=== PATIENT | female | born 1950 | race Caucasian/White ===

== ENCOUNTER → 2018-08-03 | Outpatient (CLI) | payer MEDICARE, OTHER ==
--- NOTE | 2018-08-03 15:15 | Diagnostic Imaging Report ---
INDICATION: Postmenopausal screening. COMPARISON: None. FINDINGS: AP Spine L2-L4: [BMD (g/cm2): 1.093] [T-Score: -0.9] [Z-Score: 0.8] [BMD Previous: N/A] [BMD % Change: N/A] LT Hip Neck: [BMD (g/cm2): 0.830] [T-Score: -1.5] [Z-Score: 0.1] LT Hip Total: [BMD (g/cm2):0.893] [T-Score:-0.9] [Z-Score: 0.5] [BMD Previous: N/A] [BMD % Change: N/A] RT Hip Neck: [BMD (g/cm2):0.921] [T-Score:-0.8] [Z-Score:0.8] RT Hip Total: [BMD (g/cm2):0.873] [T-score:-1.1] [Z-Score:0.3] [BMD Previous:N/A] [BMD % Change:N/A] *Indicates significant change from prior examination based on 95% confidence level. World Health Organization criteria for BMD interpretation classify patients as Normal (T-score at or above -1.0), Osteopenic (T-score between -1.0 and -2.5) or Osteoporotic (T-score at or below -2.5). LIMITATIONS AND MODIFICATION: None. FRACTURE RISK (FRAX SCORE): The ten year probability of (%): Major Osteoporotic Fracture: [9.5] Hip Fracture: [1.9] IMPRESSION: 1. Osteopenia (Low bone mass). 2. Baseline examination. 3. See below National Osteoporosis Foundation guidelines on when to potentially initiate pharmacologic therapy. Based on the National Osteoporosis Foundation Guidelines, pharmacologic treatment should be initiated in any of the following, unless clinical conditions suggest otherwise: * Any patient with prior fragility fracture of the hip or vertebrae. A spine fracture indicates 5X risk for subsequent spine fracture and 2X risk for subsequent hip fracture. * Osteoporosis (T-score <-2.5). * Postmenopausal women and men age 50 and older with low bone mass/osteopenia (T-score between -1.0 and -2.5) by DXA and 10-year major osteoporotic fracture greater than 20% or a 10-year probability of hip fracture greater than 3%. These fracture risks are supplied above in the FRAX score, if applicable. * Clinician judgement and/or patient preferences may indicate treatment for people with 10-year fracture probabilities above or below these levels. Dictated by: Dictated on workstation # [id number]
== END ==
LOC: RAD 11:21
PROVIDERS: ATTEND Family Medicine
DX: Z13.820 Encounter for screening for osteoporosis (principal); M85.89 Other specified disorders of bone density and structure, multiple sites; J44.9 Chronic obstructive pulmonary disease, unspecified; Z79.52 Long term (current) use of systemic steroids; Z78.0 Asymptomatic menopausal state
CPT/HCPCS: 77080

== ENCOUNTER 2018-08-11 14:22 | Emergency (ER) | payer MEDICARE, OTHER ==
[~2018-08-11] VITALS: Ht 149.9 cm; Wt 63.5 kg
--- OUTSIDE RECORDS SUMMARY | 2018-08-11 14:34 | XMS REPORT | Continuity of Care Document ---
Author Organization Unknown Address Unknown Allergies There is no data. Medications There is no data. Problems There is no data. Procedures There is no data. Results There is no data. Encounters ACCT No. Visit Date/Time Discharge Status Pt. Type Provider Facility Loc./Unit Complaint [id number] 08/11/2018 13:40:00 [facility]
[2018-08-11] MEDS ORDERED: RT-ALBUTEROL/IPRATROPIUM 3 ML (DUONEB) VIAL INH ONE (15:00)
[2018-08-11] MEDS ORDERED: methylPREDNISolone 125 MG (Solu-MEDROL) VIAL IVP ONE (15:00)
[2018-08-11] MEDS ORDERED: RT-ALBUTEROL SULF 2.5 MG/3 ML PRE-MIX VIAL INH SCH (15:00)
--- NOTE | 2018-08-11 15:38 | Diagnostic Imaging Report ---
INDICATION: Hypoxemia. EXAMINATION: Portable chest at 3:00 p.m. FINDINGS: Heart size and pulmonary vascularity are normal. There is increased density at the right apex. Lungs are otherwise clear. There is no effusion or pneumothorax. IMPRESSION: Right apical density could be neoplastic. Further evaluation with CT recommended. Dictated by: Dictated on workstation # [id number]
--- NOTE | 2018-08-11 15:38 | ED Respiratory ---
General Chief Complaint: Respiratory Problems Stated Complaint: OXYGEN SAT 86% Nursing Triage Note: Has been short of breath for two days. Was sent from doctors office today for low 02 sats. Was 88% on 5 L in office. Normally wears 3liters per nasal cannula. Her ankles have edema. Once placed on mask at 5L, O2 sats returned to 98%. Turned mask down to 3L and is satting at 96%. History of Present Illness Date Seen by Provider: Aug 11, 2018 Time Seen by Provider: 15:33 Initial Comments Patient presenting to the emergency department from her clinic for evaluation of hypoxia. She says she has been feeling short of breath with a whitish productive cough and decreased energy for the past 2-3 days. She has fairly advanced COPD and is on 3 L at baseline takes 10 mg of prednisone daily. She went to her doctor's office today and they were not able to get her oxygen saturation above 89% even with greater than 5 L of oxygen. She was sent here and started feeling better and her oxygen saturation is 96% on her baseline 3 L. She has some increased leg edema but denies any pain Including chest pain. She denies any history of coronary artery disease. She is in no obvious distress with normal vital signs. Allergies and Home Medications Allergies Coded Allergies: No Known Drug Allergies (Unverified , 08/11/18) Patient Home Medication List Home Medication List Reviewed: Yes Review of Systems Review of Systems Constitutional: chills; No fever EENTM: nose congestion Respiratory: cough, short of breath Cardiovascular: No chest pain Gastrointestinal: No vomiting Skin: No rash Past Vomhxnk-Zxzjup-Icgomx Hx Patient Social History Alcohol Use: Denies Use Recreational Drug Use: No Smoking Status: Current Everyday Smoker 2nd Hand Smoke Exposure: Yes Recent Foreign Travel: No Contact w/Someone Who Travel: No Recent Infectious Disease Expo: No Physical Abuse: No Sexual Abuse: No Mistreated: No Past Medical History Surgeries: Yes (cataract; kyphoplasty) Asthma, COPD Physical Exam Vital Signs - First Documented 08/11/18 14:31 Temp 98.9 Pulse 116 Resp 20 B/P (MAP) 111/72 (85) Pulse Ox 86 O2 Delivery Nasal Cannula Capillary Refill : Less Than 3 Seconds Height: 4'11.00" Weight: 140lbs. oz. [id number]; BMI Method:Stated General Appearance: WD/WN, no apparent distress HEENT: PERRL/EOMI, normal ENT inspection Respiratory: decreased breath sounds; No accessory muscle use, No rhonchi; wheezing, expiration, inspiration Cardiovascular: no murmur, tachycardia, other (1+ edema BL) Gastrointestinal: non tender, soft Neurologic/Psychiatric: alert, oriented x 3 Skin: normal color, warm/dry Progress/Results/Core Measures Suspected Sepsis Recent Fever Within 48 Hours: No Infection Criteria Present: Suspected New Infection New/Unexplained Altered Menta: No Sepsis Screen: No Definite Risk SIRS Temperature:98.9 Pulse: 116 Respiratory Rate: 20 Laboratory Tests 08/11/18 15:26: White Blood Count 13.1H Blood Pressure 111 /72 Mean: 85 Laboratory Tests 08/11/18 15:26: Creatinine 0.82, Platelet Count 211, Total Bilirubin 0.3 Results/Orders Lab Results Laboratory Tests Test 08/11/18 15:26 Range/Units White Blood Count 13.1 H 4.3-11.0 10^3/uL Red Blood Count 3.80 L 4.35-5.85 10^6/uL Hemoglobin 12.3 11.5-16.0 G/DL Hematocrit 41 35-52 % Mean Corpuscular Volume 107 H 80-99 FL Mean Corpuscular Hemoglobin 32 25-34 PG Mean Corpuscular Hemoglobin Concent 30 L 32-36 G/DL Red Cell Distribution Width 12.0 10.0-14.5 % Platelet Count 211 130-400 10^3/uL Mean Platelet Volume 11.1 H 7.4-10.4 FL Neutrophils (%) (Auto) 88 H 42-75 % Lymphocytes (%) (Auto) 7 L 12-44 % Monocytes (%) (Auto) 3 0-12 % Eosinophils (%) (Auto) 1 0-10 % Basophils (%) (Auto) 1 0-10 % Neutrophils # (Auto) 11.6 H 1.8-7.8 X 10^3 Lymphocytes # (Auto) 0.9 L 1.0-4.0 X 10^3 Monocytes # (Auto) 0.4 0.0-1.0 X 10^3 Eosinophils # (Auto) 0.1 0.0-0.3 10^3/uL Basophils # (Auto) 0.1 0.0-0.1 10^3/uL Neutrophils % (Manual) 87 % Lymphocytes % (Manual) 6 % Monocytes % (Manual) 3 % Band Neutrophils 4 % Hypochromasia 1+ Macrocytosis 1+ Sodium Level 142 135-145 MMOL/L Potassium Level 4.8 3.6-5.0 MMOL/L Chloride Level 97 L 98-107 MMOL/L Carbon Dioxide Level 34 H 21-32 MMOL/L Anion Gap 11 5-14 MMOL/L Blood Urea Nitrogen 13 7-18 MG/DL Creatinine 0.82 0.60-1.30 MG/DL Estimat Glomerular Filtration Rate > 60 BUN/Creatinine Ratio 16 Glucose Level 188 H 70-105 MG/DL Calcium Level 9.5 8.5-10.1 MG/DL Corrected Calcium 9.7 8.5-10.1 MG/DL Total Bilirubin 0.3 0.1-1.0 MG/DL Aspartate Amino Transf (AST/SGOT) 26 5-34 U/L Alanine Aminotransferase (ALT/SGPT) 24 0-55 U/L Alkaline Phosphatase 62 40-136 U/L Troponin T 20 H <=10 NG/L Pro-B-Type Natriuretic Peptide 96.0 H <75.0 PG/ML Total Protein 6.5 6.4-8.2 GM/DL Albumin 3.7 3.2-4.5 GM/DL Micro Results Microbiology 08/11/18 Influenza Types A,B Antigen (NAMAN) - Final, Complete My Orders Orders - SARAY GARCIA DO Cbc With Automated Diff (08/11/18 14:56) Comprehensive Metabolic Panel (08/11/18 14:56) Chest 1 View Ap/Pa Only (08/11/18 14:56) Troponin T (08/11/18 14:56) Probnp Fs (08/11/18 14:56) Influenza A And B Antigens (08/11/18 14:56) Methylprednisolone Sod Succ (Solu-Medrol (08/11/18 15:00) Albuterol/Ipra Inhalation Soln (Duoneb I (08/11/18 15:00) Svn Small Volume Nebulizer (08/11/18 14:56) Albuterol Pre-Mix Nebs (Rt) (Proventil (08/11/18 15:00) Svn Small Volume Nebulizer (08/11/18 14:56) Ct Angio Chest W (08/11/18 15:51) Manual Differential (08/11/18 15:26) Iohexol Injection (Omnipaque 350 Mg/Ml 1 (08/11/18 16:15) Received Contrast (Hold Metformin- Contr (08/11/18 16:15) Sodium Chloride Flush (Catheter Flush Sy (08/11/18 16:15) Ns (Ivpb) (Sodium Chloride 0.9% Ivpb Bag (08/11/18 16:15) Piperacillin/Tazobactam (Bulk) (Zosyn In (08/11/18 17:30) Lorazepam Injection (Ativan Injection) (08/11/18 17:30) Piperacillin Sodium/Tazobactam (Zosyn Vi (08/11/18 17:25) Ns (Ivpb) (Sodium Chloride 0.9% Ivpb Bag (08/11/18 17:25) Medications Given in ED Current Medications Medications Dose Ordered Sig/Mariela Route Start Time Stop Time Status Last Admin Dose Admin Albuterol/ Ipratropium 3 ml ONCE ONCE INH 08/11/18 15:00 08/11/18 15:01 DC 08/11/18 15:20 3 ML Iohexol 150 ml ONCE ONCE IV 08/11/18 16:15 08/11/18 16:16 DC 08/11/18 16:46 150 ML Lorazepam 1 mg ONCE ONCE IVP 08/11/18 17:30 08/11/18 17:31 DC 08/11/18 17:32 1 MG Methylprednisolone Sodium Succinate 125 mg ONCE ONCE IVP 08/11/18 15:00 08/11/18 15:01 DC 08/11/18 15:28 125 MG Sodium Chloride 10 ml NEEDED PRN IV 08/11/18 16:15 08/11/18 16:46 10 ML Sodium Chloride 50 ml ONCE ONCE IV 08/11/18 16:15 08/11/18 16:16 DC 08/11/18 16:46 50 ML Vital Signs/I&O 08/11/18 14:31 Temp 98.9 Pulse 116 Resp 20 B/P (MAP) 111/72 (85) Pulse Ox 86 O2 Delivery Nasal Cannula Capillary Refill : Less Than 3 Seconds Blood Pressure Mean: 85 Progress Note : Progress Note Patient with likely worsening of her COPD she does continue to smoke cigarettes. She says she is trying to cut back however. Patient has decreased aeration of her long-standing addition to wheezing. Will check labs chest x- ray treated with nebulizers and IV steroids and reassess. Patient had abnormal chest x-ray with recommended CT and CT is quite abnormal with possible mass versus mucus plugging with collapse of the right upper lobe. Bronchoscopy his recommended at this point however [facility] optics engineer is out of town. [facility] was full and [facility] transfer center would only go to a busy signal. I asked them where they would like to go next and she said she would prefer [facility]. Patient is stable for transfer as her vital signs and improved since getting steroids and breathing treatments here. She'll be placed on antibiotics and transferred in stable condition. Patient accepted by Dr. Cruz. Departure Impression Primary Impression: Bronchial obstruction Additional Impressions: Leukocytosis (leucocytosis) COPD with exacerbation Dyspnea Hypoxia Disposition: 02 XFER SHT-TRM HOSP Condition: Stable Transfer Time Spoke to Accepting Phy: 17:47 Transfer Facility: [facility] Method of Transfer: EMS Departure-Patient Inst. Referrals: SELF,SHARON QUICK (PCP/Family) Primary Care Physician SARAY GARCIA DO Aug 11, 2018 15:38
[2018-08-11 16:04] LABS: HEMATOCRIT 41 % (35-52); HEMOGLOBIN 12.3 G/DL (11.5-16.0); MEAN CORPUSCULAR HEMOGLOBIN 32 PG (25-34); MEAN CORPUSCULAR VOLUME 107 FL (80-99); WHITE BLOOD COUNT 13.1 10^3/uL (4.3-11.0)
[2018-08-11 16:05] LABS: BASOPHILS % (AUTO) 1 % (0-10); EOSINOPHILS % (AUTO) 1 % (0-10); LYMPHOCYTES % (AUTO) 7 % (12-44); MEAN CORPUSCULAR HGB CONC 30 G/DL (32-36); MEAN PLATELET VOLUME 11.1 FL (7.4-10.4); MONOCYTES % (AUTO) 3 % (0-12); NEUTROPHILS % (AUTO) 88 % (42-75); PLATELET COUNT 211 10^3/uL (130-400)
[2018-08-11 16:08] LABS: BASOPHILS # (AUTO) 0.1 10^3/uL (0.0-0.1); EOSINOPHILS # (AUTO) 0.1 10^3/uL (0.0-0.3); LYMPHOCYTES # (AUTO) 0.9 X 10^3 (1.0-4.0); MONOCYTES # (AUTO) 0.4 X 10^3 (0.0-1.0); NEUTROPHILS # (AUTO) 11.6 X 10^3 (1.8-7.8)
[2018-08-11 16:10] LABS: BAND NEUTROPHILS 4 %; HYPOCHROMASIA 1+; LYMPHOCYTES % (MANUAL) 6 %; MONOCYTES % (MANUAL) 3 %; NEUTROPHILS % (MANUAL) 87 %
[2018-08-11 16:11] LABS: BUN/CREATININE RATIO 16; CREATININE SERUM 0.82 MG/DL (0.60-1.30); GFR ESTIMATED > 60
[2018-08-11 16:12] LABS: CARBON DIOXIDE 34 MMOL/L (21-32); CHLORIDE 97 MMOL/L (98-107); POTASSIUM 4.8 MMOL/L (3.6-5.0); SODIUM 142 MMOL/L (135-145)
[2018-08-11 16:13] LABS: ALANINE AMINOTRANSFERASE 24 U/L (0-55); ALBUMIN 3.7 GM/DL (3.2-4.5); ALKALINE PHOSPHATASE 62 U/L (40-136); BILIRUBIN,TOTAL 0.3 MG/DL (0.1-1.0); CALCIUM 9.5 MG/DL (8.5-10.1); GLUCOSE 188 MG/DL (70-105); TOTAL PROTEIN 6.5 GM/DL (6.4-8.2)
[2018-08-11] MEDS ORDERED: HOLD METFORMIN - RECEIVED CONTRAST 20 ML VIAL IV SCH (16:15)
[2018-08-11] MEDS ORDERED: NS 50 ML (IVPB) BAG IV ONE (16:15)
[2018-08-11] MEDS ORDERED: CATHETER FLUSH 10 ML SYR IV PRN (16:15)
[2018-08-11] MEDS ORDERED: IOHEXOL 350 MG/ML 150 ML (OMNIPAQUE 350) VIAL IV ONE (16:15)
[2018-08-11] MEDS ORDERED: PIPERACILLIN/TAZO 4.5 GM VIAL (ZOSYN) IV ONE (17:25)
[2018-08-11] MEDS ORDERED: NS (IVPB) 100 ML ONE (17:25)
[2018-08-11] MEDS ORDERED: LORazepam INJ 2 MG/ML (ATIVAN) VIAL IVP ONE (17:30)
[2018-08-11] MEDS ORDERED: PIPERACILLIN/TAZOBACTAM (BULK) 4.5 GM in NS (IVPB) 100 ML IV ONE (17:30)
--- NOTE | 2018-08-11 17:31 | Diagnostic Imaging Report ---
CLINICAL INDICATION: Patient is short of breath for two days and has low oxygen saturations. EXAM: CT angiogram of the chest performed with 150 cc Omnipaque 350 IV contrast. Coronal and oblique MIP images of the vasculature were created to better evaluate anatomy. COMPARISON: None. FINDINGS: There is no evidence of pulmonary embolism. There is no thoracic aortic dissection or aneurysm. There is complete collapse of the right upper lobe with abrupt cutoff of the main right upper lobe bronchi which is best seen on series 2, image 35. There is low density seen in the superior right perihilar region adjacent to the bronchus which is ill-defined measuring grossly 1.6 cm x 1.9 cm in greatest axial dimension. Unknown if this represents a mass versus mucous plugging or endobronchial lesion. There may be some mucus filled bronchi within the collapsed right upper lobe. Hyperinflated middle lobe and right lower lobe is noted. There is suspected mild atelectasis involving both lung bases. There is a small area of consolidation involving the left lingular lung base which may represent atelectasis or scarring. There is mild left apical pleural-parenchymal thickening/scarring. There is a small right pleural effusion. There is no significant lymphadenopathy seen. There is a high density curvilinear structure seen within the azygous vein proximally and terminates a few centimeter prior to the confluence with the superior vena cava. There is motion artifact which limits evaluation of the pulmonary artery. There is no evidence of pulmonary embolism involving the bilateral main pulmonary arteries, and bilateral segmental pulmonary arteries. The more distal branches are partially obscured. There is no evidence of thoracic aortic dissection or aneurysm. There is dilated cystic duct and common bile duct. The common bile duct measures 1.3 cm in greatest AP dimension. The common hepatic duct distally measures 2 mm. There is also intrahepatic ductal dilatation seen within both lobes of the liver. There is high density material seen within the proximal common hepatic duct and distal common bile duct. Choledocholithiasis may be considered. The gallbladder is not completely imaged on this exam. There is no dilatation of the pancreatic duct. The remainder of the visualized intra-abdominal structures are unremarkable. The extrathoracic and extra-abdominal structures are unremarkable. There are degenerative spurs and facet arthropathy involving the thoracic spine. IMPRESSION: 1: Motion artifact limits evaluation of the pulmonary arteries. There is no definite evidence of pulmonary embolism or thoracic aortic dissection or aneurysm. 2: There is complete collapse/consolidation of the right upper lobe with abrupt cutoff of the right upper lobe pulmonary bronchus. There is low density seen adjacent to the region of the cutoff right upper lobe pulmonary bronchus. A superior right perihilar mass may be considered. Endobronchial lesion may also be considered. Mucous plugging may also be a consideration. Pulmonary consultation is suggested. 3: There is a small right pleural effusion. There is no lymphadenopathy. 4: There is intrahepatic and extrahepatic ductal dilatation and dilatation of the visualized portion of the cystic duct. There are areas of high density material seen within the proximal common hepatic duct and distal common bile duct. Choledocholithiasis may be present. Ascending cholangitis also should be excluded. MRCP is suggested for further evaluation. Results of this report were discussed with Dr. Savage Reyes via the telephone on 08/11/2018 at 1712 hrs. Dictated by: Dictated on workstation # [id number]
[2018-08-11] MEDS ORDERED: PRD10T (17:53)
[2018-08-11] MEDS ORDERED: ALBU2.5V4 (17:53)
[2018-08-11] MEDS ORDERED: PROAIR (17:53)
[2018-08-11] MEDS ORDERED: ALPR0.254 (17:53)
[2018-08-11 18:12] VITALS: BP 117/62
--- NOTE | 2018-08-11 19:05 | NUR ---
PATIENT TRANSFERRED AT THIS TIME TO [facility] VIA [facility].
== END 2018-08-11 19:06 | disposition short-term general hospital (02) ==
LOC: EDUNIT# 14:22 → ER FS 14:24
DX: J98.4 Other disorders of lung (principal); D72.829 Elevated white blood cell count, unspecified; J44.9 Chronic obstructive pulmonary disease, unspecified; F17.200 Nicotine dependence, unspecified, uncomplicated; Z79.52 Long term (current) use of systemic steroids
CPT/HCPCS: 36415; 71045; 71275; 80053; 83880; 84484; 85007; 85027; 87804

== ENCOUNTER → 2019-05-31 | Outpatient (CLI) | payer MEDICARE, OTHER ==
[~2019-05-31] MED LIST: ALBU2.5V4; ALPR0.254; PRD10T; PROAIR
--- NOTE | 2019-05-31 15:38 | Diagnostic Imaging Report ---
EXAMINATION: CHEST (PA AND LATERAL). CLINICAL INDICATION: 69-year-old female, shortness of breath. COMPARISON: August 11, 2018. FINDINGS: The patient's chin positioning does limit evaluation of the lung apices. Stable overall appearance of the cardiomediastinal silhouette. There is no identified pneumothorax. There is blunting of the costophrenic angles posteriorly. There are right paramediastinal opacities again noted. There is abnormal attenuation along the lateral aspect of the right upper lung. There is a compression deformity status post kyphoplasty. IMPRESSION: 1. Right paramediastinal opacities which do appear to be present previously. 2. New abnormal opacification along the lateral aspect of the right upper lung. This potentially could reflect loculated pleural fluid, chest wall lesion, and/or airspace consolidative process. 3. Small at least right-sided pleural effusion. Dictated by: Dictated on workstation # [id number]
== END ==
LOC: RAD FS 13:57
PROVIDERS: ATTEND Family Medicine
DX: J44.9 Chronic obstructive pulmonary disease, unspecified (principal); J90 Pleural effusion, not elsewhere classified
CPT/HCPCS: 71046

== ENCOUNTER → 2019-06-03 | Outpatient (CLI) | payer MEDICARE, OTHER ==
[~2019-06-03] MED LIST changes: +CATHETER FLUSH 10 ML SYR IV PRN; +HOLD METFORMIN - RECEIVED CONTRAST 20 ML VIAL IV SCH; +IOHEXOL 350 MG/ML 100 ML (OMNIPAQUE 350) VIAL IV ONE; +NS 100 ML (IVPB) BAG IV ONE
[2019-06-03 09:39] LABS: BILIRUBIN,TOTAL 0.3 MG/DL (0.1-1.0); CALCIUM 9.5 MG/DL (8.5-10.1); CREATININE SERUM 0.96 MG/DL (0.60-1.30); POTASSIUM 4.2 MMOL/L (3.6-5.0); TOTAL PROTEIN 6.4 GM/DL (6.4-8.2)
[2019-06-03 09:40] LABS: ALBUMIN 3.9 GM/DL (3.2-4.5)
--- NOTE | 2019-06-03 11:40 | Diagnostic Imaging Report ---
EXAMINATION: CT Chest with intravenous contrast. TECHNIQUE: Multiple contiguous axial images were obtained through the chest after the uneventful administration of intravenous contrast. All CT scans use one or more of the following dose optimizing techniques: automated exposure control, MA and/or KvP adjustment based on a patient size and exam type, or iterative reconstruction. HISTORY: Shortness of breath. COMPARISON: 08/11/2018 FINDINGS: There is no edema or pneumonia. There is a tiny left pleural effusion with bibasilar atelectasis. No pneumothorax. No suspicious nodules. Mild scarring is seen in the apices. Radiographic abnormality was likely due to tortuous vasculature and lipomatosis without discrete parenchymal abnormality seen. Heart size is normal. No pericardial effusion. Aorta is normal in caliber. There is no axillary or supraclavicular lymphadenopathy. There is no mediastinal lymphadenopathy. Limited views of the upper abdomen are unremarkable. There are no suspicious osseous lesions. There has been vertebroplasty of a mid thoracic compression fracture. IMPRESSION: 1. Tiny left pleural effusion and bibasilar atelectasis. 2. Dilated intrahepatic and extrahepatic ducts and the upper abdomen. If not performed previously, CT or MRI is recommended for further evaluation. Dictated by: Dictated on workstation # [id number]
== END ==
LOC: LAB FS 08:41
PROVIDERS: ATTEND Family Medicine
DX: J43.1 Panlobular emphysema (principal); E66.9 Obesity, unspecified
CPT/HCPCS: 36415; 71260; 80053

== ENCOUNTER → 2019-06-17 | Outpatient (CLI) | payer MEDICARE, OTHER ==
--- NOTE | 2019-06-17 09:41 | Diagnostic Imaging Report ---
EXAMINATION: CT Abdomen with intravenous contrast. TECHNIQUE: Multiple contiguous axial images were obtained through the abdomen after the administration of intravenous contrast. All CT scans use one or more of the following dose optimizing techniques: automated exposure control, MA and/or KvP adjustment based on a patient size and exam type, or iterative reconstruction. HISTORY: Dilated biliary ducts. COMPARISON: None available. FINDINGS: Limited views of the lower thorax show bilateral right base atelectasis. The liver is normal without focal lesion. Central intrahepatic and extrahepatic ducts are dilated. There is a 6 mm calcification in the mid common duct after which the duct returns to a normal size. The cystic duct is mildly dilated. There is a second calcification in the common hepatic duct above the origin of the cystic duct measuring approximately 4 mm. There is a 2.9 cm irregular calcified focus adjacent to the gallbladder fundus and hepatic flexure of the colon, unclear if this is a diverticulum filled with calcified stool or a large gallstone. No evidence for cholelithiasis or inflammation. Pancreas is normal. Spleen is normal. Adrenal glands are normal. The kidneys are normal. There is no hydronephrosis. Visualized bowel is normal in caliber without obstruction or inflammation. No free fluid or air. No abdominal lymphadenopathy. Aorta is normal in caliber without aneurysm. There are no suspicious osseous lesions. IMPRESSION: 1. At least partially obstructing stone in the common bile duct with dilation of the upstream ducts including cystic duct and a second small stone in the common hepatic duct. 2. Large heterogeneous partially calcified focus adjacent to the gallbladder fundus and hepatic flexure either a large gallstone or diverticulum distended with stool. No evidence for cholecystitis. Dictated by: Dictated on workstation # [id number]
== END ==
LOC: RAD FS 08:36
PROVIDERS: ATTEND Family Medicine
DX: K80.50 Calculus of bile duct without cholangitis or cholecystitis without obstruction (principal)
CPT/HCPCS: 74160

== ENCOUNTER 2019-09-02 09:22 | Outpatient (RCR) | payer MEDICARE, OTHER ==
[~2019-09-02] VITALS: Ht 149.9 cm; Wt 78.2 kg
[~2019-09-02 09:22] MED LIST changes: -ALBU2.5V4; +ALBU2.5V4 IH; -CATHETER FLUSH 10 ML SYR IV PRN; -HOLD METFORMIN - RECEIVED CONTRAST 20 ML VIAL IV SCH; -IOHEXOL 350 MG/ML 100 ML (OMNIPAQUE 350) VIAL IV ONE; -NS 100 ML (IVPB) BAG IV ONE
[2019-09-02] MEDS ORDERED: PRED5TAB PO (10:30)
[2019-09-02] MEDS ORDERED: ALPR0.5T7 PO (10:30)
[2019-09-02] MEDS ORDERED: FURO-124 PO (10:30)
[2019-09-02] MEDS ORDERED: RT-ALBUINH IH (10:30)
[2019-09-02] MEDS ORDERED: FLUT1BLS3 IH (10:30)
== END 2019-09-02 15:20 | disposition home or self-care (01) ==
LOC: PREOP 09:22
PROVIDERS: ATTEND Surgery
DX: Z01.818 Encounter for other preprocedural examination (principal); Z11.59 Encounter for screening for other viral diseases
CPT/HCPCS: 87635

== ENCOUNTER → 2020-06-29 | Outpatient (CLI) | payer MEDICARE, OTHER ==
[~2020-06-29] MED LIST changes: +ALPR.25T; -ALPR0.254; +ALPR0.5T7 PO; +CATHETER FLUSH 10 ML SYR IV PRN; +CHOL200074 PO; +FLUT1BLS3 IH; +FURO-124 PO; +GUAI120013 PO; +HOLD METFORMIN - RECEIVED CONTRAST 20 ML VIAL IV SCH; +HYDR-4226 PO; +IOHEXOL 350 MG/ML 100 ML (OMNIPAQUE 350) VIAL IV ONE; +MULT-1136 PO; +NS 100 ML (IVPB) BAG IV ONE; +PRED5TAB PO; +RT-ALBUINH IH
[2020-06-29 13:53] LABS: CREATININE SERUM 1.09 MG/DL (0.60-1.30)
--- NOTE | 2020-06-29 17:11 | Diagnostic Imaging Report ---
PROCEDURE: CT chest with contrast only. TECHNIQUE: Multiple contiguous axial images were obtained through the chest after administration of intravenous contrast. Auto Exposure Controls were utilized during the CT exam to meet ALARA standards for radiation dose reduction. DATE: June 29, 2020. COMPARISON: CT chest June 03, 2019. INDICATION: 70-year-old female, history of chronic obstructive pulmonary disease. FINDINGS: There is mild pleural parenchymal scarring in the lung apices. There is a small left pleural effusion. There are enhancing predominantly linear opacities in the right lower lobe and left lower lobe consistent with atelectasis. There is a 5 mm right upper lobe pulmonary nodule versus focal atelectasis or scarring on axial image 31. There is no otherwise identified potential pulmonary nodule. There is no lung mass. There is no pneumothorax. The central airways are patent. There is no identified central pulmonary embolus. The heart is not enlarged. There is no pericardial effusion. There is no identified abnormally enlarged mediastinal, hilar, or axillary lymph node meeting CT size criteria for adenopathy. The imaged portions of the upper abdomen are grossly unremarkable. There are prior kyphoplasty changes of T8. There are multilevel degenerative changes of the spine. There is currently very mild intrahepatic bile duct dilation which is decreased in prominence since June 02, 2019. IMPRESSION: CT CHEST. 1. 5 mm right upper lobe pulmonary nodule versus focal scarring unchanged since June 03, 2019. No new or enlarging pulmonary nodule. 2. Small left pleural effusion. Atelectasis in the right and left lower lobes. Dictated by: Dictated on workstation # [id number]
== END ==
LOC: RAD FS 13:11
PROVIDERS: ATTEND Internal Medicine Critical Care Medicine
DX: Z01.812 Encounter for preprocedural laboratory examination (principal); J43.9 Emphysema, unspecified; J98.11 Atelectasis; R91.1 Solitary pulmonary nodule
CPT/HCPCS: 36415; 71260; 82565; 84520

== ENCOUNTER 2021-04-02 07:23 | Inpatient (IN) | payer MEDICARE, OTHER ==
[~2021-04-02] VITALS: Ht 154 cm; Wt 81.6 kg
[~2021-04-02 07:23] MED LIST changes: -CATHETER FLUSH 10 ML SYR IV PRN; -HOLD METFORMIN - RECEIVED CONTRAST 20 ML VIAL IV SCH; -IOHEXOL 350 MG/ML 100 ML (OMNIPAQUE 350) VIAL IV ONE; -NS 100 ML (IVPB) BAG IV ONE
[2021-04-02] MEDS ORDERED: methylPREDNISolone 125 MG (Solu-MEDROL) VIAL IV STA (07:44)
[2021-04-02] MEDS ORDERED: ACETAMINOPHEN 500 MG TAB (TYLENOL) PO PRN (07:45)
--- NOTE | 2021-04-02 07:59 | ED General ---
General Chief Complaint: Abdominal/GI Problems Stated Complaint: N/V Source of Information: Patient, Family () Exam Limitations: Physical Impairments History of Present Illness Date Seen by Provider: Apr 02, 2021 Time Seen by Provider: 07:26 Initial Comments Here by EMS with report of nausea, vomiting and diarrhea since 1 AM. Apparently she woke her up at that time and had him the sister to the bathroom. She apparently had vomiting and diarrhea per EMS and quite a bit of both. Patient is obviously ill and somnolent. She does answer simple questions and follows simple commands. She is globally weak. Does have history of COPD and is on chronic steroids. She is O2 dependent and typically at 3 L. Patient's states that she had to be increased to 4 L overnight because her O2 sat was in the low 80s. That did bring it up to 90%. At 5 AM, she was still on the stool and at around 7 AM, he called EMS who transported her here. No report of blood in the vomit or stool. Patient denies pain. EMS reports that she was wheezing quite a bit on their arrival and they did give DuoNeb which is helped with that. O2 saturations 89-91 on 4 L via nasal cannula. EMS reports tachycardia and did start 2 IVs running 1 L normal saline each. Those are approximately half complete now. They have noted tachycardia in the 130s to 150s that appears to be sinus with artifact. Blood pressures have been elevated in the 130s to 160s systolic range. Follows with Dr. Regalado at [facility]. She is apparently vaccinated x2+ booster for Covid. No ill contacts per the . Timing/Duration: 4-6 Hours Severity: Moderate Associated Systoms: No Cough; Fever/Chills, Nausea/Vomiting, Shortness of Air, Weakness Allergies and Home Medications Allergies Coded Allergies: Sulfa (Sulfonamide Antibiotics) (Verified Allergy, Unknown, Hives, 09/01/19) ibuprofen (Verified Allergy, Unknown, Hives, 09/01/19) sulfamethoxazole (Verified Allergy, Unknown, Hives, 09/01/19) trimethoprim (Verified Allergy, Unknown, Hives, 09/01/19) glucose (Verified Adverse Reaction, Unknown, thickens mucous, 09/01/19) Patient Home Medication List Home Medication List Reviewed: Yes Albuterol Sulfate (Albuterol Sulfate) 2.5 Mg/3 Ml Vial.neb, 1 VIAL IH Q8H PRN for SHORTNESS OF BREATH, (Reported) Entered as Reported by: LIZETH ARRIOLA on 08/11/18 1753 Albuterol Sulfate (Proair Hfa) 1 Puff Puff, 2 PUFF IH Q4H PRN for WHEEZING, (Reported) Entered as Reported by: MADHAV PEDERSEN on 09/02/19 1030 Alprazolam (Alprazolam) 0.5 Mg Tablet, 0.5 MG PO BID PRN for ANXIETY, (Reported) Entered as Reported by: MADHAV PEDERSEN on 09/02/19 1030 Cholecalciferol (Vitamin D3) (Vitamin D3) 50 Mcg Capsule, 50 MCG PO DAILY, (Reported) Entered as Reported by: SHAWNEE CAI on 09/07/19 0823 Fluticasone/Umeclidin/Vilanter (Trelegy Ellipta 100-62.5-25) 1 Each Blst.w.dev, 1 EACH IH DAILY, (Reported) Entered as Reported by: MADHAV PEDERSEN on 09/02/19 1030 Furosemide (Lasix) 40 Mg Tablet, 40 MG PO DAILY, (Reported) Entered as Reported by: MADHAV PEDERSEN on 09/02/19 1030 Guaifenesin (Mucinex) 1,200 Mg Tab.er.12h, 1,200 MG PO DAILY, (Reported) Entered as Reported by: SHAWNEE CAI on 09/07/19 0823 Hydrocodone/Acetaminophen (Hydrocodone/Acetaminophen 5 MG/325 MG TAB) 1 Each Tablet, 1 TAB PO Q6H Prescribed by: DUSTIN HENDERSON on 09/07/19 1145 Multivitamin (Multivitamin) 1 Each Tablet, 1 EACH PO DAILY, (Reported) Entered as Reported by: SHAWNEE CAI on 09/07/19 0823 Prednisone (Prednisone) 5 Mg Tablet, 10 MG PO DAILY, (Reported) Entered as Reported by: MADHAV PEDERSEN on 09/02/19 1030 Review of Systems Review of Systems Constitutional: fever, weakness Respiratory: short of breath, wheezing Cardiovascular: No chest pain; edema Gastrointestinal: diarrhea, nausea, vomiting Psychiatric/Neurological: Weakness, Other (Altered mental status) Unable to complete review of systems due to altered mental status and underlying medical condition Past Ffnkvcc-Lhzwsc-Nuhwli Hx Patient Social History Tobacco Use?: Yes Substance use?: No Alcohol Use?: No Seasonal Allergies Seasonal Allergies: Yes Past Medical History Surgeries: Yes (cataract; kyphoplasty, bronchoscopy, c/s x3) Section, Orthopedic Respiratory: Yes (wears oxygen 3.5L) Asthma, COPD Currently Using CPAP: No Currently Using BIPAP: No Cardiac: No Neurological: No Genitourinary: No Gastrointestinal: Yes Gall Bladder Disease Musculoskeletal: Yes (hx of kyphoplasty) Fractures Endocrine: No HEENT: No (cataracts removed) Cancer: No Psychosocial: Yes Sleep Difficulties, Anxiety Integumentary: No Blood Disorders: No Family Medical History Reviewed Nursing Family Hx No Pertinent Family Hx Physical Exam-Suspected Sepsis Physical Exam Vital Signs Vital Signs - First Documented 04/02/21 04/02/21 04/02/21 07:25 07:26 11:48 Temp 38.4 Pulse 145 Resp 25 B/P (MAP) 157/118 (131) Pulse Ox 94 O2 Delivery Nasal Cannula O2 Flow Rate 4.00 FiO2 60 Capillary Refill : Height, Weight, BMI Height: 4'11.00" Weight: 140lbs. oz. 63.407373ab; 34.80 BMI Method:Stated General Appearance: Mild Distress, Obese HEENT: PERRL/EOMI, Pharynx Normal Neck: Non Tender, Supple Respiratory: No Accessory Muscle Use, Decreased Breath Sounds, Wheezing (Few trace wheezes) Cardiovascular: No Murmur, Tachycardia Gastrointestinal: Soft; No Guarding, No Mass, No Rebound; Tenderness (Mild diffuse abdominal tenderness) Back: Normal Inspection, No CVA Tenderness, No Vertebral Tenderness Extremity: No Calf Tenderness, Pedal Edema (2+ bilateral lower extremities to the knees bilateral) Neurologic/Psychiatric: Disoriented (Oriented only to self), Motor Weakness (Global) Skin: normal color, warm/dry Focused Exam Lactate Level 04/02/21 07:38: Lactic Acid Level 2.53*H 04/02/21 10:11: Lactic Acid Level 2.23*H Lactic Acid Level Laboratory Tests Test 04/02/21 10:11 Lactic Acid Level 2.23 MMOL/L (0.50-2.00) *H Procedures/Interventions Lumen: triple Central Line Procedure: betadine prep Position: internal jugular (R) Complications: none Post Position: sutured, good blood return, position confirmed w/ CXR Placed via ultrasound guidance after intubation x1 stick with good flash and repeat turn. Flushed well. Tolerated procedure well with no complications. Settings down to 300 tidal volume during procedure. No hypoxia noted. Sutured and covered with sterile dressing. Chest x-ray confirms line in good position without pneumothorax. Date of ETT Placement: Apr 02, 2021 Time of ETT Placement: 09:38 Intubation Method: orotracheal Tube Size: 7.5 Medications: Etomidate, Succinylcholine Positive End Tide CO2: Yes Breath Sounds after Intubation: bilateral-equal Intubation Complications: no complications Post Intubation Xray: Yes ET tube in good position Intubated via emergent conditions due to persistent hypoxia and hypercapnia with somnolence. Intubated x1 attempt via Freddie videoscope and 7.5 tube. Tolerated procedure well with no complications. Confirmed via chest x-ray. O2 sats remained in the 90s throughout the procedure and improved to 99% on vent at tidal volume 400, rate 18, PEEP of 5 and FiO2 at 100%. Progress/Results/Core Measures Suspected Sepsis SIRS Temperature: Pulse: Respiratory Rate: Laboratory Tests 04/02/21 07:38: White Blood Count 15.1H Blood Pressure / Mean: 04/02/21 07:38: Lactic Acid Level 2.53*H 04/02/21 10:11: Lactic Acid Level 2.23*H Laboratory Tests 04/02/21 07:38: Creatinine 1.36H, INR Comment 1.0, Platelet Count 240, Total Bilirubin 0.5 Results/Orders Lab Results Laboratory Tests Test 04/02/21 07:38 04/02/21 07:51 04/02/21 08:26 04/02/21 10:11 Range/Units White Blood Count 15.1 H 4.3-11.0 10^3/uL Red Blood Count 3.86 3.80-5.11 10^6/uL Hemoglobin 12.4 11.5-16.0 g/dL Hematocrit 42 35-52 % Mean Corpuscular Volume 108 H 80-99 fL Mean Corpuscular Hemoglobin 32 25-34 pg Mean Corpuscular Hemoglobin Concent 30 L 32-36 g/dL Red Cell Distribution Width 12.6 10.0-14.5 % Platelet Count 240 130-400 10^3/uL Mean Platelet Volume 10.7 9.0-12.2 fL Immature Granulocyte % (Auto) 1 % Neutrophils (%) (Auto) 83 H 42-75 % Lymphocytes (%) (Auto) 9 L 12-44 % Monocytes (%) (Auto) 4 0-12 % Eosinophils (%) (Auto) 3 0-10 % Basophils (%) (Auto) 0 0-10 % Neutrophils # (Auto) 12.6 H 1.8-7.8 X 10^3 Lymphocytes # (Auto) 1.4 1.0-4.0 X 10^3 Monocytes # (Auto) 0.6 0.0-1.0 X 10^3 Eosinophils # (Auto) 0.4 H 0.0-0.3 10^3/uL Basophils # (Auto) 0.0 0.0-0.1 10^3/uL Immature Granulocyte # (Auto) 0.1 0.0-0.1 10^3/uL Neutrophils % (Manual) 53 % Lymphocytes % (Manual) 5 % Monocytes % (Manual) 5 % Eosinophils % (Manual) 3 % Basophils % (Manual) 0 % Band Neutrophils 32 % Atypical Lymphocytes 2 % Platelet Estimate NORMAL Macrocytosis 2+ Stomatocytes MODERATE Prothrombin Time 13.4 12.2-14.7 SEC INR Comment 1.0 0.8-1.4 Activated Partial Thromboplast Time 23 L 24-35 SEC Sodium Level 141 135-145 MMOL/L Potassium Level 4.4 3.6-5.0 MMOL/L Chloride Level 98 98-107 MMOL/L Carbon Dioxide Level 33 H 21-32 MMOL/L Anion Gap 10 5-14 MMOL/L Blood Urea Nitrogen 32 H 7-18 MG/DL Creatinine 1.36 H 0.60-1.30 MG/DL Estimat Glomerular Filtration Rate 39 BUN/Creatinine Ratio 24 Glucose Level 141 H 70-105 MG/DL Lactic Acid Level 2.53 *H 2.23 *H 0.50-2.00 MMOL/L Calcium Level 8.8 8.5-10.1 MG/DL Corrected Calcium 9.1 8.5-10.1 MG/DL Total Bilirubin 0.5 0.1-1.0 MG/DL Aspartate Amino Transf (AST/SGOT) 27 5-34 U/L Alanine Aminotransferase (ALT/SGPT) 19 0-55 U/L Alkaline Phosphatase 55 40-136 U/L Troponin I < 0.30 <0.30 NG/ML Total Protein 6.5 6.4-8.2 GM/DL Albumin 3.6 3.2-4.5 GM/DL Blood Gas Puncture Site RT BRACHIAL Blood Gas Patient Temperature 38.4 Arterial Blood pH 7.30 *L 7.37-7.43 Arterial Blood Partial Pressure CO2 76 *H 35-45 MMHG Arterial Blood Partial Pressure O2 68 L 79-93 MMHG Arterial Blood HCO3 37 H 23-27 MMOL/L Arterial Blood Total CO2 39.7 H 21.0-31.0 MMOL/L Arterial Blood Oxygen Saturation 91 L 94-100 % Arterial Blood Base Excess 8.3 H -2.5-2.5 MMOL/L Cj Test NA Blood Gas Ventilator Setting NO Blood Gas Inspired Oxygen 3.5 L Urine Color YELLOW Urine Clarity SL CLOUDY Urine pH 5.5 5-9 Urine Specific [place] 1.025 H 1.016-1.022 Urine Protein 1+ H NEGATIVE Urine Glucose (UA) NEGATIVE NEGATIVE Urine Ketones TRACE H NEGATIVE Urine Nitrite NEGATIVE NEGATIVE Urine Bilirubin NEGATIVE NEGATIVE Urine Urobilinogen 0.2 < = 1.0 MG/DL Urine Leukocyte Esterase NEGATIVE NEGATIVE Urine RBC (Auto) 2+ H NEGATIVE Urine RBC 5-10 H /HPF Urine WBC 0-2 /HPF Urine Squamous Epithelial Cells NONE /HPF Urine Crystals PRESENT H /LPF Urine Amorphous Sediment MOD CHEL URATES H /LPF Urine Bacteria NEGATIVE /HPF Urine Casts PRESENT /LPF Urine Hyaline Casts 25-50 H /LPF Urine Mucus MODERATE H /LPF Urine Culture Indicated CULTURE PENDING My Orders Orders - LÓPEZ DALLAS MD Cbc With Automated Diff (04/02/21 07:41) Comprehensive Metabolic Panel (04/02/21 07:41) Blood Culture (04/02/21 07:41) Sputum Culture (04/02/21 07:41) Urinalysis (04/02/21 07:41) Urine Culture (04/02/21 07:41) Protime With Inr (04/02/21 07:41) Partial Thromboplastin Time (04/02/21 07:41) Chest 1 View Ap/Pa Only (04/02/21 07:41) Acetaminophen Tablet (Tylenol Tablet) (04/02/21 07:45) Ekg Tracing (04/02/21 07:41) Vital Signs Adult Sepsis Patie Q15M (04/02/21 07:41) O2 (04/02/21 07:41) Remove Rings In Anticipation O (04/02/21 07:41) Lactic Acid Analyzer (04/02/21 07:41) Arterial Blood Gas (04/02/21 07:41) Catheter(Urinary) Insert & Ass 03,15 (04/02/21 07:41) Methylprednisolone Sod Succ (Solu-Medrol (04/02/21 07:44) Troponin I Fs (04/02/21 07:46) Manual Differential (04/02/21 07:38) Cefepime Injection (Maxipime Injection) (04/02/21 08:30) Lactated Ringers (Lr 1000 Ml Iv Solution (04/02/21 08:46) Ed Admission (Communication) (04/02/21 09:02) Chest 1 View Ap/Pa Only (04/02/21 ) Norepinephrine 8 Mg/250 Ml (Norepinephri (04/02/21 09:57) Propofol Drip (Icu) (Diprivan Drip (Icu) (04/02/21 10:01) Lactated Ringers (Lr 1000 Ml Iv Solution (04/02/21 10:14) Acetaminophen Suppository (Tylenol Suppo (04/02/21 10:17) Norepinephrine 8 Mg/250 Ml (Norepinephri (04/02/21 10:45) Propofol Drip (Icu) (Diprivan Drip (Icu) (04/02/21 10:45) Sedation Communication Q48H (04/02/21 10:32) Triglycerides (04/04/21 10:32) Triglycerides (04/06/21 10:32) Triglycerides (04/08/21 10:32) Acetaminophen Suppository (Tylenol Suppo (04/02/21 10:45) Medications Given in ED Current Medications Medications Dose Ordered Sig/Mariela Route Start Time Stop Time Status Last Admin Dose Admin Acetaminophen 650 mg ONCE ONCE MO 04/02/21 10:45 04/02/21 10:46 DC 04/02/21 10:27 650 MG Cefepime HCl 1000 mg/Sodium Chloride 50 ml @ 100 mls/hr ONCE ONCE IV 04/02/21 08:30 04/02/21 08:59 DC 11/30/21 08:40 100 MLS/HR Vital Signs/I&O 04/02/21 04/02/21 04/02/21 04/02/21 07:25 07:25 07:26 09:40 Temp 38.4 Pulse 145 Resp 25 B/P (MAP) 157/118 (131) Pulse Ox 94 92 O2 Delivery Nasal Cannula Nasal Cannula Nasal Cannula Mechanical Ventilator O2 Flow Rate 4.00 100.00 04/02/21 04/02/21 04/02/21 04/02/21 10:10 10:21 10:45 10:50 Temp 38.4 Pulse 114 68 99 112 Resp 19 B/P (MAP) 81/25 112/62 113/54 112/68 Pulse Ox 100 O2 Delivery Mechanical Ventilator O2 Flow Rate 100.00 04/02/21 04/02/21 04/02/21 04/02/21 11:34 11:45 11:48 12:00 Temp 37.3 Pulse 103 105 104 103 Resp 18 17 18 B/P (MAP) 111/73 96/85 Pulse Ox 97 100 98 O2 Delivery Mechanical Ventilator Mechanical Ventilator O2 Flow Rate 50.00 50.00 FiO2 60 Capillary Refill : Progress Note : Progress Note Seen and evaluated. Sepsis protocol initiated as patient is febrile and tachycardic. She is not hypotensive. She is getting 2 L of normal saline. She is obese and we will convert fluid administration based on ideal body weight as I do believe her lactic acid will be elevated. She is not in septic shock. [place] body weight based on 60 inches and 80 kg estimated currently would be appr oximately 45 kg. The initial 2 L bolus will exceed the 30 mg/kg requirement. Solu-Medrol 125 mg IV given as she is steroid dependent and COPD history. We will place Huff catheter to get good urine sample and chest x-ray will be performed. We will get ABG to evaluate for hypercapnia as well as EKG and troponin. I did discuss history of present illness with patient's . Monitor patient. 0812: Chest x-ray does have findings concerning for basilar infiltrates. We are unable to get Huff catheter at this time due to difficulty with anatomy. 0827: Antibiotics have been ordered and will be given at this time. Cefepime 1 g IV ordered. Huff catheter was obtained and urine sample has been obtained and sent. Patient remains tachycardic and lactic acid elevated greater than 2. She is not hypotensive. Patient will require admission. Monitor patient. 0855: I have discussed the case with Dr. Perdomo and she accepts patient for admission to the ICU, inpatient status, critical condition. 0906: We have initiated us short trial of BiPAP but patient is quite somnolent. Dr. Perdomo is under the belief that patient needs intubation and night agree. I did discuss this with the patient's family. We will set up for intubation. Patient's blood pressure is now on the lower end of normal which I think is likely partially due to BiPAP and occasionally crosses below 65 MAP. We will continue LR at 250 an hour and initiate Levophed as needed. 1014: We have intubated the patient and placed central line. Levophed initiated at 0. 03 mcg/kg/min starting dose with blood pressure greater than 90 systolic and greater than 65 map. We will also initiate propofol. Patient did receive rocuronium 50 mg IV during central line procedure. O2 saturations have remained in the upper 90s to 100% on vent. Post chest x-ray after intubation and central line as well as NG tube shows all lines in good position. Current vital signs blood pressure 123/65 with heart rate of 102 and O2 sat at 100% with respiratory rate at 20. Vent settings are respiratory rate 18, PEEP of 5, tidal volume of 400 and O2 sat 100%. We will adjust that now. Propofol is being initiated at 30 mcg/kg/min and will be titrated to sedation. We are pending ICU bed and EMS transfer. She was unable to take the oral Tylenol so we will convert this to rectal Tylenol 650 mg now. 1026: I did discuss the current findings and situation with the patient's family. All questions answered.1045: Patient will be departing by EMS. I attest to focus exam at this time. Patient has LR running at 250 mL an hour with Levophed at 0.1 mcg/kg/min and unchanged propofol. EMS report given by me. ECG Initial ECG Impression Date: Apr 02, 2021 Initial ECG Impression Time: 07:37 Initial ECG Rate: 146 Initial ECG Rhythm: S.Tach Comment Sinus tachycardia with artifact. Normal axis. Low voltage in the precordial leads. No evidence of ST elevation CA. No previous available for comparison. Interpreted by me. Diagnostic Imaging Diagonstic Imaging: Xray Plain Films/CT/US/NM/MRI: chest Comments [facility], [place] NAME: BERNADINE MOTLEY [facility] REC#: [id number] PT STATUS: REG ER : 1950 PHYSICIAN: LÓPEZ DALLAS MD ADMIT DATE: 04/02/21/ER FS Draft Date of Exam:04/02/21 CHEST 1 VIEW AP/PA ONLY HISTORY: Sepsis COMPARISON: 08/11/2018 TECHNIQUE: Frontal view the chest FINDINGS: There is new airspace consolidation/effusion in the right lung base. There is mild cardiomegaly, similar to the prior exam. There is left basilar airspace opacity with possible effusion as well. The upper lungs are obscured by overlapping structures. No large pneumothorax is seen. IMPRESSION: 1. New increased airspace consolidations and/or pleural effusions. Dictated on workstation # [id number] Dict: 04/02/21 0755 Trans: 04/02/21 0802 [facility] [place] [phone] Interpreted by: CHESTER ROMERO MD Electronically signed by: Reviewed: Reviewed by Me Diagonstic Imaging: Xray Plain Films/CT/US/NM/MRI: chest Comments ET tube in good position. Central line in good position. NG tube in good position. No pneumothorax. Reviewed by me. See final report for details. [facility] [place] NAME: BERNADINE MOTLEY [facility] REC#: [id number] PT STATUS: REG ER : 1950 PHYSICIAN: LÓPEZ DALLAS MD ADMIT DATE: 04/02/21/ER FS Draft Date of Exam:04/02/21 CHEST 1 VIEW AP/PA ONLY EXAMINATION: Chest 1 view AP/PA only. INDICATION: Intubation. COMPARISON: 04/02/2021 at 0751 hours. FINDINGS: ET tube has its tip approximately 2.5 cm above the veronica. Enteric tube courses into the stomach and off the [id number]. Right IJ central venous catheter terminates in the lower SVC. Low lung volumes are again noted. Potential layering pleural effusions. Ill-defined pulmonary opacities are similar. No pneumothorax. IMPRESSION: 1. Well-positioned support devices. 2. No change in basilar opacities which could be due to small pleural effusions. Dictated on workstation # [id number] Dict: 04/02/21 1027 Trans: 04/02/21 1029 [id number] Interpreted by: VIK MCNALLY MD Electronically signed by: Reviewed: Reviewed by Me Critical Care Note Critical Care Start Time: 07:26 Stop Time: 10:45 Total Time (minutes) 60 min Progress Critical care time excludes separately billable events. See progress note for details. Departure Impression Primary Impression: Hypercapnic respiratory failure Qualified Codes: J96.02 - Acute respiratory failure with hypercapnia Additional Impressions: Bilateral pneumonia Qualified Codes: J18.9 - Pneumonia, unspecified organism COPD exacerbation Diarrhea Qualified Codes: R19.7 - Diarrhea, unspecified Severe sepsis Disposition: 30 STILL A PATIENT Condition: Critical Admissions Decision to Admit Reason: Admit from ER (General) Decision to Admit/Date: Apr 02, 2021 Time/Decision to Admit Time: 08:55 Departure-Patient Inst. Referrals: SHARON REGALADO MD (PCP/Family) Primary Care Physician LÓPEZ DALLAS MD Apr 02, 2021 07:59
--- NOTE | 2021-04-02 08:04 | Diagnostic Imaging Report ---
HISTORY: Sepsis COMPARISON: 08/11/2018 TECHNIQUE: Frontal view the chest FINDINGS: There is new airspace consolidation/effusion in the right lung base. There is mild cardiomegaly, similar to the prior exam. There is left basilar airspace opacity with possible effusion as well. The upper lungs are obscured by overlapping structures. No large pneumothorax is seen. IMPRESSION: 1. New increased airspace consolidations and/or pleural effusions. Dictated by: Dictated on workstation # [id number]
[2021-04-02 08:15] LABS: HEMATOCRIT 42 % (35-52); HEMOGLOBIN 12.4 g/dL (11.5-16.0); MEAN CORPUSCULAR HEMOGLOBIN 32 pg (25-34); MEAN CORPUSCULAR HGB CONC 30 g/dL (32-36); MEAN CORPUSCULAR VOLUME 108 fL (80-99); MEAN PLATELET VOLUME 10.7 fL (9.0-12.2); PLATELET COUNT 240 10^3/uL (130-400); WHITE BLOOD COUNT 15.1 10^3/uL (4.3-11.0)
[2021-04-02 08:16] LABS: BASOPHILS % (AUTO) 0 % (0-10); EOSINOPHILS # (AUTO) 0.4 10^3/uL (0.0-0.3); EOSINOPHILS % (AUTO) 3 % (0-10); LYMPHOCYTES # (AUTO) 1.4 X 10^3 (1.0-4.0); LYMPHOCYTES % (AUTO) 9 % (12-44); MONOCYTES # (AUTO) 0.6 X 10^3 (0.0-1.0); MONOCYTES % (AUTO) 4 % (0-12); NEUTROPHILS # (AUTO) 12.6 X 10^3 (1.8-7.8); NEUTROPHILS % (AUTO) 83 % (42-75)
[2021-04-02 08:17] LABS: CARBON DIOXIDE 33 MMOL/L (21-32); CHLORIDE 98 MMOL/L (98-107); POTASSIUM 4.4 MMOL/L (3.6-5.0); SODIUM 141 MMOL/L (135-145)
[2021-04-02 08:18] LABS: ALANINE AMINOTRANSFERASE 19 U/L (0-55); ALBUMIN 3.6 GM/DL (3.2-4.5); ALKALINE PHOSPHATASE 55 U/L (40-136); BILIRUBIN,TOTAL 0.5 MG/DL (0.1-1.0); BUN/CREATININE RATIO 24; CALCIUM 8.8 MG/DL (8.5-10.1); CREATININE SERUM 1.36 MG/DL (0.60-1.30); GFR ESTIMATED 39; GLUCOSE 141 MG/DL (70-105); TOTAL PROTEIN 6.5 GM/DL (6.4-8.2)
[2021-04-02 08:27] LABS: PROTHROMBIN TIME PATIENT 13.4 SEC (12.2-14.7)
[2021-04-02 08:29] LABS: ATYPICAL LYMPHOCYTES 2 %; BAND NEUTROPHILS 32 %; BASOPHILS % (MANUAL) 0 %; EOSINOPHILS % (MANUAL) 3 %; LYMPHOCYTES % (MANUAL) 5 %; MONOCYTES % (MANUAL) 5 %; NEUTROPHILS % (MANUAL) 53 %
[2021-04-02 08:30] LABS: PLATELET ESTIMATE NORMAL; STOMATOCYTES MODERATE
[2021-04-02] MEDS ORDERED: CEFEPIME INJECTION 1,000 MG in NS (IVPB) 50 ML IV ONE (08:30)
[2021-04-02 08:37] LABS: BILIRUBIN,URINE NEGATIVE (NEGATIVE); CLARITY,URINE SL CLOUDY; COLOR,URINE YELLOW; GLUCOSE, URINE (UA) NEGATIVE (NEGATIVE); KETONES,URINE TRACE (NEGATIVE); LEUKOCYTE ESTERASE ,URINE NEGATIVE (NEGATIVE); NITRITE,URINE NEGATIVE (NEGATIVE); PH,URINE 5.5 (5-9); PROTEIN,URINE 1+ (NEGATIVE)
[2021-04-02 08:40] LABS: ABG BASE EXCESS 8.3 MMOL/L (-2.5-2.5); ABG OXYGEN SATURATION 91 % (94-100); ABG PO2 68 MMHG (79-93); ABG TCO2 39.7 MMOL/L (21.0-31.0); INSPIRED O2 3.5 L; VENTILATOR NO
[2021-04-02 08:41] LABS: PATIENT TEMP 38.4
[2021-04-02 08:44] LABS: ABG PCO2 76 MMHG (35-45)
[2021-04-02] MEDS ORDERED: LACTATED RINGERS 1,000 ML IV STA (08:46)
[2021-04-02 08:51] LABS: BACTERIA,URINE NEGATIVE /HPF; WBC,URINE 0-2 /HPF
[2021-04-02 08:52] LABS: AMORPHOUS SEDIMENT,UR MOD AMOR URATES /LPF; HYALINE CASTS, URINE 25-50 /LPF
[2021-04-02] MEDS ORDERED: NOREPINEPHRINE 8 MG/250 ML 250 ML IV ONE (09:57)
[2021-04-02] MEDS ORDERED: PROPOFOL DRIP (ICU) 100 ML IV ONE (10:01)
[2021-04-02] MEDS: NOREPINEPHRINE 8 MG/250 ML 250 ML IV SCH (10:10)
[2021-04-02] MEDS ORDERED: LACTATED RINGERS 1,000 ML IV ONE (10:14)
[2021-04-02] MEDS ORDERED: ACETAMINOPHEN 650 MG SUPP (TYLENOL) ONE (10:17)
--- NOTE | 2021-04-02 10:29 | Diagnostic Imaging Report ---
EXAMINATION: Chest 1 view AP/PA only. INDICATION: Intubation. COMPARISON: 04/02/2021 at 0751 hours. FINDINGS: ET tube has its tip approximately 2.5 cm above the veronica. Enteric tube courses into the stomach and off the [id number]. Right IJ central venous catheter terminates in the lower SVC. Low lung volumes are again noted. Potential layering pleural effusions. Ill-defined pulmonary opacities are similar. No pneumothorax. IMPRESSION: 1. Well-positioned support devices. 2. No change in basilar opacities which could be due to small pleural effusions. Dictated by: Dictated on workstation # [id number]
[2021-04-02] MEDS ORDERED: PROPOFOL DRIP (ICU) 100 ML IV SCH ×2 (10:45→11:45)
[2021-04-02] MEDS ORDERED: ACETAMINOPHEN 650 MG SUPP (TYLENOL) PR ONE (10:45)
[2021-04-02] MEDS ORDERED: NS IV 1000 ML 1,000 ML IV SCH ×2 (11:45→12:30)
[2021-04-02] MEDS ORDERED: LORazepam INJECTION FOR DRIP 20 MG in NS (IVPB) 90 ML IV SCH (11:45)
[2021-04-02] MEDS ORDERED: VANCOMYCIN INJECTION 0.1 MG in NS (IVPB) 250 ML IV SCH (11:45)
[2021-04-02 11:48] VITALS: BP 96/85
[2021-04-02] MEDS ORDERED: CEFEPIME INJECTION 1,000 MG in NS (IVPB) 50 ML IV SCH ×4 (12:00)
[2021-04-02] MEDS ORDERED: CEFEPIME 1,000 MG/NS 50 ML IVPB IV SCH ×2 (12:00)
[2021-04-02] MEDS ORDERED: methylPREDNISolone 40 MG/ML (Solu-MEDROL) VIAL IV SCH (12:00)
--- NOTE | 2021-04-02 12:51 | Tele-ICU Consult ---
History of Present Illness History of Present Illness Date Seen by Provider: Apr 02, 2021 Time Seen by Provider: 12:51 Date of Admission Allergies and Home Medications Allergies Coded Allergies: Sulfa (Sulfonamide Antibiotics) (Verified Allergy, Unknown, Hives, 09/01/19) ibuprofen (Verified Allergy, Unknown, Hives, 09/01/19) sulfamethoxazole (Verified Allergy, Unknown, Hives, 09/01/19) trimethoprim (Verified Allergy, Unknown, Hives, 09/01/19) glucose (Verified Adverse Reaction, Unknown, thickens mucous, 09/01/19) Home Medications Albuterol Sulfate 2.5 Mg/3 Ml Vial.neb, 1 VIAL IH Q8H PRN for SHORTNESS OF BREATH, (Reported) Albuterol Sulfate 1 Puff Puff, 2 PUFF IH Q4H PRN for WHEEZING, (Reported) 1 PUFF = 90 MCG Alprazolam 0.5 Mg Tablet, 0.5 MG PO BID PRN for ANXIETY, (Reported) Cholecalciferol (Vitamin D3) 50 Mcg Capsule, 50 MCG PO DAILY, (Reported) Fluticasone/Umeclidin/Vilanter 1 Each Blst.w.dev, 1 EACH IH DAILY, (Reported) Furosemide 40 Mg Tablet, 40 MG PO DAILY, (Reported) Guaifenesin 1,200 Mg Tab.er.12h, 1,200 MG PO DAILY, (Reported) Hydrocodone/Acetaminophen 1 Each Tablet, 1 TAB PO Q6H Prescribed by: DUSTIN HENDERSON on 09/07/19 1145 Multivitamin 1 Each Tablet, 1 EACH PO DAILY, (Reported) Prednisone 5 Mg Tablet, 10 MG PO DAILY, (Reported) Past Medical/Social/Family Hx Patient Social History Tobacco Use?: No Tobacco type used: Cigarettes Smoking Status: Former Smoker Smokeless Tobacco Frequency: Never a User Use of E-Cig and/or Vaping dev: No Substance use?: No Alcohol Use?: No Pt stated abuse/neglect: No Immunizations Up To Date Influenza Vaccine Up-to-Date: No; Not Current First/Initial COVID19 Vaccinat: Yes Second COVID19 Vaccination Sedrick: Yes Tetanus Booster (TDap): Unknown Hepatitis A: No Hepatitis B: No TB Skin Test: None Current Status status: No status: No Advance Directives: No Communicates: Unable To Communicate Primary Language: Fijian Preferred Spoken Language: Fijian Is interpretation needed?: No Implanted or Applied Medical D: None Review of Systems Constitutional: see HPI Sepsis Event Evaluation Height, Weight, BMI Height: 4'11.00" Weight: 140lbs. oz. 63.353986lf; 35.37 BMI Method:Stated Exam Exam Patient acknowledged, consented, and participated in this virtual visit which was conducted using real time audio/video Vital Signs Date Time Temp Pulse Resp B/P (MAP) Pulse Ox O2 Delivery O2 Flow Rate FiO2 04/02/21 12:00 103 04/02/21 11:48 104 18 98 60 04/02/21 11:45 105 17 96/85 100 Mechanical Ventilator 50.00 04/02/21 11:34 37.3 103 18 111/73 97 Mechanical Ventilator 50.00 04/02/21 10:50 112 112/68 04/02/21 10:45 38.4 99 19 113/54 100 Mechanical Ventilator 100.00 04/02/21 10:21 68 112/62 04/02/21 10:10 114 81/25 04/02/21 09:40 Mechanical Ventilator 100.00 04/02/21 07:26 92 Nasal Cannula 4.00 04/02/21 07:25 38.4 145 25 157/118 (131) 94 Nasal Cannula 04/02/21 07:25 Nasal Cannula Height & Weight Height: 4'11.00" Weight: 140lbs. oz. 63.876648zw; 35.37 BMI Method:Stated General Appearance: No Apparent Distress, Mild Distress, Obese HEENT: PERRL/EOMI, Pharynx Normal Neck: Non Tender, Supple Respiratory: No Accessory Muscle Use, Decreased Breath Sounds, Wheezing (Few trace wheezes) Cardiovascular: No Murmur, Tachycardia Capillary Refill: Less Than 3 Seconds Extremity: No Calf Tenderness, Pedal Edema (2+ bilateral lower extremities to the knees bilateral) Neurologic/Psychiatric: Disoriented (Oriented only to self), Motor Weakness (Gl obal) Results Lab Laboratory Tests 04/02/21 07:38 Assessment/Plan Assessment/Plan (Tele-ICU Physician , consultation) Available chart/ vitals / labs / Images reviewed H&P is from ER notes Patient's information available about PMH, Shx, Fhx allergy reviewed in EMR. ROS as per chart and RN report Now in ICU, hemodynamically stable Video assessment done using teleICU camera, rest of exam as per RN Discussed with RN. A/P Acute respiratory failure , hypoxic_, hypercarbic _ due to -Intubated -Full vent support follow ABG and serial CXR. Suspected PNA - cont abx , sputum cx AECOPD - steroids , nebs Hypotension , shock - - cont pressors - cont IVF KASSI - mild , cont hydrtion Lines : 04/02 (Central Line Necessity Reviewed) Huff: + VTE Prophylaxis: lovenox Stress Ulcer Prophylaxis: ppi Plans in collaboration with bedside consultants and IM MDs. Discussed with RN to reach out if any questions or concerns A total of 40 minutes of critical care time was devoted to this patient today, required to treat and/or prevent further deterioration of critical care condition ( as above ) . JERE MONAE MD Apr 02, 2021 12:51
--- NOTE | 2021-04-02 13:00 | Occ Therapy Progress Note ---
Therapy Progress Note OT orders received and chart reviewed. Pt is currently intubated. OT will continue to monitor pt status and initiate treatment when pt is medically stable and able to actively participate in skilled therapy. Magda Real OT Apr 02, 2021 13:00
--- NOTE | 2021-04-02 13:17 | History & Physical-Hospitalist ---
SHANNAN LYNCH MED STUDENT 04/02/21 1317: History of Present Illness HPI/Chief Complaint CC-Sepsis Mrs. Maurer is a 70yo female that was admitted to the ICU today through the ED. She is currently intubated and sedated and was not able to acquire a history, physical exam is limited. She was admitted to ED this morning via EMS. Around 1am she was having multiple episodes of vomiting with nausea and diarrhea. She does have a history of COPD and chronic steroid use. She uses O2 at home regularly, 3L. stated that he increased her to 4 due to her low saturation. She was weak and somnolent in the ER and was intubated. She also received a line, catheter, and NG tube. Upon walking into her room she is not conscious and sedated. Source: other (ED Note) Exam Limitations: clinical condition (Intubated and sedated) Date Seen 04/02/21 Time Seen by a Provider: 13:05 Attending Physician Silvia Olson DO PCP Self,Eloy QUICK Referring Physician Date of Admission Apr 02, 2021 at 11:30 Home Medications & Allergies Home Medications Reviewed patient Home Medication Reconciliation performed by pharmacy medication reconciliations electrical mechanical technician and/or nursing. Patients Allergies have been reviewed. Allergies Allergies Coded Allergies Sulfa (Sulfonamide Antibiotics) (Verified Allergy, Unknown, Hives, 09/01/19) ibuprofen (Verified Allergy, Unknown, Hives, 09/01/19) sulfamethoxazole (Verified Allergy, Unknown, Hives, 09/01/19) trimethoprim (Verified Allergy, Unknown, Hives, 09/01/19) glucose (Verified Adverse Reaction, Unknown, thickens mucous, 09/01/19) Past Taexlrl-Hufxlc-Vvgexe Hx Patient Social History Tobacco Use?: No Tobacco type used: Cigarettes Smoking Status: Former Smoker Smokeless Tobacco Frequency: Never a User Use of E-Cig and/or Vaping dev: No Substance use?: No Alcohol Use?: No Pt feels they are or have been: No Immunizations Up To Date Date of Influenza Vaccine: Feb 01, 2019 First/Initial COVID19 Vaccinat: Yes Second COVID19 Vaccination Sedrick: Yes Tetanus Booster (TDap): Unknown Hepatitis A: No Hepatitis B: No Seasonal Allergies Seasonal Allergies: Yes Current Status status: No status: No Advance Directives: No Communicates: Unable To Communicate Primary Language: Iranian Preferred Spoken Language: Iranian Is interpretation needed?: No Implanted or Applied Medical D: None Past Medical History Surgeries: Section, Orthopedic Asthma, COPD Currently Using CPAP: No Currently Using BIPAP: No Gall Bladder Disease Fractures Sleep Difficulties, Anxiety Blood Disorders: No Family Medical History Reviewed Nursing Family Hx No Pertinent Family Hx Review of Systems ROS-Unable to Obtain: Pt sedated an unable to get full ROS. Constitutional: other (Patient lying supine in bed, intubated and sedated, has line and NG tube. Does not respond to stimulus.) Physical Exam Physical Exam Vital Signs Vital Signs - First Documented 04/02/21 04/02/21 04/02/21 07:25 07:26 11:48 Temp 38.4 Pulse 145 Resp 25 B/P (MAP) 157/118 (131) Pulse Ox 94 O2 Delivery Nasal Cannula O2 Flow Rate 4.00 FiO2 60 Capillary Refill : Less Than 3 Seconds Height, Weight, BMI Height: 4'11.00" Weight: 140lbs. oz. 63.136409gw; 35.37 BMI Method:Stated General Appearance: Obese, Other (Intubated and Sedated) HEENT: Moist Mucous Membranes Neck: Supple Respiratory: No Normal Breath Sounds; Wheezing Cardiovascular: Regular Rate, Rhythm, No Edema, No Murmur, Normal Peripheral Pulses Gastrointestinal: Normal Bowel Sounds, No Organomegaly, No Pulsatile Mass, Soft Rectal: Deferred Extremity: No Pedal Edema Neurologic/Psychiatric: No Alert, No Oriented x3 Skin: Normal Color, Warm/Dry Results Results/Procedures Labs Laboratory Tests 04/02/21 07:38 Patient resulted labs reviewed. Imaging NAME: BERNADINE MAURER [facility] REC#: [id number] PT STATUS: REG ER : 1950 PHYSICIAN: LÓPEZ DALLAS MD ADMIT DATE: 04/02/21/ER FS Signed Date of Exam:04/02/21 CHEST 1 VIEW AP/PA ONLY HISTORY: Sepsis COMPARISON: 08/11/2018 TECHNIQUE: Frontal view the chest FINDINGS: There is new airspace consolidation/effusion in the right lung base. There is mild cardiomegaly, similar to the prior exam. There is left basilar airspace opacity with possible effusion as well. The upper lungs are obscured by overlapping structures. No large pneumothorax is seen. IMPRESSION: 1. New increased airspace consolidations and/or pleural effusions. Dictated by: Dictated on workstation # [id number] Dict: 04/02/21 0755 Trans: 04/02/21 0841 [facility] [id number] Interpreted by: CHESTER ROMERO MD Electronically signed by: CHESTER ROMERO MD 04/02/21 0841 NAME: BERNADINE MAURER [facility] REC#: [id number] PT STATUS: ADM IN : 1950 PHYSICIAN: LÓPEZ DALLAS MD ADMIT DATE: 04/02/21/ICU Signed Date of Exam:04/02/21 CHEST 1 VIEW AP/PA ONLY EXAMINATION: Chest 1 view AP/PA only. INDICATION: Intubation. COMPARISON: 04/02/2021 at 0751 hours. FINDINGS: ET tube has its tip approximately 2.5 cm above the veronica. Enteric tube courses into the stomach and off the vcbzx-ln-gxtq. Right IJ central venous catheter terminates in the lower SVC. Low lung volumes are again noted. Potential layering pleural effusions. Ill-defined pulmonary opacities are similar. No pneumothorax. IMPRESSION: 1. Well-positioned support devices. 2. No change in basilar opacities which could be due to small pleural effusions. Dictated by: Dictated on workstation # [id number] Assessment/Plan Admission Diagnosis Sepsis Admission Status: Inpatient Order (span 2 midnights) Reason for Inpatient Admission: Sedation, Intubation, ABX Assessment and Plan Sepsis -Continue ABX -CXR as necessary -IV Fluids -Daily Labs Acidosis -On ventilator, adjust as necessary -IV Fluids Hypotension -Has received pressors, continue as needed -IV fluids KASSI -Continue IV fluids Critical Care Critically Ill Patient Supervisory-Addendum Brief Verification & Attestation Participated in pt care: history, physical Personally performed: exam, history Care discussed with: Medical Student Procedures: n/a n/a SILVIA OLSON DO 04/03/21 0615: History of Present Illness HPI/Chief Complaint CC: Respiratory failure HPI: This is a 66yoWF chronic COPD, oxygen supplementation 24/11 patient of [facility] who presented to the [place] ER with SOB and diarrhea. She had been vomiting also. She was found to have B/L pneumonia, heart rate from 150 down to 130 after two liters of fluid given. Lactic acid was elevated at 2.5 and noted to have mild hypotension. WBC is 15,000 and ABG showed respiratory acidosis due to hypercapnia and hypoxemia. Cefepime was initiated broad-spectrum antibiotics. Solumedrol was given. EIC was given report by Dr. Dallas and Pt was intubated prior to transport. Source: patient Exam Limitations: clinical condition (Intubated and sedated) Past Bdbvxnq-Lugqbs-Nmcdbu Hx Past Medical History COPD High Cholesterol, Hypertension Review of Systems Constitutional: see HPI Physical Exam Physical Exam General Appearance: No Apparent Distress, Chronically ill, Obese, Other (Intubated and Sedated) Respiratory: Decreased Breath Sounds, Wheezing Cardiovascular: Regular Rate, Rhythm Assessment/Plan Admission Diagnosis Assessment: Severe sepsis Pneumonia COPD exacerbation Morbid obesity Suspect obesity hypoventilation syndrome Plan: Antibiotics Ventilator Pressor Admission Status: Inpatient Order (span 2 midnights) Reason for Inpatient Admission: Severe sepsis Supervisory-Addendum Brief Verification & Attestation Participated in pt care: history, MDM, physical Personally performed: exam, history, MDM, supervision of care Care discussed with: Medical Student Procedures: n/a Results interpretation: Verified all documentation Verification and Attestation of Medical Student E/M Service A medical student performed and documented this service in my presence. I reviewed and verified all information documented by the medical student and made modifications to such information, when appropriate. I personally performed the physical exam and medical decision making. Silvia Olson, Apr 03, 2021,06:15 SHANNAN LYNCH MED STUDENT Apr 02, 2021 13:17 SILVIA OLSON DO Apr 03, 2021 06:15
[2021-04-02] MEDS: NS IV 1000 ML 1,000 ML IV SCH ×3 (13:33→23:33)
[2021-04-02] MEDS: methylPREDNISolone 40 MG/ML (Solu-MEDROL) VIAL IV SCH ×3 (13:33→23:39)
[2021-04-02 13:39] VITALS: BP 96/85
--- NOTE | 2021-04-02 13:48 | Physical Therapy Progress Note ---
Therapy Progress Note PT eval orders received. Patient is currently intubated and sedated. Will monitor patient and start when appropriate. GALEN LAGUERRE PT Apr 02, 2021 13:48
[2021-04-02] MEDS ORDERED: RT-ALBUTEROL/IPRATROPIUM 3 ML (DUONEB) VIAL INH PRN (14:00)
[2021-04-02] MEDS ORDERED: VANCOMYCIN 1500 MG/NS 500 ML IVPB IV SCH ×2 (14:00)
[2021-04-02 14:01] VITALS: BP 110/62
[2021-04-02] MEDS: RT-ALBUTEROL/IPRATROPIUM 3 ML (DUONEB) VIAL INH SCH ×3 (14:01→21:15)
[2021-04-02] MEDS ORDERED: NOREPINEPHRINE 8 MG/250 ML 250 ML IV PRN (14:15)
[2021-04-02 14:31] LABS: ABG BASE EXCESS 5.4 MMOL/L (-2.5-2.5); ABG OXYGEN SATURATION 96 % (94-100); ABG PCO2 52 MMHG (35-45); ABG PH 7.38 (7.37-7.43); ABG PO2 76 MMHG (79-93); ABG TCO2 31.8 MMOL/L (21.0-31.0)
[2021-04-02 14:35] LABS: ALLENS TEST YES-POS; INSPIRED O2 30%; PATIENT TEMP 37.1; VENTILATOR YES
[2021-04-02] MEDS ORDERED: IPRA3AMP31 NEB (15:22)
[2021-04-02] MEDS ORDERED: FLUT1DIS26 INH (15:31)
[2021-04-02 16:16] LABS: BASOPHILS % (AUTO) 0 % (0-10); EOSINOPHILS % (AUTO) 0 % (0-10); HEMATOCRIT 37 % (35-52); LYMPHOCYTES # (AUTO) 0.5 X 10^3 (1.0-4.0); LYMPHOCYTES % (AUTO) 3 % (12-44); MEAN CORPUSCULAR HEMOGLOBIN 32 pg (25-34); MEAN CORPUSCULAR HGB CONC 30 g/dL (32-36); MEAN CORPUSCULAR VOLUME 109 fL (80-99); MEAN PLATELET VOLUME 11.2 fL (9.0-12.2); MONOCYTES # (AUTO) 0.3 X 10^3 (0.0-1.0); MONOCYTES % (AUTO) 2 % (0-12); NEUTROPHILS # (AUTO) 18.2 X 10^3 (1.8-7.8); NEUTROPHILS % (AUTO) 96 % (42-75); PLATELET COUNT 216 10^3/uL (130-400)
[2021-04-02 16:25] LABS: ALBUMIN 2.9 GM/DL (3.2-4.5)
[2021-04-02 16:26] LABS: POTASSIUM 4.3 MMOL/L (3.6-5.0)
[2021-04-02 16:27] LABS: CALCIUM 7.9 MG/DL (8.5-10.1)
[2021-04-02 16:28] LABS: TOTAL PROTEIN 5.1 GM/DL (6.4-8.2)
[2021-04-02 16:30] LABS: BILIRUBIN,TOTAL 0.5 MG/DL (0.1-1.0)
[2021-04-02 16:31] LABS: CREATININE SERUM 1.11 MG/DL (0.60-1.30)
[2021-04-02] MEDS: LORAZEPAM IV SCH ×4 (16:57→23:31)
[2021-04-02] MEDS: SODIUM CHLORIDE IV SCH ×4 (16:57→23:31)
[2021-04-02 17:14] LABS: BAND NEUTROPHILS 18 %; LYMPHOCYTES % (MANUAL) 3 %; NEUTROPHILS % (MANUAL) 79 %; RBC MORPH NORMAL
[2021-04-02] MEDS: inSUlin ASPART (NovoLOG) 1 UNIT/0.01 ML (CHARGE PER UNIT) SC SCH ×2 (17:19→23:39)
[2021-04-02] MEDS: CEFEPIME 1,000 MG/NS 50 ML IVPB IV SCH ×4 (17:51→23:38)
[2021-04-02 18:31] VITALS: BP 110/59
[2021-04-02 21:15] VITALS: BP 114/65
[2021-04-03 02:36] VITALS: BP 116/61
[2021-04-03] MEDS: RT-ALBUTEROL/IPRATROPIUM 3 ML (DUONEB) VIAL INH SCH ×6 (02:36→21:58)
[2021-04-03 03:37] LABS: BASOPHILS % (AUTO) 0 % (0-10); EOSINOPHILS % (AUTO) 0 % (0-10); HEMATOCRIT 32 % (35-52); LYMPHOCYTES # (AUTO) 0.4 10^3/uL (1.0-4.0); LYMPHOCYTES % (AUTO) 2 % (12-44); MEAN CORPUSCULAR HEMOGLOBIN 33 pg (25-34); MEAN CORPUSCULAR HGB CONC 31 g/dL (32-36); MEAN CORPUSCULAR VOLUME 105 fL (80-99); MEAN PLATELET VOLUME 10.7 fL (9.0-12.2); MONOCYTES # (AUTO) 0.2 10^3/uL (0.0-1.0); MONOCYTES % (AUTO) 1 % (0-12); NEUTROPHILS # (AUTO) 18.5 10^3/uL (1.8-7.8); NEUTROPHILS % (AUTO) 96 % (42-75); PLATELET COUNT 181 10^3/uL (130-400); WHITE BLOOD COUNT 19.3 10^3/uL (4.3-11.0)
[2021-04-03 03:39] LABS: ABG BASE EXCESS 4.2 MMOL/L (-2.5-2.5); ABG OXYGEN SATURATION 94 % (94-100); ABG PCO2 45 MMHG (35-45); ABG PH 7.42 (7.37-7.43); ABG PO2 64 MMHG (79-93)
[2021-04-03 03:41] LABS: ALLENS TEST YES-POS; INSPIRED O2 30%; PATIENT TEMP 36.2; VENTILATOR YES
[2021-04-03 03:46] LABS: ALBUMIN 2.5 GM/DL (3.2-4.5)
[2021-04-03 03:47] LABS: POTASSIUM 3.6 MMOL/L (3.6-5.0)
[2021-04-03 03:48] LABS: CALCIUM 7.4 MG/DL (8.5-10.1)
[2021-04-03 03:49] LABS: TOTAL PROTEIN 4.5 GM/DL (6.4-8.2)
[2021-04-03 03:51] LABS: BILIRUBIN,TOTAL 0.3 MG/DL (0.1-1.0)
[2021-04-03 03:52] LABS: CREATININE SERUM 0.97 MG/DL (0.60-1.30)
[2021-04-03] MEDS: POTASSIUM CL 10MEQ/50ML IVPB 50 ML IV SCH ×3 (04:04→05:38)
[2021-04-03] MEDS: inSUlin ASPART (NovoLOG) 1 UNIT/0.01 ML (CHARGE PER UNIT) SC SCH ×4 (04:12→23:25)
[2021-04-03] MEDS: MAGNESIUM 1 GM/100 ML IVPB 100 ML IV SCH ×3 (04:20→06:55)
[2021-04-03] MEDS: methylPREDNISolone 40 MG/ML (Solu-MEDROL) VIAL IV SCH ×4 (05:47→23:19)
[2021-04-03] MEDS: KCL 20 MEQ TAB (K-DUR) PO SCH (05:47)
[2021-04-03] MEDS: CEFEPIME 1,000 MG/NS 50 ML IVPB IV SCH ×8 (05:47→23:19)
[2021-04-03] MEDS ORDERED: KCL 20 MEQ TAB (K-DUR) PO SCH (06:00)
[2021-04-03] MEDS ORDERED: POTASSIUM CL 10MEQ/50ML IVPB 50 ML IV SCH (06:00)
[2021-04-03] MEDS ORDERED: MAGNESIUM 1 GM/100 ML IVPB 100 ML IV SCH ×2 (06:00)
--- NOTE | 2021-04-03 06:44 | Occ Therapy Progress Note ---
Therapy Progress Note Pt is currently intubated. OT will continue to monitor pt status and initiate treatment when pt is medically stable and able to actively participate in skilled therapy. JULIETTE SKY Apr 03, 2021 06:44
[2021-04-03 07:21] VITALS: BP 108/53
--- NOTE | 2021-04-03 08:00 | Physical Therapy Progress Note ---
Therapy Progress Note Patient currently intubated and sedated. Will continue to monitor and start when appropriate. GALEN LAGUERRE PT Apr 03, 2021 08:00
[2021-04-03] MEDS ORDERED: ENOXAPARIN 40 MG/0.4 ML (LOVENOX) SYR SC SCH (09:00)
[2021-04-03] MEDS ORDERED: PANTOPRAZOLE 40 MG (PROTONIX) VIAL IV SCH (09:00)
[2021-04-03] MEDS: SODIUM CHLORIDE IV SCH ×4 (09:09→17:01)
[2021-04-03] MEDS: LORAZEPAM IV SCH ×4 (09:09→17:01)
[2021-04-03] MEDS: PANTOPRAZOLE 40 MG (PROTONIX) VIAL IV SCH (09:10)
[2021-04-03] MEDS: ENOXAPARIN 40 MG/0.4 ML (LOVENOX) SYR SC SCH (09:10)
[2021-04-03] MEDS: NS IV 1000 ML 1,000 ML IV SCH ×2 (09:10→17:02)
[2021-04-03 10:11] VITALS: BP 106/50
--- NOTE | 2021-04-03 10:14 | Tele-ICU Progress Note ---
Subjective Date Seen by a Provider: Apr 03, 2021 Time Seen by a Provider: 10:05 Subjective/Events-last exam This virtual visit was conducted using real time audio/video. Thank you for asking us to see this patient for respiratory insufficiency due to B pna, AECOPD and sepsis. Recent events: none PE: VSS. Sedated on vent. Obese. O2 sat 95% on 30%/+5 HEENT: No obvious masses, adenopathy or JVD. Chest: Occasional wheeze. Diminished. CV: RRR S1 S2 No murmur or added sounds. Abd: Non-tender. Bowel sounds Y. : Unremarkable. Huff Y. RIVET MACHINE OPERATOR/psychiatric: Grossly intact. No obvious focal findings. Extremities: 2+ edema. Capillary refill < 3 seconds. Skin: unremarkable. Results: Elevated WCC 19.3. Decreased Hb 10.0. B.42/45/64. CXR: B infilts. Available chart/ vitals / labs / images reviewed. Video assessment done using teleICU camera, rest of exam as per RN. A/P: Respiratory insufficiency: Continue present management with vent. No SBT today. Cont duonebs, Propofol, Medrol. Monitor for increasing oxygenation needs and/or need for intubation. Critical Care: critically ill patient. Cont. Cefipime, PPI, Levophed, Mariluz., SSI. Wean Levo as gladys. Discussed with NAHID Sarmiento. Asked RN to reach out to eICU if any questions or concerns later. Time spent with patient/coordination of care with other health professionals (mins): 25 Sepsis Event Evaluation Height, Weight, BMI Height: 4'11.00" Weight: 140lbs. oz. 63.446627ju; 35.37 BMI Method:Stated Focused Exam Lactate Level 04/02/21 07:38: Lactic Acid Level 2.53*H 04/02/21 10:11: Lactic Acid Level 2.23*H 04/02/21 15:50: Lactic Acid Level 0.92 Exam Exam Patient acknowledged, consented, and participated in this virtual visit which w as conducted using real time audio/video Vital Signs Date Time Temp Pulse Resp B/P (MAP) Pulse Ox O2 Delivery O2 Flow Rate FiO2 04/03/21 09:50 86 98/48 04/03/21 09:09 86 18 98/48 04/03/21 08:45 86 18 98/48 04/03/21 08:30 87 17 100/47 94 Mechanical Ventilator 30.00 04/03/21 08:15 87 18 99/47 93 Mechanical Ventilator 30.00 04/03/21 08:00 87 17 101/51 93 Mechanical Ventilator 30.00 04/03/21 08:00 94 30 04/03/21 07:47 36.1 04/03/21 07:45 86 17 104/50 94 Mechanical Ventilator 30.00 04/03/21 07:30 82 18 107/57 95 Mechanical Ventilator 30.00 04/03/21 07:21 79 18 94 30 04/03/21 07:15 79 17 108/53 93 Mechanical Ventilator 30.00 04/03/21 07:00 85 04/03/21 07:00 79 17 110/53 93 Mechanical Ventilator 30.00 04/03/21 06:55 80 93/45 04/03/21 06:00 84 18 117/54 94 Mechanical Ventilator 30.00 04/03/21 05:00 85 17 103/52 94 Mechanical Ventilator 30.00 04/03/21 04:00 95 30 04/03/21 04:00 87 18 110/52 94 Mechanical Ventilator 30.00 04/03/21 03:34 36.2 04/03/21 03:19 89 109/51 04/03/21 03:00 90 18 108/51 93 Mechanical Ventilator 30.00 04/03/21 02:36 87 18 93 30 04/03/21 02:00 89 17 104/57 93 Mechanical Ventilator 30.00 04/03/21 01:00 87 04/03/21 01:00 89 17 133/71 92 Mechanical Ventilator 30.00 04/03/21 00:00 92 18 126/68 94 Mechanical Ventilator 30.00 04/03/21 00:00 36.4 04/03/21 00:00 95 30 04/02/21 23:31 93 123/67 04/02/21 23:00 96 17 118/64 94 Mechanical Ventilator 30.00 04/02/21 22:00 96 17 114/63 94 Mechanical Ventilator 30.00 04/02/21 21:15 93 18 95 30 04/02/21 21:00 93 17 112/68 95 Mechanical Ventilator 30.00 04/02/21 20:34 94 110/65 04/02/21 20:00 94 30 04/02/21 20:00 92 17 116/59 95 Mechanical Ventilator 30.00 04/02/21 19:46 36.3 04/02/21 19:00 97 17 93/56 95 Mechanical Ventilator 30.00 04/02/21 19:00 97 04/02/21 18:31 92 18 95 30 04/02/21 18:15 93 17 102/57 95 04/02/21 18:00 89 18 113/66 95 Mechanical Ventilator 30.00 04/02/21 17:45 89 17 118/65 95 Mechanical Ventilator 30.00 04/02/21 17:30 90 18 118/63 96 Mechanical Ventilator 30.00 04/02/21 17:15 92 18 112/65 96 Mechanical Ventilator 30.00 04/02/21 17:00 92 18 119/62 96 Mechanical Ventilator 30.00 04/02/21 16:57 91 17 113/64 04/02/21 16:45 90 18 123/66 96 Mechanical Ventilator 30.00 04/02/21 16:30 122/64 04/02/21 16:15 91 17 113/64 96 Mechanical Ventilator 30.00 04/02/21 16:15 91 17 113/64 96 04/02/21 16:10 50 04/02/21 16:00 92 17 106/66 96 Mechanical Ventilator 30.00 04/02/21 16:00 92 17 106/66 96 Mechanical Ventilator 30.00 04/02/21 16:00 36.6 04/02/21 15:48 92 18 115/63 96 Mechanical Ventilator 30.00 04/02/21 15:45 93 17 115/65 96 Mechanical Ventilator 30.00 04/02/21 15:30 92 18 109/65 96 Mechanical Ventilator 30.00 04/02/21 15:15 94 18 118/65 96 Mechanical Ventilator 30.00 04/02/21 15:00 95 18 110/68 95 Mechanical Ventilator 30.00 04/02/21 14:45 95 112/65 Mechanical Ventilator 30.00 04/02/21 14:30 93 18 105/70 96 Mechanical Ventilator 30.00 04/02/21 14:15 92 110/59 04/02/21 14:01 87 18 99 50 04/02/21 13:45 88 17 108/63 99 Mechanical Ventilator 40.00 04/02/21 13:39 37.3 103 98 50 04/02/21 13:34 103 96/85 04/02/21 13:30 89 18 109/71 100 Mechanical Ventilator 40.00 04/02/21 13:15 89 17 113/68 99 Mechanical Ventilator 40.00 04/02/21 13:00 89 04/02/21 13:00 87 17 118/72 100 Mechanical Ventilator 40.00 04/02/21 12:45 89 17 109/70 99 Mechanical Ventilator 50.00 04/02/21 12:30 92 18 108/72 98 Mechanical Ventilator 50.00 04/02/21 12:20 93 18 112/72 97 Mechanical Ventilator 50.00 04/02/21 12:16 97 17 76/59 97 Mechanical Ventilator 50.00 04/02/21 12:15 98 17 77/52 97 Mechanical Ventilator 50.00 04/02/21 12:00 50 04/02/21 12:00 103 04/02/21 11:48 104 18 98 60 04/02/21 11:45 105 17 96/85 100 Mechanical Ventilator 50.00 04/02/21 11:34 37.3 103 18 111/73 97 Mechanical Ventilator 50.00 04/02/21 10:50 112 112/68 04/02/21 10:45 38.4 99 19 113/54 100 Mechanical Ventilator 100.00 04/02/21 10:21 68 112/62 04/02/21 10:10 114 81/25 I & O 04/03/21 07:00 Intake Total 2500 ml Output Total 1600 ml Balance 900 ml Height & Weight Height: 4'11.00" Weight: 140lbs. oz. 63.323001bv; 35.37 BMI Method:Stated General Appearance: No Apparent Distress, Chronically ill, Obese, Other HEENT: Moist Mucous Membranes Neck: Supple Respiratory: Decreased Breath Sounds, Wheezing Cardiovascular: Regular Rate, Rhythm Capillary Refill: Less Than 3 Seconds Peripheral Pulses: 1+ Dorsalis Pedis (R), 1+ Left Dors-Pedis (L) Extremity: No Pedal Edema Neurologic/Psychiatric: No Alert, No Oriented x3 Skin: Normal Color, Warm/Dry Results Lab Laboratory Tests 04/02/21 07:38 04/02/21 15:50 04/03/21 03:25 Assessment/Plan Assessment/Plan Seee free text. Critical Care: Ventilator Management ARUNA MARIE MD Apr 03, 2021 10:14
[2021-04-03] MEDS ORDERED: VANCOMYCIN 1250 MG/NS 250 ML IVPB IV SCH ×2 (11:00)
--- NOTE | 2021-04-03 11:03 | Consultation-Cardiology ---
HPI-Cardiology Cardiology Consultation Date of Consultation 04/03/21 Date of Admission Time Seen by Provider: 10:05 Indication: Acute respiratory failure. HPI Patient is a 70 y/o female with history of COPD, morbid obesity. Presented to the ER via EMS with c/o lethargy, nausea and vomiting. Patient is currently sedated and intubated and HPI is obtained through medical records. reports is oxygen dependent at home, but was requiring more 02 prior to admission. Noted to be tachycardic on arrival, now improved. Home Medications & Allergies Allergies: Coded Allergies: Sulfa (Sulfonamide Antibiotics) (Verified Allergy, Unknown, Hives, 09/01/19) ibuprofen (Verified Allergy, Unknown, Hives, 09/01/19) sulfamethoxazole (Verified Allergy, Unknown, Hives, 09/01/19) trimethoprim (Verified Allergy, Unknown, Hives, 09/01/19) glucose (Verified Adverse Reaction, Unknown, thickens mucous, 09/01/19) Home Medication List Reviewed: Yes [id number] Hx Patient Social History Marital Status: Smoking Status: Former Smoker Type Used: Cigarettes 2nd Hand Smoke Exposure: Yes Recent Hopitalizations: No Have you traveled recently?: No Alcohol Use?: No Immunizations Up To Date Date of Influenza Vaccine: Feb 01, 2019 Past Medical History COPD, Extobaccoism, morbid obesity. Family Medical History Significant Family History: No Pertinent Family Hx Review of Systems-General Review of Systems ROS-Unable to Obtain: Unable to obtain full ROS d/t patient sedated and intubated. Constitutional: see HPI Respiratory: short of breath, wheezing Cardiovascular: No chest pain; edema Gastrointestinal: diarrhea, nausea, vomiting Reviewed Test Results Reviewed Test Results Lab Laboratory Tests 04/02/21 14:24: Blood Gas Puncture Site LR, Blood Gas Patient Temperature 37.1, Arterial Blood pH 7.38, Arterial Blood Partial Pressure CO2 52H, Arterial Blood Partial Pr essure O2 76L, Arterial Blood HCO3 30H, Arterial Blood Total CO2 31.8H, Arterial Blood Oxygen Saturation 96, Arterial Blood Base Excess 5.4H, Cj Test YES-POS, Blood Gas Ventilator Setting YES, Blood Gas Inspired Oxygen 30% 04/02/21 15:50: White Blood Count 19.0H, Red Blood Count 3.40L, Hemoglobin 11.0L, Hematocrit 37, Mean Corpuscular Volume 109H, Mean Corpuscular Hemoglobin 32, Mean Corpuscular Hemoglobin Concent 30L, Red Cell Distribution Width 12.8, Platelet Count 216, Mean Platelet Volume 11.2, Immature Granulocyte % (Auto) 0, Neutrophils (%) (Auto) 96H, Lymphocytes (%) (Auto) 3L, Monocytes (%) (Auto) 2, Eosinophils (%) (Auto) 0, Basophils (%) (Auto) 0, Neutrophils # (Auto) 18.2H, Lymphocytes # (Auto) 0.5L, Monocytes # (Auto) 0.3, Eosinophils # (Auto) 0.0, Basophils # (Auto) 0.0, Immature Granulocyte # (Auto) 0.0, Neutrophils % (Manual) 79, Lymphocytes % (Manual) 3, Band Neutrophils 18, Blood Morphology Comment NORMAL, Sodium Level 140, Potassium Level 4.3, Chloride Level 102, Carbon Dioxide Level 27, Anion Gap 11, Blood Urea Nitrogen 29H, Creatinine 1.11, Estimat Glomerular Filtration Rate 49, BUN/Creatinine Ratio 26, Glucose Level 182H, Lactic Acid Level 0.92, Calcium Level 7.9L, Corrected Calcium 8.8, Total Bilirubin 0.5, Aspartate Amino Transf (AST/SGOT) 62H, Alanine Aminotransferase (ALT/SGPT) 26, Alkaline Phosphatase 37L, Total Protein 5.1L, Albumin 2.9L 04/02/21 17:18: Glucometer 180H 04/02/21 23:38: Glucometer 213H 04/03/21 03:25: White Blood Count 19.3H, Red Blood Count 3.03L, Hemoglobin 10.0L, Hematocrit 32L , Mean Corpuscular Volume 105H, Mean Corpuscular Hemoglobin 33, Mean Corpuscular Hemoglobin Concent 31L, Red Cell Distribution Width 12.7, Platelet Count 181, Mean Platelet Volume 10.7, Immature Granulocyte % (Auto) 1, Neutrophils (%) (Auto) 96H, Lymphocytes (%) (Auto) 2L, Monocytes (%) (Auto) 1, Eosinophils (%) (Auto) 0, Basophils (%) (Auto) 0, Neutrophils # (Auto) 18.5H, Lymphocytes # (Auto) 0.4L, Monocytes # (Auto) 0.2, Eosinophils # (Auto) 0.0, Basophils # (Auto) 0.0, Immature Granulocyte # (Auto) 0.1, Blood Gas Puncture Site RIGHT RADIAL, Blood Gas Patient Temperature 36.2, Arterial Blood pH 7.42, Arterial Blood Partial Pressure CO2 45, Arterial Blood Partial Pressure O2 64L, Arterial Blood HCO3 29H, Arterial Blood Total CO2 30.0, Arterial Blood Oxygen Saturation 94, Arterial Blood Base Excess 4.2H, Cj Test YES-POS, Blood Gas Ventilator Setting YES, Blood Gas Inspired Oxygen 30%, Sodium Level 143, Potassium Level 3.6, Chloride Level 106, Carbon Dioxide Level 27, Anion Gap 10, Blood Urea Nitrogen 25H, Creatinine 0.97, Estimat Glomerular Filtration Rate 57, BUN/Creatinine Ratio 26, Glucose Level 191H, Calcium Level 7.4L, Corrected Calcium 8.6, Magnesium Level 1.4L, Total Bilirubin 0.3, Aspartate Amino Transf (AST/SGOT) 59H, Alanine Aminotransferase (ALT/SGPT) 24, Alkaline Phosphatase 32L , Total Protein 4.5L, Albumin 2.5L Microbiology 04/02/21 MRSA Screen - Final, Complete MRSA not isolated 04/02/21 Urine Culture - Final, Complete NO GROWTH ECG Impression ECG Initial ECG Rhythm: S.Tach Physical Exam Physical Exam Vital Signs Vital Signs - First Documented 04/02/21 04/02/21 04/02/21 07:25 07:26 11:48 Temp 38.4 Pulse 145 Resp 25 B/P (MAP) 157/118 (131) Pulse Ox 94 O2 Delivery Nasal Cannula O2 Flow Rate 4.00 FiO2 60 Capillary Refill : Less Than 3 Seconds Height, Weight, BMI Height: 4'11.00" Weight: 140lbs. oz. 63.940512ta; 35.37 BMI Method:Stated General Appearance: No Apparent Distress, Chronically ill, Obese, Other HEENT: Moist Mucous Membranes Neck: Supple Respiratory: Decreased Breath Sounds, Wheezing Cardiovascular: Regular Rate, Rhythm Gastrointestinal: Normal Bowel Sounds, No Organomegaly, No Pulsatile Mass, Soft Rectal: Deferred Back: Normal Inspection, No CVA Tenderness, No Vertebral Tenderness Extremity: No Pedal Edema Neurologic/Psychiatric: No Alert, No Oriented x3; Other (sedated) Skin: Normal Color, Warm/Dry A/P-Cardiology Admission Diagnosis Acute respiratory failure AE COPD Pneumonia Sepsis Assessment/Plan Acute respiratory failure with hypercapnia, currently sedated and intubated, management per hospitalist and eICU. Pneumonia with sepsis, currently on antibiotic, management per medical services. AE COPD Questionable CHF, I will evaluate 2D echo. Sinus tachycardia, likely d/t respiratory failure, improved after intubation. Morbid obesity Extobaccoism Thank you for allowing us to participate in the management of Ms. Maurer. This is Susan Elliott PA-C, as a scribe for Dr. Burger. I examined the patient and visited with the patient with Susan, discussed the management plan and agree with the current scribed notes. Patient was seen and evaluated with Susan, she is intubated, ventilator dependent History was obtained by reviewing her records Patient had acute respiratory failure with hypercapnia, hypoxemia with acute exacerbation of COPD Appears to have pneumonia and sepsis, receiving antibiotic, managed by medical team There is questionable congestive heart failure. Plan to evaluate 2D echo. Continue to monitor blood pressure and lipids Continue current medications. SUSAN GRIFFIN Apr 03, 2021 11:03 SHERLY BURGER MD Apr 03, 2021 12:26
--- NOTE | 2021-04-03 13:10 | Progress Note - Hospitalist ---
SHANNAN LYNCH MED STUDENT 04/03/21 1310: Subjective HPI/CC On Admission Date Seen by Provider: Apr 03, 2021 Time Seen by Provider: 07:35 CC: Respiratory failure HPI: This is a 66yoWF chronic COPD, oxygen supplementation 24/11 patient of [facility] who presented to the [place] ER with SOB and diarrhea. She had been vomiting also. She was found to have B/L pneumonia, heart rate from 150 down to 130 after two liters of fluid given. Lactic acid was elevated at 2.5 and noted to have mild hypotension. WBC is 15,000 and ABG showed respiratory acidosis due to hypercapnia and hypoxemia. Cefepime was initiated broad-spectrum antibiotics. Solumedrol was given. EIC was given report by Dr. Haile and Pt was intubated prior to transport. Subjective/Events-last exam Mrs. Maurer is largely unchanged from yesterday. She is still intubated and sedated in bed and laying supine. She is unresponsive to stimuli. Her acidosis is improved since yesterday. Still continuing ABX. Unable to obtain ROS. Focused Exam Lactate Level 04/02/21 07:38: Lactic Acid Level 2.53*H 04/02/21 10:11: Lactic Acid Level 2.23*H 04/02/21 15:50: Lactic Acid Level 0.92 Objective Exam Vital Signs Vital Signs Date Time Temp Pulse Resp B/P (MAP) Pulse Ox O2 Delivery O2 Flow Rate FiO2 04/03/21 12:00 36.0 04/03/21 10:11 83 18 94 30 04/03/21 09:50 98/48 04/03/21 08:30 Mechanical Ventilator 30.00 Capillary Refill : Less Than 3 Seconds General Appearance: Other (Laying supine, intubated and sedated) HEENT: Moist Mucous Membranes, Other (ET tube) Neck: Supple Respiratory: Chest Non Tender, Lungs Clear, Normal Breath Sounds, No Accessory Muscle Use, No Respiratory Distress Cardiovascular: Regular Rate, Rhythm, No Edema, No Murmur, Normal Peripheral Pulses Gastrointestinal: Normal Bowel Sounds, Soft Rectal: Deferred Extremity: Normal Capillary Refill, No Pedal Edema Neurologic/Psychiatric: Other (Does not respond to any stimulus) Skin: Normal Color, Warm/Dry Results/Procedures Lab Laboratory Tests 04/02/21 15:50 04/03/21 03:25 Patient resulted labs reviewed. Assessment/Plan Assessment and Plan Assess & Plan/Chief Complaint Sepsis -Continue ABX -CXR as necessary -IV Fluids -Daily Labs Acidosis Improved today -IV Fluids Hypotension -Has received pressors, continue as needed -IV fluids KASSI -Improved -Continue IV fluids Critical Care: Ventilator Management Supervisory-Addendum Brief Verification & Attestation Participated in pt care: history, physical Personally performed: exam, history Care discussed with: Medical Student Procedures: n/a n/a SILVIA OLSON DO 04/04/21 0523: Subjective Subjective/Events-last exam Pt still intubated ABG improved WBC 30373 ABG 7.42/45/64 Cefepime maintained Solumedrol maintained Objective Exam General Appearance: Chronically ill, Obese, Other (Laying supine, intubated and sedated) Respiratory: No Accessory Muscle Use, No Respiratory Distress, Decreased Breath Sounds Assessment/Plan Assessment and Plan Assess & Plan/Chief Complaint Vent management appreciated IV antibiotics Supervisory-Addendum Brief Verification & Attestation Participated in pt care: history, MDM, physical Personally performed: exam, history, MDM, supervision of care Care discussed with: Medical Student Procedures: n/a Results interpretation: Verified all documentation Verification and Attestation of Medical Student E/M Service A medical student performed and documented this service in my presence. I reviewed and verified all information documented by the medical student and made modifications to such information, when appropriate. I personally performed the physical exam and medical decision making. Silvia Olson, Apr 04, 2021,05:23 SHANNAN LYNCH MED STUDENT Apr 03, 2021 13:10 SILVIA OLSON DO Apr 04, 2021 05:23
[2021-04-03] MEDS ORDERED: LORazepam/NS DRIP 100 ML IV SCH (14:15)
[2021-04-03 15:03] VITALS: BP 102/50
--- NOTE | 2021-04-03 15:03 | Pulmonary Progress Note ---
Subjective Time Seen by a Provider: 13:15 Subjective/Events-last exam Patient is intubated and sedated. She had no acute events overnight. Exam Exam Patient acknowledged, consented, and participated in this virtual visit which was conducted using real time audio/video Vital Signs Date Time Temp Pulse Resp B/P (MAP) Pulse Ox O2 Delivery O2 Flow Rate FiO2 04/03/21 13:30 87 18 116/60 96 Mechanical Ventilator 30.00 04/03/21 13:15 86 17 124/69 95 Mechanical Ventilator 30.00 04/03/21 13:00 92 17 128/66 96 Mechanical Ventilator 30.00 04/03/21 13:00 85 04/03/21 12:45 120/63 04/03/21 12:30 107/51 04/03/21 12:15 104/51 04/03/21 12:00 36.0 04/03/21 12:00 85 17 102/50 Mechanical Ventilator 30.00 04/03/21 12:00 95 30 04/03/21 11:45 85 18 105/51 95 Mechanical Ventilator 30.00 04/03/21 11:30 86 17 107/50 93 Mechanical Ventilator 30.00 04/03/21 11:15 86 18 106/50 95 Mechanical Ventilator 30.00 04/03/21 11:00 85 17 102/50 95 Mechanical Ventilator 30.00 04/03/21 10:45 102/49 04/03/21 10:30 86 17 98/51 94 Mechanical Ventilator 30.00 04/03/21 10:15 82 18 110/57 97 Mechanical Ventilator 30.00 04/03/21 10:11 83 18 94 30 04/03/21 10:00 84 17 106/50 94 Mechanical Ventilator 30.00 04/03/21 09:50 86 98/48 04/03/21 09:45 85 18 101/47 04/03/21 09:30 86 17 101/47 93 Mechanical Ventilator 30.00 04/03/21 09:15 86 18 99/47 94 Mechanical Ventilator 30.00 04/03/21 09:09 86 18 98/48 04/03/21 09:00 86 17 96/47 93 Mechanical Ventilator 30.00 04/03/21 08:45 86 18 98/48 04/03/21 08:30 87 17 100/47 94 Mechanical Ventilator 30.00 04/03/21 08:15 87 18 99/47 93 Mechanical Ventilator 30.00 04/03/21 08:00 87 17 101/51 93 Mechanical Ventilator 30.00 04/03/21 08:00 94 30 04/03/21 07:47 36.1 04/03/21 07:45 86 17 104/50 94 Mechanical Ventilator 30.00 04/03/21 07:30 82 18 107/57 95 Mechanical Ventilator 30.00 04/03/21 07:21 79 18 94 30 04/03/21 07:15 79 17 108/53 93 Mechanical Ventilator 30.00 04/03/21 07:00 85 04/03/21 07:00 79 17 110/53 93 Mechanical Ventilator 30.00 04/03/21 06:55 80 93/45 04/03/21 06:00 84 18 117/54 94 Mechanical Ventilator 30.00 04/03/21 05:00 85 17 103/52 94 Mechanical Ventilator 30.00 04/03/21 04:00 95 30 04/03/21 04:00 87 18 110/52 94 Mechanical Ventilator 30.00 04/03/21 03:34 36.2 04/03/21 03:19 89 109/51 04/03/21 03:00 90 18 108/51 93 Mechanical Ventilator 30.00 04/03/21 02:36 87 18 93 30 04/03/21 02:00 89 17 104/57 93 Mechanical Ventilator 30.00 04/03/21 01:00 87 04/03/21 01:00 89 17 133/71 92 Mechanical Ventilator 30.00 04/03/21 00:00 92 18 126/68 94 Mechanical Ventilator 30.00 04/03/21 00:00 36.4 04/03/21 00:00 95 30 04/02/21 23:31 93 123/67 04/02/21 23:00 96 17 118/64 94 Mechanical Ventilator 30.00 04/02/21 22:00 96 17 114/63 94 Mechanical Ventilator 30.00 04/02/21 21:15 93 18 95 30 04/02/21 21:00 93 17 112/68 95 Mechanical Ventilator 30.00 04/02/21 20:34 94 110/65 04/02/21 20:00 94 30 04/02/21 20:00 92 17 116/59 95 Mechanical Ventilator 30.00 04/02/21 19:46 36.3 04/02/21 19:00 97 17 93/56 95 Mechanical Ventilator 30.00 04/02/21 19:00 97 04/02/21 18:31 92 18 95 30 04/02/21 18:15 93 17 102/57 95 04/02/21 18:00 89 18 113/66 95 Mechanical Ventilator 30.00 04/02/21 17:45 89 17 118/65 95 Mechanical Ventilator 30.00 04/02/21 17:30 90 18 118/63 96 Mechanical Ventilator 30.00 04/02/21 17:15 92 18 112/65 96 Mechanical Ventilator 30.00 04/02/21 17:00 92 18 119/62 96 Mechanical Ventilator 30.00 04/02/21 16:57 91 17 113/64 04/02/21 16:45 90 18 123/66 96 Mechanical Ventilator 30.00 04/02/21 16:30 122/64 04/02/21 16:15 91 17 113/64 96 Mechanical Ventilator 30.00 04/02/21 16:15 91 17 113/64 96 04/02/21 16:10 50 04/02/21 16:00 92 17 106/66 96 Mechanical Ventilator 30.00 04/02/21 16:00 92 17 106/66 96 Mechanical Ventilator 30.00 04/02/21 16:00 36.6 04/02/21 15:48 92 18 115/63 96 Mechanical Ventilator 30.00 04/02/21 15:45 93 17 115/65 96 Mechanical Ventilator 30.00 04/02/21 15:30 92 18 109/65 96 Mechanical Ventilator 30.00 04/02/21 15:15 94 18 118/65 96 Mechanical Ventilator 30.00 04/02/21 15:00 95 18 110/68 95 Mechanical Ventilator 30.00 I & O 04/03/21 07:00 Intake Total 2500 ml Output Total 1600 ml Balance 900 ml Height & Weight Height: 4'11.00" Weight: 140lbs. oz. 63.639256br; 35.37 BMI Method:Stated General Appearance: Other (Laying supine, intubated and sedated) HEENT: Moist Mucous Membranes, Other (ET tube) Neck: Supple Respiratory: Chest Non Tender, Lungs Clear, Normal Breath Sounds, No Accessory Muscle Use, No Respiratory Distress Cardiovascular: Regular Rate, Rhythm, No Edema, No Murmur, Normal Peripheral Pulses Capillary Refill: Less Than 3 Seconds Peripheral Pulses: 1+ Dorsalis Pedis (R), 1+ Left Dors-Pedis (L) Extremity: Normal Capillary Refill, No Pedal Edema Neurologic/Psychiatric: Other (Does not respond to any stimulus) Skin: Normal Color, Warm/Dry Results Lab Laboratory Tests 04/02/21 07:38 04/02/21 15:50 04/03/21 03:25 Assessment/Plan Assessment/Plan 70 year old F with COPD exacerbation and bilateral pneumonia Neuro (& Psych): * Sedated with Proofol 20 mcg Endocrine: * SSI with Blood glucose gaol less than 180 Cardiovascular: * On pressors 0.1 mcg Norepi Pulm / Resp: * Patient is intubated * Continue Duonebs * Solumedrol * Cefepime for pneumonia Gastrointestinal: * PPI Genitourinary: * Huff in place Hematologic: * DVT PPx with Lovenox Infectious Disease: * Cefepime for pneumonia Musculoskeletal Dermatology: FEN: Critical Care: Ventilator Management SAMPSON JENKINS Apr 03, 2021 15:02
[2021-04-03 18:48] VITALS: BP 103/48
[2021-04-04] MEDS: RT-ALBUTEROL/IPRATROPIUM 3 ML (DUONEB) VIAL INH SCH ×6 (02:36→22:19)
[2021-04-04] MEDS: NS IV 1000 ML 1,000 ML IV SCH ×2 (02:47→11:37)
[2021-04-04 05:18] LABS: ABG OXYGEN SATURATION 91 % (94-100); ABG PCO2 46 MMHG (35-45); ABG PH 7.35 (7.37-7.43); ABG PO2 57 MMHG (79-93); ABG TCO2 26.4 MMOL/L (21.0-31.0); BASOPHILS % (AUTO) 0 % (0-10); EOSINOPHILS % (AUTO) 0 % (0-10); HEMATOCRIT 32 % (35-52); HEMOGLOBIN 9.8 g/dL (11.5-16.0); LYMPHOCYTES # (AUTO) 0.3 10^3/uL (1.0-4.0); LYMPHOCYTES % (AUTO) 1 % (12-44); MEAN CORPUSCULAR HEMOGLOBIN 32 pg (25-34); MEAN CORPUSCULAR HGB CONC 30 g/dL (32-36); MEAN CORPUSCULAR VOLUME 106 fL (80-99); MEAN PLATELET VOLUME 11.1 fL (9.0-12.2); MONOCYTES # (AUTO) 0.6 10^3/uL (0.0-1.0); MONOCYTES % (AUTO) 2 % (0-12); NEUTROPHILS # (AUTO) 25.9 10^3/uL (1.8-7.8); NEUTROPHILS % (AUTO) 96 % (42-75); PLATELET COUNT 178 10^3/uL (130-400); WHITE BLOOD COUNT 27.1 10^3/uL (4.3-11.0)
[2021-04-04 05:24] LABS: ALLENS TEST POSITIVE; INSPIRED O2 18; PATIENT TEMP 36.7; VENTILATOR YES
[2021-04-04 05:28] LABS: ALBUMIN 2.5 GM/DL (3.2-4.5); POTASSIUM 3.4 MMOL/L (3.6-5.0)
[2021-04-04 05:29] LABS: CALCIUM 7.1 MG/DL (8.5-10.1)
[2021-04-04 05:31] LABS: TOTAL PROTEIN 4.6 GM/DL (6.4-8.2)
[2021-04-04 05:32] LABS: BILIRUBIN,TOTAL 0.2 MG/DL (0.1-1.0)
[2021-04-04 05:34] LABS: CREATININE SERUM 0.82 MG/DL (0.60-1.30)
[2021-04-04 05:37] LABS: MAGNESIUM 2.2 MG/DL (1.6-2.4)
[2021-04-04] MEDS: MAGNESIUM 1 GM/100 ML IVPB 100 ML IV SCH (06:00)
[2021-04-04] MEDS: POTASSIUM CL 10MEQ/50ML IVPB 50 ML IV SCH ×3 (06:00→08:20)
[2021-04-04] MEDS: methylPREDNISolone 40 MG/ML (Solu-MEDROL) VIAL IV SCH ×3 (06:00→23:15)
[2021-04-04] MEDS: KCL 20 MEQ TAB (K-DUR) PO SCH (06:00)
[2021-04-04] MEDS: CEFEPIME 1,000 MG/NS 50 ML IVPB IV SCH ×6 (06:00→17:06)
[2021-04-04] MEDS: inSUlin ASPART (NovoLOG) 1 UNIT/0.01 ML (CHARGE PER UNIT) SC SCH ×3 (06:00→17:42)
--- NOTE | 2021-04-04 06:45 | Occ Therapy Progress Note ---
Therapy Progress Note Pt currently intubated. OT will continue to monitor pt's status and will initiate treatment when medically stable and able to actively participate in skilled treatment. JULIETTE SKY Apr 04, 2021 06:45
--- NOTE | 2021-04-04 07:44 | Physical Therapy Progress Note ---
Therapy Progress Note Patient currently sedated and intubated. PT will continue to follow patient status and initiate treatment when patient is medically stable and able to actively participate with skilled therapy. KATHRYN FRANKEL PT Apr 04, 2021 07:44
[2021-04-04] MEDS: PANTOPRAZOLE 40 MG (PROTONIX) VIAL IV SCH (08:24)
[2021-04-04] MEDS: ENOXAPARIN 40 MG/0.4 ML (LOVENOX) SYR SC SCH (08:26)
[2021-04-04] MEDS ORDERED: TROUGH ORDER-PHARMACY XX ONE (10:00)
--- NOTE | 2021-04-04 10:12 | Diagnostic Imaging Report ---
EXAMINATION: Chest 1 view HISTORY: Pneumonia COMPARISON: 04/02/2021 FINDINGS: Endotracheal tube tip terminates 2 cm above the veronica. Right internal jugular central venous catheter tip terminates in the superior vena cava. Gastric tube tip terminates below the field of view. There is a small right effusion and a small left effusion with overlying atelectasis or pneumonia. No pneumothorax. Heart size is normal. IMPRESSION: 1. Small bilateral pleural effusions with overlying atelectasis or pneumonia. Dictated by: Dictated on workstation # [id number]
--- NOTE | 2021-04-04 12:03 | Tele-ICU Progress Note ---
Subjective Date Seen by a Provider: Apr 04, 2021 Time Seen by a Provider: 11:58 Subjective/Events-last exam Patient today remained intubated and on mechanical ventilation. Earlier today we have given a sedation vacation and I tried CPAP but she did not do well hence she is put back on assist control and restarted on sedation. Chest x-ray reviewed and showed bilateral small pleural effusion with possible underlying pneumonia versus atelectasis. Hemodynamically stable. Her white count went up however this could be due to her Solu-Medrol. I have made a video visit and evaluated the patient and discussed with the HYDROLOGY TECHNICIAN Lynnette. Review of Systems ROS per attending physician Sepsis Event Evaluation Height, Weight, BMI Height: 4'11.00" Weight: 140lbs. oz. 63.418418oa; 35.37 BMI Method:Stated Focused Exam Lactate Level 04/02/21 07:38: Lactic Acid Level 2.53*H 04/02/21 10:11: Lactic Acid Level 2.23*H 04/02/21 15:50: Lactic Acid Level 0.92 Exam Exam Patient acknowledged, consented, and participated in this virtual visit which was conducted using real time audio/video Vital Signs Date Time Temp Pulse Resp B/P (MAP) Pulse Ox O2 Delivery O2 Flow Rate FiO2 04/04/21 10:05 100 23 98 30 04/04/21 08:00 36.4 04/04/21 07:45 94 25 04/04/21 07:00 98 04/04/21 06:56 120 93 04/04/21 06:31 96 23 94 30 04/04/21 06:00 98 22 115/76 94 Mechanical Ventilator 25.00 04/04/21 05:15 123/60 04/04/21 05:00 85 18 103/53 93 Mechanical Ventilator 25.00 04/04/21 04:34 Mechanical Ventilator 25.00 04/04/21 04:00 96 18 95/47 93 Mechanical Ventilator 30.00 04/04/21 04:00 36.7 04/04/21 04:00 95 30 04/04/21 03:00 89 17 119/58 97 Mechanical Ventilator 30.00 04/04/21 02:36 90 18 94 30 04/04/21 02:00 85 17 119/58 96 Mechanical Ventilator 30.00 04/04/21 01:00 90 04/04/21 01:00 95 18 119/58 96 Mechanical Ventilator 30.00 04/04/21 00:00 88 17 111/52 95 Mechanical Ventilator 30.00 04/03/21 23:27 95 30 04/03/21 23:21 36.0 04/03/21 23:20 129/60 04/03/21 23:00 91 17 119/58 96 Mechanical Ventilator 30.00 04/03/21 22:00 96 18 113/61 95 Mechanical Ventilator 30.00 04/03/21 21:58 96 18 95 30 04/03/21 21:00 92 17 97/49 95 Mechanical Ventilator 30.00 04/03/21 20:30 95 30 04/03/21 20:00 99 17 116/59 95 Mechanical Ventilator 30.00 04/03/21 19:50 36.2 04/03/21 19:00 96 27 121/55 95 Mechanical Ventilator 30.00 04/03/21 19:00 98 04/03/21 18:48 90 18 94 30 04/03/21 18:00 91 18 100/48 93 Mechanical Ventilator 30.00 04/03/21 17:30 92 18 102/46 95 04/03/21 17:15 93 17 98/49 94 Mechanical Ventilator 30.00 04/03/21 17:01 84 95/49 04/03/21 17:01 84 17 95/49 04/03/21 17:00 101/49 04/03/21 16:45 94 17 109/51 Mechanical Ventilator 30.00 04/03/21 16:30 95 18 111/56 95 Mechanical Ventilator 30.00 04/03/21 16:15 93 17 100/52 95 Mechanical Ventilator 30.00 04/03/21 16:05 95 30 04/03/21 16:00 84 17 105/54 93 Mechanical Ventilator 30.00 04/03/21 16:00 36.0 04/03/21 15:15 84 17 95/49 93 Mechanical Ventilator 30.00 04/03/21 15:03 80 18 94 30 04/03/21 15:00 102/50 04/03/21 14:45 82 17 98/48 04/03/21 14:30 84 18 99/47 94 Mechanical Ventilator 30.00 04/03/21 14:15 87 17 101/50 94 Mechanical Ventilator 30.00 04/03/21 14:00 86 18 102/55 95 Mechanical Ventilator 30.00 04/03/21 13:30 87 18 116/60 96 Mechanical Ventilator 30.00 04/03/21 13:15 86 17 124/69 95 Mechanical Ventilator 30.00 04/03/21 13:00 92 17 128/66 96 Mechanical Ventilator 30.00 04/03/21 13:00 85 04/03/21 12:45 120/63 04/03/21 12:30 107/51 04/03/21 12:15 104/51 04/03/21 12:00 36.0 04/03/21 12:00 85 17 102/50 Mechanical Ventilator 30.00 04/03/21 12:00 95 30 I & O 04/04/21 07:00 Intake Total 1200 ml Output Total 1175 ml Balance 25 ml Height & Weight Height: 4'11.00" Weight: 140lbs. oz. 63.782089gr; 35.37 BMI Method:Stated General Appearance: Chronically ill, Obese, Other (Laying supine, intubated and sedated) HEENT: Moist Mucous Membranes, Other (ET tube) Neck: Supple Respiratory: No Accessory Muscle Use, No Respiratory Distress, Decreased Breath Sounds Cardiovascular: Regular Rate, Rhythm, No Edema, No Murmur, Normal Peripheral Pulses Capillary Refill: Less Than 3 Seconds Peripheral Pulses: 1+ Dorsalis Pedis (R), 1+ Left Dors-Pedis (L) Extremity: Normal Capillary Refill, No Pedal Edema Neurologic/Psychiatric: Other (Does not respond to any stimulus) Skin: Normal Color, Warm/Dry Other comments PE per attending physician Results Lab Laboratory Tests 04/02/21 15:50 04/03/21 03:25 04/04/21 05:04 Assessment/Plan Assessment/Plan 1. Acute hypoxic and hypercarbic respiratory failure 2. COPD exacerbation 3. Underlying possible pneumonia. 4. Septic shock improved. 5. Acute kidney injury improving. Recommendations 1. We have tried SBT today but she did not tolerate hence we put back on assist control 2. We will decrease steroids 3. Continue sedation 4. DVT prophylaxis and ulcer prophylaxis. 5. Discussed with the HYDROLOGY TECHNICIAN Lynnette. Critical Care: Ventilator Management Time spent with patient (mins): 35 RAHEEM LEI MD Apr 04, 2021 12:03
--- NOTE | 2021-04-04 12:36 | Progress Note - Hospitalist ---
SHANNAN LYNCH MED STUDENT 04/04/21 1236: Subjective HPI/CC On Admission Date Seen by Provider: Apr 04, 2021 Time Seen by Provider: 07:10 CC: Respiratory failure HPI: This is a 66yoWF chronic COPD, oxygen supplementation 24/11 patient of [facility] who presented to the [place] ER with SOB and diarrhea. She had been vomiting also. She was found to have B/L pneumonia, heart rate from 150 down to 130 after two liters of fluid given. Lactic acid was elevated at 2.5 and noted to have mild hypotension. WBC is 15,000 and ABG showed respiratory acidosis due to hypercapnia and hypoxemia. Cefepime was initiated broad-spectrum antibiotics. Solumedrol was given. EIC was given report by Dr. Haile and Pt was intubated prior to transport. Subjective/Events-last exam Mrs Maurer is laying in bed this morning supine. She is intubated and sedated at the time of examination and she is not responsive to verbal stimulation. She does not appear to be in any distress. She is still on abx. Her FiO2 has been adjusted to 25%. Later in the day she was being evaluated to see if she could handle extubation, but was still on vent at time of exam. She is a bit more acidotic this morning on ABG but vent is being managed accordingly with RT. She is continuing on her abx course of cefepime, is receiving KCl for hypokalemia. ROS is not obtained due to pts condition. Focused Exam Lactate Level 04/02/21 07:38: Lactic Acid Level 2.53*H 04/02/21 10:11: Lactic Acid Level 2.23*H 04/02/21 15:50: Lactic Acid Level 0.92 Objective Exam Vital Signs Vital Signs Date Time Temp Pulse Resp B/P (MAP) Pulse Ox O2 Delivery O2 Flow Rate FiO2 04/04/21 12:06 36.8 04/04/21 12:00 117 22 138/70 95 Mechanical Ventilator 25.00 04/04/21 10:05 30 Capillary Refill : Less Than 3 Seconds General Appearance: No Apparent Distress, Obese, Other (Lying supine, intubated and sedated.) HEENT: Pharynx Normal, Moist Mucous Membranes Neck: Supple Respiratory: Chest Non Tender, Lungs Clear, Normal Breath Sounds, No Accessory Muscle Use, No Respiratory Distress Cardiovascular: Regular Rate, Rhythm, No Edema, No Murmur, Normal Peripheral Pulses Gastrointestinal: Normal Bowel Sounds, No Organomegaly, No Pulsatile Mass, Soft Rectal: Deferred Extremity: Normal Capillary Refill, Normal Inspection, No Pedal Edema Neurologic/Psychiatric: No Alert, No Oriented x3; Other (sedated, was able to squeeze RT's fingers during extubation evaluation) Skin: Normal Color, Warm/Dry Results/Procedures Lab Laboratory Tests 04/04/21 05:04 Patient resulted labs reviewed. Assessment/Plan Assessment and Plan Assess & Plan/Chief Complaint Sepsis -Continue ABX -CXR as necessary -IV Fluids -Daily Labs Acidosis Slightly more acidic than yesterday, vent managed by RT, Recheck tomorrow -IV Fluids -Extubation if tolerated Hypotension -Has received pressors, continue as needed -IV fluids -BP stable this morning at 119/60 KASSI -Improved -Continue IV fluids Hypokalemia -KCl supplementation Supervisory-Addendum Brief Verification & Attestation Participated in pt care: physical Personally performed: exam, history Care discussed with: Medical Student Procedures: n/a n/a SILVIA OLSON DO 04/05/21 0508: Subjective Subjective/Events-last exam Pt still intubated Holding Diprivan to try to wean Potassium 3.4 supplemented Cefepime IV antibiotics maintained, gram negative in the sputum Objective Exam General Appearance: Chronically ill, Obese, Other (Lying supine, intubated and sedated.) Respiratory: No Accessory Muscle Use, No Respiratory Distress, Decreased Breath Sounds Cardiovascular: Regular Rate, Rhythm Assessment/Plan Assessment and Plan Assess & Plan/Chief Complaint Pain management Attempt to wean Supervisory-Addendum Brief Verification & Attestation Participated in pt care: history, MDM, physical Personally performed: exam, history, MDM, supervision of care Care discussed with: Medical Student Procedures: n/a Results interpretation: Verified all documentation Verification and Attestation of Medical Student E/M Service A medical student performed and documented this service in my presence. I reviewed and verified all information documented by the medical student and made modifications to such information, when appropriate. I personally performed the physical exam and medical decision making. Silvia Olson, Apr 05, 2021,05:08 SHANNAN LYNCH MED STUDENT Apr 04, 2021 12:36 SILVIA OLSON DO Apr 05, 2021 05:08
--- NOTE | 2021-04-04 12:43 | Cardiology Progress Note ---
Subjective Date Seen by Provider: Apr 04, 2021 Time Seen by Provider: 08:00 Subjective/Events-last exam Patient is sedated and intubated. Review of Systems General: Other (Unable to provide review of system) Focused Exam Lactate Level 04/02/21 07:38: Lactic Acid Level 2.53*H 04/02/21 10:11: Lactic Acid Level 2.23*H 04/02/21 15:50: Lactic Acid Level 0.92 Objective-Cardiology Exam Last Set of Vital Signs Vital Signs 04/04/21 04/04/21 04/04/21 10:05 12:00 12:06 Temp 36.8 Pulse 117 Resp 22 B/P (MAP) 138/70 Pulse Ox 95 O2 Delivery Mechanical Ventilator O2 Flow Rate 25.00 FiO2 30 I&O Intake and Output 04/04/21 00:00 Intake Total 550 ml Output Total 1550 ml Balance -1000 ml Intake Oral 0 ml IV Total 550 ml Output Urine Total 1550 ml General: Other (Sedated and intubated) HEENT: Atraumatic Lungs: Normal Air Movement, Other (Bilateral rhonchi) Heart: Regular Rate, Normal S1, Normal S2 Abdomen: Normal Bowel Sounds Extremities: No Clubbing, No Cyanosis Skin: No Rashes Results Lab Laboratory Tests 04/04/21 05:04 A/P-Cardiology Admission Diagnosis Acute respiratory failure AE COPD Pneumonia Sepsis Assessment/Plan Acute respiratory failure with hypercapnia, acute exacerbation of COPD, currently sedated and intubated, management per hospitalist and eICU. Pneumonia with sepsis, currently on antibiotic, management per medical services. Echocardiogram was done on April 03, 2021 showing normal LV size and systolic function, ejection fraction 55 to 65%, PA pressure 35 mmHg Sinus tachycardia, likely d/t respiratory failure, improved after intubation. Morbid obesity Extobaccoism SHERLY MCKINLEY MD Apr 04, 2021 12:43
[2021-04-04] MEDS: LORazepam INJ 2 MG/ML (ATIVAN) VIAL IVP PRN (13:32)
[2021-04-04] MEDS ORDERED: FUROSEMIDE 40 MG/4 ML INJ (LASIX) ONE (15:16)
[2021-04-04] MEDS ORDERED: FUROSEMIDE 40 MG/4 ML INJ (LASIX) IVP ONE (15:30)
[2021-04-04 22:20] VITALS: BP 127/58
[2021-04-05] VITALS (7 sets, daily range): BP systolic 111–163; BP diastolic 61–104
[2021-04-05] MEDS: CEFEPIME 1,000 MG/NS 50 ML IVPB IV SCH ×8 (01:31→17:21)
[2021-04-05] MEDS: inSUlin ASPART (NovoLOG) 1 UNIT/0.01 ML (CHARGE PER UNIT) SC SCH ×4 (01:32→18:33)
[2021-04-05] MEDS: RT-ALBUTEROL/IPRATROPIUM 3 ML (DUONEB) VIAL INH SCH ×6 (02:40→22:07)
[2021-04-05] MEDS: NS IV 1000 ML 1,000 ML IV SCH (05:37)
[2021-04-05 06:41] LABS: BASOPHILS % (AUTO) 0 % (0-10); EOSINOPHILS % (AUTO) 0 % (0-10); HEMATOCRIT 33 % (35-52); HEMOGLOBIN 10.1 g/dL (11.5-16.0); LYMPHOCYTES # (AUTO) 0.3 10^3/uL (1.0-4.0); LYMPHOCYTES % (AUTO) 1 % (12-44); MEAN CORPUSCULAR HEMOGLOBIN 33 pg (25-34); MEAN CORPUSCULAR HGB CONC 31 g/dL (32-36); MEAN CORPUSCULAR VOLUME 106 fL (80-99); MEAN PLATELET VOLUME 11.2 fL (9.0-12.2); MONOCYTES # (AUTO) 0.5 10^3/uL (0.0-1.0); MONOCYTES % (AUTO) 2 % (0-12); NEUTROPHILS # (AUTO) 25.5 10^3/uL (1.8-7.8); NEUTROPHILS % (AUTO) 94 % (42-75); PLATELET COUNT 174 10^3/uL (130-400)
--- NOTE | 2021-04-05 06:52 | Occ Therapy Progress Note ---
Therapy Progress Note Pt currently intubated. OT to monitor pt's status and will initiate treatment when pt is medically stable and able to actively participate in skilled therapy. JULIETTE SKY Apr 05, 2021 06:52
[2021-04-05 06:54] LABS: ALBUMIN 2.8 GM/DL (3.2-4.5)
[2021-04-05 06:55] LABS: POTASSIUM 3.9 MMOL/L (3.6-5.0)
[2021-04-05 06:56] LABS: CALCIUM 7.2 MG/DL (8.5-10.1)
[2021-04-05 06:57] LABS: TOTAL PROTEIN 4.9 GM/DL (6.4-8.2)
[2021-04-05 06:59] LABS: BILIRUBIN,TOTAL 0.2 MG/DL (0.1-1.0)
[2021-04-05 07:01] LABS: CREATININE SERUM 0.83 MG/DL (0.60-1.30)
[2021-04-05 07:04] LABS: MAGNESIUM 2.3 MG/DL (1.6-2.4)
[2021-04-05] MEDS: POTASSIUM CL 10MEQ/50ML IVPB 50 ML IV SCH (07:16)
[2021-04-05] MEDS: MAGNESIUM 1 GM/100 ML IVPB 100 ML IV SCH (07:18)
[2021-04-05] MEDS: KCL 20 MEQ TAB (K-DUR) PO SCH (07:18)
--- NOTE | 2021-04-05 07:32 | Physical Therapy Progress Note ---
Therapy Progress Note Patient currently sedated and intubated. PT will continue to follow patient status and initiate treatment when patient is medically stable and able to actively participate with skilled therapy. KATHRYN FRANKEL PT Apr 05, 2021 07:32
[2021-04-05] MEDS: methylPREDNISolone 40 MG/ML (Solu-MEDROL) VIAL IV SCH ×3 (07:46→22:17)
[2021-04-05] MEDS: PANTOPRAZOLE 40 MG (PROTONIX) VIAL IV SCH (08:07)
[2021-04-05] MEDS: ENOXAPARIN 40 MG/0.4 ML (LOVENOX) SYR SC SCH (08:07)
[2021-04-05] MEDS ORDERED: FUROSEMIDE 40 MG/4 ML INJ (LASIX) IVP NR (09:35)
--- NOTE | 2021-04-05 09:36 | Tele-ICU Progress Note ---
Subjective Date Seen by a Provider: Apr 05, 2021 Time Seen by a Provider: 09:36 Subjective/Events-last exam Patient today remained on mechanical ventilation. Earlier she was tried on SBT and her heart rate went up to 140s. Once she is put back on assist control heart her heart rate came down to 100/min. Chest x-ray showed bilateral basilar infiltrates with small pleural effusion. I was wondering patient may have a sl ightly fluid overloaded at this time. We will give a small dose of Lasix. I will decrease steroids also. Review of Systems ROS per attending physician Sepsis Event Evaluation Height, Weight, BMI Height: 4'11.00" Weight: 140lbs. oz. 63.416992nd; 35.37 BMI Method:Stated Focused Exam Lactate Level 04/02/21 10:11: Lactic Acid Level 2.23*H 04/02/21 15:50: Lactic Acid Level 0.92 Exam Exam Patient acknowledged, consented, and participated in this virtual visit which was conducted using real time audio/video Vital Signs Date Time Temp Pulse Resp B/P (MAP) Pulse Ox O2 Delivery O2 Flow Rate FiO2 04/05/21 09:15 109 23 125/70 93 Mechanical Ventilator 30.00 04/05/21 09:00 116 22 145/89 Mechanical Ventilator 30.00 04/05/21 08:45 114 34 146/83 Mechanical Ventilator 30.00 04/05/21 08:36 111 28 90 30 04/05/21 08:30 105 18 92 Mechanical Ventilator 30.00 04/05/21 08:18 94 Mechanical Ventilator 30 04/05/21 08:15 103 16 136/84 93 Mechanical Ventilator 30.00 04/05/21 08:00 101 17 120/69 93 Mechanical Ventilator 30.00 04/05/21 08:00 36.5 04/05/21 07:45 107 23 118/67 92 Mechanical Ventilator 30.00 04/05/21 07:30 105 0 126/67 92 Mechanical Ventilator 30.00 04/05/21 07:15 103 19 128/71 93 Mechanical Ventilator 30.00 04/05/21 07:00 127/71 04/05/21 07:00 110 04/05/21 06:58 97 20 92 30 04/05/21 06:15 105 24 135/74 94 04/05/21 06:00 107 20 135/74 94 Mechanical Ventilator 30.00 04/05/21 05:45 104 15 130/68 93 04/05/21 05:37 101 133/69 04/05/21 05:30 115 23 133/69 91 04/05/21 05:30 133 69 04/05/21 05:15 84 24 115/77 92 04/05/21 05:00 91 17 130/68 93 Mechanical Ventilator 30.00 04/05/21 04:45 93 18 103/59 93 04/05/21 04:30 105/56 04/05/21 04:15 94 18 106/58 92 04/05/21 04:00 105 17 103/59 93 Mechanical Ventilator 30.00 04/05/21 04:00 97 30 04/05/21 03:45 107/58 04/05/21 03:30 94 18 114/60 91 04/05/21 03:15 98 17 121/69 93 04/05/21 03:00 105 15 107/58 93 Mechanical Ventilator 30.00 04/05/21 02:45 101 18 130/71 91 04/05/21 02:40 99 19 93 30 04/05/21 02:30 100 21 128/69 93 04/05/21 02:15 101 18 127/66 92 04/05/21 02:00 104 19 130/71 93 Mechanical Ventilator 30.00 04/05/21 01:45 104 17 128/65 91 04/05/21 01:30 129/67 04/05/21 01:15 101 18 110/81 94 04/05/21 01:00 100 04/05/21 01:00 100 25 128/65 95 Mechanical Ventilator 30.00 04/05/21 00:45 101 23 117/64 94 04/05/21 00:30 121/58 04/05/21 00:15 101 22 121/59 93 04/05/21 00:00 97 30 04/05/21 00:00 102 25 117/64 95 Mechanical Ventilator 30.00 04/04/21 23:45 101 23 122/59 93 04/04/21 23:30 101 25 126/57 93 04/04/21 23:15 99 25 128/55 94 04/04/21 23:00 104 25 122/59 95 Mechanical Ventilator 30.00 04/04/21 22:45 101 21 123/57 04/04/21 22:30 103 25 131/60 94 04/04/21 22:20 101 20 95 30 04/04/21 22:15 100 25 127/58 94 04/04/21 22:00 99 22 123/57 95 Mechanical Ventilator 30.00 04/04/21 21:45 99 22 130/60 94 04/04/21 21:30 125/55 04/04/21 21:15 97 23 129/57 94 04/04/21 21:00 101 25 130/60 95 Mechanical Ventilator 30.00 04/04/21 20:45 97 23 125/53 94 04/04/21 20:30 98 22 122/57 04/04/21 20:15 124/56 04/04/21 20:00 97 30 04/04/21 20:00 103 25 125/53 95 Mechanical Ventilator 30.00 04/04/21 19:45 101 27 117/59 94 04/04/21 19:30 101 24 119/61 95 04/04/21 19:15 119/56 04/04/21 19:00 103 04/04/21 19:00 103 21 117/59 95 Mechanical Ventilator 30.00 04/04/21 18:41 101 23 95 30 04/04/21 18:00 105 22 121/58 95 Mechanical Ventilator 30.00 04/04/21 17:04 36.9 Mechanical Ventilator 30.00 04/04/21 17:00 105 17 129/56 95 Mechanical Ventilator 25.00 04/04/21 16:02 96 30 04/04/21 16:00 115 17 128/64 96 Mechanical Ventilator 25.00 04/04/21 15:42 117 128/62 04/04/21 15:00 124 32 158/71 94 Mechanical Ventilator 25.00 04/04/21 14:32 125 25 95 30 04/04/21 14:00 122 22 121/63 94 Mechanical Ventilator 25.00 04/04/21 13:00 119 04/04/21 13:00 121 21 125/67 95 Mechanical Ventilator 25.00 04/04/21 12:06 36.8 04/04/21 12:00 117 22 138/70 95 Mechanical Ventilator 25.00 04/04/21 12:00 97 30 04/04/21 11:00 105 20 135/74 96 Mechanical Ventilator 25.00 04/04/21 10:05 100 23 98 30 04/04/21 10:00 101 24 135/68 93 Mechanical Ventilator 25.00 I & O 04/05/21 07:00 Intake Total 1200 ml Output Total 1400 ml Balance -200 ml Height & Weight Height: 4'11.00" Weight: 140lbs. oz. 63.338986lh; 35.37 BMI Method:Stated General Appearance: Chronically ill, Obese, Other (Lying supine, intubated and sedated.) HEENT: Pharynx Normal, Moist Mucous Membranes Neck: Supple Respiratory: No Accessory Muscle Use, No Respiratory Distress, Decreased Breath Sounds Cardiovascular: Regular Rate, Rhythm Capillary Refill: Less Than 3 Seconds Peripheral Pulses: 1+ Dorsalis Pedis (R), 1+ Left Dors-Pedis (L) Extremity: Normal Capillary Refill, Normal Inspection, No Pedal Edema Neurologic/Psychiatric: No Alert, No Oriented x3; Other (sedated, was able to squeeze RT's fingers during extubation evaluation) Skin: Normal Color, Warm/Dry Results Lab Laboratory Tests 04/04/21 05:04 04/05/21 06:00 Assessment/Plan Assessment/Plan 1. Acute hypoxic and hypercarbic respiratory failure not ready for weaning. 2. COPD exacerbatio improving 3. Underlying possible pneumonia. 4. Septic shock improved. 5. Acute kidney injury improving. Recommendations 1. We have tried SBT today but she did not tolerate hence we put back on assist control 2. We will decrease steroids further 3. Continue sedation 4. DVT prophylaxis and ulcer prophylaxis. 5. Discussed with the POISERNAHID Quintero Critical Care: Ventilator Management Time spent with patient (mins): 30 RAHEEM LEI MD Apr 05, 2021 09:36
--- NOTE | 2021-04-05 10:45 | Cardiology Progress Note ---
Subjective Date Seen by Provider: Apr 05, 2021 Time Seen by Provider: 10:44 Subjective/Events-last exam Patient was seen at bedside, ventilator dependent. Lethargic. Review of Systems General: Other (Unable to provide review of system) Focused Exam Lactate Level 04/02/21 15:50: Lactic Acid Level 0.92 Objective-Cardiology Exam Last Set of Vital Signs Vital Signs 04/05/21 04/05/21 04/05/21 08:00 08:36 09:15 Temp 36.5 Pulse 109 Resp 23 B/P (MAP) 125/70 Pulse Ox 93 O2 Delivery Mechanical Ventilator O2 Flow Rate 30.00 FiO2 30 I&O Intake and Output 04/05/21 00:00 Intake Total 2200 ml Output Total 1625 ml Balance 575 ml Intake Oral 0 ml IV Total 2200 ml Output Urine Total 1625 ml General: Other (Ventilator dependent) HEENT: Atraumatic Lungs: Normal Air Movement, Other (Bilateral rhonchi) Heart: Regular Rate, Normal S1, Normal S2, Other (Tachycardic) Abdomen: Normal Bowel Sounds Extremities: No Clubbing, No Cyanosis Skin: No Rashes Neuro: Other (Ventilator dependent) Psych/Mental Status: Other (Ventilator dependent) Results Lab Laboratory Tests 04/05/21 06:00 A/P-Cardiology Admission Diagnosis Acute respiratory failure AE COPD Pneumonia Sepsis Assessment/Plan Acute respiratory failure with hypercapnia, acute exacerbation of COPD, currently sedated and intubated, management per hospitalist and eICU. Pneumonia with sepsis, currently on antibiotic, management per medical services. Echocardiogram was done on April 03, 2021 showing normal LV size and systolic function, ejection fraction 55 to 65%, PA pressure 35 mmHg Sinus tachycardia, likely d/t respiratory failure, improved after intubation, patient is tachycardic today during weaning trial Morbid obesity Extobaccoism SHERLY MCKINLEY MD Apr 05, 2021 10:45
[2021-04-05] MEDS ORDERED: MIDAZOLAM 5 MG/5 ML (VERSED) VIAL INJ ONE (11:01)
[2021-04-05] MEDS ORDERED: ETOMIDATE IV SOLN 20 MG/10 ML VIAL IV ONE (11:01)
[2021-04-05] MEDS ORDERED: ROCURONIUM 10 MG/ML 5 ML SYRINGE IV ONE (11:01)
[2021-04-05] MEDS ORDERED: fentaNYL INJ 100 MCG/2 ML AMP IV ONE (11:01)
[2021-04-05] MEDS ORDERED: SUCCINYLCHOLINE INJ 100 MG/5 ML SYR/VIAL INJ ONE (11:01)
--- NOTE | 2021-04-05 12:24 | Progress Note - Hospitalist ---
SHANNAN LYNCH MED STUDENT 04/05/21 1224: Subjective HPI/CC On Admission Date Seen by Provider: Apr 05, 2021 Time Seen by Provider: 07:10 CC: Respiratory failure HPI: This is a 66yoWF chronic COPD, oxygen supplementation 24/11 patient of [facility] who presented to the [place] ER with SOB and diarrhea. She had been vomiting also. She was found to have B/L pneumonia, heart rate from 150 down to 130 after two liters of fluid given. Lactic acid was elevated at 2.5 and noted to have mild hypotension. WBC is 15,000 and ABG showed respiratory acidosis due to hypercapnia and hypoxemia. Cefepime was initiated broad-spectrum antibiotics. Solumedrol was given. EIC was given report by Dr. Haile and Pt was intubated prior to transport. Subjective/Events-last exam Mrs. Maurer is laying in bed this morning and she is still intubated and sedated. She appears about the same as she has for the previous few days. She does open her eyes when talking to her but she is unable to squeeze fingers on command. She underwent a trial of extubation yesterday but was not able to handle it and was re-intubated. She does have a little bit of hypernatremia this morning. Review of Systems Unable to obtain due to intubation Focused Exam Lactate Level 04/02/21 15:50: Lactic Acid Level 0.92 Objective Exam Vital Signs Vital Signs Date Time Temp Pulse Resp B/P (MAP) Pulse Ox O2 Delivery O2 Flow Rate FiO2 04/05/21 11:30 102 18 114/68 93 Mechanical Ventilator 30.00 04/05/21 11:03 30 04/05/21 08:00 36.5 Capillary Refill : Less Than 3 Seconds General Appearance: Chronically ill, Obese, Other (layin in bed, intubated and sedated) HEENT: Pharynx Normal, Moist Mucous Membranes Neck: Supple Respiratory: Lungs Clear, Normal Breath Sounds, No Accessory Muscle Use, No Respiratory Distress Cardiovascular: Regular Rate, Rhythm, No Edema, No Murmur, Normal Peripheral Pulses Gastrointestinal: No Normal Bowel Sounds (hyperactive); No Pulsatile Mass, Soft Rectal: Deferred Extremity: Normal Capillary Refill, Normal Inspection, No Pedal Edema Neurologic/Psychiatric: No Alert, No Oriented x3, No Normal Mood/Affect Skin: Normal Color, Warm/Dry Results/Procedures Lab Laboratory Tests 04/05/21 06:00 Patient resulted labs reviewed. Assessment/Plan Assessment and Plan Assess & Plan/Chief Complaint Sepsis -Continue ABX -CXR as necessary -IV Fluids -Daily Labs Acidosis No new ABG today, continue to monitor -IV Fluids -Extubation not tolerated yesterday but patient should be weaned whenever possible Hypotension -Has received pressors, continue as needed -IV fluids -BP stable this morning at 135/74 KASSI -Improved -Continue IV fluids Hypokalemia -Resolved today -Continue with normal labs Hypernatremia -Continue to monitor with labs Supervisory-Addendum Brief Verification & Attestation Participated in pt care: history, physical Personally performed: exam, history Care discussed with: Medical Student Procedures: n/a n/a SILVIA OLSON DO 04/06/21 0656: Subjective Subjective/Events-last exam Pt failed a wean trial Sodium 147 WBC 27,000 Cefepime maintained Vent settings are 400/15/5 at 30% Objective Exam General Appearance: No Apparent Distress, Chronically ill, Other (layin in bed, intubated and sedated) Respiratory: No Accessory Muscle Use, No Respiratory Distress, Decreased Breath Sounds Cardiovascular: Regular Rate, Rhythm Assessment/Plan Assessment and Plan Assess & Plan/Chief Complaint Continue intubation Appreciate vent management Supervisory-Addendum Brief Verification & Attestation Participated in pt care: history, MDM, physical Personally performed: exam, history, MDM, supervision of care Care discussed with: Medical Student Procedures: n/a Results interpretation: Verified all documentation Verification and Attestation of Medical Student E/M Service A medical student performed and documented this service in my presence. I reviewed and verified all information documented by the medical student and made modifications to such information, when appropriate. I personally performed the physical exam and medical decision making. Silvia Oslon, Apr 06, 2021,06:56 SHANNAN LYNCH MED STUDENT Apr 05, 2021 12:24 SILVIA OLSON DO Apr 06, 2021 06:56
[2021-04-06] MEDS: CEFEPIME 1,000 MG/NS 50 ML IVPB IV SCH ×8 (02:18→17:26)
[2021-04-06] MEDS: inSUlin ASPART (NovoLOG) 1 UNIT/0.01 ML (CHARGE PER UNIT) SC SCH ×4 (02:20→17:34)
[2021-04-06 02:32] VITALS: BP 133/70
[2021-04-06] MEDS: RT-ALBUTEROL/IPRATROPIUM 3 ML (DUONEB) VIAL INH SCH ×6 (02:32→21:46)
[2021-04-06 04:39] LABS: BASOPHILS # (AUTO) 0.1 10^3/uL (0.0-0.1); BASOPHILS % (AUTO) 0 % (0-10); EOSINOPHILS % (AUTO) 0 % (0-10); HEMATOCRIT 32 % (35-52); HEMOGLOBIN 10.2 g/dL (11.5-16.0); LYMPHOCYTES # (AUTO) 0.4 10^3/uL (1.0-4.0); LYMPHOCYTES % (AUTO) 2 % (12-44); MEAN CORPUSCULAR HEMOGLOBIN 33 pg (25-34); MEAN CORPUSCULAR HGB CONC 32 g/dL (32-36); MEAN CORPUSCULAR VOLUME 105 fL (80-99); MONOCYTES # (AUTO) 0.6 10^3/uL (0.0-1.0); MONOCYTES % (AUTO) 2 % (0-12); NEUTROPHILS # (AUTO) 25.8 10^3/uL (1.8-7.8); NEUTROPHILS % (AUTO) 95 % (42-75); PLATELET COUNT 165 10^3/uL (130-400); WHITE BLOOD COUNT 27.2 10^3/uL (4.3-11.0)
[2021-04-06 04:56] LABS: ALBUMIN 2.8 GM/DL (3.2-4.5); POTASSIUM 3.7 MMOL/L (3.6-5.0)
[2021-04-06 04:57] LABS: CALCIUM 7.4 MG/DL (8.5-10.1)
[2021-04-06 05:00] LABS: BILIRUBIN,TOTAL 0.3 MG/DL (0.1-1.0)
[2021-04-06 05:02] LABS: CREATININE SERUM 0.82 MG/DL (0.60-1.30)
[2021-04-06] MEDS ORDERED: meTOprolol 5 MG/5 ML (LOPRESSOR) VIAL IV ONE (05:30)
[2021-04-06] MEDS: POTASSIUM CL 10MEQ/50ML IVPB 50 ML IV SCH (05:37)
[2021-04-06] MEDS: MAGNESIUM 1 GM/100 ML IVPB 100 ML IV SCH (05:37)
[2021-04-06] MEDS: KCL 20 MEQ TAB (K-DUR) PO SCH (05:38)
--- NOTE | 2021-04-06 06:34 | Diagnostic Imaging Report ---
EXAMINATION: Portable erect AP chest at 6:22 AM INDICATION: Respiratory distress The heart is enlarged but stable when compared to the prior exam of 04/04/2021. As on the previous study both lung bases are partially obscured by atelectasis/infiltrate and fluid. These findings are similar to the prior exam. The upper lungs are relatively clear. The mediastinum is prominent but no different than on the prior study. The osseous structures are intact. The supportive tubes and lines seen previously appear similar in position. IMPRESSION: Stable chest. There has been no adverse change since the prior exam. Dictated by: Dictated on workstation # [id number]
[2021-04-06] MEDS: NS IV 1000 ML 1,000 ML IV SCH (08:00)
--- NOTE | 2021-04-06 08:22 | Occ Therapy Progress Note ---
Therapy Progress Note Pt currently intubated. OT to monitor pt's status and will initiate treatment when pt is medically stable and able to actively participate in skilled therapy. JULIETTE SKY Apr 06, 2021 08:22
--- NOTE | 2021-04-06 08:30 | Tele-ICU Progress Note ---
Progress Note video rounds completed 70 y/o obese female with PNA and COPD COVID test pending On vent AC: 15/400/30%/5 failed SBT yesterday PE: looks tired Pulse 126 BP 113/63 O2 sat: 94% On cefipime for PNA On sq heparin for DVT prophylaxis and pantoprazole for stress ulcer px PLAN: wean as feasbale although doesn't look ready already tachycardic at 126 Focused Exam Height, Weight, BMI Height: 4'11.00" Weight: 140lbs. oz. 63.537801tx; 35.37 BMI Method:Stated Laboratory Tests 04/06/21 04:30 Labs Labs Laboratory Tests 04/05/21 11:50: Glucometer 178H 04/05/21 18:16: Glucometer 227H 04/06/21 02:09: Glucometer 202H 04/06/21 04:30: White Blood Count 27.2H, Red Blood Count 3.09L, Hemoglobin 10.2L, Hematocrit 32L , Mean Corpuscular Volume 105H, Mean Corpuscular Hemoglobin 33, Mean Corpuscular Hemoglobin Concent 32, Red Cell Distribution Width 13.4, Platelet Count 165, Mean Platelet Volume 11.0, Immature Granulocyte % (Auto) 2, Neutrophils (%) (Auto) 95H, Lymphocytes (%) (Auto) 2L, Monocytes (%) (Auto) 2, Eosinophils (%) (Auto) 0, Basophils (%) (Auto) 0, Neutrophils # (Auto) 25.8H, Lymphocytes # (Auto) 0.4L, Monocytes # (Auto) 0.6, Eosinophils # (Auto) 0.0, Basophils # (Auto) 0.1, Immature Granulocyte # (Auto) 0.4H, Sodium Level 147H, Potassium Level 3.7, Chloride Level 111H, Carbon Dioxide Level 26, Anion Gap 10, Blood Urea Nitrogen 34H, Creatinine 0.82, Estimat Glomerular Filtration Rate 69, BUN/Creatinine Ratio 41, Glucose Level 191H, Calcium Level 7.4L, Corrected Calcium 8.4L, Magnesium Level 2.4, Total Bilirubin 0.3, Aspartate Amino Transf (AST/SGOT) 33, Alanine Aminotransferase (ALT/SGPT) 33, Alkaline Phosphatase 48, C-Reactive Protein High Sensitivity 2.71H, B-Type Natriuretic Peptide 122.6H, Total Protein 5.0L, Albumin 2.8L, Procalcitonin 0.81H 04/06/21 06:50: D-Dimer 1.40H 04/06/21 07:50: SARS-CoV-2 RNA (RT-PCR) Not Detected Microbiology 04/02/21 MRSA Screen - Final, Complete MRSA not isolated 04/02/21 Urine Culture - Final, Complete NO GROWTH 04/02/21 Blood Culture - Preliminary, Resulted No growth JOSEPH PALAFOX MD Apr 06, 2021 08:30
[2021-04-06] MEDS: PANTOPRAZOLE 40 MG (PROTONIX) VIAL IV SCH (08:55)
[2021-04-06] MEDS: methylPREDNISolone 40 MG/ML (Solu-MEDROL) VIAL IV SCH ×2 (08:56→21:00)
[2021-04-06] MEDS: ENOXAPARIN 40 MG/0.4 ML (LOVENOX) SYR SC SCH (08:56)
--- NOTE | 2021-04-06 09:18 | Progress Note - Hospitalist ---
Subjective HPI/CC On Admission Date Seen by Provider: Apr 06, 2021 Time Seen by Provider: 11:00 CC: Respiratory failure HPI: This is a 66yoWF chronic COPD, oxygen supplementation 24/11 patient of [facility] who presented to the [place] ER with SOB and diarrhea. She had been vomiting also. She was found to have B/L pneumonia, heart rate from 150 down to 130 after two liters of fluid given. Lactic acid was elevated at 2.5 and noted to have mild hypotension. WBC is 15,000 and ABG showed respiratory acidosis due to hypercapnia and hypoxemia. Cefepime was initiated broad-spectrum antibiotics. Solumedrol was given. EIC was given report by Dr. Haile and Pt was intubated prior to transport. Subjective/Events-last exam Patient still intubated White count 27,000 A. fib with RVR requiring Cardizem drip and cardiology consult Digoxin given Corticosteroids and cefepime maintained Check meds and labs Appreciate Dr. Cohen Objective Exam Vital Signs Vital Signs Date Time Temp Pulse Resp B/P (MAP) Pulse Ox O2 Delivery O2 Flow Rate FiO2 04/07/21 05:30 72 25 93 Mechanical Ventilator 30.00 04/07/21 04:00 30 04/06/21 20:00 36.0 Capillary Refill : Less Than 3 Seconds General Appearance: No Apparent Distress, WD/WN, Chronically ill, Other (intubated) Respiratory: No Accessory Muscle Use, No Respiratory Distress, Decreased Breath Sounds Cardiovascular: Regular Rate, Rhythm Results/Procedures Lab Laboratory Tests 04/07/21 03:20 Patient resulted labs reviewed. Assessment/Plan Assessment and Plan Assess & Plan/Chief Complaint Sepsis -Continue ABX -CXR as necessary -IV Fluids -Daily Labs Acidosis No new ABG today, continue to monitor -IV Fluids -Extubation not tolerated yesterday but patient should be weaned whenever possible Hypotension -Has received pressors, continue as needed -IV fluids -BP stable this morning at 135/74 KASSI -Improved -Continue IV fluids Hypokalemia -Resolved today -Continue with normal labs Hypernatremia -Continue to monitor with labs Critical Care Ventilator Management ROMEO OLSON DO Apr 06, 2021 09:18
[2021-04-06] MEDS ORDERED: ENOXAPARIN 40 MG/0.4 ML (LOVENOX) SYR SQ SCH (10:30)
[2021-04-06] MEDS ORDERED: DIGOXIN 0.25 MG/ML (LANOXIN) 2 ML AMP IV ONE (10:30)
[2021-04-06] MEDS: dilTIAZem DRIP PRE-MIX 125 ML IV SCH (10:38)
--- NOTE | 2021-04-06 11:23 | Progress Note - Cardiology ---
Cardiology SOAP Progress Note Subjective: She is on mech vent and is unresponsive New A Fib with RVR has been seen today Objective: I&O/Vital Signs 04/05/21 04/05/21 04/06/21 04/06/21 23:30 23:45 00:00 00:00 Pulse 105 100 101 Resp 25 20 25 B/P (MAP) 142/73 124/83 133/81 Pulse Ox 93 93 95 94 O2 Delivery Mechanical Ventilator O2 Flow Rate 30.00 FiO2 30 04/06/21 04/06/21 04/06/21 04/06/21 00:15 00:30 00:45 01:00 Pulse 97 97 96 93 Resp 25 20 22 22 B/P (MAP) 133/81 130/82 133/78 140/76 Pulse Ox 94 94 92 94 O2 Delivery Mechanical Ventilator O2 Flow Rate 30.00 04/06/21 04/06/21 04/06/21 04/06/21 01:00 01:15 01:30 01:45 Pulse 93 96 98 Resp 22 21 B/P (MAP) 140/76 131/70 136/86 Pulse Ox 93 93 04/06/21 04/06/21 04/06/21 04/06/21 02:00 02:15 02:21 02:30 Pulse 101 112 99 100 Resp 24 25 21 B/P (MAP) 143/86 141/108 141/108 133/70 Pulse Ox 94 94 93 O2 Delivery Mechanical Ventilator O2 Flow Rate 30.00 04/06/21 04/06/21 04/06/21 04/06/21 02:32 02:45 03:00 03:15 Pulse 98 96 96 Resp 23 19 19 B/P (MAP) 136/69 119/71 119/67 Pulse Ox 93 93 91 O2 Delivery Mechanical Ventilator O2 Flow Rate 30.00 FiO2 30 04/06/21 04/06/21 04/06/21 04/06/21 03:30 03:45 04:00 04:00 Pulse 96 91 Resp 21 18 B/P (MAP) 117/68 128/68 135/67 Pulse Ox 92 92 95 O2 Delivery Mechanical Ventilator O2 Flow Rate 30.00 FiO2 30 04/06/21 04/06/21 04/06/21 04/06/21 04:28 04:30 04:45 05:00 Pulse 106 105 156 Resp 20 22 20 B/P (MAP) 100/63 104/65 131/62 Pulse Ox 94 94 93 O2 Delivery Mechanical Ventilator O2 Flow Rate 30.00 04/06/21 04/06/21 04/06/21 04/06/21 05:15 05:30 05:45 06:00 Pulse 152 135 118 Resp 26 19 17 B/P (MAP) 111/64 114/62 101/75 102/62 Pulse Ox 92 92 93 O2 Delivery Mechanical Ventilator O2 Flow Rate 30.00 04/06/21 04/06/21 04/06/21 04/06/21 06:15 06:43 07:00 07:00 Pulse 118 116 127 Resp 18 17 B/P (MAP) 100/76 103/67 Pulse Ox 94 93 O2 Delivery Mechanical Ventilator O2 Flow Rate 30.00 FiO2 30 04/06/21 04/06/21 04/06/21 04/06/21 08:00 08:52 09:00 09:00 Temp 36.6 Pulse 122 135 Resp 18 19 B/P (MAP) 106/65 103/74 Pulse Ox 93 95 93 O2 Delivery Mechanical Ventilator Mechanical Ventilator Mechanical Ventilator O2 Flow Rate 30.00 30.00 FiO2 30 04/06/21 04/06/21 09:51 10:06 Pulse 142 142 Resp 19 B/P (MAP) 93/71 Pulse Ox 93 FiO2 30 04/06/21 00:00 Intake Total 180 ml Output Total 1050 ml Balance -870 ml Weight (Pounds): 140 Weight (Calculated Kilograms): 63.816594 Constitutional: other (intubated, on mech vent, unresponsive) Respiratory: other (fair, bilateral air entry) Cardiovascular: irregularly irregular, S1 and S2, systolic murmur (soft PAT at card base) Gastrointestional: soft; No guarding, No rebound; audible bowel sounds Extremities: other (mild to mod, pitting and nonpitting edema of the legs); No clubbing, No cyanosis Neurologic/Psychiatric: other (unresponsive, unable to cooperate with a neuro e xam) Skin: normal color, warm/dry Results/Procedures: Labs Laboratory Tests 04/05/21 11:50: Glucometer 178H 04/05/21 18:16: Glucometer 227H 04/06/21 02:09: Glucometer 202H 04/06/21 04:30: White Blood Count 27.2H, Red Blood Count 3.09L, Hemoglobin 10.2L, Hematocrit 32L , Mean Corpuscular Volume 105H, Mean Corpuscular Hemoglobin 33, Mean Corpuscular Hemoglobin Concent 32, Red Cell Distribution Width 13.4, Platelet Count 165, Mean Platelet Volume 11.0, Immature Granulocyte % (Auto) 2, Neutrophils (%) (Auto) 95H, Lymphocytes (%) (Auto) 2L, Monocytes (%) (Auto) 2, Eosinophils (%) (Auto) 0, Basophils (%) (Auto) 0, Neutrophils # (Auto) 25.8H, Lymphocytes # (Auto) 0.4L, Monocytes # (Auto) 0.6, Eosinophils # (Auto) 0.0, Basophils # (Auto) 0.1, Immature Granulocyte # (Auto) 0.4H, Sodium Level 147H, Potassium Level 3.7, Chloride Level 111H, Carbon Dioxide Level 26, Anion Gap 10, Blood Urea Nitrogen 34H, Creatinine 0.82, Estimat Glomerular Filtration Rate 69, BUN/Creatinine Ratio 41, Glucose Level 191H, Calcium Level 7.4L, Corrected Calcium 8.4L, Magnesium Level 2.4, Total Bilirubin 0.3, Aspartate Amino Transf (AST/SGOT) 33, Alanine Aminotransferase (ALT/SGPT) 33, Alkaline Phosphatase 48, C-Reactive Protein High Sensitivity 2.71H, B-Type Natriuretic Peptide 122.6H, Total Protein 5.0L, Albumin 2.8L, Procalcitonin 0.81H 04/06/21 06:50: D-Dimer 1.40H 04/06/21 07:50: SARS-CoV-2 RNA (RT-PCR) Not Detected 04/06/21 11:11: Glucometer 197H Microbiology 04/02/21 MRSA Screen - Final, Complete MRSA not isolated 04/02/21 Urine Culture - Final, Complete NO GROWTH 04/02/21 Blood Culture - Preliminary, Resulted No growth A/P: Assessment: New onset A Fib with RVR (first diagnosed on 04/06/21) Pneumonia complicated by sepsis, septic shock, and ac resp failure H/o COPD H/o prior tobaccoism Mobid obesity, with BMI approx 39 and with probable obesity-hypovent syncrome - Echo 04/03/21: normal LV size and systolic function, ejection fraction 55 to 65%, PA pressure 35 mmHg Plan: * Complex management due to multiple, concurrent morbidities (see above) * Dig and dilt for vent rate control * Enoxaparin for stroke prophylaxis * Replenish lytes * Monitor labs STEPH AHMADI MD [facility] CCDS Apr 06, 2021 11:23
[2021-04-06] MEDS: DIGOXIN 0.25 MG/ML (LANOXIN) 2 ML AMP IV SCH (12:42)
[2021-04-06 14:30] VITALS: BP 111/53
[2021-04-06 18:30] VITALS: BP 107/42
[2021-04-06 21:47] VITALS: BP 107/42
[2021-04-07] MEDS: CEFEPIME 1,000 MG/NS 50 ML IVPB IV SCH ×4 (00:23→06:29)
[2021-04-07] MEDS: inSUlin ASPART (NovoLOG) 1 UNIT/0.01 ML (CHARGE PER UNIT) SC SCH ×4 (00:23→18:00)
[2021-04-07] MEDS: dilTIAZem DRIP PRE-MIX 125 ML IV SCH ×2 (00:24→12:15)
[2021-04-07 02:41] VITALS: BP 125/54
[2021-04-07] MEDS: RT-ALBUTEROL/IPRATROPIUM 3 ML (DUONEB) VIAL INH SCH ×6 (02:41→22:01)
[2021-04-07 04:18] LABS: BASOPHILS # (AUTO) 0.1 10^3/uL (0.0-0.1); BASOPHILS % (AUTO) 0 % (0-10); EOSINOPHILS % (AUTO) 0 % (0-10); HEMATOCRIT 35 % (35-52); HEMOGLOBIN 10.5 g/dL (11.5-16.0); LYMPHOCYTES # (AUTO) 0.5 10^3/uL (1.0-4.0); LYMPHOCYTES % (AUTO) 2 % (12-44); MEAN CORPUSCULAR HEMOGLOBIN 32 pg (25-34); MEAN CORPUSCULAR HGB CONC 30 g/dL (32-36); MEAN CORPUSCULAR VOLUME 106 fL (80-99); MEAN PLATELET VOLUME 11.2 fL (9.0-12.2); MONOCYTES # (AUTO) 0.9 10^3/uL (0.0-1.0); MONOCYTES % (AUTO) 3 % (0-12); NEUTROPHILS # (AUTO) 28.3 10^3/uL (1.8-7.8); NEUTROPHILS % (AUTO) 92 % (42-75); PLATELET COUNT 174 10^3/uL (130-400)
[2021-04-07 04:25] LABS: WHITE BLOOD COUNT 30.8 10^3/uL (4.3-11.0)
[2021-04-07 05:01] LABS: ALBUMIN 2.7 GM/DL (3.2-4.5); POTASSIUM 4.5 MMOL/L (3.6-5.0)
[2021-04-07 05:02] LABS: CALCIUM 7.6 MG/DL (8.5-10.1)
[2021-04-07 05:04] LABS: TOTAL PROTEIN 4.9 GM/DL (6.4-8.2)
[2021-04-07 05:05] LABS: BILIRUBIN,TOTAL 0.2 MG/DL (0.1-1.0)
[2021-04-07 05:07] LABS: CREATININE SERUM 0.8 MG/DL (0.60-1.30)
[2021-04-07] MEDS: KCL 20 MEQ TAB (K-DUR) PO SCH (06:30)
[2021-04-07] MEDS: POTASSIUM CL 10MEQ/50ML IVPB 50 ML IV SCH (06:30)
[2021-04-07] MEDS: MAGNESIUM 1 GM/100 ML IVPB 100 ML IV SCH (06:30)
[2021-04-07] MEDS: NS IV 1000 ML 1,000 ML IV SCH (06:31)
[2021-04-07 06:58] VITALS: BP 179/75
[2021-04-07] MEDS ORDERED: FUROSEMIDE 40 MG/4 ML INJ (LASIX) IVP ONE (08:15)
[2021-04-07] MEDS: PANTOPRAZOLE 40 MG (PROTONIX) VIAL IV SCH (09:11)
[2021-04-07] MEDS: ENOXAPARIN 40 MG/0.4 ML (LOVENOX) SYR SC SCH (09:12)
[2021-04-07] MEDS: methylPREDNISolone 40 MG/ML (Solu-MEDROL) VIAL IV SCH (09:12)
--- NOTE | 2021-04-07 10:01 | Tele-ICU Progress Note ---
Subjective Date Seen by a Provider: Apr 07, 2021 Time Seen by a Provider: 10:01 Subjective/Events-last exam Patient remained intubated and on mechanical ventilation. Has been having on and off atrial fibrillation with rapid ventricular rate. Still on Cardizem drip. Hemodynamically stable. Chest x-ray looks congestive changes with bilateral pleural effusion with underlying the pneumonia. Sputum cultures grew Stenotrophomonas maltophilia and her white count jumped up to 30,000. I have discontinued her cefepime and started on the Levaquin to her HD current pathogen is sensitive. Also given Lasix. Hopefully will try her on CPAP trial tomorrow. Review of Systems ROS per attending physician Sepsis Event Evaluation Height, Weight, BMI Height: 4'11.00" Weight: 140lbs. oz. 63.568419id; 35.37 BMI Method:Stated Exam Exam Patient acknowledged, consented, and participated in this virtual visit which was conducted using real time audio/video Vital Signs Date Time Temp Pulse Resp B/P (MAP) Pulse Ox O2 Delivery O2 Flow Rate FiO2 04/07/21 08:00 36.9 04/07/21 06:58 85 23 94 30 04/07/21 05:30 72 25 93 Mechanical Ventilator 30.00 04/07/21 05:15 71 26 94 04/07/21 04:30 75 25 94 04/07/21 04:00 94 30 04/07/21 04:00 79 24 94 04/07/21 03:30 22 93 04/07/21 03:00 72 25 94 04/07/21 02:41 71 22 94 30 04/07/21 02:15 78 32 94 Mechanical Ventilator 30.00 04/07/21 02:00 73 32 95 04/07/21 01:30 73 33 95 04/07/21 01:15 70 32 95 04/07/21 01:00 71 25 94 04/07/21 01:00 77 04/07/21 00:45 76 22 95 04/07/21 00:30 74 25 95 04/07/21 00:25 71 125/54 04/07/21 00:15 83 22 89 04/07/21 00:00 72 23 94 04/07/21 00:00 94 30 04/06/21 23:45 71 24 95 04/06/21 23:30 73 24 93 04/06/21 23:15 72 24 94 04/06/21 23:00 71 25 94 04/06/21 22:45 74 25 94 04/06/21 22:15 76 25 125/54 94 Mechanical Ventilator 30.00 04/06/21 22:00 75 24 93 Mechanical Ventilator 30.00 04/06/21 21:47 70 19 93 30 04/06/21 21:45 70 26 93 Mechanical Ventilator 30.00 04/06/21 21:30 71 22 93 Mechanical Ventilator 30.00 04/06/21 21:15 73 21 93 Mechanical Ventilator 30.00 04/06/21 21:00 71 25 93 Mechanical Ventilator 30.00 04/06/21 20:45 70 18 93 Mechanical Ventilator 30.00 04/06/21 20:30 70 19 93 Mechanical Ventilator 30.00 04/06/21 20:15 75 19 93 Mechanical Ventilator 30.00 04/06/21 20:00 36.0 04/06/21 20:00 78 20 94 Mechanical Ventilator 30.00 04/06/21 20:00 94 30 04/06/21 19:45 79 21 94 Mechanical Ventilator 30.00 04/06/21 19:30 81 22 93 Mechanical Ventilator 30.00 04/06/21 19:15 112 25 94 Mechanical Ventilator 30.00 04/06/21 19:00 89 23 94 Mechanical Ventilator 30.00 04/06/21 19:00 90 04/06/21 18:30 82 22 93 30 04/06/21 18:00 98 22 107/42 93 Mechanical Ventilator 30.00 04/06/21 17:26 86 109/53 04/06/21 17:00 90 24 109/53 94 Mechanical Ventilator 30.00 04/06/21 16:36 36.4 04/06/21 16:33 94 Mechanical Ventilator 30 04/06/21 16:00 86 23 93 Mechanical Ventilator 30.00 04/06/21 15:00 92 18 92 Mechanical Ventilator 30.00 04/06/21 14:30 84 22 92 30 04/06/21 14:00 87 22 117/61 92 Mechanical Ventilator 30.00 04/06/21 13:00 132 04/06/21 13:00 108 22 117/65 92 Mechanical Ventilator 30.00 04/06/21 12:00 95 Mechanical Ventilator 30 04/06/21 12:00 121 20 94/66 93 Mechanical Ventilator 30.00 04/06/21 12:00 36.5 04/06/21 11:00 158 18 117/80 92 Mechanical Ventilator 30.00 04/06/21 10:06 142 93/71 I & O 04/07/21 07:00 Intake Total 1325 ml Output Total 1300 ml Balance 25 ml Height & Weight Height: 4'11.00" Weight: 140lbs. oz. 63.935091br; 35.37 BMI Method:Stated General Appearance: No Apparent Distress, WD/WN, Chronically ill, Other (intubated) HEENT: Pharynx Normal, Moist Mucous Membranes Neck: Supple Respiratory: No Accessory Muscle Use, No Respiratory Distress, Decreased Breath Sounds Cardiovascular: Regular Rate, Rhythm Capillary Refill: Less Than 3 Seconds Peripheral Pulses: 1+ Dorsalis Pedis (R), 1+ Left Dors-Pedis (L) Extremity: Normal Capillary Refill, Normal Inspection, No Pedal Edema Neurologic/Psychiatric: No Alert, No Oriented x3, No Normal Mood/Affect Skin: Normal Color, Warm/Dry Other comments PE PER ATTENDING Results Lab Laboratory Tests 04/06/21 04:30 04/07/21 03:20 Assessment/Plan Assessment/Plan 1. Acute hypoxic and hypercarbic respiratory failure not ready for weaning. 2. COPD exacerbatio improving 3.Gram negative pneumonia 4. Septic shock improved. 5. Acute kidney injury improving. 6. Afib with rvr Recommendations 1. will change antibiotic to levquin 2. We will decrease steroids further 3.IV lasix 4. DVT prophylaxis and ulcer prophylaxis. 5. Discussed with the INSURANCE MARKETING SPECIALIST. 6. will get cxr in am and consider SBT tomorrow Critical Care: Ventilator Management Time spent with patient (mins): 35 RAHEEM LEI MD Apr 07, 2021 10:01
[2021-04-07 10:37] VITALS: BP 155/66
--- NOTE | 2021-04-07 10:50 | Progress Note - Hospitalist ---
Subjective HPI/CC On Admission Date Seen by Provider: Apr 07, 2021 Time Seen by Provider: 11:00 CC: Respiratory failure HPI: This is a 66yoWF chronic COPD, oxygen supplementation 24/11 patient of [facility] who presented to the [facility] with SOB and diarrhea. She had been vomiting also. She was found to have B/L pneumonia, heart rate from 150 down to 130 after two liters of fluid given. Lactic acid was elevated at 2.5 and noted to have mild hypotension. WBC is 15,000 and ABG showed respiratory acidosis due to hypercapnia and hypoxemia. Cefepime was initiated broad-spectrum antibiotics. Solumedrol was given. EIC was given report by Dr. Haile and Pt was intubated prior to transport. Subjective/Events-last exam Patient failed extubation White count is elevated Tube feedings may have aspirated Given Lasix 1 dose and another this evening May be a landmark candidate Changed antibiotics per sputum culture Objective Exam Vital Signs Vital Signs Date Time Temp Pulse Resp B/P (MAP) Pulse Ox O2 Delivery O2 Flow Rate FiO2 04/07/21 14:45 79 24 133/63 94 Mechanical Ventilator 30.00 04/07/21 14:45 30 04/07/21 12:00 36.2 Capillary Refill : Less Than 3 Seconds General Appearance: No Apparent Distress, WD/WN, Chronically ill, Obese, Other (Intubated and sedated) Respiratory: No Accessory Muscle Use, No Respiratory Distress, Decreased Breath Sounds, Rales Cardiovascular: Regular Rate, Rhythm Results/Procedures Lab Laboratory Tests 04/07/21 03:20 Patient resulted labs reviewed. Assessment/Plan Assessment and Plan Assess & Plan/Chief Complaint Sepsis -Continue ABX but changed to Levaquin -CXR as necessary -IV Fluids -Daily Labs Respiratory acidosis acidosis due to hypercapnia Hypotension -Has received pressors, continue as needed KASSI -Improved -Continue IV fluids Hypokalemia -Resolved today -Continue with normal labs Hypernatremia -Continue to monitor with labs 04/07/2021: Maintain intubation Levaquin IV steroids Critical Care Ventilator Management ROMEO OLSON DO Apr 07, 2021 10:50
--- NOTE | 2021-04-07 10:56 | Diagnostic Imaging Report ---
INDICATION: Evaluate tube placement. FINDINGS: The nasogastric tube has its tip in the body of stomach. The bowel gas pattern is nonspecific. There are surgical clips in right upper quadrant. The osseous structures are grossly unremarkable. IMPRESSION: Nasogastric tube has its tip in the body of the stomach. Dictated by: Dictated on workstation # [id number]
--- NOTE | 2021-04-07 10:57 | Diagnostic Imaging Report ---
EXAMINATION: Chest radiograph, portable AP view. DATE: 04/07/2021 10:48 AM INDICATION: 70-year-old female, endotracheal tube placement. COMPARISON: April 06, 2021. FINDINGS: The endotracheal tube is approximately 2 cm above the veronica. The nasogastric tube is in the stomach. There is a right internal jugular central venous line overlying the lower SVC. Heart size and mediastinal contours are unchanged. There is no identified pneumothorax. There is blunting of the bilateral lateral costophrenic angles and nonspecific bibasilar airspace consolidation which is essentially unchanged. IMPRESSION: 1. Essentially unchanged nonspecific bibasilar airspace consolidation which may relate to effusions, infiltrate, and/or atelectasis. 2. Support lines and tubes as above. Endotracheal tube is approximately 2 cm above the veronica. Dictated by: Dictated on workstation # [id number]
[2021-04-07] MEDS: DIGOXIN 0.25 MG/ML (LANOXIN) 2 ML AMP IV SCH (12:15)
[2021-04-07 14:45] VITALS: BP 133/63
--- NOTE | 2021-04-07 15:30 | Progress Note - Cardiology ---
Cardiology SOAP Progress Note [facility] Objective: I&O/Vital Signs 04/07/21 04/07/21 04/07/21 04/07/21 03:30 04:00 04:00 04:30 Pulse 79 75 Resp 22 24 25 Pulse Ox 93 94 94 94 FiO2 30 04/07/21 04/07/21 04/07/21 04/07/21 05:15 05:30 06:58 07:00 Pulse 71 72 85 83 Resp 26 25 23 23 B/P (MAP) Pulse Ox 94 93 94 93 O2 Delivery Mechanical Ventilator O2 Flow Rate 30.00 FiO2 30 04/07/21 04/07/21 04/07/21 04/07/21 07:00 07:15 07:30 07:45 Pulse 81 80 83 83 Resp 25 25 20 B/P (MAP) 157/71 Pulse Ox 91 91 90 04/07/21 04/07/21 04/07/21 04/07/21 08:00 08:00 08:15 08:30 Temp 36.9 Pulse 81 78 76 Resp 19 16 16 B/P (MAP) 157/64 146/66 151/69 Pulse Ox 89 91 92 O2 Delivery Mechanical Ventilator Mechanical Ventilator O2 Flow Rate 30.00 30.00 04/07/21 04/07/21 04/07/21 04/07/21 08:45 09:00 09:15 09:30 Pulse 77 80 80 86 Resp 19 19 22 20 B/P (MAP) 148/63 158/71 151/66 163/74 Pulse Ox 92 91 91 92 O2 Delivery Mechanical Ventilator Mechanical Ventilator Mechanical Ventilator Mechanical Ventilator O2 Flow Rate 30.00 30.00 30.00 30.00 04/07/21 04/07/21 04/07/21 04/07/21 09:45 10:00 10:15 10:30 Pulse 85 84 87 89 Resp 21 18 22 22 B/P (MAP) 160/68 165/119 166/69 155/66 Pulse Ox 92 92 93 94 O2 Delivery Mechanical Ventilator Mechanical Ventilator Mechanical Ventilator Mechanical Ventilator O2 Flow Rate 30.00 30.00 30.00 30.00 04/07/21 04/07/21 04/07/21 04/07/21 10:37 10:45 11:00 11:15 Pulse 77 80 79 81 Resp 23 18 24 22 B/P (MAP) 136/65 131/67 131/63 Pulse Ox 90 93 93 93 O2 Delivery Mechanical Ventilator Mechanical Ventilator Mechanical Ventilator O2 Flow Rate 30.00 30.00 30.00 FiO2 30 04/07/21 04/07/21 04/07/21 04/07/21 11:30 11:45 12:00 12:00 Temp 36.2 Pulse 82 82 81 78 Resp 25 24 26 26 B/P (MAP) 130/67 137/61 141/67 131/67 Pulse Ox 92 93 93 93 O2 Delivery Mechanical Ventilator Mechanical Ventilator Mechanical Ventilator Mechanical Ventilator O2 Flow Rate 30.00 30.00 30.00 30.00 04/07/21 04/07/21 04/07/21 04/07/21 12:15 12:16 12:30 12:45 Pulse 83 86 80 86 Resp 22 25 22 B/P (MAP) 139/70 141/67 146/68 145/66 Pulse Ox 94 94 93 O2 Delivery Mechanical Ventilator Mechanical Ventilator Mechanical Ventilator O2 Flow Rate 30.00 30.00 30.00 04/07/21 04/07/21 04/07/21 04/07/21 13:00 13:15 13:30 13:45 Pulse 82 79 85 88 Resp 24 21 17 22 B/P (MAP) 136/69 132/64 139/71 137/67 Pulse Ox 93 93 O2 Delivery Mechanical Ventilator Mechanical Ventilator O2 Flow Rate 30.00 30.00 04/07/21 04/07/21 04/07/21 04/07/21 14:00 14:15 14:30 14:45 Pulse 79 78 76 76 Resp 26 22 20 B/P (MAP) 132/64 132/68 128/61 Pulse Ox 93 93 94 94 O2 Delivery Mechanical Ventilator O2 Flow Rate 30.00 FiO2 30 04/07/21 14:45 Pulse 79 Resp 24 B/P (MAP) 133/63 Pulse Ox 94 O2 Delivery Mechanical Ventilator O2 Flow Rate 30.00 04/06/21 23:59 Intake Total 490 ml Output Total 450 ml Balance 40 ml Weight (Pounds): 140 Weight (Calculated Kilograms): 63.516561 Constitutional: other (intubated, on mech vent, unresponsive) Respiratory: other (fair, bilateral air entry) Cardiovascular: irregularly irregular, S1 and S2, systolic murmur (soft PAT at card base) Gastrointestional: soft; No guarding, No rebound; audible bowel sounds Extremities: other (mild to mod, pitting and nonpitting edema of the legs); No clubbing, No cyanosis Neurologic/Psychiatric: other (unresponsive, unable to cooperate with a neuro exam) Skin: normal color, warm/dry Results/Procedures: Labs Laboratory Tests 04/06/21 17:30: Glucometer 222H 04/07/21 00:18: Glucometer 224H 04/07/21 03:20: White Blood Count 30.8*H, Red Blood Count 3.27L, Hemoglobin 10.5L, Hematocrit 35, Mean Corpuscular Volume 106H, Mean Corpuscular Hemoglobin 32, Mean Corpuscular Hemoglobin Concent 30L, Red Cell Distribution Width 13.4, Platelet Count 174, Mean Platelet Volume 11.2, Immature Granulocyte % (Auto) 3, Neutrophils (%) (Auto) 92H, Lymphocytes (%) (Auto) 2L, Monocytes (%) (Auto) 3, Eosinophils (%) (Auto) 0, Basophils (%) (Auto) 0, Neutrophils # (Auto) 28.3H, Lymphocytes # (Auto) 0.5L, Monocytes # (Auto) 0.9, Eosinophils # (Auto) 0.0, Basophils # (Auto) 0.1, Immature Granulocyte # (Auto) 1.0H, Sodium Level 146H, Potassium Level 4.5, Chloride Level 111H, Carbon Dioxide Level 24, Anion Gap 11, Blood Urea Nitrogen 42H, Creatinine 0.80, Estimat Glomerular Filtration Rate 71, BUN/Creatinine Ratio 53, Glucose Level 187H, Calcium Level 7.6L, Corrected Calcium 8.6, Magnesium Level 2.5H, Total Bilirubin 0.2, Aspartate Amino Transf (AST/SGOT) 48H, Alanine Aminotransferase (ALT/SGPT) 46, Alkaline Phosphatase 47, Total Protein 4.9L, Albumin 2.7L 04/07/21 11:12: Glucometer 189H Microbiology 04/02/21 MRSA Screen - Final, Complete MRSA not isolated 04/02/21 Urine Culture - Final, Complete NO GROWTH 04/02/21 Blood Culture - Preliminary, Resulted No growth Laboratory Tests 04/06/21 04:30 04/07/21 03:20 A/P: Assessment: PAF w/ RVR (first diagnosed on 04/06/21) Pneumonia complicated by sepsis, septic shock, and ac resp failure H/o COPD H/o prior tobaccoism Mobid obesity, with BMI approx 39 and with probable obesity-hypovent syncrome - Echo 04/03/21: normal LV size and systolic function, ejection fraction 55 to 65%, PA pressure 35 mmHg Plan: * Complex management due to multiple, concurrent morbidities (see above) * Currently in NSR, but continues to have PAF. Continue iv dilt because unable to take it orally * Enoxaparin for stroke prophylaxis * Replenish lytes * Monitor labs STEPH AHMADI MD [facility] CCDS Apr 07, 2021 15:30
[2021-04-07] MEDS: FUROSEMIDE 40 MG/4 ML INJ (LASIX) IVP SCH (17:19)
[2021-04-07 18:48] VITALS: BP 137/65
[2021-04-07] MEDS: LORazepam INJ 2 MG/ML (ATIVAN) VIAL IVP PRN (21:28)
[2021-04-08] MEDS: inSUlin ASPART (NovoLOG) 1 UNIT/0.01 ML (CHARGE PER UNIT) SC SCH ×5 (00:25→23:57)
[2021-04-08] MEDS: dilTIAZem DRIP PRE-MIX 125 ML IV SCH ×2 (02:00→15:01)
[2021-04-08] MEDS: RT-ALBUTEROL/IPRATROPIUM 3 ML (DUONEB) VIAL INH SCH ×6 (02:14→22:06)
[2021-04-08] MEDS: NS IV 1000 ML 1,000 ML IV SCH (04:00)
[2021-04-08 05:22] LABS: ABG BASE EXCESS 5.3 MMOL/L (-2.5-2.5); ABG OXYGEN SATURATION 96 % (94-100); ABG PCO2 45 MMHG (35-45); ABG PH 7.43 (7.37-7.43); ABG PO2 72 MMHG (79-93); ABG TCO2 31.2 MMOL/L (21.0-31.0)
[2021-04-08 05:23] LABS: BASOPHILS # (AUTO) 0.1 10^3/uL (0.0-0.1); BASOPHILS % (AUTO) 0 % (0-10); EOSINOPHILS # (AUTO) 0.1 10^3/uL (0.0-0.3); EOSINOPHILS % (AUTO) 0 % (0-10); HEMATOCRIT 35 % (35-52); LYMPHOCYTES # (AUTO) 0.4 10^3/uL (1.0-4.0); LYMPHOCYTES % (AUTO) 1 % (12-44); MEAN CORPUSCULAR HEMOGLOBIN 33 pg (25-34); MEAN CORPUSCULAR HGB CONC 31 g/dL (32-36); MEAN CORPUSCULAR VOLUME 104 fL (80-99); MEAN PLATELET VOLUME 11.2 fL (9.0-12.2); MONOCYTES # (AUTO) 1.2 10^3/uL (0.0-1.0); MONOCYTES % (AUTO) 4 % (0-12); NEUTROPHILS # (AUTO) 27.4 10^3/uL (1.8-7.8); NEUTROPHILS % (AUTO) 87 % (42-75); PLATELET COUNT 199 10^3/uL (130-400)
[2021-04-08 05:26] LABS: ALLENS TEST YES-POS; INSPIRED O2 30%; PATIENT TEMP 36.3; VENTILATOR YES
[2021-04-08 05:41] LABS: ALBUMIN 2.9 GM/DL (3.2-4.5); POTASSIUM 4.5 MMOL/L (3.6-5.0)
[2021-04-08 05:42] LABS: CALCIUM 8.1 MG/DL (8.5-10.1)
[2021-04-08 05:44] LABS: TOTAL PROTEIN 5.3 GM/DL (6.4-8.2); WHITE BLOOD COUNT 31.5 10^3/uL (4.3-11.0)
[2021-04-08 05:45] LABS: BILIRUBIN,TOTAL 0.3 MG/DL (0.1-1.0)
[2021-04-08 05:47] LABS: CREATININE SERUM 0.91 MG/DL (0.60-1.30)
[2021-04-08 05:50] LABS: MAGNESIUM 2.4 MG/DL (1.6-2.4)
[2021-04-08] MEDS: POTASSIUM CL 10MEQ/50ML IVPB 50 ML IV SCH (06:04)
[2021-04-08] MEDS: MAGNESIUM 1 GM/100 ML IVPB 100 ML IV SCH (06:04)
[2021-04-08] MEDS: KCL 20 MEQ TAB (K-DUR) PO SCH (06:05)
[2021-04-08] MEDS: FUROSEMIDE 40 MG/4 ML INJ (LASIX) IVP SCH ×2 (06:14→17:10)
--- NOTE | 2021-04-08 06:25 | Diagnostic Imaging Report ---
INDICATION: Ventilator patient. Respiratory failure. History of CHF. COMPARISON: 04/07/2021 FINDINGS: Single frontal radiographic view of the chest was obtained and demonstrates persistent severe cardiomegaly. Pulmonary vasculature, however is within normal limits. Lungs show moderate bibasilar effusions. There is no pneumothorax. Indwelling endotracheal tube is seen with tip at the clavicular heads. Gastric tube extends inferiorly beyond the [id number]. Right internal jugular central venous catheter is also seen with tip likely within the lower SVC. Osseous structures show no gross acute abnormalities. IMPRESSION: 1. Redemonstration severe cardiomegaly. 2. Moderate bibasilar effusions. 3. Lines and tubes as above. Dictated by: Dictated on workstation # [id number]
[2021-04-08 06:28] LABS: BAND NEUTROPHILS 1 %; LYMPHOCYTES % (MANUAL) 3 %; MONOCYTES % (MANUAL) 2 %; MYELOCYTES % 3 %; NEUTROPHILS % (MANUAL) 91 %
--- NOTE | 2021-04-08 06:53 | Occ Therapy Progress Note ---
Therapy Progress Note Pt currently intubated. OT to continue to monitor pt's status and will initiate treatment with pt is medically stable and able to actively participate in skilled therapy. JULIETTE SKY Apr 08, 2021 06:53
[2021-04-08 07:08] VITALS: BP 168/85
--- NOTE | 2021-04-08 07:38 | Physical Therapy Progress Note ---
Therapy Progress Note Patient currently sedated and intubated. PT will continue to follow patient status and initiate treatment when patient is medically stable and able to actively participate with skilled therapy. KATHRYN FRANKEL PT Apr 08, 2021 07:38
[2021-04-08 07:59] VITALS: BP 160/75
[2021-04-08] MEDS: ENOXAPARIN 40 MG/0.4 ML (LOVENOX) SYR SC SCH (08:30)
[2021-04-08] MEDS: PANTOPRAZOLE 40 MG (PROTONIX) VIAL IV SCH (08:30)
[2021-04-08] MEDS: DIGOXIN 0.25 MG/ML (LANOXIN) 2 ML AMP IV SCH (08:30)
[2021-04-08] MEDS: methylPREDNISolone 40 MG/ML (Solu-MEDROL) VIAL IV SCH (08:30)
[2021-04-08 09:17] LABS: ABG BASE EXCESS 6.7 MMOL/L (-2.5-2.5); ABG OXYGEN SATURATION 95 % (94-100); ABG PCO2 51 MMHG (35-45); ABG PH 7.41 (7.37-7.43); ABG PO2 74 MMHG (79-93); ABG TCO2 33.1 MMOL/L (21.0-31.0)
[2021-04-08 09:21] LABS: ALLENS TEST YES-POS; INSPIRED O2 30%; PATIENT TEMP 36.2; VENTILATOR YES
--- NOTE | 2021-04-08 10:05 | Progress Note - Cardiology ---
Cardiology SOAP Progress Note Objective: I&O/Vital Signs 04/16/21 04/16/21 04/16/21 04/16/21 07:00 07:06 07:42 08:00 Temp 36.0 Pulse 75 90 Resp 20 B/P (MAP) 129/81 (97) Pulse Ox 94 97 O2 Delivery Nasal Cannula Nasal Cannula Nasal Cannula O2 Flow Rate 3.00 3.00 3.00 04/16/21 04/16/21 04/16/21 11:17 12:00 13:00 Temp 35.9 Pulse 82 78 Resp 20 B/P (MAP) 118/59 (78) Pulse Ox 97 97 O2 Delivery Nasal Cannula Nasal Cannula O2 Flow Rate 3.00 3.00 04/16/21 00:00 Intake Total 1042 ml Output Total 2050 ml Balance -1008 ml Weight (Pounds): 140 Weight (Calculated Kilograms): 63.071035 Constitutional: other (intubated, on mech vent, unresponsive) Respiratory: other (fair, bilateral air entry) Cardiovascular: irregularly irregular, S1 and S2, systolic murmur (soft PAT at card base) Gastrointestional: soft; No guarding, No rebound; audible bowel sounds Extremities: other (mild to mod, pitting and nonpitting edema of the legs); No clubbing, No cyanosis Neurologic/Psychiatric: other (unresponsive, unable to cooperate with a neuro exam) Skin: normal color, warm/dry Results/Procedures: Labs Laboratory Tests 04/15/21 16:27: Glucometer 106 04/15/21 20:11: Glucometer 160H 04/16/21 04:50: White Blood Count 16.9H, Red Blood Count 3.00L, Hemoglobin 9.6L, Hematocrit 31L, Mean Corpuscular Volume 103H, Mean Corpuscular Hemoglobin 32, Mean Corpuscular Hemoglobin Concent 31L, Red Cell Distribution Width 12.8, Platelet Count 177, Mean Platelet Volume 11.2, Sodium Level 141, Potassium Level 3.8, Chloride Level 93L, Carbon Dioxide Level 37H, Anion Gap 11, Blood Urea Nitrogen 29H, Creatinine 0.95, Estimat Glomerular Filtration Rate 58, BUN/Creatinine Ratio 31, Glucose Level 87, Calcium Level 8.6, Corrected Calcium 9.5, Total Bilirubin 0.9, A spartate Amino Transf (AST/SGOT) 51H, Alanine Aminotransferase (ALT/SGPT) 85H, Alkaline Phosphatase 62, Total Protein 5.2L, Albumin 2.9L, Digoxin Level < 0.30L 04/16/21 05:07: Glucometer 93 04/16/21 11:03: Glucometer 194H Microbiology 04/02/21 MRSA Screen - Final, Complete MRSA not isolated 04/02/21 Urine Culture - Final, Complete NO GROWTH 04/02/21 Blood Culture - Final, Complete No growth Procedures NAME: BERNADINE MOTLEY [facility] REC#: [id number] PT STATUS: ADM IN : 1950 PHYSICIAN: RAHEEM LEI MD ADMIT DATE: 04/02/21/ICU Signed Date of Exam:04/08/21 CHEST 1 VIEW, AP/PA ONLY INDICATION: Ventilator patient. Respiratory failure. History of CHF. COMPARISON: 04/07/2021 FINDINGS: Single frontal radiographic view of the chest was obtained and demonstrates persistent severe cardiomegaly. Pulmonary vasculature, however is within normal limits. Lungs show moderate bibasilar effusions. There is no pneumothorax. Indwelling endotracheal tube is seen with tip at the clavicular heads. Gastric tube extends inferiorly beyond the [id number]. Right internal jugular central venous catheter is also seen with tip likely within the lower SVC. Osseous structures show no gross acute abnormalities. IMPRESSION: 1. Redemonstration severe cardiomegaly. 2. Moderate bibasilar effusions. 3. Lines and tubes as above. Dictated by: Dictated on workstation # [id number] Dict: 04/08/2123 Trans: 04/08/2149 [id number] Interpreted by: BOB CRYSTAL MD Electronically signed by: BOB CRYSTAL MD 04/08/21 0949 A/P: Assessment: PAF w/ RVR (first diagnosed on 04/06/21) Pneumonia complicated by sepsis, septic shock, and ac resp failure H/o COPD H/o prior tobaccoism Mobid obesity, with BMI approx 39 and with probable obesity-hypovent syncrome - Echo 04/03/21: normal LV size and systolic function, ejection fraction 55 to 65%, PA pressure 35 mmHg Plan: * Complex management due to multiple, concurrent morbidities (see above) * Currently in NSR, but continues to have PAF. Continue iv dilt because unable to take it orally * BP not well controlled - add BB * Enoxaparin for stroke prophylaxis * Replenish lytes * Monitor labs [employer] Apr 08, 2021 10:05
[2021-04-08 10:53] VITALS: BP 171/73
[2021-04-08 10:57] LABS: ABG BASE EXCESS 7.3 MMOL/L (-2.5-2.5); ABG OXYGEN SATURATION 95 % (94-100); ABG PCO2 49 MMHG (35-45); ABG PH 7.42 (7.37-7.43); ABG PO2 68 MMHG (79-93); ABG TCO2 33.5 MMOL/L (21.0-31.0)
[2021-04-08 10:58] LABS: ALLENS TEST YES-POS; INSPIRED O2 30%; PATIENT TEMP 36.4; VENTILATOR YES
--- NOTE | 2021-04-08 11:16 | Tele-ICU Progress Note ---
Subjective Date Seen by a Provider: Apr 08, 2021 Time Seen by a Provider: 09:30 Sepsis Event Evaluation Height, Weight, BMI Height: 4'11.00" Weight: 140lbs. oz. 63.638470ty; 35.37 BMI Method:Stated Exam Exam Patient acknowledged, consented, and participated in this virtual visit which was conducted using real time audio/video Vital Signs Date Time Temp Pulse Resp B/P (MAP) Pulse Ox O2 Delivery O2 Flow Rate FiO2 04/08/21 10:53 112 34 94 30 04/08/21 10:45 86 25 171/73 Mechanical Ventilator 30.00 04/08/21 10:30 173/77 04/08/21 10:15 120 32 168/97 94 Mechanical Ventilator 30.00 04/08/21 10:00 130 32 173/98 94 Mechanical Ventilator 30.00 04/08/21 09:45 101 28 167/78 95 Mechanical Ventilator 30.00 04/08/21 09:30 179/73 04/08/21 09:15 130 25 171/81 94 Mechanical Ventilator 30.00 04/08/21 09:00 101 20 166/69 94 Mechanical Ventilator 30.00 04/08/21 08:45 112 24 170/72 92 Mechanical Ventilator 30.00 04/08/21 08:30 97 18 167/65 91 Mechanical Ventilator 30.00 04/08/21 08:15 104 30 174/73 95 Mechanical Ventilator 30.00 04/08/21 08:15 104 30 174/73 95 04/08/21 08:00 106 28 160/75 95 Mechanical Ventilator 30.00 04/08/21 08:00 94 Mechanical Ventilator 30 04/08/21 07:59 101 28 95 30 04/08/21 07:45 36.4 04/08/21 07:45 101 30 163/88 95 Mechanical Ventilator 30.00 04/08/21 07:30 103 27 158/83 Mechanical Ventilator 30.00 04/08/21 07:15 110 34 166/71 95 Mechanical Ventilator 30.00 04/08/21 07:08 93 21 95 30 04/08/21 07:00 110 23 168/85 95 Mechanical Ventilator 30.00 04/08/21 07:00 98 04/08/21 06:00 99 20 160/74 96 Mechanical Ventilator 30.00 04/08/21 05:00 83 20 153/66 96 Mechanical Ventilator 30.00 04/08/21 04:01 133/67 04/08/21 04:00 93 Mechanical Ventilator 30 04/08/21 04:00 80 20 133/67 96 Mechanical Ventilator 30.00 04/08/21 04:00 36.3 04/08/21 03:00 76 20 120/64 93 Mechanical Ventilator 30.00 04/08/21 02:14 75 19 93 30 04/08/21 02:00 78 20 126/71 94 Mechanical Ventilator 30.00 04/08/21 01:00 74 20 135/92 92 Mechanical Ventilator 30.00 04/08/21 01:00 74 04/08/21 00:15 36.2 04/08/21 00:00 89 20 164/81 94 Mechanical Ventilator 30.00 04/08/21 00:00 93 Mechanical Ventilator 30 04/07/21 23:17 137/95 04/07/21 23:00 84 20 137/95 93 Mechanical Ventilator 30.00 04/07/21 22:01 101 21 94 30 04/07/21 22:00 95 20 160/84 94 Mechanical Ventilator 30.00 04/07/21 21:45 101 20 140/99 94 04/07/21 21:30 86 20 143/96 93 04/07/21 21:15 95 20 159/92 94 04/07/21 21:00 95 20 177/101 94 Mechanical Ventilator 30.00 04/07/21 20:45 124 20 172/73 93 04/07/21 20:30 110 20 147/71 94 04/07/21 20:19 36.3 04/07/21 20:15 125 20 130/76 94 04/07/21 20:00 117 20 163/78 93 Mechanical Ventilator 30.00 04/07/21 19:54 93 Mechanical Ventilator 30 04/07/21 19:53 117 93 Mechanical Ventilator 30.00 04/07/21 19:45 138 20 165/106 93 04/07/21 19:30 110 20 165/75 93 04/07/21 19:15 98 20 144/79 93 04/07/21 19:00 96 04/07/21 19:00 87 20 144/62 Mechanical Ventilator 30.00 04/07/21 18:48 78 21 92 30 04/07/21 18:00 87 132/59 04/07/21 18:00 90 25 145/70 92 Mechanical Ventilator 30.00 04/07/21 17:45 72 25 132/59 93 Mechanical Ventilator 30.00 04/07/21 17:30 73 26 127/72 93 Mechanical Ventilator 30.00 04/07/21 17:15 74 30 124/58 93 Mechanical Ventilator 30.00 04/07/21 17:00 66 21 132/57 93 Mechanical Ventilator 30.00 04/07/21 16:45 65 22 121/55 93 Mechanical Ventilator 30.00 04/07/21 16:42 36.0 04/07/21 16:30 69 26 115/50 93 Mechanical Ventilator 30.00 04/07/21 16:15 71 22 125/56 93 Mechanical Ventilator 30.00 04/07/21 16:00 70 25 124/48 93 Mechanical Ventilator 30.00 04/07/21 16:00 94 Mechanical Ventilator 30 04/07/21 15:45 76 25 127/51 93 Mechanical Ventilator 30.00 04/07/21 15:30 73 23 128/54 94 Mechanical Ventilator 30.00 04/07/21 15:15 74 26 133/60 94 Mechanical Ventilator 30.00 04/07/21 15:00 79 28 127/63 94 Mechanical Ventilator 30.00 04/07/21 14:45 79 24 133/63 94 Mechanical Ventilator 30.00 04/07/21 14:45 76 20 94 30 04/07/21 14:30 76 22 128/61 94 Mechanical Ventilator 30.00 04/07/21 14:15 78 26 132/68 93 04/07/21 14:00 79 26 132/64 93 04/07/21 13:45 88 22 137/67 04/07/21 13:30 85 17 139/71 04/07/21 13:15 79 21 132/64 93 Mechanical Ventilator 30.00 04/07/21 13:00 84 04/07/21 13:00 82 24 136/69 93 Mechanical Ventilator 30.00 04/07/21 12:45 86 22 145/66 93 Mechanical Ventilator 30.00 04/07/21 12:30 80 25 146/68 94 Mechanical Ventilator 30.00 04/07/21 12:16 86 141/67 04/07/21 12:15 83 22 139/70 94 Mechanical Ventilator 30.00 04/07/21 12:00 36.2 78 26 131/67 93 Mechanical Ventilator 30.00 04/07/21 12:00 81 26 141/67 93 Mechanical Ventilator 30.00 04/07/21 12:00 94 Mechanical Ventilator 30 04/07/21 11:45 82 24 137/61 93 Mechanical Ventilator 30.00 04/07/21 11:30 82 25 130/67 92 Mechanical Ventilator 30.00 I & O 04/08/21 07:00 Intake Total 1100 ml Output Total 4500 ml Balance -3400 ml Height & Weight Height: 4'11.00" Weight: 140lbs. oz. 63.585021pq; 35.37 BMI Method:Stated General Appearance: No Apparent Distress, WD/WN, Chronically ill, Obese, Other (Intubated and sedated) HEENT: Pharynx Normal, Moist Mucous Membranes Neck: Supple Respiratory: No Accessory Muscle Use, No Respiratory Distress, Decreased Breath Sounds, Rales Cardiovascular: Regular Rate, Rhythm Capillary Refill: Less Than 3 Seconds Peripheral Pulses: 1+ Dorsalis Pedis (R), 1+ Left Dors-Pedis (L) Extremity: Normal Capillary Refill, Normal Inspection, No Pedal Edema Neurologic/Psychiatric: No Alert, No Oriented x3, No Normal Mood/Affect Skin: Normal Color, Warm/Dry Results Lab Laboratory Tests 04/07/21 03:20 04/08/21 05:14 Assessment/Plan Assessment/Plan (Tele-ICU Physician , Progress Note ) Available chart/ vitals / labs / Images reviewed Video assessment done using teleICU camera, rest of exam as per RN Discussed with RN , EXAM PER RN Events overnight : Afebrile FiO2 - 30 I/O = neg 3 L Drips: Pressors: , hemodynamically stable Sedation gtt: ( RASS 0 ) OFF VENT SETTINGS and ABG reviewed candidate for SBT today REVIEWED Cardiovascular Stability / Sedation Score / FI02/PEEP / ABG / CXR Consultants: Hospital course: (04/02) 70F Admitted from outside ER for sepsis PNA, COPD, diarrhea. INTUBATED. Central line/pressors (04/06) Rapid afib, lopressor given x1, digoxin also given A/P Acute hypoxic and hypercarbic respiratory failure - responded to diuresi - SBT today - CONSIDER NIPPV nocturnal and PRN after extubation COPD exacerbation -improving - SM 40 qd Gram negative pneumonia - sputum + for STENOTROPHOMONAS MALTOPHILIA - Levofloxacin 04/07 -> Septic shock - resolved KASSI - improved PAF w/ RVR (first diagnosed on 04/06/21) - sinus now - as per cards - on dig - AC as per cards Mobid obesity, with BMI approx 39 - might need PGG for ? EKATERINA/OHVS Lines : R IJ (Central Line Necessity Reviewed) Huff: + OG: + Nutrition: Analgesia: Anxiety/ delirium VTE Prophylaxis: lob 40 Stress Ulcer Prophylaxis: ppi Plans in collaboration with bedside consultants and IM MDs. Discussed with RN to reach out if any questions or concerns A total of 33 minutes of critical care time was devoted to this patient today, required to treat and/or prevent further deterioration of critical care condition ( as above) . JERE MONAE MD Apr 08, 2021 11:16
[2021-04-08] MEDS: meTOprolol 5 MG/5 ML (LOPRESSOR) VIAL IV SCH ×2 (12:18→18:09)
--- NOTE | 2021-04-08 12:21 | Pulmonary Progress Note ---
SAMPSON JENKINS 04/08/21 1221: Subjective Subjective/Events-last exam The patient had no acute events overnight. She tolerated SBT today and was successfully extubated. She is currently saturating well on 2L NC Review of Systems General: No Chills, No Night Sweats Pulmonary: No Cough Cardiovascular: Edema Gastrointestinal: No: Vomiting, Diarrhea, Constipation Genitourinary: No Incontinence Neurological: No: Seizures Exam Exam Patient acknowledged, consented, and participated in this virtual visit which was conducted using real time audio/video Vital Signs Date Time Temp Pulse Resp B/P (MAP) Pulse Ox O2 Delivery O2 Flow Rate FiO2 04/08/21 11:30 Nasal Cannula 2.00 04/08/21 11:30 94 Nasal Cannula 2.00 04/08/21 10:53 112 34 94 30 04/08/21 10:45 86 25 171/73 Mechanical Ventilator 30.00 04/08/21 10:30 173/77 04/08/21 10:15 120 32 168/97 94 Mechanical Ventilator 30.00 04/08/21 10:00 130 32 173/98 94 Mechanical Ventilator 30.00 04/08/21 09:45 101 28 167/78 95 Mechanical Ventilator 30.00 04/08/21 09:30 179/73 04/08/21 09:15 130 25 171/81 94 Mechanical Ventilator 30.00 04/08/21 09:00 101 20 166/69 94 Mechanical Ventilator 30.00 04/08/21 08:45 112 24 170/72 92 Mechanical Ventilator 30.00 04/08/21 08:30 97 18 167/65 91 Mechanical Ventilator 30.00 04/08/21 08:15 104 30 174/73 95 Mechanical Ventilator 30.00 04/08/21 08:15 104 30 174/73 95 04/08/21 08:00 106 28 160/75 95 Mechanical Ventilator 30.00 04/08/21 08:00 94 Mechanical Ventilator 30 04/08/21 07:59 101 28 95 30 04/08/21 07:45 36.4 04/08/21 07:45 101 30 163/88 95 Mechanical Ventilator 30.00 04/08/21 07:30 103 27 158/83 Mechanical Ventilator 30.00 04/08/21 07:15 110 34 166/71 95 Mechanical Ventilator 30.00 04/08/21 07:08 93 21 95 30 04/08/21 07:00 110 23 168/85 95 Mechanical Ventilator 30.00 04/08/21 07:00 98 04/08/21 06:00 99 20 160/74 96 Mechanical Ventilator 30.00 04/08/21 05:00 83 20 153/66 96 Mechanical Ventilator 30.00 04/08/21 04:01 133/67 04/08/21 04:00 93 Mechanical Ventilator 30 04/08/21 04:00 80 20 133/67 96 Mechanical Ventilator 30.00 04/08/21 04:00 36.3 04/08/21 03:00 76 20 120/64 93 Mechanical Ventilator 30.00 04/08/21 02:14 75 19 93 30 04/08/21 02:00 78 20 126/71 94 Mechanical Ventilator 30.00 04/08/21 01:00 74 20 135/92 92 Mechanical Ventilator 30.00 04/08/21 01:00 74 04/08/21 00:15 36.2 04/08/21 00:00 89 20 164/81 94 Mechanical Ventilator 30.00 04/08/21 00:00 93 Mechanical Ventilator 30 04/07/21 23:17 137/95 04/07/21 23:00 84 20 137/95 93 Mechanical Ventilator 30.00 04/07/21 22:01 101 21 94 30 04/07/21 22:00 95 20 160/84 94 Mechanical Ventilator 30.00 04/07/21 21:45 101 20 140/99 94 04/07/21 21:30 86 20 143/96 93 04/07/21 21:15 95 20 159/92 94 04/07/21 21:00 95 20 177/101 94 Mechanical Ventilator 30.00 04/07/21 20:45 124 20 172/73 93 04/07/21 20:30 110 20 147/71 94 04/07/21 20:19 36.3 04/07/21 20:15 125 20 130/76 94 04/07/21 20:00 117 20 163/78 93 Mechanical Ventilator 30.00 04/07/21 19:54 93 Mechanical Ventilator 30 04/07/21 19:53 117 93 Mechanical Ventilator 30.00 04/07/21 19:45 138 20 165/106 93 04/07/21 19:30 110 20 165/75 93 04/07/21 19:15 98 20 144/79 93 04/07/21 19:00 96 04/07/21 19:00 87 20 144/62 Mechanical Ventilator 30.00 04/07/21 18:48 78 21 92 30 04/07/21 18:00 87 132/59 04/07/21 18:00 90 25 145/70 92 Mechanical Ventilator 30.00 04/07/21 17:45 72 25 132/59 93 Mechanical Ventilator 30.00 04/07/21 17:30 73 26 127/72 93 Mechanical Ventilator 30.00 04/07/21 17:15 74 30 124/58 93 Mechanical Ventilator 30.00 04/07/21 17:00 66 21 132/57 93 Mechanical Ventilator 30.00 04/07/21 16:45 65 22 121/55 93 Mechanical Ventilator 30.00 04/07/21 16:42 36.0 04/07/21 16:30 69 26 115/50 93 Mechanical Ventilator 30.00 04/07/21 16:15 71 22 125/56 93 Mechanical Ventilator 30.00 04/07/21 16:00 70 25 124/48 93 Mechanical Ventilator 30.00 04/07/21 16:00 94 Mechanical Ventilator 30 04/07/21 15:45 76 25 127/51 93 Mechanical Ventilator 30.00 04/07/21 15:30 73 23 128/54 94 Mechanical Ventilator 30.00 04/07/21 15:15 74 26 133/60 94 Mechanical Ventilator 30.00 04/07/21 15:00 79 28 127/63 94 Mechanical Ventilator 30.00 04/07/21 14:45 79 24 133/63 94 Mechanical Ventilator 30.00 04/07/21 14:45 76 20 94 30 04/07/21 14:30 76 22 128/61 94 Mechanical Ventilator 30.00 04/07/21 14:15 78 26 132/68 93 04/07/21 14:00 79 26 132/64 93 04/07/21 13:45 88 22 137/67 04/07/21 13:30 85 17 139/71 04/07/21 13:15 79 21 132/64 93 Mechanical Ventilator 30.00 04/07/21 13:00 84 04/07/21 13:00 82 24 136/69 93 Mechanical Ventilator 30.00 04/07/21 12:45 86 22 145/66 93 Mechanical Ventilator 30.00 04/07/21 12:30 80 25 146/68 94 Mechanical Ventilator 30.00 I & O 04/08/21 07:00 Intake Total 1100 ml Output Total 4500 ml Balance -3400 ml Height & Weight Height: 4'11.00" Weight: 140lbs. oz. 63.402548ib; 35.37 BMI Method:Stated General Appearance: No Apparent Distress, WD/WN, Chronically ill, Obese, Other (Intubated and sedated) HEENT: Pharynx Normal, Moist Mucous Membranes Neck: Supple Respiratory: No Accessory Muscle Use, No Respiratory Distress, Decreased Breath Sounds, Rales Cardiovascular: Regular Rate, Rhythm Capillary Refill: Less Than 3 Seconds Peripheral Pulses: 1+ Dorsalis Pedis (R), 1+ Left Dors-Pedis (L) Extremity: Normal Capillary Refill, Normal Inspection, No Pedal Edema Neurologic/Psychiatric: Alert; No Oriented x3, No Normal Mood/Affect Skin: Normal Color, Warm/Dry Results Lab Laboratory Tests 04/07/21 03:20 04/08/21 05:14 Assessment/Plan Assessment/Plan Acute hypoxic and hypercarbic respiratory failure - SBT today was successful - Patient was extubated and is currently saturating well on 2L NC COPD exacerbation -improving - Solumedrol 40mg Gram negative pneumonia - sputum + for STENOTROPHOMONAS MALTOPHILIA - Levofloxacin day 2 Paroxysmal A.fib w/ RVR - On digoxin and anticoagultion per cardiology Critical Care: Critically Ill Patient JERE MONAE MD 04/11/21 1218: Subjective Date Seen by a Provider: Apr 08, 2021 Time Seen by a Provider: 10:00 Supervisory-Addendum Brief Verification & Attestation Participated in pt care: history, MDM, physical Personally performed: exam, history, MDM, supervision of care Care discussed with: Medical Student Procedures: n/a Results interpretation: Verified all documentation A medical student performed and documented this service. I reviewed information documented by the medical student . Medical student performed patients physical exam . Medical decision making was done during tele-rounds with this medical student and a bedside RN . Please see my notes for details /clarification of assessment and plans SAMPSON JENKINS Apr 08, 2021 12:21 JERE MONAE MD Apr 11, 2021 12:18
--- NOTE | 2021-04-08 12:36 | Progress Note - Cardiology ---
Cardiology SOAP Progress Note [facility] Objective: I&O/Vital Signs 04/08/21 04/08/21 04/08/21 04/08/21 01:00 01:00 02:00 02:14 Pulse 74 74 78 75 Resp 20 20 19 B/P (MAP) 135/92 126/71 Pulse Ox 92 94 93 O2 Delivery Mechanical Ventilator Mechanical Ventilator O2 Flow Rate 30.00 30.00 FiO2 30 04/08/21 04/08/21 04/08/21 04/08/21 03:00 04:00 04:00 04:00 Temp 36.3 Pulse 76 80 Resp 20 20 B/P (MAP) 120/64 133/67 Pulse Ox 93 96 93 O2 Delivery Mechanical Ventilator Mechanical Ventilator Mechanical Ventilator O2 Flow Rate 30.00 30.00 FiO2 30 04/08/21 04/08/21 04/08/21 04/08/21 04:01 05:00 06:00 07:00 Pulse 83 99 98 Resp 20 20 B/P (MAP) 133/67 153/66 160/74 Pulse Ox 96 96 O2 Delivery Mechanical Ventilator Mechanical Ventilator O2 Flow Rate 30.00 30.00 04/08/21 04/08/21 04/08/21 04/08/21 07:00 07:08 07:15 07:30 Pulse 110 93 110 103 Resp 23 21 34 27 B/P (MAP) 168/85 166/71 158/83 Pulse Ox 95 95 95 O2 Delivery Mechanical Ventilator Mechanical Ventilator Mechanical Ventilator O2 Flow Rate 30.00 30.00 30.00 FiO2 30 04/08/21 04/08/21 04/08/21 04/08/21 07:45 07:45 07:59 08:00 Temp 36.4 Pulse 101 101 Resp 30 28 B/P (MAP) 163/88 Pulse Ox 95 95 94 O2 Delivery Mechanical Ventilator Mechanical Ventilator O2 Flow Rate 30.00 FiO2 30 30 04/08/21 04/08/21 04/08/21 04/08/21 08:00 08:15 08:15 08:30 Pulse 106 104 104 97 Resp 28 30 30 18 B/P (MAP) 160/75 174/73 174/73 167/65 Pulse Ox 95 95 95 91 O2 Delivery Mechanical Ventilator Mechanical Ventilator Mechanical Ventilator O2 Flow Rate 30.00 30.00 30.00 04/08/21 04/08/21 04/08/21 04/08/21 08:45 09:00 09:15 09:30 Pulse 112 101 130 Resp 24 20 25 B/P (MAP) 170/72 166/69 171/81 179/73 Pulse Ox 92 94 94 O2 Delivery Mechanical Ventilator Mechanical Ventilator Mechanical Ventilator O2 Flow Rate 30.00 30.00 30.00 04/08/21 04/08/21 04/08/21 04/08/21 09:45 10:00 10:15 10:30 Pulse 101 130 120 Resp 28 32 32 B/P (MAP) 167/78 173/98 168/97 173/77 Pulse Ox 95 94 94 O2 Delivery Mechanical Ventilator Mechanical Ventilator Mechanical Ventilator O2 Flow Rate 30.00 30.00 30.00 04/08/21 04/08/21 04/08/21 04/08/21 10:45 10:53 11:30 11:30 Pulse 86 112 Resp 25 34 B/P (MAP) 171/73 Pulse Ox 94 94 O2 Delivery Mechanical Ventilator Nasal Cannula Nasal Cannula O2 Flow Rate 30.00 2.00 2.00 FiO2 30 04/08/21 00:00 Intake Total 445 ml Output Total 2950 ml Balance -2505 ml Weight (Pounds): 140 Weight (Calculated Kilograms): [id number] Constitutional: other (intubated, on mech vent, unresponsive) Respiratory: other (fair, bilateral air entry) Cardiovascular: irregularly irregular, S1 and S2, systolic murmur (soft PAT at card base) Gastrointestional: soft; No guarding, No rebound; audible bowel sounds Extremities: other (mild to mod, pitting and nonpitting edema of the legs); No clubbing, No cyanosis Neurologic/Psychiatric: other (unresponsive, unable to cooperate with a neuro exam) Skin: normal color, warm/dry Results/Procedures: Labs Laboratory Tests 04/07/21 17:30: Glucometer 195H 04/08/21 00:14: Glucometer 251H 04/08/21 05:14: White Blood Count 31.5*H, Red Blood Count 3.38L, Hemoglobin 11.0L, Hematocrit 35, Mean Corpuscular Volume 104H, Mean Corpuscular Hemoglobin 33, Mean Corpuscular Hemoglobin Concent 31L, Red Cell Distribution Width 13.2, Platelet Count 199, Mean Platelet Volume 11.2, Immature Granulocyte % (Auto) 7, Neutrophils (%) (Auto) 87H, Lymphocytes (%) (Auto) 1L, Monocytes (%) (Auto) 4, Eosinophils (%) (Auto) 0, Basophils (%) (Auto) 0, Neutrophils # (Auto) 27.4H, Lymphocytes # (Auto) 0.4L, Monocytes # (Auto) 1.2H, Eosinophils # (Auto) 0.1, Basophils # (Auto) 0.1, Immature Granulocyte # (Auto) 2.2H, Neutrophils % (Manual) 91, Lymphocytes % (Manual) 3, Monocytes % (Manual) 2, Myelocytes % 3, Band Neutrophils 1, Macrocytosis SLIGHT, Blood Gas Puncture Site RIGHT RADIAL, Blood Gas Patient Temperature 36.3, Arterial Blood pH 7.43, Arterial Blood Partial Pressure CO2 45, Arterial Blood Partial Pressure O2 72L, Arterial Blood HCO3 30H, Arterial Blood Total CO2 31.2H, Arterial Blood Oxygen Saturation 96, Arterial Blood Base Excess 5.3H, Cj Test YES-POS, Blood Gas Ventilator Set ting YES, Blood Gas Inspired Oxygen 30%, Sodium Level 144, Potassium Level 4.5, Chloride Level 105, Carbon Dioxide Level 26, Anion Gap 13, Blood Urea Nitrogen 45H, Creatinine 0.91, Estimat Glomerular Filtration Rate 61, BUN/Creatinine Ratio 49, Glucose Level 209H, Calcium Level 8.1L, Corrected Calcium 9.0, Magnesium Level 2.4, Total Bilirubin 0.3, Aspartate Amino Transf (AST/SGOT) 50H, Alanine Aminotransferase (ALT/SGPT) 53, Alkaline Phosphatase 58, Total Protein 5.3L, Albumin 2.9L, Triglycerides Level 413H 04/08/21 09:14: Blood Gas Puncture Site RT RADIAL, Blood Gas Patient Temperature 36.2, Arterial Blood pH 7.41, Arterial Blood Partial Pressure CO2 51H, Arterial Blood Partial Pressure O2 74L, Arterial Blood HCO3 32H, Arterial Blood Total CO2 33.1H, Arterial Blood Oxygen Saturation 95, Arterial Blood Base Excess 6.7H, Cj Test YES-POS, Blood Gas Ventilator Setting YES, Blood Gas Inspired Oxygen 30% 04/08/21 10:50: Blood Gas Puncture Site LT RADIAL, Blood Gas Patient Temperature 36.4, Arterial Blood pH 7.42, Arterial Blood Partial Pressure CO2 49H, Arterial Blood Partial Pressure O2 68L, Arterial Blood HCO3 32H, Arterial Blood Total CO2 33.5H, Arterial Blood Oxygen Saturation 95, Arterial Blood Base Excess 7.3H, Cj Test YES-POS, Blood Gas Ventilator Setting YES, Blood Gas Inspired Oxygen 30% 04/08/21 12:22: Glucometer 167H Microbiology 04/02/21 MRSA Screen - Final, Complete MRSA not isolated 04/02/21 Urine Culture - Final, Complete NO GROWTH 04/02/21 Blood Culture - Final, Complete No growth Laboratory Tests 04/07/21 03:20 04/08/21 05:14 A/P: Assessment: PAF w/ RVR (first diagnosed on 04/06/21) Pneumonia complicated by sepsis, septic shock, and ac resp failure H/o COPD H/o prior tobaccoism Mobid obesity, with BMI approx 39 and with probable obesity-hypovent syndrome - Echo 04/03/21: normal LV size and systolic function, ejection fraction 55 to 65%, PA pressure 35 mmHg Plan: * Complex management due to multiple, concurrent morbidities (see above) * Continues to have PAF. Continue iv dilt because unable to take it orally * BP not well controlled - add BB * Enoxaparin for stroke prophylaxis * Replenish lytes * Monitor labs STEPH AHMADI MD FACP [facility] Apr 08, 2021 12:36
--- NOTE | 2021-04-08 21:37 | Progress Note ---
Subjective Subjective/Events-last exam Patient extubated this am. Feeling better. States that her throat is sore. Review of Systems General: Fatigue, Malaise HEENT: Sore Throat Pulmonary: Dyspnea; No Cough Cardiovascular: No: Chest Pain, Palpitations, Edema Gastrointestinal: No: Nausea, Vomiting, Abdominal Pain, Diarrhea, Constipation Neurological: Weakness, Incoordination Objective Exam Last Set of Vital Signs Vital Signs Date Time Temp Pulse Resp B/P (MAP) Pulse Ox O2 Delivery O2 Flow Rate FiO2 04/08/21 19:30 36.2 04/08/21 18:26 94 Nasal Cannula 2.00 04/08/21 18:15 71 22 155/63 04/08/21 15:03 28 Capillary Refill : Less Than 3 Seconds I&O Intake and Output 04/08/21 00:00 Intake Total 935 ml Output Total 4400 ml Balance -3465 ml Intake Oral 0 ml IV Total 200 ml Tube Feeding 360 ml Other 375 ml Output Urine Total 4400 ml General: Alert, No Acute Distress Lungs: Other (end exp wheezing, normal work of breathing) Heart: Regular Rate, No Murmurs Abdomen: Normal Bowel Sounds, Soft, No Tenderness, No Masses Extremities: Other (2+ pitting edema UE bilaterally) Neuro: Normal Speech Results/Procedures Lab Laboratory Tests 04/08/21 00:14: Glucometer 251H 04/08/21 05:14: White Blood Count 31.5*H, Red Blood Count 3.38L, Hemoglobin 11.0L, Hematocrit 35, Mean Corpuscular Volume 104H, Mean Corpuscular Hemoglobin 33, Mean Corpuscular Hemoglobin Concent 31L, Red Cell Distribution Width 13.2, Platelet Count 199, Mean Platelet Volume 11.2, Immature Granulocyte % (Auto) 7, Neutrophils (%) (Auto) 87H, Lymphocytes (%) (Auto) 1L, Monocytes (%) (Auto) 4, Eosinophils (%) (Auto) 0, Basophils (%) (Auto) 0, Neutrophils # (Auto) 27.4H, Lymphocytes # (Auto) 0.4L, Monocytes # (Auto) 1.2H, Eosinophils # (Auto) 0.1, Basophils # (Auto) 0.1, Immature Granulocyte # (Auto) 2.2H, Neutrophils % (Manual) 91, Lymphocytes % (Manual) 3, Monocytes % (Manual) 2, Myelocytes % 3, Band Neutrophils 1, Macrocytosis SLIGHT, Blood Gas Puncture Site RIGHT RADIAL, Blood Gas Patient Temperature 36.3, Arterial Blood pH 7.43, Arterial Blood Partial Pressure CO2 45, Arterial Blood Partial Pressure O2 72L, Arterial Blood HCO3 30H, Arterial Blood Total CO2 31.2H, Arterial Blood Oxygen Saturation 96, Arterial Blood Base Excess 5.3H, Cj Test YES-POS, Blood Gas Ventilator Setting YES, Blood Gas Inspired Oxygen 30%, Sodium Level 144, Potassium Level 4.5, Chloride Level 105, Carbon Dioxide Level 26, Anion Gap 13, Blood Urea Nitrogen 45H, Creatinine 0.91, Estimat Glomerular Filtration Rate 61, BUN/Creatinine Ratio 49, Glucose Level 209H, Calcium Level 8.1L, Corrected Calcium 9.0, Magnesium Level 2.4, Total Bilirubin 0.3, Aspartate Amino Transf (AST/SGOT) 50H, Alanine Aminotransferase (ALT/SGPT) 53, Alkaline Phosphatase 58, Total Protein 5.3L, Albumin 2.9L, Triglycerides Level 413H 04/08/21 09:14: Blood Gas Puncture Site RT RADIAL, Blood Gas Patient Temperature 36.2, Arterial Blood pH 7.41, Arterial Blood Partial Pressure CO2 51H, Arterial Blood Partial Pressure O2 74L, Arterial Blood HCO3 32H, Arterial Blood Total CO2 33.1H, Arterial Blood Oxygen Saturation 95, Arterial Blood Base Excess 6.7H, Cj Test YES-POS, Blood Gas Ventilator Setting YES, Blood Gas Inspired Oxygen 30% 04/08/21 10:50: Blood Gas Puncture Site LT RADIAL, Blood Gas Patient Temperature 36.4, Arterial Blood pH 7.42, Arterial Blood Partial Pressure CO2 49H, Arterial Blood Partial Pressure O2 68L, Arterial Blood HCO3 32H, Arterial Blood Total CO2 33.5H, Arterial Blood Oxygen Saturation 95, Arterial Blood Base Excess 7.3H, Cj Test YES-POS, Blood Gas Ventilator Setting YES, Blood Gas Inspired Oxygen 30% 04/08/21 12:22: Glucometer 167H 04/08/21 17:38: Glucometer 187H Microbiology 04/02/21 MRSA Screen - Final, Complete MRSA not isolated 04/02/21 Urine Culture - Final, Complete NO GROWTH 04/02/21 Blood Culture - Final, Complete No growth Assessment/Plan Assessment/Plan (1) Severe sepsis Status: Resolved Assessment & Plan: 04/08: HDS, Continue antibiotics, will continue to trend leukocytosis (2) Hypercapnic respiratory failure Status: Acute Assessment & Plan: 04/08: Continue to titrate oxygen as tolerated, Extubated to day Qualifiers: Qualified Codes: J96.02 - Acute respiratory failure with hypercapnia (3) Bilateral pneumonia Status: Acute Qualifiers: Qualified Codes: J18.9 - Pneumonia, unspecified organism (4) Cardiomyopathy Status: Chronic Assessment & Plan: 04/08: Cardiology consulted and managing Qualifiers: Qualified Codes: I42.9 - Cardiomyopathy, unspecified (5) Paroxysmal A-fib Status: Acute Assessment & Plan: 04/08: Lovenox, rate controlled (6) COPD exacerbation Status: Acute (7) DVT prophylaxis Status: Acute Assessment & Plan: - Lovenox LOBO CAMPBELL MD Apr 08, 2021 21:37
[2021-04-08 22:10] VITALS: BP 168/60
[2021-04-09] MEDS: meTOprolol 5 MG/5 ML (LOPRESSOR) VIAL IV SCH ×3 (00:49→11:38)
[2021-04-09] MEDS: RT-ALBUTEROL/IPRATROPIUM 3 ML (DUONEB) VIAL INH SCH ×6 (02:35→22:50)
[2021-04-09 02:36] VITALS: BP 173/90
[2021-04-09 05:47] LABS: BASOPHILS # (AUTO) 0.1 10^3/uL (0.0-0.1); BASOPHILS % (AUTO) 0 % (0-10); EOSINOPHILS % (AUTO) 0 % (0-10); HEMATOCRIT 37 % (35-52); HEMOGLOBIN 11.4 g/dL (11.5-16.0); LYMPHOCYTES # (AUTO) 0.5 10^3/uL (1.0-4.0); LYMPHOCYTES % (AUTO) 2 % (12-44); MEAN CORPUSCULAR HEMOGLOBIN 32 pg (25-34); MEAN CORPUSCULAR HGB CONC 31 g/dL (32-36); MEAN CORPUSCULAR VOLUME 105 fL (80-99); MEAN PLATELET VOLUME 10.8 fL (9.0-12.2); MONOCYTES # (AUTO) 1.1 10^3/uL (0.0-1.0); MONOCYTES % (AUTO) 4 % (0-12); NEUTROPHILS # (AUTO) 25.7 10^3/uL (1.8-7.8); NEUTROPHILS % (AUTO) 90 % (42-75); PLATELET COUNT 215 10^3/uL (130-400); WHITE BLOOD COUNT 28.6 10^3/uL (4.3-11.0)
[2021-04-09 06:00] LABS: ALBUMIN 2.7 GM/DL (3.2-4.5); POTASSIUM 4.9 MMOL/L (3.6-5.0)
[2021-04-09 06:01] LABS: CALCIUM 7.8 MG/DL (8.5-10.1)
[2021-04-09 06:03] LABS: TOTAL PROTEIN 4.8 GM/DL (6.4-8.2)
[2021-04-09 06:05] LABS: BILIRUBIN,TOTAL 0.4 MG/DL (0.1-1.0)
[2021-04-09 06:06] LABS: CREATININE SERUM 0.83 MG/DL (0.60-1.30)
[2021-04-09] MEDS: NS IV 1000 ML 1,000 ML IV SCH ×2 (06:08→23:33)
[2021-04-09] MEDS: FUROSEMIDE 40 MG/4 ML INJ (LASIX) IVP SCH ×2 (06:08→18:14)
[2021-04-09] MEDS: KCL 20 MEQ TAB (K-DUR) PO SCH (06:12)
[2021-04-09] MEDS: MAGNESIUM 1 GM/100 ML IVPB 100 ML IV SCH (06:12)
[2021-04-09] MEDS: POTASSIUM CL 10MEQ/50ML IVPB 50 ML IV SCH (06:12)
[2021-04-09] MEDS: inSUlin ASPART (NovoLOG) 1 UNIT/0.01 ML (CHARGE PER UNIT) SC SCH ×4 (06:30→20:31)
--- NOTE | 2021-04-09 08:38 | ST Dysphagia Evaluation ---
Speech Evaluation-General Medical Diagnosis Sepsis, Pneumonia Onset Date: Apr 02, 2021 Therapy Diagnosis Therapy Diagnosis: Oropharyngeal Dysphagia Precautions Precautions: Aspiration Referral Referring Physician: Dr. Rogers Medical History Pertinent Medical History: COPD Reviewed History: Yes Social History Current Living Status: Spouse Speech PLF/Current-Dysphagia Prior Level of Function Patient lives in her own home with her who assists her with daily needs. Subjective Patient was alert and pleasant with the Bedside Dysphagia Evaluation. entered the room during the evaluation process. Both were educated with the compensatory strategies for safe intake and diet level. Cognitive Status Patient Orientation: Person, Place, Time, Situation Patient is oriented to all concepts. Oral Motor Skills Dentition: Natural, Tumbled, Stained Ability to Follow Directions: Good Patient was NPO pending BDE Oral Expression Ability: No Impairment Voice Voice Phonatory-Based Quality: Hoarse, Weak Voice Pitch: Normal Voice Loudness: Mildly Soft/Quiet Face Facial Symmetry: Symmetrical Oral-Facial Assessment Oral-Facial Dentition: Normal Labial Seal Description: Normal, Weak Lingual Protrusion: Normal Lingual ROM: Normal Lingual Strength: Normal Pharynx Velopharyngeal Move.: Normal Volitional Dry Swallow: Yes Voluntary Cough: Yes Can Clear Throat Volitionally: Yes Dysphagia Evaluation Consistencies Presented: Thin Liquid, Mechanical Soft, Pureed Oral Phase: Reduced Oral Transit Reduced with mechanical soft due to weakness and few natural teeth present. Normal pharyngeal phase for all consistencies. Funct. Velo/Pharyngeal Symptom: Cough After Swallow Initially due to "sore throat" from intubation for a week. Dietary Recommendations: Mechanical Soft Liquid Recommendations: Thin Swallowing Precautions: Alternate Liquids/Solids, Chin Tuck, Double Swallow, Decreased Bolus 1/2 Tsp, Decreased Rate of Oral Intake, Liquids from Straw, Small Bites and Sips, Sitting Upright 90 Degrees, Sitting 90 Degrees 30 Post Intake Dysphagia Evaluation Summary Patient was admitted to the ICU on 04/02/21 due to N&V and acute respiratory failure. Patient has a medical history of COPD which she is on O2 at 3L at home. She was intubated upon arrival to the hospital. Extubation was on 04/08. Adriana godoy's voice is noted to be weak and hoarse due to the week on intubation. She states her throat is sore which is to be expected. She completed the BDE with 1/2 tsp of thin liquids x2 with cough afterwards. Patient also completed 2 small sips of thin via straw with cough stimulated. She exhibits a productive cough due to pneumonia during this admission. No s/s of aspiration noted. She was also presented with puree and mechanical soft without difficulty. Due to patient's weakness, cough and few natural remaining teeth, the regular texture was not presented. She is recommended for a Dysphagia II diet with thin liquids at this time. This information was provided to her nurse who will submit the diet orders. Barriers to Learning Patient's current health status, age, medical history Speech-Plan Patient/Family Goals Patient/Family Goals: Patient plans on returning to her home where she lives with her . Treatment Plan Speech Therapy Treatment Plan: Discontinue ST Treatment Duration: Apr 09, 2021 Frequency: 1 time per week Estimated Hrs Per Day: .25 hour per day Rehab Potential: Guarded Barriers to Learning: Patient's current health status, age, medical history Pt/Family Agrees to Plan: Yes Safety Risks/Education Teaching Recipient: Patient, Significant Other Teaching Methods: Demonstration, Discussion Response to Teaching: Verbalize Understanding, Return Demonstration Education Topics Provided: Safety strategies for oral intake, diet level Time Speech Therapy Time In: 08:15 Speech Therapy Time Out: 08:30 Total Billed Time: 15 Billed Treatment Time 1, DYSSHERYLS, DYST No MYRIAM YANES Apr 09, 2021 08:38
[2021-04-09] MEDS: DIGOXIN 0.25 MG/ML (LANOXIN) 2 ML AMP IV SCH (10:01)
[2021-04-09] MEDS: PANTOPRAZOLE 40 MG (PROTONIX) VIAL IV SCH (10:01)
[2021-04-09] MEDS: ENOXAPARIN 40 MG/0.4 ML (LOVENOX) SYR SC SCH (10:01)
--- NOTE | 2021-04-09 10:22 | Physical Therapy Evaluation ---
PT Evaluation-General Medical Diagnosis Admission Date Apr 02, 2021 at 11:30 Medical Diagnosis: Sepsis, Pneumonia Onset Date: Apr 02, 2021 Therapy Diagnosis Therapy Diagnosis: generalized weakness/debility Height/Weight Height (Feet): 4 Height (Inches): 11.00 Weight (Pounds): 140 Precautions Precautions/Isolations: Fall Prevention, Standard Precautions Referral Physician: Ken Reason for Referral: Evaluation/Treatment Medical History Pertinent Medical History: COPD Current History EMS secondary to N/V/D Reviewed History: Yes Social History Current Living Status: Spouse Prior Prior Level of Function SCALE: Activities may be completed with or without assistive devices. 2-Psuhdksunf-ydacpyc completes the activity by him/herself with no assistance from a helper. 5-Set-up or Clean-up Assistance-helper sets up or cleans up; patient completes activity. [place] assists only prior to or following the activity. 4-Supervision or Touching Assistance-helper provides verbal cues and/or touching/steadying and/or contact guard assistance as patient completes activity. Assistance may be provided throughout the activity or intermittently. 3-Partial/Moderate Assistance-helper does LESS THAN HALF the effort. [place] lifts, holds or supports trunk or limbs, but provides less than half the effort. 2-Substantial/Maximal Assistance-helper does MORE THAN HALF the effort. [place] lifts or holds trunk or limbs and provides more than half the effort. 5-Qhbgzlpnv-soqtip does ALL the effort. Patient does none of the effort to complete the activity. Or, the assistance of 2 or more helpers is required for the patient to complete the activity. If activity was not attempted, code reason: 7-Patient Refused. 9-Not Applicable-not attempted and the patient did not perform the activity before the current illness, exacerbation or injury. 10-Not Attempted due to Environmental Limitations-(lack of equipment, weather restraints, etc.). 88-Not Attempted due to Medical Conditions or Safety Concerns. Bed Mobility: 6 Transfers (B,C,W/C): 6 Gait: 6 Indoor Mobility (Ambulation): Independent Prior Devices Use: Walker PT Evaluation-Current Subjective Patient agrees to PT. RN present to assist. Objective Patient Orientation: Person, Time, Situation Attachments: Oxygen, Huff Catheter, IV ROM/Strength ROM Lower Extremities bilateral LE WFL Strength Lower Extremities 2+/5 grossly bilateral LE Integumentary/Posture Bladder Incontinence: Huff Cath Posture severe kyphosis and cervical flexion Neuromuscular (Tone, Coordination, Reflexes) diminished coordination Sensory Vision: Functional Hearing: Impaired Transfers Roll Left to Right (QC): 1 Sit to Lying (QC): 1 Lying to Sitting/Side of Bed(Q: 1 patient sat EOB x 5 min with minimal assist to maintain Balance Sitting Static: Poor Sitting Dynamic: Poor Assessment/Needs 70 y.o. female, will benefit from skilled PT to address functional strength and mobility to improve current LOF. Patient will require extended time to recover and to gain gross motor skills. Rehab Potential: Guarded PT Short Term Goals Short Term Goals Time Frame: Apr 20, 2021 Roll Left & Right: 2 Sit to lyin Lying to sitting on side of be: 2 Sit to stand: 2 Chair/rnc-gy-cqnmm transfer: 2 Walk 10 feet: 2 PT Chcf Goals [employer] Goals PT Chcf Goals Time Frame: May 04, 2021 Roll Left & Right (QC): 4 Sit to Lying (QC): 4 Lying-Sitting on Side/Bed(QC): 4 Sit to Stand (QC): 4 Chair/Kfj-ve-Jzjln Xfer(QC): 4 Toilet Transfer (QC): 4 Walk 10 feet (QC): 4 Walk 50ft with 2 Turns (QC): 4 PT Plan Problem List Problem List: Activity Tolerance, Functional Strength, Safety, Balance, Gait, Transfer, Bed Mobility Treatment/Plan Treatment Plan: Continue Plan of Care Treatment Plan: Bed Mobility, Education, Functional Activity Dominic, Functional Strength, Gait, Safety, Therapeutic Exercise, Transfers Treatment Duration: May 04, 2021 Frequency: 6 times per week Estimated Hrs Per Day: .5 hour per day Patient and/or Family Agrees t: Yes Time/GCodes Time In: 758 Time Out: 812 Total Billed Treatment Time: 14 Total Billed Treatment 1 visit EVMod 14 min KATHRYN FRANKEL PT Apr 09, 2021 10:21
--- NOTE | 2021-04-09 10:30 | Progress Note ---
Objective Exam Last Set of Vital Signs Vital Signs Date Time Temp Pulse Resp B/P (MAP) Pulse Ox O2 Delivery O2 Flow Rate FiO2 04/09/21 09:30 71 20 131/77 Nasal Cannula 1.00 04/09/21 08:33 36.0 04/09/21 07:55 94 04/09/21 00:01 35 Capillary Refill : Less Than 3 Seconds I&O Intake and Output 04/09/21 00:00 Intake Total 1780 ml Output Total 4075 ml Balance -2295 ml Intake Oral 0 ml IV Total 1250 ml Tube Feeding 280 ml Other 250 ml Output Urine Total 4075 ml Results/Procedures Lab Laboratory Tests 04/08/21 10:50: Blood Gas Puncture Site LT RADIAL, Blood Gas Patient Temperature 36.4, Arterial Blood pH 7.42, Arterial Blood Partial Pressure CO2 49H, Arterial Blood Partial Pressure O2 68L, Arterial Blood HCO3 32H, Arterial Blood Total CO2 33.5H, Arterial Blood Oxygen Saturation 95, Arterial Blood Base Excess 7.3H, Cj Test YES-POS, Blood Gas Ventilator Setting YES, Blood Gas Inspired Oxygen 30% 04/08/21 12:22: Glucometer 167H 04/08/21 17:38: Glucometer 187H 04/08/21 23:56: Glucometer 174H 04/09/21 05:40: White Blood Count 28.6H, Red Blood Count 3.54L, Hemoglobin 11.4L, Hematocrit 37, Mean Corpuscular Volume 105H, Mean Corpuscular Hemoglobin 32, Mean Corpuscular Hemoglobin Concent 31L, Red Cell Distribution Width 12.9, Platelet Count 215, Mean Platelet Volume 10.8, Immature Granulocyte % (Auto) 4, Neutrophils (%) (Auto) 90H, Lymphocytes (%) (Auto) 2L, Monocytes (%) (Auto) 4, Eosinophils (%) (Auto) 0, Basophils (%) (Auto) 0, Neutrophils # (Auto) 25.7H, Lymphocytes # (Auto) 0.5L, Monocytes # (Auto) 1.1H, Eosinophils # (Auto) 0.0, Basophils # (Auto) 0.1, Immature Granulocyte # (Auto) 1.2H, Sodium Level 143, Potassium Level 4.9, Chloride Level 101, Carbon Dioxide Level 31, Anion Gap 11, Blood Urea Nitrogen 43H, Creatinine 0.83, Estimat Glomerular Filtration Rate 68, BUN/Creatinine Ratio 52, Glucose Level 191H, Calcium Level 7.8L, Corrected Calcium 8.8, Magnesium Level 2.3, Total Bilirubin 0.4, Aspartate Amino Transf (AST/SGOT) 42H, Alanine Aminotransferase (ALT/SGPT) 60H, Alkaline Phosphatase 58, Total Protein 4.8L, Albumin 2.7L Microbiology 04/02/21 MRSA Screen - Final, Complete MRSA not isolated 04/02/21 Urine Culture - Final, Complete NO GROWTH 04/02/21 Blood Culture - Final, Complete No growth Assessment/Plan Assessment/Plan (1) Severe sepsis Status: Resolved Assessment & Plan: 04/08: HDS, Continue antibiotics, will continue to trend leukocytosis (2) Hypercapnic respiratory failure Status: Acute Assessment & Plan: 04/08: Continue to titrate oxygen as tolerated, Extubated today Qualifiers: Qualified Codes: J96.02 - Acute respiratory failure with hypercapnia (3) Bilateral pneumonia Status: Acute Qualifiers: Qualified Codes: J18.9 - Pneumonia, unspecified organism (4) Cardiomyopathy Status: Chronic Assessment & Plan: 04/08: Cardiology consulted and managing Qualifiers: Qualified Codes: I42.9 - Cardiomyopathy, unspecified (5) Paroxysmal A-fib Status: Acute Assessment & Plan: 04/08: Lovenox, rate controlled (6) COPD exacerbation Status: Acute (7) DVT prophylaxis Status: Acute Assessment & Plan: - LOBO Osuna MD Apr 09, 2021 10:30
--- NOTE | 2021-04-09 10:31 | Tele-ICU Progress Note ---
Subjective Date Seen by a Provider: Apr 09, 2021 Time Seen by a Provider: 10:30 Sepsis Event Evaluation Height, Weight, BMI Height: 4'11.00" Weight: 140lbs. oz. [id number]; 35.37 BMI Method:Stated Exam Exam Patient acknowledged, consented, and participated in this virtual visit which was conducted using real time audio/video Vital Signs Date Time Temp Pulse Resp B/P (MAP) Pulse Ox O2 Delivery O2 Flow Rate FiO2 04/09/21 09:30 71 20 131/77 Nasal Cannula 1.00 04/09/21 09:15 71 22 135/72 Nasal Cannula 1.00 04/09/21 09:00 70 20 134/74 Nasal Cannula 1.00 04/09/21 08:45 72 33 133/96 Nasal Cannula 1.00 04/09/21 08:33 36.0 04/09/21 08:30 123/67 04/09/21 08:15 74 22 Nasal Cannula 1.00 04/09/21 08:00 129/55 04/09/21 07:55 94 Nasal Cannula 2.00 04/09/21 07:45 68 22 148/64 Nasal Cannula 1.00 04/09/21 07:30 67 26 143/66 Nasal Cannula 1.00 04/09/21 07:15 62 24 127/60 96 Nasal Cannula 2.00 04/09/21 07:00 62 26 134/58 94 Nasal Cannula 2.00 04/09/21 07:00 73 04/09/21 06:15 Nasal Cannula 2.00 04/09/21 06:00 86 31 152/54 95 NIV Bilevel 35.00 04/09/21 05:00 84 24 133/69 94 NIV Bilevel 35.00 04/09/21 04:00 35.6 04/09/21 04:00 91 25 142/67 95 NIV Bilevel 35.00 04/09/21 04:00 95 Nasal Cannula 2.00 04/09/21 03:00 71 22 156/74 98 NIV Bilevel 35.00 04/09/21 02:36 93 21 97 35.00 04/09/21 02:00 89 25 186/73 98 NIV Bilevel 35.00 04/09/21 01:00 75 04/09/21 01:00 75 23 152/73 98 NIV Bilevel 35.00 04/09/21 00:01 96 NIV Bilevel 2.00 35 04/09/21 00:00 35.5 96 NIV Bilevel 35.00 04/09/21 00:00 73 32 150/65 93 NIV Bilevel 35.00 04/08/21 23:45 61 26 136/58 95 NIV Bilevel 35.00 04/08/21 23:30 61 22 139/55 95 NIV Bilevel 35.00 04/08/21 23:15 56 25 133/56 96 NIV Bilevel 35.00 04/08/21 23:00 60 23 138/55 95 NIV Bilevel 35.00 04/08/21 22:45 57 32 148/53 95 NIV Bilevel 35.00 04/08/21 22:30 73 29 161/53 96 NIV Bilevel 35.00 04/08/21 22:25 70 25 96 NIV Bilevel 35.00 04/08/21 22:15 76 22 153/66 96 Nasal Cannula 2.00 04/08/21 22:10 75 27 96 35.00 04/08/21 22:00 75 24 168/60 94 Nasal Cannula 2.00 04/08/21 21:45 71 20 156/63 94 Nasal Cannula 2.00 04/08/21 21:30 85 27 163/75 95 Nasal Cannula 2.00 04/08/21 21:15 71 23 155/51 94 Nasal Cannula 2.00 04/08/21 21:00 66 24 159/61 95 Nasal Cannula 2.00 04/08/21 20:45 66 22 160/64 95 Nasal Cannula 2.00 04/08/21 20:30 72 38 174/66 94 Nasal Cannula 2.00 04/08/21 20:15 90 24 166/70 95 Nasal Cannula 2.00 04/08/21 20:00 95 Nasal Cannula 2.00 04/08/21 20:00 89 22 155/64 95 Nasal Cannula 2.00 04/08/21 19:45 74 32 163/62 95 Nasal Cannula 2.00 04/08/21 19:30 36.2 04/08/21 19:30 73 23 162/57 95 Nasal Cannula 2.00 04/08/21 19:15 74 23 179/62 95 Nasal Cannula 2.00 04/08/21 19:00 76 25 173/89 94 Nasal Cannula 2.00 04/08/21 19:00 85 04/08/21 18:26 94 Nasal Cannula 2.00 04/08/21 18:15 71 22 155/63 94 Nasal Cannula 2.00 04/08/21 18:00 90 27 180/81 04/08/21 17:15 77 24 170/64 94 Nasal Cannula 2.00 04/08/21 17:00 86 26 170/80 04/08/21 16:01 36.4 04/08/21 16:00 95 Nasal Cannula 2.00 04/08/21 15:38 69 24 94 Nasal Cannula 2.00 04/08/21 15:30 75 25 160/63 04/08/21 15:23 71 22 93 Nasal Cannula 2.00 04/08/21 15:20 93 Nasal Cannula 2.00 04/08/21 15:15 75 22 162/63 Nasal Cannula 2.00 04/08/21 15:08 83 22 93 Nasal Cannula 2.00 04/08/21 15:03 100 94 28 04/08/21 15:00 71 27 178/81 94 Nasal Cannula 2.00 04/08/21 14:53 76 25 94 Nasal Cannula 2.00 04/08/21 14:45 93 25 169/81 Nasal Cannula 2.00 04/08/21 14:38 76 22 93 Nasal Cannula 2.00 04/08/21 14:30 80 25 180/87 92 Nasal Cannula 2.00 04/08/21 14:23 93 25 93 Nasal Cannula 2.00 04/08/21 14:15 74 23 173/82 93 Nasal Cannula 2.00 04/08/21 14:08 94 25 93 Nasal Cannula 2.00 04/08/21 14:00 75 25 171/85 92 Nasal Cannula 2.00 04/08/21 13:45 71 22 158/84 94 Nasal Cannula 2.00 04/08/21 13:30 70 25 162/86 93 Nasal Cannula 2.00 04/08/21 13:23 75 21 93 Nasal Cannula 2.00 04/08/21 13:20 35.9 04/08/21 13:15 72 26 166/81 94 Nasal Cannula 2.00 04/08/21 13:08 74 25 93 Nasal Cannula 2.00 04/08/21 13:00 78 25 Nasal Cannula 2.00 04/08/21 13:00 74 04/08/21 12:45 70 23 164/79 Nasal Cannula 2.00 04/08/21 12:30 68 25 149/75 92 Nasal Cannula 2.00 04/08/21 12:15 24 162/76 Nasal Cannula 2.00 04/08/21 12:00 94 Nasal Cannula 2.00 04/08/21 12:00 105 28 181/76 93 Nasal Cannula 2.00 04/08/21 11:45 30 172/80 94 Nasal Cannula 2.00 04/08/21 11:30 Nasal Cannula 2.00 04/08/21 11:30 94 Nasal Cannula 2.00 04/08/21 11:30 120 25 172/80 91 04/08/21 11:15 90 24 179/77 94 04/08/21 11:00 105 31 176/97 94 04/08/21 10:53 112 34 94 30 04/08/21 10:45 86 25 171/73 Mechanical Ventilator 30.00 I & O 04/09/21 07:00 Intake Total 125 ml Output Total 4000 ml Balance -3875 ml Height & Weight Height: 4'11.00" Weight: 140lbs. oz. [id number]; 35.37 BMI Method:Stated General Appearance: No Apparent Distress, WD/WN, Chronically ill, Obese, Other (Intubated and sedated) HEENT: Pharynx Normal, Moist Mucous Membranes Neck: Supple Respiratory: No Accessory Muscle Use, No Respiratory Distress, Decreased Breath Sounds, Rales Cardiovascular: Regular Rate, Rhythm Capillary Refill: Less Than 3 Seconds Peripheral Pulses: 1+ Dorsalis Pedis (R), 1+ Left Dors-Pedis (L) Extremity: Normal Capillary Refill, Normal Inspection, No Pedal Edema Neurologic/Psychiatric: Alert; No Oriented x3, No Normal Mood/Affect Skin: Normal Color, Warm/Dry Results Lab Laboratory Tests 04/08/21 05:14 04/09/21 05:40 Assessment/Plan Assessment/Plan (Tele-ICU Physician , Progress Note ) Available chart/ vitals / labs / Images reviewed Video assessment done using teleICU camera, rest of exam as per RN Discussed with RN , EXAM PER RN Events overnight : Afebrile FiO2 - 30 I/O = neg 3 L Drips: Pressors: , hemodynamically stable Consultants: Hospital course: (04/02) 70F Admitted from outside ER for sepsis PNA, COPD, diarrhea. INTUBATED. Central line/pressors (04/06) Rapid afib, lopressor given x1, digoxin also given 04/08 - EXTUBATED A/P Acute hypoxic and hypercarbic respiratory failure - EXTUBATED 04/08 - responded to diuresis well - CONSIDER NIPPV nocturnal AND SLEEP STUDY AFTER D/C COPD exacerbation -improving - SM 40 qd - to decrease , will chanhe to po tomorrow Gram negative pneumonia - sputum + for STENOTROPHOMONAS MALTOPHILIA - Levofloxacin 04/07 -> 04/12 Septic shock - resolved KASSI - improved PAF w/ RVR (first diagnosed on 04/06/21) - sinus now - as per cards - on dig - AC as per cards Mobid obesity, with BMI approx 39 - might need PSG for ? EKATERINA/OHVS Lines : R IJ (Central Line Necessity Reviewed) Huff: + OG: + Nutrition: Analgesia: Anxiety/ delirium VTE Prophylaxis: lob 40 Stress Ulcer Prophylaxis: ppi Plans in collaboration with bedside consultants and IM MDs. Discussed with RN to reach out if any questions or concerns A total of 33 minutes of critical care time was devoted to this patient today, required to treat and/or prevent further deterioration of critical care condition ( as above) . JERE MONAE MD Apr 09, 2021 10:31
--- NOTE | 2021-04-09 10:37 | Cardiology Progress Note ---
Subjective Date Seen by Provider: Apr 09, 2021 Time Seen by Provider: 10:36 Subjective/Events-last exam Patient is laying down in bed, feeling better, still having shortness of breath. Denied any chest pain. Review of Systems General: No Chills, No Night Sweats; Fatigue, Malaise; No Appetite, No Other HEENT: No Head Aches, No Visual Changes, No Eye Pain, No Ear Pain, No Dysphasia, No Sinus Congestion, No Post Nasal Drip, No Sore Throat, No Other Pulmonary: Dyspnea; No Cough, No Pleuritic Chest Pain, No Other Cardiovascular: No: Chest Pain, Palpitations, Orthopnea, Paroxysmal Noc. Dyspnea, Edema, Lt Headedness, Other Objective-Cardiology Exam Last Set of Vital Signs Vital Signs 04/09/21 04/09/21 04/09/21 00:01 08:33 09:30 Temp 36.0 Pulse 71 Resp 20 B/P (MAP) 131/77 O2 Delivery Nasal Cannula O2 Flow Rate 1.00 FiO2 35 I&O Intake and Output 04/09/21 00:00 Intake Total 1780 ml Output Total 4075 ml Balance -2295 ml Intake Oral 0 ml IV Total 1250 ml Tube Feeding 280 ml Other 250 ml Output Urine Total 4075 ml General: Alert, No Acute Distress HEENT: Atraumatic Neck: Supple, No JVD, No Thyromegaly Lungs: Normal Air Movement, Other Heart: Regular Rate, Normal S1, Normal S2, No Murmurs Abdomen: Normal Bowel Sounds, Soft, No Tenderness, No Masses Extremities: Other (2+ pitting edema UE bilaterally) Skin: No Rashes Neuro: Normal Speech, Strength at 5/5 X4 Ext Psych/Mental Status: Mental Status NL, Mood NL Results Lab Laboratory Tests 04/09/21 05:40 A/P-Cardiology Admission Diagnosis Acute respiratory failure AE COPD Pneumonia Sepsis Assessment/Plan Status postAcute respiratory failure with hypercapnia, acute exacerbation of COPD, Extubated, doing better, receiving antibiotic and managed by medical team. Pneumonia with sepsis, currently on antibiotic, management per medical services. Echocardiogram was done on April 03, 2021 showing normal LV size and systolic function, ejection fraction 55 to 65%, PA pressure 35 mmHg Sinus tachycardia, likely d/t respiratory failure, improved after intubation, patient is tachycardic today during weaning trial Morbid obesity Extobaccoism SHERLY MCKINLEY MD Apr 09, 2021 10:37
--- NOTE | 2021-04-09 11:51 | Occupational Therapy Eval ---
OT Evaluation-General/PLF Medical Diagnosis Admission Date Apr 02, 2021 at 11:30 Medical Diagnosis: Sepsis, Pneumonia Onset Date: Apr 02, 2021 Therapy Diagnosis Therapy Diagnosis: decreased ADL status, debility Height/Weight Height (Feet): 4 Height (Inches): 11.00 Weight (Pounds): 140 Precautions Precautions/Isolations: Fall Prevention, Standard Precautions Referral Physician: Ken Referral Reason: Evaluation/Treatment Medical History Pertinent Medical History: COPD Additional Medical History COPD, chronic steroid use, Asthma, fractures, anxiety. Current History ED due to N/V/D. Intubated. Extubated 04/08/21 Social History Current Living Status: Spouse ADL-Prior Level of Function SCALE: Activities may be completed with or without assistive devices. 0-Ragkmyvhkl-peqcbva completes the activity by him/herself with no assistance from a helper. 5-Set-up or Clean-up Assistance-helper sets up or cleans up; patient completes activity. [place] assists only prior to or following the activity. 4-Supervision or Touching Assistance-helper provides verbal cues and/or touching/steadying and/or contact guard assistance as patient completes activity. Assistance may be provided throughout the activity or intermittently. 3-Partial/Moderate Assistance-helper does LESS THAN HALF the effort. [place] lifts, holds or supports trunk or limbs, but provides less than half the effort. 2-Substantial/Maximal Assistance-helper does MORE THAN HALF the effort. [place] lifts or holds trunk or limbs and provides more than half the effort. 9-Ssuiucbbe-daxxzs does ALL the effort. Patient does none of the effort to complete the activity. Or, the assistance of 2 or more helpers is required for the patient to complete the activity. If activity was not attempted, code reason: 7-Patient Refused. 9-Not Applicable-not attempted and the patient did not perform the activity before the current illness, exacerbation or injury. 10-Not Attempted due to Environmental Limitations-(lack of equipment, weather restraints, etc.). 88-Not Attempted due to Medical Conditions or Safety Concerns. ADL PLOF Comments Pt reportsshe required assistance wtih showering and dressing at PLOF. She is sometimes able to don housecoat independently, but other times requires assistance. She rarely puts on any clothes other than a housecoat. Self Care: Independent Functional Cognition: Independent DME/Equipment Comments [facility] OT Current Status Subjective Pt laying in bed, agreeable to OT tx. Mental Status/Objective Patient Orientation: Person, Place, Situation Attachments: Huff Catheter, IV, Oxygen Current Hand Dominance: Right Upper Extremity ROM Decreased. Shoulder flexion to approx 50 degrees bilaterally as OT supported arm. limited elbow flexion/extension bilaterally. Pt able to make fist enough to hold suction in right hand. L hand able to flex fingers, but unable to make full fist. Pt unable to straighten fingers when asked. Upper Extremity Coordination decreased due to limited ROM/swelling Upper Extremity Strength grossly 2/5 Edema: increased swelling on back of hand. ADL-Treatment Eating (QC): 2 (Per clinical judgment and report, pt requires assistance with bringing food to mouth.) Oral Hygiene (QC): 1 (based on clincial judgment.) Shower/Bathe Self (QC): 1 (based on clincial judgment.) Upper Body Dressing (QC): 1 (based on clincial judgment.) Lower Body Dressing (QC): 1 (based on clincial judgment.) On/Off Footwear (QC): 1 (based on clincial judgment.) Toileting Hygiene (QC): 1 (based on clincial judgment.) Other Treatments Pt laying in bed. OT educated pt on purpose and benefit of OT. Pt provided information about PLOF and home set up, and participated in UE screen. Pt educ ated on performing AROM remelt furnace expediter squeezes in order to increase strength and decrease L hand swelling, she verbalized understanding, performed 1 rep. Total assist required in order to wash pt's face. Pt unable to use call light in her room, OT informed nurse of recommendations of squeeze bulb call light. Nurse indicates pt is about to transfer to 4th floor, med/surg. OT notified 4th floor nurse as well as ICU nurse of recommendation. Post tx, pt in bed, call light in reach and all needs met. Education OT Patient Education: Correct positioning, Energy conservation, Exercise program, Modified ADL techniques, Progress toward Goal/Update tx plan, Purpose of tx/functional activities, Rehab process Teaching Recipient: Patient Teaching Methods: Discussion Response to Teaching: Verbalize Understanding OT Alf Goals Alf Goals Time Frame: May 03, 2021 Eating (QC): 5 Oral Hygiene (QC): 5 Toileting Hygiene (QC): 3 Shower/Bathe Self (QC): 2 Upper Body Dressing (QC): 3 Lower Body Dressing (QC): 2 On/Off Footwear (QC): 2 Additional Goals: 1-Demonstrate ADL Tasks, 2-Verbalize Understanding, 3- ImproveStrength/Dominic 1=Demonstrate adherence to instructed precautions during ADL tasks. 2=Patient will verbalize/demonstrate understanding of assistive devices/modifications for ADL. 3=Patient will improve strength/tolerance for activity to enable patient to perform ADL's. OT Education/Plan Problem List/Assessment Assessment: Decreased Activ Tolerance, Decreased UE Strength, Impaired Bed Mobility, Impaired Coordination, Impaired Funct Balance, Impaired I ADL's, Impaired Self-Care Skills, Restricted Funct UE ROM Discharge Recommendations Plan/Recommendations: Continue POC Treatment Plan/Plan of Care Patient would benefit from OT for education, treatment and training to promote independence in ADL's, mobility, safety and/or upper extremity function for ADL's. Plan of Care: ADL Retraining, Functional Mobility, UE Funct Exercise/Act Treatment Duration: May 03, 2021 Frequency: 3 times per week (3-5 times per week.) Estimated Hrs Per Day: .25 hour per day Rehab Potential: Guarded Time/GCodes Start Time: 11:10 Stop Time: 11:25 Total Time Billed (hr/min): 15 Billed Treatment Time 1, EH NOVOA OT Apr 09, 2021 11:51
[2021-04-09] MEDS ORDERED: meTOproloL SUCCINATE 50 MG (TOPROL XL) TAB PO NR (18:30)
--- NOTE | 2021-04-09 20:59 | Progress Note ---
Subjective Subjective/Events-last exam Patient feeling better this AM. States that her throat is sore. Tolerating PO diet. Still very fatigued. in room this AM and agrees with SNF placement after discharge. Review of Systems Pulmonary: Dyspnea, Cough Cardiovascular: Edema; No: Chest Pain, Palpitations Gastrointestinal: No: Nausea, Vomiting, Abdominal Pain, Diarrhea, Constipation Neurological: Weakness, Incoordination Objective Exam Last Set of Vital Signs Vital Signs Date Time Temp Pulse Resp B/P (MAP) Pulse Ox O2 Delivery O2 Flow Rate FiO2 04/09/21 20:06 35.7 76 18 122/76 94 Nasal Cannula 3.00 04/09/21 00:01 35 Capillary Refill : Less Than 3 Seconds I&O Intake and Output 04/09/21 00:00 Intake Total 1780 ml Output Total 4075 ml Balance -2295 ml Intake Oral 0 ml IV Total 1250 ml Tube Feeding 280 ml Other 250 ml Output Urine Total 4075 ml General: Alert, Oriented X3, No Acute Distress Lungs: Clear to Auscultation, Normal Air Movement Heart: Regular Rate, No Murmurs Abdomen: Normal Bowel Sounds, Soft, No Tenderness, No Masses Extremities: Other (1-2+ pitting edema in UE bilaterally) Neuro: Normal Speech Results/Procedures Lab Laboratory Tests 04/08/21 23:56: Glucometer 174H 04/09/21 05:40: White Blood Count 28.6H, Red Blood Count 3.54L, Hemoglobin 11.4L, Hematocrit 37, Mean Corpuscular Volume 105H, Mean Corpuscular Hemoglobin 32, Mean Corpuscular Hemoglobin Concent 31L, Red Cell Distribution Width 12.9, Platelet Count 215, Mean Platelet Volume 10.8, Immature Granulocyte % (Auto) 4, Neutrophils (%) (Auto) 90H, Lymphocytes (%) (Auto) 2L, Monocytes (%) (Auto) 4, Eosinophils (%) (Auto) 0, Basophils (%) (Auto) 0, Neutrophils # (Auto) 25.7H, Lymphocytes # (Auto) 0.5L, Monocytes # (Auto) 1.1H, Eosinophils # (Auto) 0.0, Basophils # (Auto) 0.1, Immature Granulocyte # (Auto) 1.2H, Sodium Level 143, Potassium Level 4.9, Chloride Level 101, Carbon Dioxide Level 31, Anion Gap 11, Blood Urea Nitrogen 43H, Creatinine 0.83, Estimat Glomerular Filtration Rate 68, BUN/Creatinine Ratio 52, Glucose Level 191H, Calcium Level 7.8L, Corrected Calcium 8.8, Magnesium Level 2.3, Total Bilirubin 0.4, Aspartate Amino Transf (AST/SGOT) 42H, Alanine Aminotransferase (ALT/SGPT) 60H, Alkaline Phosphatase 58, Total Protein 4.8L, Albumin 2.7L 04/09/21 11:07: Glucometer 139H 04/09/21 17:12: Glucometer 94 Microbiology 04/02/21 MRSA Screen - Final, Complete MRSA not isolated 04/02/21 Urine Culture - Final, Complete NO GROWTH 04/02/21 Blood Culture - Final, Complete No growth Assessment/Plan Assessment/Plan (1) Severe sepsis Status: Resolved Assessment & Plan: 04/08: HDS, Continue antibiotics, will continue to trend leukocytosis 04/09: Patient much improved, moved to 4th floor status (2) Hypercapnic respiratory failure Status: Acute Assessment & Plan: 04/08: Continue to titrate oxygen as tolerated, Extubated today 04/09: Continue to titrate oxygen as tolerated, MAT protocol, IS Qualifiers: Qualified Codes: J96.02 - Acute respiratory failure with hypercapnia (3) Bilateral pneumonia Status: Acute Qualifiers: Qualified Codes: J18.9 - Pneumonia, unspecified organism (4) Cardiomyopathy Status: Chronic Assessment & Plan: 04/08: Cardiology consulted and managing Qualifiers: Qualified Codes: I42.9 - Cardiomyopathy, unspecified (5) Paroxysmal A-fib Status: Acute Assessment & Plan: 04/08: Lovenox, rate controlled 04/09: Transitioned to PO meds, continue tele (6) COPD exacerbation Status: Acute (7) DVT prophylaxis Status: Acute Assessment & Plan: - Lovenox LOBO CAMPBELL MD Apr 09, 2021 20:59
[2021-04-10 04:07] LABS: BASOPHILS # (AUTO) 0.1 10^3/uL (0.0-0.1); BASOPHILS % (AUTO) 0 % (0-10); EOSINOPHILS % (AUTO) 0 % (0-10); HEMATOCRIT 37 % (35-52); HEMOGLOBIN 11.3 g/dL (11.5-16.0); LYMPHOCYTES % (AUTO) 4 % (12-44); MEAN CORPUSCULAR HEMOGLOBIN 32 pg (25-34); MEAN CORPUSCULAR HGB CONC 30 g/dL (32-36); MEAN CORPUSCULAR VOLUME 106 fL (80-99); MEAN PLATELET VOLUME 10.5 fL (9.0-12.2); MONOCYTES # (AUTO) 0.8 10^3/uL (0.0-1.0); MONOCYTES % (AUTO) 3 % (0-12); NEUTROPHILS # (AUTO) 20.4 10^3/uL (1.8-7.8); NEUTROPHILS % (AUTO) 87 % (42-75); PLATELET COUNT 205 10^3/uL (130-400); WHITE BLOOD COUNT 23.4 10^3/uL (4.3-11.0)
[2021-04-10 04:31] LABS: ALBUMIN 2.7 GM/DL (3.2-4.5); BILIRUBIN,TOTAL 0.5 MG/DL (0.1-1.0); CALCIUM 8.1 MG/DL (8.5-10.1); CREATININE SERUM 0.76 MG/DL (0.60-1.30); POTASSIUM 4.1 MMOL/L (3.6-5.0)
[2021-04-10] MEDS: inSUlin ASPART (NovoLOG) 1 UNIT/0.01 ML (CHARGE PER UNIT) SC SCH ×4 (05:20→20:30)
[2021-04-10] MEDS: PANTOPRAZOLE 40 MG (PROTONIX) TAB PO SCH (06:02)
[2021-04-10] MEDS: FUROSEMIDE 40 MG/4 ML INJ (LASIX) IVP SCH ×2 (06:02→16:23)
[2021-04-10] MEDS: KCL 20 MEQ TAB (K-DUR) PO SCH (06:41)
[2021-04-10] MEDS: RT-ALBUTEROL/IPRATROPIUM 3 ML (DUONEB) VIAL INH SCH ×4 (07:10→19:24)
[2021-04-10] MEDS ORDERED: methylPREDNISolone 40 MG/ML (Solu-MEDROL) VIAL IV SCH (09:00)
--- NOTE | 2021-04-10 09:17 | Cardiology Progress Note ---
Subjective Date Seen by Provider: Apr 10, 2021 Time Seen by Provider: 08:45 Subjective/Events-last exam Patient is in bed, c/o fatigue. Denies any chest pain Review of Systems General: No Chills, No Night Sweats; Fatigue, Malaise; No Appetite, No Other HEENT: No Head Aches, No Visual Changes, No Eye Pain, No Ear Pain, No Dysphasia, No Sinus Congestion, No Post Nasal Drip, No Sore Throat, No Other Pulmonary: No Dyspnea, No Cough, No Pleuritic Chest Pain, No Other Cardiovascular: No: Chest Pain, Palpitations, Orthopnea, Paroxysmal Noc. Dyspnea, Edema, Lt Headedness, Other Objective-Cardiology Exam Last Set of Vital Signs Vital Signs 04/09/21 04/10/21 04/10/21 04/10/21 00:01 12:00 12:43 14:39 Temp 35.8 Pulse 85 Resp 17 B/P (MAP) 154/82 Pulse Ox 95 O2 Delivery Nasal Cannula O2 Flow Rate 3.00 FiO2 35 I&O Intake and Output 04/10/21 00:00 Intake Total 260 ml Output Total 2435 ml Balance -2175 ml Intake Oral 260 ml Output Urine Total 2435 ml General: Alert, Oriented X3, No Acute Distress HEENT: Atraumatic Neck: Supple, No JVD, No Thyromegaly Lungs: Clear to Auscultation, Normal Air Movement Heart: Regular Rate, No Murmurs Abdomen: Normal Bowel Sounds, Soft, No Tenderness, No Masses Extremities: Other (1-2+ pitting edema in UE bilaterally) Skin: No Rashes Neuro: Normal Speech Psych/Mental Status: Mental Status NL, Mood NL Results Lab Laboratory Tests 04/10/21 03:55 A/P-Cardiology Admission Diagnosis Acute respiratory failure AE COPD Pneumonia Sepsis Assessment/Plan Status post acute respiratory failure with hypercapnia, acute exacerbation of COPD, Extubated, doing better, receiving antibiotic and managed by medical team. PAF, diagnosed on 04/06/21, on beta liam, digoxin, Lovenox. Will change to OAC. Pneumonia with sepsis, currently on antibiotic, management per medical services. Echocardiogram was done on April 03, 2021 showing normal LV size and systolic function, ejection fraction 55 to 65%, PA pressure 35 mmHg Sinus tachycardia, likely d/t respiratory failure, improved after intubation Morbid obesity Extobaccoism Supervisory-Addendum Brief Supervisory Addendum Participated in pt care: history, MDM, physical Personally performed: exam, history, MDM Care discussed with: FRANSISCO Results interpretation: Verified all documentation Notes: Patient was seen and evaluated with Aletha, examination performed, management plan was discussed, agree with the current scribed note, I made few changes to the note using Italic font Patient was seen at bedside, laying down in bed, still lethargic Has been in sinus rhythm, I will discontinue digoxin, continue on metoprolol Change Lovenox to Eliquis Add diuretics, still having significant upper extremities edema Monitor blood pressure and heart rate. ALETHA GRIFFIN Apr 10, 2021 09:17 SHERLY MCKINLEY MD Apr 10, 2021 16:15
[2021-04-10] MEDS: meTOproloL SUCCINATE 50 MG (TOPROL XL) TAB PO SCH (09:32)
[2021-04-10] MEDS: ENOXAPARIN 40 MG/0.4 ML (LOVENOX) SYR SC SCH (09:33)
--- NOTE | 2021-04-10 09:46 | Physical Therapy Daily Note ---
PT Daily Note-Current Subjective Pt denies pain. Pt states "You know I have had a hip replacement!" Pt says she has had two hip replacements this week. "I know they told me that." Pt agreeable to try ther ex in bed. Mental Status Patient Orientation: Person, Place Transfers SCALE: Activities may be completed with or without assistive devices. 1-Xvvuthdqiq-znehbus completes the activity by him/herself with no assistance from a helper. 5-Set-up or Clean-up Assistance-helper sets up or cleans up; patient completes activity. [place] assists only prior to or following the activity. 4-Supervision or Touching Assistance-helper provides verbal cues and/or vincent lauren/steadying and/or contact guard assistance as patient completes activity. Assistance may be provided throughout the activity or intermittently. 3-Partial/Moderate Assistance-helper does LESS THAN HALF the effort. [place] lifts, holds or supports trunk or limbs, but provides less than half the effort. 2-Substantial/Maximal Assistance-helper does MORE THAN HALF the effort. [place] lifts or holds trunk or limbs and provides more than half the effort. 0-Thbylakuj-qnvaed does ALL the effort. Patient does none of the effort to complete the activity. Or, the assistance of 2 or more helpers is required for the patient to complete the activity. If activity was not attempted, code reason: 7-Patient Refused. 9-Not Applicable-not attempted and the patient did not perform the activity before the current illness, exacerbation or injury. 10-Not Attempted due to Environmental Limitations-(lack of equipment, weather restraints, etc.). 88-Not Attempted due to Medical Conditions or Safety Concerns. Treatments Pt unable to actively move (B) LE's when cued. Pt seen for AAROM (B) ankles, knees and hips all directions x 15-20 reps each. Pt was prompted to bring hands together/apart and to touch chin. Pt unable to actively reach L hand to chin due to weakness. Pt able to bring hands together 2x. Performed PROM (B) shoulder flexion and elbow flexion/ext. Pt cued to participate but did not due to weakness. Pt reports she is comfortable at end of treatment. Assessment Current Status: Poor Progress Pt confused at first. Pt weak and deconditioned and would benefit from continued therapy to restore functional mobility. Pt on nasal canula throughout treatment, occasional moist cough. PT Short Term Goals Short Term Goals Time Frame: Apr 20, 2021 Roll Left & Right: 2 Sit to lyin Lying to sitting on side of be: 2 Sit to stand: 2 Chair/upc-pj-kpwvt transfer: 2 Walk 10 feet: 2 PT [facility] Goals [facility] Goals PT Web Art Director Goals Time Frame: May 04, 2021 Roll Left & Right (QC): 4 Sit to Lying (QC): 4 Lying-Sitting on Side/Bed(QC): 4 Sit to Stand (QC): 4 Chair/Yxk-hx-Owmvl Xfer(QC): 4 Toilet Transfer (QC): 4 Walk 10 feet (QC): 4 Walk 50ft with 2 Turns (QC): 4 PT Plan Treatment/Plan Treatment Plan: Continue Plan of Care Treatment Plan: Bed Mobility, Education, Functional Activity Dominic, Functional Strength, Gait, Safety, Therapeutic Exercise, Transfers Treatment Duration: May 04, 2021 Frequency: 6 times per week Estimated Hrs Per Day: .5 hour per day Patient and/or Family Agrees t: Yes Time/GCodes Time In: 915 Time Out: 935 Total Billed Treatment Time: 20 Total Billed Treatment 1, ther ex 20' OSCAR SALCIDO CPTA Apr 10, 2021 09:46
[2021-04-10] MEDS: DIGOXIN 0.25 MG/ML (LANOXIN) 2 ML AMP IV SCH (10:10)
[2021-04-10] MEDS ORDERED: ONDANSETRON 4 MG/2 ML (SDV) Z0FRAN IVP PRN (11:45)
[2021-04-10] MEDS ORDERED: ONDANSETRON 4 MG (ZOFRAN) ORAL DISSOLVE TAB PO PRN (11:45)
[2021-04-10] MEDS: ACETAMINOPHEN 325 MG TABLET PO PRN ×2 (11:53→16:23)
--- NOTE | 2021-04-10 14:21 | Occupational Ther Daily Note ---
OT Current Status-Daily Note Subjective Pt in bed, agreeable to OT Tx. Mental Status/Objective Patient Orientation: Person, Place, Situation ADL-Treatment Therapy Code Descriptions/Definitions Functional [place] Measure: 0=Not Assessed/NA 4=Minimal Assistance 1=Total Assistance 5=Supervision or Setup 2=Maximal Assistance 6=Modified [place] 3=Moderate Assistance 7=Complete IndependenceSCALE: Activities may be completed with or without assistive devices. 0-Hgznjmidop-mwbrfja completes the activity by him/herself with no assistance from a helper. 5-Set-up or Clean-up Assistance-helper sets up or cleans up; patient completes activity. [place] assists only prior to or following the activity. 4-Supervision or Touching Assistance-helper provides verbal cues and/or touching/steadying and/or contact guard assistance as patient completes activity. Assistance may be provided throughout the activity or intermittently. 3-Partial/Moderate Assistance-helper does LESS THAN HALF the effort. [place] lifts, holds or supports trunk or limbs, but provides less than half the effort. 2-Substantial/Maximal Assistance-helper does MORE THAN HALF the effort. [place] lifts or holds trunk or limbs and provides more than half the effort. 5-Yzzuzkgfp-kqsncz does ALL the effort. Patient does none of the effort to complete the activity. Or, the assistance of 2 or more helpers is required for the patient to complete the activity. If activity was not attempted, code reason: 7-Patient Refused. 9-Not Applicable-not attempted and the patient did not perform the activity before the current illness, exacerbation or injury. 10-Not Attempted due to Environmental Limitations-(lack of equipment, weather restraints, etc.). 88-Not Attempted due to Medical Conditions or Safety Concerns. Other Treatment Pt agreeable to OT Tx, noted swelling in dorsal aspect of L hand, very gentle retrograde massage performed due to c/o pain in her hand. Pt then performed AAROM x5 reps each of the following BUE exercises: finger flexion/extension, elbow flexion/extension and shoulder flexion. Pt educated to perform exercises throughout the day, especially finger flexion/extension to improve swelling. OT also educated pt on positioning of LUE on pillow in order to elevate hand to decrease swelling. Post tx, pt in bed, call light in reach and all needs met Education OT Patient Education: Correct positioning, Energy conservation, Modified ADL techniques, Progress toward Goal/Update tx plan, Purpose of tx/functional activities, Rehab process Teaching Recipient: Patient Teaching Methods: Discussion Response to Teaching: Verbalize Understanding OT Road Marker Goals Correction Goals Time Frame: May 03, 2021 Eating (QC): 5 Oral Hygiene (QC): 5 Toileting Hygiene (QC): 3 Shower/Bathe Self (QC): 2 Upper Body Dressing (QC): 3 Lower Body Dressing (QC): 2 On/Off Footwear (QC): 2 Additional Goals: 1-Demonstrate ADL Tasks, 2-Verbalize Understanding, 3- ImproveStrength/Dominic 1=Demonstrate adherence to instructed precautions during ADL tasks. 2=Patient will verbalize/demonstrate understanding of assistive devices/modifications for ADL. 3=Patient will improve strength/tolerance for activity to enable patient to perform ADL's. OT Education/Plan Problem List/Assessment Assessment: Decreased Activ Tolerance, Decreased UE Strength, Impaired Funct Balance, Impaired I ADL's, Impaired Self-Care Skills, Restricted Funct UE ROM Discharge Recommendations Plan/Recommendations: Continue POC Treatment Plan/Plan of Care Patient would benefit from OT for education, treatment and training to promote independence in ADL's, mobility, safety and/or upper extremity function for ADL's. Plan of Care: ADL Retraining, Functional Mobility, UE Funct Exercise/Act Treatment Duration: May 03, 2021 Frequency: 3 times per week (3-5 times per week.) Estimated Hrs Per Day: .25 hour per day Rehab Potential: Guarded Time/GCodes Start Time: 13:33 Stop Time: 13:43 Total Time Billed (hr/min): 10 Billed Treatment Time 1, EX EH MARTINEZ OT Apr 10, 2021 14:20
[2021-04-10] MEDS ORDERED: RIVAROXABAN 20 MG TABLET (XARELTO) PO SCH (16:00)
[2021-04-10] MEDS: RIVAROXABAN 20 MG TABLET (XARELTO) PO SCH ×2 (16:23→17:31)
--- NOTE | 2021-04-10 20:04 | Progress Note ---
Subjective Subjective/Events-last exam Patient mildly confused this AM. Tolerating PO diet. Continues to suction sputum. Severe weakness Review of Systems Pulmonary: No Dyspnea; Cough Cardiovascular: Edema; No: Chest Pain, Palpitations Gastrointestinal: No: Nausea, Vomiting, Abdominal Pain, Diarrhea, Constipation Neurological: Weakness, Incoordination Objective Exam Last Set of Vital Signs Vital Signs Date Time Temp Pulse Resp B/P (MAP) Pulse Ox O2 Delivery O2 Flow Rate FiO2 04/10/21 19:24 95 Nasal Cannula 3.00 04/10/21 19:00 96 04/10/21 16:00 36.1 18 142/81 04/09/21 00:01 35 Capillary Refill : Less Than 3 Seconds I&O Intake and Output 04/10/21 00:00 Intake Total 260 ml Output Total 2435 ml Balance -2175 ml Intake Oral 260 ml Output Urine Total 2435 ml General: Alert, Oriented X3, No Acute Distress Lungs: Other (end exp wheezing, normal work of breathing on NC) Heart: Regular Rate, No Murmurs Abdomen: Normal Bowel Sounds, Soft, No Tenderness, No Masses Extremities: Other (US swelling and brusing present, improved) Neuro: Cranial Nerves 3-12 NL, Other (slowed speech) Results/Procedures Lab Laboratory Tests 04/10/21 00:08: Glucometer 93 04/10/21 03:55: White Blood Count 23.4H, Red Blood Count 3.50L, Hemoglobin 11.3L, Hematocrit 37, Mean Corpuscular Volume 106H, Mean Corpuscular Hemoglobin 32, Mean Corpuscular Hemoglobin Concent 30L, Red Cell Distribution Width 12.8, Platelet Count 205, Mean Platelet Volume 10.5, Immature Granulocyte % (Auto) 5, Neutrophils (%) (Auto) 87H, Lymphocytes (%) (Auto) 4L, Monocytes (%) (Auto) 3, Eosinophils (%) (Auto) 0, Basophils (%) (Auto) 0, Neutrophils # (Auto) 20.4H, Lymphocytes # (Auto) 1.0, Monocytes # (Auto) 0.8, Eosinophils # (Auto) 0.0, Basophils # (Auto) 0.1, Immature Granulocyte # (Auto) 1.1H, Sodium Level 144, Potassium Level 4.1, Chloride Level 100, Carbon Dioxide Level 35H, Anion Gap 9, Blood Urea Nitrogen 36H, Creatinine 0.76, Estimat Glomerular Filtration Rate 75, BUN/Creatinine Ratio 47, Glucose Level 82, Calcium Level 8.1L, Corrected Calcium 9.1, Magnesium Level 2.1, Total Bilirubin 0.5, Aspartate Amino Transf (AST/SGOT) 42H, Alanine Aminotransferase (ALT/SGPT) 54, Alkaline Phosphatase 61, Total Protein 5.0L, Albumin 2.7L 04/10/21 11:19: Glucometer 87 04/10/21 15:42: Glucometer 153H Microbiology 04/02/21 MRSA Screen - Final, Complete MRSA not isolated 04/02/21 Urine Culture - Final, Complete NO GROWTH 04/02/21 Blood Culture - Final, Complete No growth Assessment/Plan Assessment/Plan (1) Severe sepsis Status: Resolved Assessment & Plan: 04/08: HDS, Continue antibiotics, will continue to trend leukocytosis 04/09: Patient much improved, moved to 4th floor status (2) Hypercapnic respiratory failure Status: Acute Assessment & Plan: 04/08: Continue to titrate oxygen as tolerated, Extubated today 04/09: Continue to titrate oxygen as tolerated, MAT protocol, IS 04/10: Transition steroids to PO with taper, MAT protocol, continue IS Qualifiers: Qualified Codes: J96.02 - Acute respiratory failure with hypercapnia (3) Bilateral pneumonia Status: Acute Qualifiers: Qualified Codes: J18.9 - Pneumonia, unspecified organism (4) Cardiomyopathy Status: Chronic Assessment & Plan: 04/08: Cardiology consulted and managing Qualifiers: Qualified Codes: I42.9 - Cardiomyopathy, unspecified (5) Paroxysmal A-fib Status: Acute Assessment & Plan: 04/08: Lovenox, rate controlled 04/09: Transitioned to PO meds, continue tele 04/10: Transitioned to OAC per Cardiology today, stop lovenox (6) COPD exacerbation Status: Acute (7) Physical debility Status: Acute Assessment & Plan: 04/10: Severe debility, PT/OT, patient will need SNF after discharge from hospital (8) DVT prophylaxis Status: Acute Assessment & Plan: - LOBO Osuna MD Apr 10, 2021 20:04
[2021-04-10] MEDS: NYSTATIN ORAL SUSP 5 ML UDC PO SCH (20:30)
[2021-04-10] MEDS: NS IV 1000 ML 1,000 ML IV SCH (22:39)
[2021-04-11] MEDS: RT-ALBUTEROL/IPRATROPIUM 3 ML (DUONEB) VIAL INH SCH ×6 (02:15→22:25)
[2021-04-11 04:48] LABS: BASOPHILS # (AUTO) 0.1 10^3/uL (0.0-0.1); BASOPHILS % (AUTO) 0 % (0-10); EOSINOPHILS % (AUTO) 0 % (0-10); HEMATOCRIT 36 % (35-52); HEMOGLOBIN 10.8 g/dL (11.5-16.0); LYMPHOCYTES # (AUTO) 0.7 10^3/uL (1.0-4.0); LYMPHOCYTES % (AUTO) 3 % (12-44); MEAN CORPUSCULAR HEMOGLOBIN 32 pg (25-34); MEAN CORPUSCULAR HGB CONC 30 g/dL (32-36); MEAN CORPUSCULAR VOLUME 104 fL (80-99); MEAN PLATELET VOLUME 10.7 fL (9.0-12.2); MONOCYTES # (AUTO) 0.6 10^3/uL (0.0-1.0); MONOCYTES % (AUTO) 2 % (0-12); NEUTROPHILS % (AUTO) 93 % (42-75); PLATELET COUNT 194 10^3/uL (130-400); WHITE BLOOD COUNT 24.8 10^3/uL (4.3-11.0)
[2021-04-11 05:14] LABS: ALBUMIN 2.7 GM/DL (3.2-4.5)
[2021-04-11 05:15] LABS: POTASSIUM 4.5 MMOL/L (3.6-5.0)
[2021-04-11 05:16] LABS: CALCIUM 8.2 MG/DL (8.5-10.1)
[2021-04-11 05:17] LABS: TOTAL PROTEIN 4.8 GM/DL (6.4-8.2)
[2021-04-11 05:19] LABS: BILIRUBIN,TOTAL 0.5 MG/DL (0.1-1.0)
[2021-04-11 05:20] LABS: CREATININE SERUM 0.73 MG/DL (0.60-1.30)
[2021-04-11] MEDS: PANTOPRAZOLE 40 MG (PROTONIX) TAB PO SCH (06:28)
[2021-04-11] MEDS: KCL 20 MEQ TAB (K-DUR) PO SCH (06:28)
[2021-04-11] MEDS: predniSONE 20 MG TAB PO SCH (06:28)
[2021-04-11] MEDS: inSUlin ASPART (NovoLOG) 1 UNIT/0.01 ML (CHARGE PER UNIT) SC SCH ×4 (06:28→20:22)
[2021-04-11] MEDS: FUROSEMIDE 40 MG/4 ML INJ (LASIX) IVP SCH ×2 (06:28→16:31)
--- NOTE | 2021-04-11 08:29 | Cardiology Progress Note ---
Subjective Date Seen by Provider: Apr 11, 2021 Time Seen by Provider: 08:28 Subjective/Events-last exam Patient is laying down in bed, feeling better. Breathing better. Still having generalized weakness Review of Systems General: No Chills, No Night Sweats; Fatigue; No Malaise, No Appetite, No Other HEENT: No Head Aches, No Visual Changes, No Eye Pain, No Ear Pain, No Dysphasia, No Sinus Congestion, No Post Nasal Drip, No Sore Throat, No Other Pulmonary: Dyspnea; No Cough, No Pleuritic Chest Pain, No Other Cardiovascular: No: Chest Pain, Palpitations, Orthopnea, Paroxysmal Noc. Dyspnea, Edema, Lt Headedness, Other Objective-Cardiology Exam Last Set of Vital Signs Vital Signs 04/09/21 04/11/21 04/11/21 00:01 04:32 08:25 Temp 36.3 Pulse 111 Resp 22 B/P (MAP) 138/79 Pulse Ox 95 O2 Delivery Nasal Cannula O2 Flow Rate 2.00 FiO2 35 I&O Intake and Output 04/11/21 00:00 Intake Total 1520 ml Output Total 2875 ml Balance -1355 ml Intake Oral 520 ml IV Total 1000 ml Output Urine Total 2875 ml # Bowel Movements 3 General: Alert, Oriented X3, No Acute Distress HEENT: Atraumatic Neck: Supple, No JVD, No Thyromegaly Lungs: Other (end exp wheezing, normal work of breathing on NC) Heart: Regular Rate, No Murmurs Abdomen: Normal Bowel Sounds, Soft, No Tenderness, No Masses Extremities: No Clubbing, No Cyanosis, Other (US swelling and brusing present, improved) Skin: No Rashes Neuro: Normal Speech, Cranial Nerves 3-12 NL, Other (slowed speech) Psych/Mental Status: Mental Status NL, Mood NL Results Lab Laboratory Tests 04/11/21 04:30 A/P-Cardiology Admission Diagnosis Acute respiratory failure AE COPD Pneumonia Sepsis Assessment/Plan Status post acute respiratory failure with hypercapnia, acute exacerbation of COPD, Extubated, doing better, receiving antibiotic and managed by medical team. PAF, diagnosed on 04/06/21, on beta liam, digoxin, started on Xarelto on April 10, 2021, tolerating it well. Pneumonia with sepsis, currently on antibiotic, management per medical services. Echocardiogram was done on April 03, 2021 showing normal LV size and systolic function, ejection fraction 55 to 65%, PA pressure 35 mmHg Sinus tachycardia, likely d/t respiratory failure, improved after intubation Morbid obesity Extobaccoism SHERLY MCKINLEY MD Apr 11, 2021 08:29
[2021-04-11] MEDS: NYSTATIN ORAL SUSP 5 ML UDC PO SCH ×2 (08:52→20:45)
[2021-04-11] MEDS: meTOproloL SUCCINATE 50 MG (TOPROL XL) TAB PO SCH (08:52)
[2021-04-11] MEDS ORDERED: DIGOXIN 0.25 MG (LANOXIN) TAB PO SCH (09:00)
--- NOTE | 2021-04-11 09:45 | Physical Therapy Daily Note ---
PT Daily Note-Current Subjective Pt awake and alert. Answered questions appropriately. She is very fatigued and tired. Transfers SCALE: Activities may be completed with or without assistive devices. 9-Jjnerrmomg-drfxvuq completes the activity by him/herself with no assistance from a helper. 5-Set-up or Clean-up Assistance-helper sets up or cleans up; patient completes activity. [place] assists only prior to or following the activity. 4-Supervision or Touching Assistance-helper provides verbal cues and/or touching/steadying and/or contact guard assistance as patient completes activity. Assistance may be provided throughout the activity or intermittently. 3-Partial/Moderate Assistance-helper does LESS THAN HALF the effort. [place] lifts, holds or supports trunk or limbs, but provides less than half the effort. 2-Substantial/Maximal Assistance-helper does MORE THAN HALF the effort. [place] lifts or holds trunk or limbs and provides more than half the effort. 6-Erzfugqrr-ncupur does ALL the effort. Patient does none of the effort to complete the activity. Or, the assistance of 2 or more helpers is required for the patient to complete the activity. If activity was not attempted, code reason: 7-Patient Refused. 9-Not Applicable-not attempted and the patient did not perform the activity before the current illness, exacerbation or injury. 10-Not Attempted due to Environmental Limitations-(lack of equipment, weather restraints, etc.). 88-Not Attempted due to Medical Conditions or Safety Concerns. Exercises Supine Ex: Ankle pumps, Quad Set, Glut sets, Heel Slides, Knee to chest, Short Arc Quads, Resisted flex/ext, Straight leg raise, Hip abd/add Supine Reps: 10 Active assist exercise as needed, manual resistance where tolerated. Performed UE shoulder elevation, horizontal adduction, elbow flex ext x 10 reps. Assessment Current Status: Fair Progress Pt able to do more exercise this session. She was extremely fatigued and had SOB between exercises. Oxygen sats 87-90% with HR 110 during exercise. Did not attempt out of bed due to fear of patient oxygen desaturation. PT Short Term Goals Short Term Goals Time Frame: Apr 20, 2021 Roll Left & Right: 2 Sit to lyin Lying to sitting on side of be: 2 Sit to stand: 2 Chair/hpo-ik-luryc transfer: 2 Walk 10 feet: 2 PT [facility] Goals [facility] Goals PT Engineering Officer Goals Time Frame: May 04, 2021 Roll Left & Right (QC): 4 Sit to Lying (QC): 4 Lying-Sitting on Side/Bed(QC): 4 Sit to Stand (QC): 4 Chair/Zif-uu-Lhvzg Xfer(QC): 4 Toilet Transfer (QC): 4 Walk 10 feet (QC): 4 Walk 50ft with 2 Turns (QC): 4 PT Plan Treatment/Plan Treatment Plan: Continue Plan of Care Treatment Plan: Bed Mobility, Education, Functional Activity Dominic, Functional Strength, Gait, Safety, Therapeutic Exercise, Transfers Treatment Duration: May 04, 2021 Frequency: 6 times per week Estimated Hrs Per Day: .5 hour per day Patient and/or Family Agrees t: Yes Time/GCodes Time In: 916 Time Out: 935 Total Billed Treatment Time: 19 Total Billed Treatment visit, exercise 19 min MEHREEN GODWIN PT Apr 11, 2021 09:45
--- NOTE | 2021-04-11 10:00 | Occ Therapy Progress Note ---
Therapy Progress Note Pt refused OT treatment. Pt stated that she had already completed therapy. Pt had PT treatment earlier in am. Pt educated on the role of OT and the difference between PT and OT. Encouraged pt to participate with any ADLs or B UE exercises. Pt continues to refuse. Will attempt at next available time. 1 refusal ([id number]) JULIETTE SKY Apr 11, 2021 10:00
--- NOTE | 2021-04-11 11:37 | Occupational Ther Daily Note ---
OT Current Status-Daily Note Subjective Pt laying supine in bed on R side. No c/o pain. Pt agrees to therapy. Mental Status/Objective Attachments: Drains, IV, Oxygen ADL-Treatment Therapy Code Descriptions/Definitions Functional [place] Measure: 0=Not Assessed/NA 4=Minimal Assistance 1=Total Assistance 5=Supervision or Setup 2=Maximal Assistance 6=Modified [place] 3=Moderate Assistance 7=Complete IndependenceSCALE: Activities may be completed with or without assistive devices. 2-Iqvslbtesb-kuznfzr completes the activity by him/herself with no assistance from a helper. 5-Set-up or Clean-up Assistance-helper sets up or cleans up; patient completes activity. [place] assists only prior to or following the activity. 4-Supervision or Touching Assistance-helper provides verbal cues and/or touching/steadying and/or contact guard assistance as patient completes activity. Assistance may be provided throughout the activity or intermittently. 3-Partial/Moderate Assistance-helper does LESS THAN HALF the effort. [place] lifts, holds or supports trunk or limbs, but provides less than half the effort. 2-Substantial/Maximal Assistance-helper does MORE THAN HALF the effort. [place] lifts or holds trunk or limbs and provides more than half the effort. 0-Epdgllqgc-ygjymq does ALL the effort. Patient does none of the effort to complete the activity. Or, the assistance of 2 or more helpers is required for the patient to complete the activity. If activity was not attempted, code reason: 7-Patient Refused. 9-Not Applicable-not attempted and the patient did not perform the activity bef ore the current illness, exacerbation or injury. 10-Not Attempted due to Environmental Limitations-(lack of equipment, weather r estraints, etc.). 88-Not Attempted due to Medical Conditions or Safety Concerns. Other Treatment Pt educated on energy conservation with pt verbalized understanding, skilled instruction and handout given with multiple strategies that pt had not used as of yet. Pt required Max A x2 to scoot to HOB. After session, pt supine in bed with call light/phone within reach. All needs met in room. Education OT Patient Education: Energy conservation Teaching Recipient: Patient Teaching Methods: Handout, Discussion Response to Teaching: Verbalize Understanding OT Cassandra Architect Goals [facility] Goals Time Frame: May 03, 2021 Eating (QC): 5 Oral Hygiene (QC): 5 Toileting Hygiene (QC): 3 Shower/Bathe Self (QC): 2 Upper Body Dressing (QC): 3 Lower Body Dressing (QC): 2 On/Off Footwear (QC): 2 Additional Goals: 1-Demonstrate ADL Tasks, 2-Verbalize Understanding, 3- ImproveStrength/Dominic 1=Demonstrate adherence to instructed precautions during ADL tasks. 2=Patient will verbalize/demonstrate understanding of assistive devices/modifications for ADL. 3=Patient will improve strength/tolerance for activity to enable patient to perform ADL's. OT Education/Plan Problem List/Assessment Assessment: Decreased Activ Tolerance, Decreased Safety Aware, Impaired Bed Mobility Discharge Recommendations Plan/Recommendations: Continue POC Treatment Plan/Plan of Care Patient would benefit from OT for education, treatment and training to promote independence in ADL's, mobility, safety and/or upper extremity function for ADL's. Plan of Care: ADL Retraining, Functional Mobility, UE Funct Exercise/Act Treatment Duration: May 03, 2021 Frequency: 3 times per week (3-5 times per week.) Estimated Hrs Per Day: .25 hour per day Rehab Potential: Guarded Time/GCodes Start Time: 10:22 Stop Time: 10:31 Total Time Billed (hr/min): 9 Billed Treatment Time 1 FA (9 min) JULIETTE SKY Apr 11, 2021 11:37
--- NOTE | 2021-04-11 16:15 | Progress Note ---
Subjective Subjective/Events-last exam Patient states that she is doing ok this AM. Tolerating PO diet, requires assistance for feeding. Review of Systems General: Fatigue, Malaise Pulmonary: Dyspnea; No Cough Cardiovascular: Edema; No: Chest Pain, Palpitations Gastrointestinal: No: Nausea, Vomiting, Abdominal Pain, Diarrhea, Constipation Neurological: Weakness, Incoordination Objective Exam Last Set of Vital Signs Vital Signs Date Time Temp Pulse Resp B/P (MAP) Pulse Ox O2 Delivery O2 Flow Rate FiO2 04/11/21 15:44 97 Nasal Cannula 3.00 04/11/21 13:00 99 04/11/21 11:59 36.6 22 132/65 04/09/21 00:01 35 Capillary Refill : Less Than 3 Seconds I&O Intake and Output 04/11/21 00:00 Intake Total 1520 ml Output Total 2875 ml Balance -1355 ml Intake Oral 520 ml IV Total 1000 ml Output Urine Total 2875 ml # Bowel Movements 3 General: Alert, Cooperative, No Acute Distress HEENT: Mucous Memb Moist/[place] Lungs: Clear to Auscultation, Normal Air Movement Heart: Regular Rate, No Murmurs Abdomen: Normal Bowel Sounds, Soft, No Tenderness, No Masses Extremities: Other (UE swelling and brusing in bilateral hands) Neuro: Other (slowed speech, AO x3) Results/Procedures Lab Laboratory Tests 04/11/21 04:30: White Blood Count 24.8H, Red Blood Count 3.42L, Hemoglobin 10.8L, Hematocrit 36, Mean Corpuscular Volume 104H, Mean Corpuscular Hemoglobin 32, Mean Corpuscular Hemoglobin Concent 30L, Red Cell Distribution Width 12.2, Platelet Count 194, Mean Platelet Volume 10.7, Immature Granulocyte % (Auto) 2, Neutrophils (%) (Auto) 93H, Lymphocytes (%) (Auto) 3L, Monocytes (%) (Auto) 2, Eosinophils (%) (Auto) 0, Basophils (%) (Auto) 0, Neutrophils # (Auto) 23.0H, Lymphocytes # (Auto) 0.7L, Monocytes # (Auto) 0.6, Eosinophils # (Auto) 0.0, Basophils # (Auto) 0.1, Immature Granulocyte # (Auto) 0.4H, Sodium Level 141, Potassium Level 4.5, Chloride Level 95L, Carbon Dioxide Level 38H, Anion Gap 8, Blood Urea Nitrogen 34H, Creatinine 0.73, Estimat Glomerular Filtration Rate 79, BUN/Creatinine Ratio 47, Glucose Level 108H, Calcium Level 8.2L, Corrected Calcium 9.2, Total Bilirubin 0.5, Aspartate Amino Transf (AST/SGOT) 40H, Alanine Aminotransferase (ALT/SGPT) 58H, Alkaline Phosphatase 61, Total Protein 4.8L, Albumin 2.7L 04/11/21 06:20: Glucometer 99 04/11/21 10:44: Glucometer 184H Microbiology 04/02/21 MRSA Screen - Final, Complete MRSA not isolated 04/02/21 Urine Culture - Final, Complete NO GROWTH 04/02/21 Blood Culture - Final, Complete No growth Assessment/Plan Assessment/Plan (1) Severe sepsis Status: Resolved Assessment & Plan: 04/08: HDS, Continue antibiotics, will continue to trend leukocytosis 04/09: Patient much improved, moved to 4th floor status (2) Hypercapnic respiratory failure Status: Acute Assessment & Plan: 04/08: Continue to titrate oxygen as tolerated, Extubated today 04/09: Continue to titrate oxygen as tolerated, MAT protocol, IS 04/10: Transition steroids to PO with taper, MAT protocol, continue IS Qualifiers: Qualified Codes: J96.02 - Acute respiratory failure with hypercapnia (3) Bilateral pneumonia Status: Acute Qualifiers: Qualified Codes: J18.9 - Pneumonia, unspecified organism (4) Cardiomyopathy Status: Chronic Assessment & Plan: 04/08: Cardiology consulted and managing Qualifiers: Qualified Codes: I42.9 - Cardiomyopathy, unspecified (5) Paroxysmal A-fib Status: Acute Assessment & Plan: 04/08: Lovenox, rate controlled 04/09: Transitioned to PO meds, continue tele 04/10: Transitioned to OAC per Cardiology today, stop lovenox (6) COPD exacerbation Status: Acute (7) Physical debility Status: Acute Assessment & Plan: 04/10: Severe debility, PT/OT, patient will need SNF after discharge from hospital 04/11: Refusing cares, referral placed for SNF, plan on d/c early next week (8) DVT prophylaxis Status: Acute Assessment & Plan: - Lovenox LOBO CAMPBELL MD Apr 11, 2021 16:15
[2021-04-11] MEDS: RIVAROXABAN 20 MG TABLET (XARELTO) PO SCH (16:31)
[2021-04-11 20:25] VITALS: BP 142/81
[2021-04-12] MEDS: NS IV 1000 ML 1,000 ML IV SCH (00:32)
[2021-04-12] MEDS: RT-ALBUTEROL/IPRATROPIUM 3 ML (DUONEB) VIAL INH SCH ×6 (02:50→21:48)
[2021-04-12] MEDS: KCL 20 MEQ TAB (K-DUR) PO SCH (05:27)
[2021-04-12] MEDS: PANTOPRAZOLE 40 MG (PROTONIX) TAB PO SCH (05:27)
[2021-04-12] MEDS: FUROSEMIDE 40 MG/4 ML INJ (LASIX) IVP SCH ×2 (05:28→17:49)
[2021-04-12] MEDS: predniSONE 20 MG TAB PO SCH (05:28)
[2021-04-12 05:33] LABS: BASOPHILS % (AUTO) 0 % (0-10); EOSINOPHILS # (AUTO) 0.1 10^3/uL (0.0-0.3); EOSINOPHILS % (AUTO) 1 % (0-10); HEMATOCRIT 34 % (35-52); HEMOGLOBIN 10.5 g/dL (11.5-16.0); LYMPHOCYTES # (AUTO) 1.1 10^3/uL (1.0-4.0); LYMPHOCYTES % (AUTO) 4 % (12-44); MEAN CORPUSCULAR HEMOGLOBIN 32 pg (25-34); MEAN CORPUSCULAR HGB CONC 31 g/dL (32-36); MEAN CORPUSCULAR VOLUME 104 fL (80-99); MEAN PLATELET VOLUME 10.5 fL (9.0-12.2); MONOCYTES # (AUTO) 0.8 10^3/uL (0.0-1.0); MONOCYTES % (AUTO) 3 % (0-12); NEUTROPHILS # (AUTO) 22.5 10^3/uL (1.8-7.8); NEUTROPHILS % (AUTO) 90 % (42-75); PLATELET COUNT 199 10^3/uL (130-400); WHITE BLOOD COUNT 24.9 10^3/uL (4.3-11.0)
[2021-04-12 05:45] LABS: ALBUMIN 2.8 GM/DL (3.2-4.5); POTASSIUM 4.2 MMOL/L (3.6-5.0)
[2021-04-12 05:46] LABS: CALCIUM 8.5 MG/DL (8.5-10.1)
[2021-04-12] MEDS: inSUlin ASPART (NovoLOG) 1 UNIT/0.01 ML (CHARGE PER UNIT) SC SCH ×4 (05:48→20:46)
[2021-04-12 05:49] LABS: BILIRUBIN,TOTAL 0.6 MG/DL (0.1-1.0)
[2021-04-12 05:51] LABS: CREATININE SERUM 0.75 MG/DL (0.60-1.30)
[2021-04-12 08:33] VITALS: BP 126/66
[2021-04-12] MEDS: NYSTATIN ORAL SUSP 5 ML UDC PO SCH ×2 (08:45→20:57)
[2021-04-12] MEDS: meTOproloL SUCCINATE 50 MG (TOPROL XL) TAB PO SCH (08:45)
[2021-04-12 11:24] VITALS: BP 135/66
--- NOTE | 2021-04-12 11:42 | Physical Therapy Daily Note ---
PT Daily Note-Current Subjective Pt in bed eating breakfast upon PT arrival and agrees to bed exs for PT. Declines wanting to get up or ambulate. Pain Numeric Pain Scale: 3 Location: Left Location Body Site: Wrist Mental Status Patient Orientation: Person, Place, Time Attachments: Oxygen, IV Transfers SCALE: Activities may be completed with or without assistive devices. 9-Kuyqgichan-slnmxog completes the activity by him/herself with no assistance from a helper. 5-Set-up or Clean-up Assistance-helper sets up or cleans up; patient completes activity. [place] assists only prior to or following the activity. 4-Supervision or Touching Assistance-helper provides verbal cues and/or touching/steadying and/or contact guard assistance as patient completes activity. Assistance may be provided throughout the activity or intermittently. 3-Partial/Moderate Assistance-helper does LESS THAN HALF the effort. [place] lifts, holds or supports trunk or limbs, but provides less than half the effort. 2-Substantial/Maximal Assistance-helper does MORE THAN HALF the effort. [place] lifts or holds trunk or limbs and provides more than half the effort. 6-Jbriqoxgn-aawiys does ALL the effort. Patient does none of the effort to complete the activity. Or, the assistance of 2 or more helpers is required for the patient to complete the activity. If activity was not attempted, code reason: 7-Patient Refused. 9-Not Applicable-not attempted and the patient did not perform the activity before the current illness, exacerbation or injury. 10-Not Attempted due to Environmental Limitations-(lack of equipment, weather restraints, etc.). 88-Not Attempted due to Medical Conditions or Safety Concerns. Gait Training Does the Patient Walk?: No and Walking Goal IS indicated Exercises Supine Ex: Ankle pumps, Quad Set, Glut sets, Heel Slides, Short Arc Quads, Scooting, Hip abd/add Supine Reps: 15 Treatments Pt in bed eating breakfast upon PT arrival and performs supine exs while eating. All needs met and call light in hand as PT departs. Assessment Current Status: Fair Progress Pt requires encouragement in order to participate in PT. Requires frequent cues in order to performs exs correct. AAROM for first few reps of exs and then able to performs exs w/ AROM. PT Short Term Goals Short Term Goals Time Frame: Apr 20, 2021 Roll Left & Right: 2 Sit to lyin Lying to sitting on side of be: 2 Sit to stand: 2 Chair/gum-cv-eflcf transfer: 2 Walk 10 feet: 2 PT Jerker Goals Fpc Goals PT Jerker Goals Time Frame: May 04, 2021 Roll Left & Right (QC): 4 Sit to Lying (QC): 4 Lying-Sitting on Side/Bed(QC): 4 Sit to Stand (QC): 4 Chair/Reb-ek-Ntqme Xfer(QC): 4 Toilet Transfer (QC): 4 Walk 10 feet (QC): 4 Walk 50ft with 2 Turns (QC): 4 PT Plan Problem List Problem List: Activity Tolerance, Functional Strength, Bed Mobility Treatment/Plan Treatment Plan: Continue Plan of Care Treatment Plan: Bed Mobility, Education, Functional Activity Dominic, Functional Strength, Gait, Safety, Therapeutic Exercise, Transfers Treatment Duration: May 04, 2021 Frequency: 6 times per week Estimated Hrs Per Day: .5 hour per day Patient and/or Family Agrees t: Yes Safety Risks/Education Patient Education: Correct Positioning Teaching Recipient: Patient Teaching Methods: Discussion Response to Teaching: Return Demonstration Time/GCodes Time In: 856 Time Out: 923 Total Billed Treatment Time: 27 Total Billed Treatment 1, FA (10'), EX (17') МАРИНА GUERRERO [employer]ICE PROGRAM DIRECTOR Apr 12, 2021 11:42
--- NOTE | 2021-04-12 11:55 | Occupational Ther Daily Note ---
OT Current Status-Daily Note Subjective Limited conversation from patient. Agreeable to treatment with encouragement. Appearance Returned to supine, all needs within reach. Mental Status/Objective Patient Orientation: Person Attachments: Huff Catheter, IV, Telemetry ADL-Treatment Therapy Code Descriptions/Definitions Functional [place] Measure: 0=Not Assessed/NA 4=Minimal Assistance 1=Total Assistance 5=Supervision or Setup 2=Maximal Assistance 6=Modified [place] 3=Moderate Assistance 7=Complete IndependenceSCALE: Activities may be completed with or without assistive devices. 6-Puxjhwshgb-pyatjoi completes the activity by him/herself with no assistance f rom a helper. 5-Set-up or Clean-up Assistance-helper sets up or cleans up; patient completes activity. [place] assists only prior to or following the activity. 4-Supervision or Touching Assistance-helper provides verbal cues and/or touching/steadying and/or contact guard assistance as patient completes activity. Assistance may be provided throughout the activity or intermittently. 3-Partial/Moderate Assistance-helper does LESS THAN HALF the effort. [place] lifts, holds or supports trunk or limbs, but provides less than half the effort. 2-Substantial/Maximal Assistance-helper does MORE THAN HALF the effort. [place] lifts or holds trunk or limbs and provides more than half the effort. 3-Oohrgsbsb-usqzqq does ALL the effort. Patient does none of the effort to complete the activity. Or, the assistance of 2 or more helpers is required for the patient to complete the activity. If activity was not attempted, code reason: 7-Patient Refused. 9-Not Applicable-not attempted and the patient did not perform the activity before the current illness, exacerbation or injury. 10-Not Attempted due to Environmental Limitations-(lack of equipment, weather restraints, etc.). 88-Not Attempted due to Medical Conditions or Safety Concerns. Other Treatment Supine>sit: Max a x1. Kyphotic posture sitting EOB. Intermittent min A due to retropulsion. Able to adjust with verbal/tactile cues but unable to sustain. Attempt to stand x2. Pt only able to come to partial stand with assist x2-3. Pt resistant and pushes self back towards bed. Returns to supine with assist x2. Able to roll R/L with mod-max a x1 for placement of chucks pad. Education OT Patient Education: Correct positioning, Progress toward Goal/Update tx plan, Purpose of tx/functional activities, Safety issues, Transfer techniques Teaching Recipient: Patient Teaching Methods: Discussion Response to Teaching: Reinforcement Needed OT Order Processing Specialist Goals Chcf Goals Time Frame: May 03, 2021 Eating (QC): 5 Oral Hygiene (QC): 5 Toileting Hygiene (QC): 3 Shower/Bathe Self (QC): 2 Upper Body Dressing (QC): 3 Lower Body Dressing (QC): 2 On/Off Footwear (QC): 2 Additional Goals: 1-Demonstrate ADL Tasks, 2-Verbalize Understanding, 3-ImproveStrength/Dominic 1=Demonstrate adherence to instructed precautions during ADL tasks. 2=Patient will verbalize/demonstrate understanding of assistive devices/modifications for ADL. 3=Patient will improve strength/tolerance for activity to enable patient to perform ADL's. OT Education/Plan Problem List/Assessment Assessment: Decreased Activ Tolerance, Decreased Safety Aware, Decreased UE Strength, Dependent Transfers, Edema, Impaired Bed Mobility, Impaired Cognition, Impaired Coordination, Impaired Funct Balance, Impaired I ADL's, Impaired Self- Care Skills, Restricted Funct UE ROM Discharge Recommendations Plan/Recommendations: Continue POC Therapy Discharge Recommendati: Post Acute OT Treatment Plan/Plan of Care Treatment,Training & Education: Yes Patient would benefit from OT for education, treatment and training to promote independence in ADL's, mobility, safety and/or upper extremity function for ADL's. Plan of Care: ADL Retraining, Functional Mobility, UE Funct Exercise/Act Treatment Duration: May 03, 2021 Frequency: 3 times per week (3-5 times per week.) Estimated Hrs Per Day: .25 hour per day Rehab Potential: Guarded Time/GCodes Start Time: 11:29 Stop Time: 11:42 Total Time Billed (hr/min): 13 Billed Treatment Time 1 visit Magda Rowland OT Apr 12, 2021 11:55
--- NOTE | 2021-04-12 13:39 | Cardiology Progress Note ---
Subjective Date Seen by Provider: Apr 12, 2021 Time Seen by Provider: 13:38 Subjective/Events-last exam Patient is laying down in bed, still short of breath. No chest pain Review of Systems General: No Chills, No Night Sweats; Fatigue, Malaise; No Appetite, No Other HEENT: No Head Aches, No Visual Changes, No Eye Pain, No Ear Pain, No Dysphasia, No Sinus Congestion, No Post Nasal Drip, No Sore Throat, No Other Pulmonary: Dyspnea; No Cough, No Pleuritic Chest Pain, No Other Cardiovascular: No: Chest Pain, Palpitations, Orthopnea, Paroxysmal Noc. Dyspnea, Edema, Lt Headedness, Other Objective-Cardiology Exam Last Set of Vital Signs Vital Signs 04/11/21 04/12/21 04/12/21 04/12/21 20:25 08:33 11:24 11:34 Temp 36.6 Pulse 97 Resp 18 B/P (MAP) 135/66 (89) Pulse Ox 96 O2 Delivery Nasal Cannula O2 Flow Rate 3.00 FiO2 32 I&O Intake and Output 04/12/21 00:00 Intake Total 500 ml Output Total 2950 ml Balance -2450 ml Intake Oral 500 ml Output Urine Total 2950 ml # Bowel Movements 2 General: Alert, Cooperative, No Acute Distress HEENT: Mucous Memb Moist/[place] Neck: Supple, No JVD, No Thyromegaly Lungs: Clear to Auscultation, Normal Air Movement Heart: Regular Rate, No Murmurs Abdomen: Normal Bowel Sounds, Soft, No Tenderness, No Masses Extremities: Other (UE swelling and brusing in bilateral hands) Skin: No Rashes Neuro: Other (slowed speech, AO x3) Psych/Mental Status: Mental Status NL, Mood NL Results Lab Laboratory Tests 04/12/21 05:21 A/P-Cardiology Admission Diagnosis Acute respiratory failure AE COPD Pneumonia Sepsis Assessment/Plan Status post acute respiratory failure with hypercapnia, acute exacerbation of COPD, Extubated, doing better, receiving antibiotic and managed by medical team. PAF, diagnosed on 04/06/21, on beta liam, digoxin, started on Xarelto on April 10, 2021, tolerating it well. Pneumonia with sepsis, currently on antibiotic, management per medical services. Echocardiogram was done on April 03, 2021 showing normal LV size and systolic function, ejection fraction 55 to 65%, PA pressure 35 mmHg Sinus tachycardia, likely d/t respiratory failure, improved after intubation Morbid obesity Extobaccoism SHERLY MCKINLEY MD Apr 12, 2021 13:39
[2021-04-12 15:55] VITALS: BP 111/73
[2021-04-12] MEDS: RIVAROXABAN 20 MG TABLET (XARELTO) PO SCH (17:49)
[2021-04-12 20:30] VITALS: BP 117/70
--- NOTE | 2021-04-12 20:31 | Progress Note ---
Subjective Subjective/Events-last exam Patient tolerating PO diet. Still profoundly weak. Denies any pain. Review of Systems Pulmonary: Dyspnea Neurological: Weakness, Incoordination Objective Exam Last Set of Vital Signs Vital Signs Date Time Temp Pulse Resp B/P (MAP) Pulse Ox O2 Delivery O2 Flow Rate FiO2 04/12/21 19:05 97 Nasal Cannula 3.00 04/12/21 19:00 101 04/12/21 15:55 36.4 24 111/73 (86) 04/11/21 20:25 32 Capillary Refill : Less Than 3 Seconds I&O Intake and Output 04/12/21 00:00 Intake Total 500 ml Output Total 2950 ml Balance -2450 ml Intake Oral 500 ml Output Urine Total 2950 ml # Bowel Movements 2 General: Alert, No Acute Distress HEENT: Mucous Memb Moist/[place] Lungs: Clear to Auscultation, Normal Air Movement Heart: Regular Rate, No Murmurs Abdomen: Normal Bowel Sounds, Soft, No Tenderness, No Masses Extremities: Other (UE swelling and bruising) Results/Procedures Lab Laboratory Tests 04/12/21 05:21: White Blood Count 24.9H, Red Blood Count 3.29L, Hemoglobin 10.5L, Hematocrit 34L , Mean Corpuscular Volume 104H, Mean Corpuscular Hemoglobin 32, Mean Corpuscular Hemoglobin Concent 31L, Red Cell Distribution Width 12.3, Platelet Count 199, Mean Platelet Volume 10.5, Immature Granulocyte % (Auto) 2, Neutrophils (%) (Auto) 90H, Lymphocytes (%) (Auto) 4L, Monocytes (%) (Auto) 3, Eosinophils (%) (Auto) 1, Basophils (%) (Auto) 0, Neutrophils # (Auto) 22.5H, Lymphocytes # (Auto) 1.1, Monocytes # (Auto) 0.8, Eosinophils # (Auto) 0.1, Basophils # (Auto) 0.0, Immature Granulocyte # (Auto) 0.4H, Sodium Level 141, Potassium Level 4.2, Chloride Level 93L, Carbon Dioxide Level 39H, Anion Gap 9, Blood Urea Nitrogen 29H, Creatinine 0.75, Estimat Glomerular Filtration Rate 77, BUN/Creatinine Ratio 39, Glucose Level 85, Calcium Level 8.5, Corrected Calcium 9.5, Total Bilirubin 0.6, Aspartate Amino Transf (AST/SGOT) 43H, Alanine Aminotransferase (ALT/SGPT) 62H, Alkaline Phosphatase 59, Total Protein 5.0L, Albumin 2.8L 04/12/21 11:22: Glucometer 207H 04/12/21 16:08: Glucometer 139H Microbiology 04/02/21 MRSA Screen - Final, Complete MRSA not isolated 04/02/21 Urine Culture - Final, Complete NO GROWTH 04/02/21 Blood Culture - Final, Complete No growth Assessment/Plan Assessment/Plan (1) Severe sepsis Status: Resolved Assessment & Plan: 04/08: HDS, Continue antibiotics, will continue to trend leukocytosis 04/09: Patient much improved, moved to 4th floor status (2) Hypercapnic respiratory failure Status: Acute Assessment & Plan: 04/08: Continue to titrate oxygen as tolerated, Extubated today 04/09: Continue to titrate oxygen as tolerated, MAT protocol, IS 04/10: Transition steroids to PO with taper, MAT protocol, continue IS Qualifiers: Qualified Codes: J96.02 - Acute respiratory failure with hypercapnia (3) Bilateral pneumonia Status: Acute Qualifiers: Qualified Codes: J18.9 - Pneumonia, unspecified organism (4) Cardiomyopathy Status: Chronic Assessment & Plan: 04/08: Cardiology consulted and managing Qualifiers: Qualified Codes: I42.9 - Cardiomyopathy, unspecified (5) Paroxysmal A-fib Status: Acute Assessment & Plan: 04/08: Lovenox, rate controlled 04/09: Transitioned to PO meds, continue tele 04/10: Transitioned to OAC per Cardiology today, stop lovenox (6) COPD exacerbation Status: Acute (7) Physical debility Status: Acute Assessment & Plan: 04/10: Severe debility, PT/OT, patient will need SNF after discharge from hospital 04/11: Refusing cares, referral placed for SNF, plan on d/c early next week 04/12: plan to d/c to SNF early next week (8) DVT prophylaxis Status: Acute Assessment & Plan: - BharatinoLOBO Singletary MD Apr 12, 2021 20:31
[2021-04-12 23:15] VITALS: BP 116/66
[2021-04-13] MEDS: RT-ALBUTEROL/IPRATROPIUM 3 ML (DUONEB) VIAL INH SCH ×6 (02:38→21:16)
[2021-04-13 04:00] VITALS: BP 125/70
[2021-04-13 05:49] LABS: BASOPHILS % (AUTO) 0 % (0-10); EOSINOPHILS # (AUTO) 0.1 10^3/uL (0.0-0.3); EOSINOPHILS % (AUTO) 1 % (0-10); HEMATOCRIT 34 % (35-52); HEMOGLOBIN 10.5 g/dL (11.5-16.0); LYMPHOCYTES # (AUTO) 1.2 10^3/uL (1.0-4.0); LYMPHOCYTES % (AUTO) 6 % (12-44); MEAN CORPUSCULAR HEMOGLOBIN 32 pg (25-34); MEAN CORPUSCULAR HGB CONC 31 g/dL (32-36); MEAN CORPUSCULAR VOLUME 105 fL (80-99); MEAN PLATELET VOLUME 10.4 fL (9.0-12.2); MONOCYTES # (AUTO) 0.8 10^3/uL (0.0-1.0); MONOCYTES % (AUTO) 4 % (0-12); NEUTROPHILS # (AUTO) 18.2 10^3/uL (1.8-7.8); NEUTROPHILS % (AUTO) 89 % (42-75); PLATELET COUNT 180 10^3/uL (130-400); WHITE BLOOD COUNT 20.5 10^3/uL (4.3-11.0)
[2021-04-13] MEDS: inSUlin ASPART (NovoLOG) 1 UNIT/0.01 ML (CHARGE PER UNIT) SC SCH ×4 (05:50→21:21)
[2021-04-13 06:00] LABS: ALBUMIN 2.9 GM/DL (3.2-4.5)
[2021-04-13 06:01] LABS: POTASSIUM 4.1 MMOL/L (3.6-5.0)
[2021-04-13 06:02] LABS: CALCIUM 8.7 MG/DL (8.5-10.1)
[2021-04-13 06:03] LABS: TOTAL PROTEIN 5.1 GM/DL (6.4-8.2)
[2021-04-13 06:05] LABS: BILIRUBIN,TOTAL 0.7 MG/DL (0.1-1.0)
[2021-04-13 06:07] LABS: CREATININE SERUM 0.81 MG/DL (0.60-1.30)
[2021-04-13] MEDS: FUROSEMIDE 40 MG/4 ML INJ (LASIX) IVP SCH ×2 (06:27→17:32)
[2021-04-13] MEDS: predniSONE 20 MG TAB PO SCH (06:27)
[2021-04-13] MEDS: PANTOPRAZOLE 40 MG (PROTONIX) TAB PO SCH (06:27)
[2021-04-13] MEDS: KCL 20 MEQ TAB (K-DUR) PO SCH (06:27)
[2021-04-13 07:49] VITALS: BP 107/71
--- NOTE | 2021-04-13 09:38 | Physical Therapy Daily Note ---
PT Daily Note-Current Subjective Pt. initially says, "not right now" to therapy but then agrees to bed exercises. No c/o. Mental Status Patient Orientation: Person Attachments: Oxygen, IV Transfers SCALE: Activities may be completed with or without assistive devices. 5-Zwmaoqaxdr-qbrbrkk completes the activity by him/herself with no assistance from a helper. 5-Set-up or Clean-up Assistance-helper sets up or cleans up; patient completes activity. [place] assists only prior to or following the activity. 4-Supervision or Touching Assistance-helper provides verbal cues and/or touching/steadying and/or contact guard assistance as patient completes activity. Assistance may be provided throughout the activity or intermittently. 3-Partial/Moderate Assistance-helper does LESS THAN HALF the effort. [place] lifts, holds or supports trunk or limbs, but provides less than half the effort. 2-Substantial/Maximal Assistance-helper does MORE THAN HALF the effort. [place] lifts or holds trunk or limbs and provides more than half the effort. 2-Stnctcowx-decygb does ALL the effort. Patient does none of the effort to complete the activity. Or, the assistance of 2 or more helpers is required for the patient to complete the activity. If activity was not attempted, code reason: 7-Patient Refused. 9-Not Applicable-not attempted and the patient did not perform the activity before the current illness, exacerbation or injury. 10-Not Attempted due to Environmental Limitations-(lack of equipment, weather restraints, etc.). 88-Not Attempted due to Medical Conditions or Safety Concerns. Exercises Supine Ex: Ankle pumps, Quad Set, Glut sets, Heel Slides, Straight leg raise, Hip abd/add Supine Reps: 10 Assessment Current Status: Poor Progress, Fair Progress Pt. has minimal ROM with exercises requires therapist assist to increase range or several cues. Pt. in bed post session with call light and all needs met. PT Short Term Goals Short Term Goals Time Frame: Apr 20, 2021 Roll Left & Right: 2 Sit to lyin Lying to sitting on side of be: 2 Sit to stand: 2 Chair/alb-ux-ndwmy transfer: 2 Walk 10 feet: 2 PT Cutter Machine Goals Cutter Machine Goals PT Snf Goals Time Frame: May 04, 2021 Roll Left & Right (QC): 4 Sit to Lying (QC): 4 Lying-Sitting on Side/Bed(QC): 4 Sit to Stand (QC): 4 Chair/Nkr-kp-Pjvoj Xfer(QC): 4 Toilet Transfer (QC): 4 Walk 10 feet (QC): 4 Walk 50ft with 2 Turns (QC): 4 PT Plan Treatment/Plan Treatment Plan: Continue Plan of Care Treatment Plan: Bed Mobility, Education, Functional Activity Dominic, Functional Strength, Gait, Safety, Therapeutic Exercise, Transfers Treatment Duration: May 04, 2021 Frequency: 6 times per week Estimated Hrs Per Day: .5 hour per day Patient and/or Family Agrees t: Yes Time/GCodes Time In: 929 Time Out: 938 Total Billed Treatment Time: 9 Total Billed Treatment 1, Ex 9' TAD BROWER PT Apr 13, 2021 09:38
[2021-04-13] MEDS: NYSTATIN ORAL SUSP 5 ML UDC PO SCH ×2 (10:29→21:50)
[2021-04-13] MEDS: meTOproloL SUCCINATE 50 MG (TOPROL XL) TAB PO SCH (10:29)
[2021-04-13] MEDS: NS IV 1000 ML 1,000 ML IV SCH (10:32)
--- NOTE | 2021-04-13 10:39 | Cardiology Progress Note ---
Subjective Date Seen by Provider: Apr 13, 2021 Time Seen by Provider: 10:38 Subjective/Events-last exam Patient is laying down in bed, feeling better today. No new complaint Review of Systems General: No Chills, No Night Sweats; Fatigue, Malaise; No Appetite, No Other HEENT: No Head Aches, No Visual Changes, No Eye Pain, No Ear Pain, No Dysphasia, No Sinus Congestion, No Post Nasal Drip, No Sore Throat, No Other Pulmonary: Dyspnea; No Cough, No Pleuritic Chest Pain, No Other Cardiovascular: No: Chest Pain, Palpitations, Orthopnea, Paroxysmal Noc. Dyspnea, Edema, Lt Headedness, Other Objective-Cardiology Exam Last Set of Vital Signs Vital Signs 04/11/21 04/13/21 20:25 07:49 Temp 36.0 Pulse 102 Resp 22 B/P (MAP) 107/71 (83) Pulse Ox 94 O2 Delivery Nasal Cannula O2 Flow Rate 3.00 FiO2 32 I&O Intake and Output 04/13/21 00:00 Intake Total 1550 ml Output Total 3425 ml Balance -1875 ml Intake Oral 550 ml IV Total 1000 ml Output Urine Total 3425 ml # Bowel Movements 2 General: Alert, Oriented X3, Cooperative, No Acute Distress HEENT: Mucous Memb Moist/[place] Neck: Supple, No JVD, No Thyromegaly Lungs: Clear to Auscultation, Normal Air Movement Heart: Regular Rate, Normal S1, Normal S2, No Murmurs Abdomen: Normal Bowel Sounds, Soft, No Tenderness, No Masses Extremities: No Clubbing, No Cyanosis, Other (UE swelling and bruising) Skin: No Rashes Neuro: Normal Speech, Other (slowed speech, AO x3) Psych/Mental Status: Mental Status NL, Mood NL Results Lab Laboratory Tests 04/13/21 05:40 A/P-Cardiology Admission Diagnosis Acute respiratory failure AE COPD Pneumonia Sepsis Assessment/Plan Status post acute respiratory failure with hypercapnia, acute exacerbation of COPD, Extubated, doing better, patient is feeling better today. Managed by medical team PAF, diagnosed on 04/06/21, on beta liam, digoxin, started on Xarelto on April 10, 2021, tolerating it well. Pneumonia with sepsis, improving. Managed by medical team Echocardiogram was done on April 03, 2021 showing normal LV size and systolic function, ejection fraction 55 to 65%, PA pressure 35 mmHg Sinus tachycardia, likely d/t respiratory failure, improved after intubation Morbid obesity Extobaccoism SHERLY MCKINLEY MD Apr 13, 2021 10:39
[2021-04-13 11:36] VITALS: BP 125/83
--- NOTE | 2021-04-13 13:12 | Progress Note - Hospitalist ---
Subjective HPI/CC On Admission Date Seen by Provider: Apr 13, 2021 Time Seen by Provider: 12:45 CC: Respiratory failure HPI: This is a 66yoWF chronic COPD, oxygen supplementation 24/11 patient of [facility] who presented to the [place] ER with SOB and diarrhea. She had been vomiting also. She was found to have B/L pneumonia, heart rate from 150 down to 130 after two liters of fluid given. Lactic acid was elevated at 2.5 and noted to have mild hypotension. WBC is 15,000 and ABG showed respiratory acidosis due to hypercapnia and hypoxemia. Cefepime was initiated broad-spectrum antibiotics. Solumedrol was given. EIC was given report by Dr. Haile and Pt was intubated prior to transport. Subjective/Events-last exam Patient feeling better less short of breath denies chest pain still extremely weak. No chills or fever reported. Objective Exam Vital Signs Vital Signs Date Time Temp Pulse Resp B/P (MAP) Pulse Ox O2 Delivery O2 Flow Rate FiO2 04/13/21 13:00 103 04/13/21 11:36 36.4 24 125/83 (97) 99 Nasal Cannula 3.00 04/11/21 20:25 32 Capillary Refill : Less Than 3 Seconds General Appearance: No Apparent Distress, Obese Respiratory: No Accessory Muscle Use, No Respiratory Distress, Other (Decreased breath sounds posteriorly chest otherwise clear.) Cardiovascular: No Gallop, No Murmur Gastrointestinal: Normal Bowel Sounds, No Organomegaly, No Pulsatile Mass, Non Tender, Soft Results/Procedures Lab Laboratory Tests 04/13/21 05:40 Patient resulted labs reviewed. Assessment/Plan Assessment and Plan Assess & Plan/Chief Complaint (1) Severe sepsis Status: Resolved Assessment & Plan: 04/08: HDS, Continue antibiotics, will continue to trend leukocytosis 04/09: Patient much improved, moved to 4th floor status (2) Hypercapnic respiratory failure Status: Acute Assessment & Plan: 04/08: Continue to titrate oxygen as tolerated, Extubated today 04/09: Continue to titrate oxygen as tolerated, MAT protocol, IS 04/10: Transition steroids to PO with taper, MAT protocol, continue IS Qualifiers: Qualified Codes: J96.02 - Acute respiratory failure with hypercapnia (3) Bilateral pneumonia Status: Acute Qualifiers: Qualified Codes: J18.9 - Pneumonia, unspecified organism (4) Cardiomyopathy Status: Chronic Assessment & Plan: 04/08: Cardiology consulted and managing Qualifiers: Qualified Codes: I42.9 - Cardiomyopathy, unspecified (5) Paroxysmal A-fib Status: Acute Assessment & Plan: 04/08: Lovenox, rate controlled 04/09: Transitioned to PO meds, continue tele 04/10: Transitioned to OAC per Cardiology today, stop lovenox (6) COPD exacerbation Status: Acute (7) Physical debility Status: Acute Assessment & Plan: 04/10: Severe debility, PT/OT, patient will need SNF after discharge from hospital 04/11: Refusing cares, referral placed for SNF, plan on d/c early next week 04/12: plan to d/c to SNF early next week 04/13: Slow improvement awaiting [facility] to [facility]. Critical Care Critically Ill Patient SPENCER LYNN MD Apr 13, 2021 13:12
[2021-04-13 16:00] VITALS: BP 138/80
[2021-04-13] MEDS: RIVAROXABAN 20 MG TABLET (XARELTO) PO SCH (17:32)
[2021-04-13 20:00] VITALS: BP 127/74
[2021-04-13 23:38] VITALS: BP 117/75
[2021-04-14] MEDS: RT-ALBUTEROL/IPRATROPIUM 3 ML (DUONEB) VIAL INH SCH ×6 (02:18→21:11)
[2021-04-14 03:08] VITALS: BP 127/80
[2021-04-14] MEDS: predniSONE 20 MG TAB PO SCH (05:46)
[2021-04-14] MEDS: PANTOPRAZOLE 40 MG (PROTONIX) TAB PO SCH (05:46)
[2021-04-14] MEDS: FUROSEMIDE 40 MG/4 ML INJ (LASIX) IVP SCH ×2 (05:47→17:27)
[2021-04-14] MEDS: KCL 20 MEQ TAB (K-DUR) PO SCH (05:47)
--- NOTE | 2021-04-14 05:58 | Cardiology Progress Note ---
Subjective Date Seen by Provider: Apr 14, 2021 Time Seen by Provider: 05:57 Subjective/Events-last exam Patient was seen at bedside, laying comfortably in bed. Denied any chest pain Review of Systems General: No Chills, No Night Sweats; Fatigue, Malaise; No Appetite, No Other HEENT: No Head Aches, No Visual Changes, No Eye Pain, No Ear Pain, No Dysphasia, No Sinus Congestion, No Post Nasal Drip, No Sore Throat, No Other Pulmonary: Dyspnea; No Cough, No Pleuritic Chest Pain, No Other Cardiovascular: Edema; No: Chest Pain, Palpitations, Orthopnea, Paroxysmal Noc. Dyspnea, Lt Headedness, Other Objective-Cardiology Exam Last Set of Vital Signs Vital Signs 04/11/21 04/14/21 20:25 03:08 Temp 36.0 Pulse 85 Resp 18 B/P (MAP) 127/80 (96) Pulse Ox 95 O2 Delivery Nasal Cannula O2 Flow Rate 3.00 FiO2 32 I&O Intake and Output 04/14/21 00:00 Intake Total 590 ml Output Total 1350 ml Balance -760 ml Intake Oral 590 ml Output Urine Total 1350 ml # Bowel Movements 1 General: Alert, Oriented X3, Cooperative, No Acute Distress HEENT: Mucous Memb Moist/[place] Neck: Supple, No JVD, No Thyromegaly Lungs: Clear to Auscultation, Normal Air Movement Heart: Regular Rate, Normal S1, Normal S2, No Murmurs Abdomen: Normal Bowel Sounds, Soft, No Tenderness, No Masses Extremities: No Clubbing, No Cyanosis, Other (UE swelling and bruising) Skin: No Rashes Neuro: Normal Speech, Other (slowed speech, AO x3) Psych/Mental Status: Mental Status NL, Mood NL A/P-Cardiology Admission Diagnosis Acute respiratory failure AE COPD Pneumonia Sepsis Assessment/Plan Status post acute respiratory failure with hypercapnia, acute exacerbation of COPD, Extubated, doing better, improving slowly. Managed by medical team PAF, diagnosed on 04/06/21, on beta liam, digoxin, started on Xarelto on April 10, 2021, tolerating it well. Pneumonia with sepsis, improving. Managed by medical team Echocardiogram was done on April 03, 2021 showing normal LV size and systolic function, ejection fraction 55 to 65%, PA pressure 35 mmHg Sinus tachycardia, likely d/t respiratory failure, improved after intubation Morbid obesity Extobaccoism SHERLY MCKINLEY MD Apr 14, 2021 05:58
[2021-04-14 06:02] LABS: BASOPHILS % (AUTO) 0 % (0-10); EOSINOPHILS # (AUTO) 0.1 10^3/uL (0.0-0.3); EOSINOPHILS % (AUTO) 1 % (0-10); HEMATOCRIT 32 % (35-52); HEMOGLOBIN 9.9 g/dL (11.5-16.0); LYMPHOCYTES % (AUTO) 6 % (12-44); MEAN CORPUSCULAR HEMOGLOBIN 32 pg (25-34); MEAN CORPUSCULAR HGB CONC 31 g/dL (32-36); MEAN CORPUSCULAR VOLUME 105 fL (80-99); MONOCYTES # (AUTO) 0.8 10^3/uL (0.0-1.0); MONOCYTES % (AUTO) 5 % (0-12); NEUTROPHILS # (AUTO) 15.7 10^3/uL (1.8-7.8); NEUTROPHILS % (AUTO) 88 % (42-75); PLATELET COUNT 169 10^3/uL (130-400); WHITE BLOOD COUNT 17.8 10^3/uL (4.3-11.0)
[2021-04-14 06:13] LABS: ALBUMIN 2.8 GM/DL (3.2-4.5); POTASSIUM 4.1 MMOL/L (3.6-5.0)
[2021-04-14 06:15] LABS: CALCIUM 8.5 MG/DL (8.5-10.1)
[2021-04-14 06:18] LABS: BILIRUBIN,TOTAL 0.8 MG/DL (0.1-1.0)
[2021-04-14 06:19] LABS: CREATININE SERUM 0.86 MG/DL (0.60-1.30)
[2021-04-14] MEDS: inSUlin ASPART (NovoLOG) 1 UNIT/0.01 ML (CHARGE PER UNIT) SC SCH ×4 (06:28→22:09)
[2021-04-14 08:00] VITALS: BP 117/59
[2021-04-14] MEDS: NYSTATIN ORAL SUSP 5 ML UDC PO SCH ×2 (08:16→22:17)
[2021-04-14] MEDS: meTOproloL SUCCINATE 50 MG (TOPROL XL) TAB PO SCH (08:16)
--- NOTE | 2021-04-14 09:39 | Progress Note - Hospitalist ---
Subjective HPI/CC On Admission Date Seen by Provider: Apr 14, 2021 Time Seen by Provider: 09:37 CC: Respiratory failure HPI: This is a 66yoWF chronic COPD, oxygen supplementation 24/11 patient of [facility] who presented to the [place] ER with SOB and diarrhea. She had been vomiting also. She was found to have B/L pneumonia, heart rate from 150 down to 130 after two liters of fluid given. Lactic acid was elevated at 2.5 and noted to have mild hypotension. WBC is 15,000 and ABG showed respiratory acidosis due to hypercapnia and hypoxemia. Cefepime was initiated broad-spectrum antibiotics. Solumedrol was given. EIC was given report by Dr. Haile and Pt was intubated prior to transport. Subjective/Events-last exam Patient reports improved appetite still extremely weak but voicing no complaints no shortness of breath at rest no chest pain. Objective Exam Vital Signs Vital Signs Date Time Temp Pulse Resp B/P (MAP) Pulse Ox O2 Delivery O2 Flow Rate FiO2 04/14/21 08:00 36.0 93 18 117/59 (78) 97 Nasal Cannula 3.00 04/11/21 20:25 32 Capillary Refill : Less Than 3 Seconds General Appearance: No Apparent Distress, Chronically ill, Obese Respiratory: No Accessory Muscle Use, No Respiratory Distress, Other (Chest clear anteriorly) Cardiovascular: No Edema, No Gallop, No Murmur Results/Procedures Lab Laboratory Tests 04/14/21 05:45 Patient resulted labs reviewed. Assessment/Plan Assessment and Plan Assess & Plan/Chief Complaint (1) Severe sepsis Status: Resolved Assessment & Plan: 04/08: HDS, Continue antibiotics, will continue to trend leukocytosis 04/09: Patient much improved, moved to 4th floor status (2) Hypercapnic respiratory failure Status: Acute Assessment & Plan: 04/08: Continue to titrate oxygen as tolerated, Extubated today 04/09: Continue to titrate oxygen as tolerated, MAT protocol, IS 04/10: Transition steroids to PO with taper, MAT protocol, continue IS Qualifiers: Qualified Codes: J96.02 - Acute respiratory failure with hypercapnia (3) Bilateral pneumonia Status: Acute Qualifiers: Qualified Codes: J18.9 - Pneumonia, unspecified organism (4) Cardiomyopathy Status: Chronic Assessment & Plan: 04/08: Cardiology consulted and managing Qualifiers: Qualified Codes: I42.9 - Cardiomyopathy, unspecified (5) Paroxysmal A-fib Status: Acute Assessment & Plan: 04/08: Lovenox, rate controlled 04/09: Transitioned to PO meds, continue tele 04/10: Transitioned to OAC per Cardiology today, stop lovenox (6) COPD exacerbation Status: Acute (7) Physical debility Status: Acute Assessment & Plan: 04/10: Severe debility, PT/OT, patient will need SNF after discharge from hospital 04/11: Refusing cares, referral placed for SNF, plan on d/c early next week 04/12: plan to d/c to SNF early next week 04/13: Slow improvement awaiting transfer to nursing home facility. 04/14: Continued slow improvement with improvement in appetite but underlying severe deconditioning. They are working on transfer to medical [facility] hopefully the beginning of the week. Critical Care Critically Ill Patient SPENCER LYNN MD Apr 14, 2021 09:39
[2021-04-14 11:29] VITALS: BP 118/56
[2021-04-14 15:12] VITALS: BP 138/81
[2021-04-14 16:00] VITALS: BP 113/60
[2021-04-14] MEDS: RIVAROXABAN 20 MG TABLET (XARELTO) PO SCH (17:27)
[2021-04-14] MEDS: ACETAMINOPHEN 325 MG TABLET PO PRN (18:52)
[2021-04-14] MEDS: NS IV 1000 ML 1,000 ML IV SCH (18:53)
[2021-04-14 20:00] VITALS: BP 108/72
[2021-04-15] VITALS: BP 128/61
[2021-04-15] MEDS: RT-ALBUTEROL/IPRATROPIUM 3 ML (DUONEB) VIAL INH SCH ×6 (02:18→21:09)
[2021-04-15] MEDS: inSUlin ASPART (NovoLOG) 1 UNIT/0.01 ML (CHARGE PER UNIT) SC SCH ×4 (05:35→20:30)
[2021-04-15] MEDS ORDERED: meTOprolol 5 MG/5 ML (LOPRESSOR) VIAL IV ONE (06:30)
[2021-04-15] MEDS: predniSONE 20 MG TAB PO SCH (06:41)
[2021-04-15] MEDS: PANTOPRAZOLE 40 MG (PROTONIX) TAB PO SCH (06:41)
[2021-04-15] MEDS: KCL 20 MEQ TAB (K-DUR) PO SCH (06:42)
[2021-04-15] MEDS: FUROSEMIDE 40 MG/4 ML INJ (LASIX) IVP SCH ×2 (06:42→17:59)
[2021-04-15 08:15] VITALS: BP 129/61
--- NOTE | 2021-04-15 08:35 | Cardiology Progress Note ---
Subjective Date Seen by Provider: Apr 15, 2021 Time Seen by Provider: 08:30 Subjective/Events-last exam Patient is sitting in bed, feeling better. Stronger today. Eating breakfast Review of Systems General: No Chills, No Night Sweats; Fatigue, Malaise; No Appetite, No Other HEENT: No Head Aches, No Visual Changes, No Eye Pain, No Ear Pain, No Dysphasia, No Sinus Congestion, No Post Nasal Drip, No Sore Throat, No Other Pulmonary: No Dyspnea, No Cough, No Pleuritic Chest Pain, No Other Cardiovascular: No: Chest Pain, Palpitations, Orthopnea, Paroxysmal Noc. Dyspnea, Edema, Lt Headedness, Other Objective-Cardiology Exam Last Set of Vital Signs Vital Signs 04/14/21 04/15/21 15:12 08:15 Temp 36.0 Pulse 71 Resp 20 B/P (MAP) 129/61 (83) Pulse Ox 99 O2 Delivery Nasal Cannula O2 Flow Rate 3.00 FiO2 32 I&O Intake and Output 04/15/21 00:00 Intake Total 1376 ml Output Total 2275 ml Balance -899 ml Intake Oral 1376 ml Output Urine Total 2275 ml # Bowel Movements 2 General: Alert, Oriented X3, Cooperative, No Acute Distress HEENT: Mucous Memb Moist/[place] Neck: Supple, No JVD, No Thyromegaly Lungs: Clear to Auscultation, Normal Air Movement Heart: Regular Rate, Normal S1, Normal S2, No Murmurs Abdomen: Normal Bowel Sounds, Soft, No Tenderness, No Masses Extremities: No Clubbing, No Cyanosis, Other (UE swelling and bruising) Skin: No Rashes Neuro: Normal Speech, Other (slowed speech, AO x3) Psych/Mental Status: Mental Status NL, Mood NL A/P-Cardiology Admission Diagnosis Acute respiratory failure AE COPD Pneumonia Sepsis Assessment/Plan Status post acute respiratory failure with hypercapnia, acute exacerbation of COPD, Extubated, doing better, improving slowly. Managed by medical team PAF, diagnosed on 04/06/21, on beta liam, digoxin, started on Xarelto on April 10, 2021, starting to have multiple episodes of atrial fibrillation and rapid ventricular response while on current medication. Back to sinus rhythm at this time. I will add Cardizem CD 120 mg daily and evaluate tolerance and response Pneumonia with sepsis, improving. Managed by medical team Echocardiogram was done on April 03, 2021 showing normal LV size and systolic function, ejection fraction 55 to 65%, PA pressure 35 mmHg Sinus tachycardia, likely d/t respiratory failure, improved after intubation Morbid obesity Extobaccoism SHERLY MCKINLEY MD Apr 15, 2021 08:35
[2021-04-15] MEDS: NYSTATIN ORAL SUSP 5 ML UDC PO SCH ×2 (09:07→20:00)
[2021-04-15] MEDS: dilTIAZem120 MG (CARDIZEM CD) CAP PO SCH (09:07)
[2021-04-15] MEDS: meTOproloL SUCCINATE 50 MG (TOPROL XL) TAB PO SCH (09:07)
--- NOTE | 2021-04-15 12:16 | Physical Therapy Daily Note ---
PT Daily Note-Current Subjective Pt in bed upon arrival and agrees to PT and nursing present. Mental Status Patient Orientation: Normal For Age Attachments: Huff Catheter Transfers SCALE: Activities may be completed with or without assistive devices. 3-Shbtdutcea-grrfqpe completes the activity by him/herself with no assistance from a helper. 5-Set-up or Clean-up Assistance-helper sets up or cleans up; patient completes activity. [place] assists only prior to or following the activity. 4-Supervision or Touching Assistance-helper provides verbal cues and/or touching/steadying and/or contact guard assistance as patient completes activ ity. Assistance may be provided throughout the activity or intermittently. 3-Partial/Moderate Assistance-helper does LESS THAN HALF the effort. [place] lifts, holds or supports trunk or limbs, but provides less than half the effort. 2-Substantial/Maximal Assistance-helper does MORE THAN HALF the effort. [place] lifts or holds trunk or limbs and provides more than half the effort. 6-Pfshjsxok-qsulkd does ALL the effort. Patient does none of the effort to complete the activity. Or, the assistance of 2 or more helpers is required for the patient to complete the activity. If activity was not attempted, code reason: 7-Patient Refused. 9-Not Applicable-not attempted and the patient did not perform the activity before the current illness, exacerbation or injury. 10-Not Attempted due to Environmental Limitations-(lack of equipment, weather restraints, etc.). 88-Not Attempted due to Medical Conditions or Safety Concerns. Lying to Sitting/Side of Bed(Q: 3 Sit to Stand (QC): 1 Chair/Hyq-jt-Hunaz Xfer(QC): 1 Requires assistance from nurse and CEMENT [employer] HELPER both in order to perform sit to stand. then able to TF to chair w/ modA/maxA Treatments Pt performs lying to sit w/ modA/maxA to get to EOB. Pt TFs from bed to recliner w/ assistance from both nurse and CEMENT [employer] HELPER. Pt in recliner upon PT departure and all needs met and nursing remains present. Assessment Current Status: Fair Progress Pt requires skilled verbal cues for hand and foot placement during all TFs and is dependent for sit to stand. PT Short Term Goals Short Term Goals Time Frame: Apr 20, 2021 Roll Left & Right: 2 Sit to lyin Lying to sitting on side of be: 2 Sit to stand: 2 Chair/xhi-lw-yntwz transfer: 2 Walk 10 feet: 2 PT Forepart Rounder Goals Forepart Rounder Goals PT Fci Goals Time Frame: May 04, 2021 Roll Left & Right (QC): 4 Sit to Lying (QC): 4 Lying-Sitting on Side/Bed(QC): 4 Sit to Stand (QC): 4 Chair/Fxj-ju-Fyybc Xfer(QC): 4 Toilet Transfer (QC): 4 Walk 10 feet (QC): 4 Walk 50ft with 2 Turns (QC): 4 PT Plan Problem List Problem List: Activity Tolerance, Functional Strength, Safety Treatment/Plan Treatment Plan: Continue Plan of Care Treatment Plan: Bed Mobility, Education, Functional Activity Dominic, Functional Strength, Gait, Safety, Therapeutic Exercise, Transfers Treatment Duration: May 04, 2021 Frequency: 6 times per week Estimated Hrs Per Day: .5 hour per day Patient and/or Family Agrees t: Yes Safety Risks/Education Patient Education: Transfer Techniques, Correct Positioning Teaching Recipient: Patient Teaching Methods: Discussion Response to Teaching: Return Demonstration Time/GCodes Time In: 1050 Time Out: 1103 Total Billed Treatment Time: 13 Total Billed Treatment 1, МАРИНА BAILEY CEMENT [employer] HELPER Apr 15, 2021 12:16
--- NOTE | 2021-04-15 15:26 | Occ Therapy Progress Note ---
Therapy Progress Note OT tx attempted, pt in bed upon OT arrival. Pt states she isn't very comfortable, OT assisted with repositioning pt, placing a pillow under pt's L side. Pt states she feels better. Pt declined OT tx at this time, as she sat up in the chair for 3 hours already today. OT educated pt on the purpose and benefit of OT, but she continued to refuse. OT will attempt again tomorrow. 1, refusal 1520 EH MARTINEZ OT Apr 15, 2021 15:26
[2021-04-15 16:00] VITALS: BP 111/56
[2021-04-15] MEDS ORDERED: SALINE NASAL SPRAY (OCEAN) 45 ML BTL PRN (16:00)
[2021-04-15] MEDS: RIVAROXABAN 20 MG TABLET (XARELTO) PO SCH (17:59)
[2021-04-15 21:32] VITALS: BP 121/69
--- NOTE | 2021-04-15 21:50 | Progress Note ---
Subjective Subjective/Events-last exam Feeling very weak still, and is having some shaking in her right arm, but she says she has had shaking in multiple areas at different times. Objective Exam Last Set of Vital Signs Vital Signs Date Time Temp Pulse Resp B/P (MAP) Pulse Ox O2 Delivery O2 Flow Rate FiO2 04/15/21 21:32 36.0 100 20 121/69 (86) 97 Nasal Cannula 3.00 04/14/21 15:12 32 Capillary Refill : Less Than 3 Seconds I&O Intake and Output 04/15/21 00:00 Intake Total 1376 ml Output Total 2275 ml Balance -899 ml Intake Oral 1376 ml Output Urine Total 2275 ml # Bowel Movements 2 General: No Acute Distress Lungs: Clear to Auscultation, Normal Air Movement Heart: Regular Rate, No Murmurs Extremities: No Edema Skin: Other (ecchymosis of left hand) Results/Procedures Lab Laboratory Tests 04/15/21 05:30: Glucometer 77 04/15/21 10:46: Glucometer 190H 04/15/21 16:27: Glucometer 106 Microbiology 04/02/21 MRSA Screen - Final, Complete MRSA not isolated 04/02/21 Urine Culture - Final, Complete NO GROWTH 04/02/21 Blood Culture - Final, Complete No growth Assessment/Plan Assessment/Plan (1) Severe sepsis Status: Resolved Assessment & Plan: 04/08: HDS, Continue antibiotics, will continue to trend leukocytosis 04/09: Patient much improved, moved to 4th floor status 04/15 continued on levofloxacin, sputum with stenotrophomonas (2) Hypercapnic respiratory failure Status: Acute Assessment & Plan: 04/08: Continue to titrate oxygen as tolerated, Extubated today 04/09: Continue to titrate oxygen as tolerated, MAT protocol, IS 04/10: Transitioned steroids to PO with taper, MAT protocol, continue IS 04/15- on 3 lpm supplemental oxygen Qualifiers: Qualified Codes: J96.02 - Acute respiratory failure with hypercapnia (3) Bilateral pneumonia Status: Acute Qualifiers: Qualified Codes: J18.9 - Pneumonia, unspecified organism (4) Cardiomyopathy Status: Chronic Assessment & Plan: 04/08: Cardiology consulted and managing Qualifiers: Qualified Codes: I42.9 - Cardiomyopathy, unspecified (5) Paroxysmal A-fib Status: Acute Assessment & Plan: 04/08: Lovenox, rate controlled 04/09: Transitioned to PO meds, continue tele 04/10: Transitioned to OAC per Cardiology today, stop lovenox (6) COPD exacerbation Status: Acute (7) Physical debility Status: Acute Assessment & Plan: 04/10: Severe debility, PT/OT, patient will need SNF after discharge from hospital 04/11: Refusing cares, referral placed for SNF, plan on d/c early next week 04/12: plan to d/c to SNF early next week 04/15- d/c catheter, work on transfer to bedside commode (8) DVT prophylaxis Status: Acute Assessment & Plan: Rivaroxaban IBRAHIMA SHAW MD Apr 15, 2021 21:50
[2021-04-15 23:44] VITALS: BP 125/63
[2021-04-16] MEDS: NS IV 1000 ML 1,000 ML IV SCH (00:21)
[2021-04-16] MEDS: RT-ALBUTEROL/IPRATROPIUM 3 ML (DUONEB) VIAL INH SCH ×3 (02:29→11:17)
[2021-04-16 03:07] VITALS: BP 110/56
[2021-04-16 05:06] LABS: HEMATOCRIT 31 % (35-52); HEMOGLOBIN 9.6 g/dL (11.5-16.0); MEAN CORPUSCULAR HEMOGLOBIN 32 pg (25-34); MEAN CORPUSCULAR HGB CONC 31 g/dL (32-36); MEAN CORPUSCULAR VOLUME 103 fL (80-99); MEAN PLATELET VOLUME 11.2 fL (9.0-12.2); PLATELET COUNT 177 10^3/uL (130-400); WHITE BLOOD COUNT 16.9 10^3/uL (4.3-11.0)
[2021-04-16] MEDS: inSUlin ASPART (NovoLOG) 1 UNIT/0.01 ML (CHARGE PER UNIT) SC SCH ×2 (05:08→11:28)
[2021-04-16 05:09] LABS: ALBUMIN 2.9 GM/DL (3.2-4.5); CHLORIDE 93 MMOL/L (98-107); POTASSIUM 3.8 MMOL/L (3.6-5.0); SODIUM 141 MMOL/L (135-145)
[2021-04-16 05:11] LABS: CALCIUM 8.6 MG/DL (8.5-10.1)
[2021-04-16 05:12] LABS: GLUCOSE 87 MG/DL (70-105); TOTAL PROTEIN 5.2 GM/DL (6.4-8.2)
[2021-04-16 05:13] LABS: BILIRUBIN,TOTAL 0.9 MG/DL (0.1-1.0); CARBON DIOXIDE 37 MMOL/L (21-32)
[2021-04-16 05:15] LABS: ALKALINE PHOSPHATASE 62 U/L (40-136); CREATININE SERUM 0.95 MG/DL (0.60-1.30); GFR ESTIMATED 58
[2021-04-16 05:16] LABS: BUN/CREATININE RATIO 31
[2021-04-16 05:18] LABS: ALANINE AMINOTRANSFERASE 85 U/L (0-55)
[2021-04-16] MEDS: FUROSEMIDE 40 MG/4 ML INJ (LASIX) IVP SCH (06:31)
[2021-04-16] MEDS: predniSONE 20 MG TAB PO SCH (06:31)
[2021-04-16] MEDS: KCL 20 MEQ TAB (K-DUR) PO SCH (06:31)
[2021-04-16] MEDS: PANTOPRAZOLE 40 MG (PROTONIX) TAB PO SCH (06:31)
[2021-04-16 07:42] VITALS: BP 129/81
--- NOTE | 2021-04-16 09:11 | Cardiology Progress Note ---
Subjective Date Seen by Provider: Apr 16, 2021 Time Seen by Provider: 09:09 Subjective/Events-last exam Patient is in bed, eating breakfast, feeling better today Review of Systems General: No Chills, No Night Sweats; Fatigue, Malaise; No Appetite, No Other HEENT: No Head Aches, No Visual Changes, No Eye Pain, No Ear Pain, No Dysphasia, No Sinus Congestion, No Post Nasal Drip, No Sore Throat, No Other Pulmonary: No Dyspnea, No Cough, No Pleuritic Chest Pain, No Other Cardiovascular: No: Chest Pain, Palpitations, Orthopnea, Paroxysmal Noc. Dyspnea, Edema, Lt Headedness, Other Objective-Cardiology Exam Last Set of Vital Signs Vital Signs 04/14/21 04/16/21 04/16/21 15:12 07:42 08:00 Temp 36.0 Pulse 90 Resp 20 B/P (MAP) 129/81 (97) Pulse Ox 97 O2 Delivery Nasal Cannula O2 Flow Rate 3.00 FiO2 32 I&O Intake and Output 04/16/21 00:00 Intake Total 1292 ml Output Total 2250 ml Balance -958 ml Intake Oral 1292 ml Output Urine Total 2250 ml General: No Acute Distress HEENT: Mucous Memb Moist/[place] Neck: Supple, No JVD, No Thyromegaly Lungs: Clear to Auscultation, Normal Air Movement Heart: Regular Rate, No Murmurs Abdomen: Normal Bowel Sounds, Soft, No Tenderness, No Masses Extremities: No Edema Skin: Other (ecchymosis of left hand) Neuro: Normal Speech, Other (slowed speech, AO x3) Psych/Mental Status: Mental Status NL, Mood NL Results Lab Laboratory Tests 04/16/21 04:50 A/P-Cardiology Admission Diagnosis Acute respiratory failure AE COPD Pneumonia Sepsis Assessment/Plan Status post acute respiratory failure with hypercapnia, acute exacerbation of COPD, Extubated, doing better, improving slowly. Managed by medical team PAF, diagnosed on 04/06/21, on beta liam, digoxin, started on Xarelto on April 10, 2021, starting to have multiple episodes of atrial fibrillation and rapid ventricular response while on current medication. Back to sinus rhythm at this time. I will add Cardizem CD 120 mg daily and evaluate tolerance and response Pneumonia with sepsis, improving. Managed by medical team Echocardiogram was done on April 03, 2021 showing normal LV size and systolic function, ejection fraction 55 to 65%, PA pressure 35 mmHg Sinus tachycardia, likely d/t respiratory failure, improved after intubation Morbid obesity Extobaccoism SHERLY MCKINLEY MD Apr 16, 2021 09:11
[2021-04-16] MEDS: meTOproloL SUCCINATE 50 MG (TOPROL XL) TAB PO SCH (09:18)
[2021-04-16] MEDS: NYSTATIN ORAL SUSP 5 ML UDC PO SCH (09:18)
[2021-04-16] MEDS: dilTIAZem120 MG (CARDIZEM CD) CAP PO SCH (09:18)
--- NOTE | 2021-04-16 11:57 | Occupational Ther Daily Note ---
OT Current Status-Daily Note Subjective Pt in bed, reluctantly agrees to OT Tx. ADL-Treatment Therapy Code Descriptions/Definitions Functional [place] Measure: 0=Not Assessed/NA 4=Minimal Assistance 1=Total Assistance 5=Supervision or Setup 2=Maximal Assistance 6=Modified [place] 3=Moderate Assistance 7=Complete IndependenceSCALE: Activities may be completed with or without assistive devices. 4-Krbnafkbnz-piqcvyt completes the activity by him/herself with no assistance from a helper. 5-Set-up or Clean-up Assistance-helper sets up or cleans up; patient completes activity. [place] assists only prior to or following the activity. 4-Supervision or Touching Assistance-helper provides verbal cues and/or touching/steadying and/or contact guard assistance as patient completes activity. Assistance may be provided throughout the activity or intermittently. 3-Partial/Moderate Assistance-helper does LESS THAN HALF the effort. [place] lifts, holds or supports trunk or limbs, but provides less than half the effort. 2-Substantial/Maximal Assistance-helper does MORE THAN HALF the effort. [place] lifts or holds trunk or limbs and provides more than half the effort. 6-Picvbwwoq-vubofd does ALL the effort. Patient does none of the effort to c omplete the activity. Or, the assistance of 2 or more helpers is required for the patient to complete the activity. If activity was not attempted, code reason: 7-Patient Refused. 9-Not Applicable-not attempted and the patient did not perform the activity before the current illness, exacerbation or injury. 10-Not Attempted due to Environmental Limitations-(lack of equipment, weather restraints, etc.). 88-Not Attempted due to Medical Conditions or Safety Concerns. Other Treatment Pt in bed, agreeable to bed exercises only i n order to increase activity tolerance and UE strength. Pt completed x5 reps each BUE for the following exercises: shoulder flexion, elbow flexion/extension, finger flexion/extension. Pt took rest breaks as needed. Post tx, pt in bed, call light in reach and all needs met. Education OT Patient Education: Correct positioning, Energy conservation, Exercise program, Modified ADL techniques, Progress toward Goal/Update tx plan, Purpose of tx/functional activities, Rehab process Teaching Recipient: Patient Teaching Methods: Discussion Response to Teaching: Verbalize Understanding OT Group Home Goals Erp Developer Goals Time Frame: May 03, 2021 Eating (QC): 5 Oral Hygiene (QC): 5 Toileting Hygiene (QC): 3 Shower/Bathe Self (QC): 2 Upper Body Dressing (QC): 3 Lower Body Dressing (QC): 2 On/Off Footwear (QC): 2 Additional Goals: 1-Demonstrate ADL Tasks, 2-Verbalize Understanding, 3- ImproveStrength/Dominic 1=Demonstrate adherence to instructed precautions during ADL tasks. 2=Patient will verbalize/demonstrate understanding of assistive device s/modifications for ADL. 3=Patient will improve strength/tolerance for activity to enable patient to perform ADL's. OT Education/Plan Problem List/Assessment Assessment: Decreased Activ Tolerance, Decreased UE Strength, Impaired Funct Balance, Impaired I ADL's, Impaired Self-Care Skills Discharge Recommendations Plan/Recommendations: Continue POC Treatment Plan/Plan of Care Patient would benefit from OT for education, treatment and training to promote independence in ADL's, mobility, safety and/or upper extremity function for ADL's. Plan of Care: ADL Retraining, Functional Mobility, UE Funct Exercise/Act Treatment Duration: May 03, 2021 Frequency: 3 times per week (3-5 times per week.) Estimated Hrs Per Day: .25 hour per day Rehab Potential: Guarded Time/GCodes Start Time: 11:12 Stop Time: 11:23 Total Time Billed (hr/min): 11 Billed Treatment Time 1, EX EH MARTINEZ OT Apr 16, 2021 11:57
[2021-04-16 12:00] VITALS: BP 118/59
[2021-04-16] MEDS ORDERED: NYST1000 PO (13:20)
[2021-04-16] MEDS ORDERED: LEVO750T39 PO (13:20)
[2021-04-16] MEDS ORDERED: PANT40TA52 PO (13:20)
[2021-04-16] MEDS ORDERED: RIVA20TA2 PO (13:20)
[2021-04-16] MEDS ORDERED: DILT-27 PO (13:20)
[2021-04-16] MEDS ORDERED: METO50TA7 PO (13:20)
--- NOTE | 2021-04-16 13:24 | Discharge Inst-Skilled Nursing ---
Discharge Inst-Skilled NF Patient Instructions Patient Problems: See problem list Consult/Follow Up/Orders Follow up appt.: Follow up with primary physician after group home stay Skilled NF Admit to: Certifications SNF I certify that SNF services are required to be given on an inpatient basis because of the above named patient's need for group home care on a continuing basis for the conditions(s) for which he/she was receiving inpatient hospital services prior to his/her transfer to the SNF. Snf Facility Order: Nursing Services, Physical Therapy-Evaluate & Treat Oxygen Delivery Method: Nasal Cannula Discharge Medications New Medications: Diltiazem HCl (Diltiazem 24Hr ER) 120 Mg Cap.er.24h 120 MG PO DAILY, #30 CAP 0 Refills Levofloxacin (Levofloxacin) 750 Mg Tablet 750 MG PO DAILY@1100 for 3 Days, #3 TAB 0 Refills Metoprolol Succinate (Metoprolol Succinate) 50 Mg Tab.er.24h 50 MG PO DAILY, #30 TAB 0 Refills Nystatin (Nystatin) 100,000 Unit/1 Ml Oral.susp 5 ML PO BID for 3 Days, #30 ML 0 Refills Pantoprazole Sodium (Pantoprazole Sodium) 40 Mg Tablet.dr 40 MG PO DAILY@0700, #30 TAB 0 Refills Rivaroxaban (Xarelto Tablet) 20 Mg Tablet 20 MG PO DAILY@1700, #30 TAB 0 Refills Continued Medications: Albuterol Sulfate (Proair Hfa) 1 Puff Puff 2 PUFF IH Q4H PRN for SHORTNESS OF BREATH, PUFF Alprazolam (Alprazolam) 0.5 Mg Tablet 0.5 MG PO BID PRN for ANXIETY, TAB Fluticasone/Salmeterol (Advair 250-50 Diskus) 1 Each Blst.w.dev 1 PUFF INH BID, EA Furosemide (Lasix) 40 Mg Tablet 40 MG PO DAILY PRN for FLUID RETENTION, TAB Ipratropium/Albuterol Sulfate (Iprat-Albut 0.5-3(2.5) mg/3 ml) 3 Ml Ampul.neb 3 ML NEB Q8H PRN for SHORTNESS OF BREATH, EA Prednisone (Prednisone) 5 Mg Tablet 10 MG PO DAILY, TAB TAKES 2 (5MG) TABS Ibrahima Gould Apr 16, 2021 13:21 Diagnosis/Problems Problems/Diagonsis (1) COPD exacerbation Status: Acute (2) Bilateral pneumonia Status: Acute Qualifiers: Qualified Codes: J18.9 - Pneumonia, unspecified organism (3) Severe sepsis Status: Resolved (4) Paroxysmal A-fib Status: Acute (5) Physical debility Status: Acute (6) COPD (chronic obstructive pulmonary disease) Status: Chronic (7) Anxiety Status: Chronic (8) Chronic kidney disease Status: Chronic (9) Hyperlipidemia Status: Chronic IBRAHIMA GOULD MD Apr 16, 2021 13:24
--- NOTE | 2021-04-16 13:27 | Physical Therapy Daily Note ---
PT Daily Note-Current Subjective Pt declined sitting EOB and declined up to recliner at this time. Pt agreeable to ther ex in bed only. Mental Status Patient Orientation: Person, Place Attachments: Oxygen, Huff Catheter, IV O2 3L/min Transfers SCALE: Activities may be completed with or without assistive devices. 4-Peoyhlrcsb-hkhlxlj completes the activity by him/herself with no assistance from a helper. 5-Set-up or Clean-up Assistance-helper sets up or cleans up; patient completes activity. Worden assists only prior to or following the activity. 4-Supervision or Touching Assistance-helper provides verbal cues and/or touching/steadying and/or contact guard assistance as patient completes activity. Assistance may be provided throughout the activity or intermittently. 3-Partial/Moderate Assistance-helper does LESS THAN HALF the effort. Worden lifts, holds or supports trunk or limbs, but provides less than half the effort. 2-Substantial/Maximal Assistance-helper does MORE THAN HALF the effort. Worden lifts or holds trunk or limbs and provides more than half the effort. 1-Ladqcrell-fsywva does ALL the effort. Patient does none of the effort to complete the activity. Or, the assistance of 2 or more helpers is required for the patient to complete the activity. If activity was not attempted, code reason: 7-Patient Refused. 9-Not Applicable-not attempted and the patient did not perform the activity before the current illness, exacerbation or injury. 10-Not Attempted due to Environmental Limitations-(lack of equipment, weather restraints, etc.). 88-Not Attempted due to Medical Conditions or Safety Concerns. Exercises Supine Ex: Ankle pumps, Heel Slides, Short Arc Quads, Straight leg raise, Hip abd/add Supine Reps: 15 Assessment Current Status: Fair Progress Pt more alert and showing recall of LE ther ex. Good participation with LE ther ex. Pt resting with call light and all needs met. O2 insitu per nasal canula at 3L/min. PT Short Term Goals Short Term Goals Time Frame: Apr 20, 2021 Roll Left & Right: 2 Sit to lyin Lying to sitting on side of be: 2 Sit to stand: 2 Chair/qkr-dd-weiza transfer: 2 Walk 10 feet: 2 PT Editor Book Goals Editor Book Goals PT Editor Book Goals Time Frame: May 04, 2021 Roll Left & Right (QC): 4 Sit to Lying (QC): 4 Lying-Sitting on Side/Bed(QC): 4 Sit to Stand (QC): 4 Chair/Mry-cp-Cfzzw Xfer(QC): 4 Toilet Transfer (QC): 4 Walk 10 feet (QC): 4 Walk 50ft with 2 Turns (QC): 4 PT Plan Treatment/Plan Treatment Plan: Continue Plan of Care Treatment Plan: Bed Mobility, Education, Functional Activity Dominic, Functional Strength, Gait, Safety, Therapeutic Exercise, Transfers Treatment Duration: May 04, 2021 Frequency: 6 times per week Estimated Hrs Per Day: .5 hour per day Patient and/or Family Agrees t: Yes Time/GCodes Time In: 840 Time Out: 857 Total Billed Treatment Time: 17 Total Billed Treatment 1, ther ex 17' OSCAR SALCIDO CPTA Apr 16, 2021 13:27
--- NOTE | 2021-04-16 21:13 | Discharge Summary ---
Discharge Summary Hospital Course Problems/Diagnosis: (1) Severe sepsis Status: Resolved Resolution Date/Time: 04/08/21 @ 21:36 Assessment & Plan: 04/08: HDS, Continue antibiotics, will continue to trend leukocytosis 04/09: Patient much improved, moved to 4th floor status 04/15 continued on levofloxacin, sputum with stenotrophomonas, discharged to SNF with complete course (2) Hypercapnic respiratory failure Status: Acute Assessment & Plan: 04/08: Continue to titrate oxygen as tolerated, Extubated today 04/09: Continue to titrate oxygen as tolerated, MAT protocol, IS 04/10: Transitioned steroids to PO with taper, MAT protocol, continue IS 04/15- on 3 lpm supplemental oxygen Qualifiers: Qualified Codes: J96.02 - Acute respiratory failure with hypercapnia (3) Bilateral pneumonia Status: Acute Qualifiers: Qualified Codes: J18.9 - Pneumonia, unspecified organism (4) Cardiomyopathy Status: Chronic Assessment & Plan: 04/08: Cardiology consulted and managing Qualifiers: Qualified Codes: I42.9 - Cardiomyopathy, unspecified (5) Paroxysmal A-fib Status: Acute Assessment & Plan: 04/08: Lovenox, rate controlled 04/09: Transitioned to PO meds, continue tele 04/10: Transitioned to OAC per Cardiology today, stop lovenox (6) COPD exacerbation Status: Acute (7) Physical debility Status: Acute Assessment & Plan: 04/10: Severe debility, PT/OT, patient will need SNF after discharge from hospital 04/11: Refusing cares, referral placed for SNF, plan on d/c early next week 04/12: plan to d/c to SNF early next week 04/15- d/c catheter, work on transfer to bedside commode 04/16- d/c to SNF Hospital Course Date of Admission: Apr 02, 2021 at 11:30 Admission Diagnosis : Family Physician/Provider: Eloy Regalado MD Date of Discharge: 04/16/21 Discharge Diagnosis: See problem list Hospital Course: See problem list Labs and Pending Lab Test: Laboratory Tests 04/16/21 04:50: White Blood Count 16.9H, Red Blood Count 3.00L, Hemoglobin 9.6L, Hematocrit 31L, Mean Corpuscular Volume 103H, Mean Corpuscular Hemoglobin 32, Mean Corpuscular Hemoglobin Concent 31L, Red Cell Distribution Width 12.8, Platelet Count 177, Mean Platelet Volume 11.2, Sodium Level 141, Potassium Level 3.8, Chloride Level 93L, Carbon Dioxide Level 37H, Anion Gap 11, Blood Urea Nitrogen 29H, Creatinine 0.95, Estimat Glomerular Filtration Rate 58, BUN/Creatinine Ratio 31, Glucose Level 87, Calcium Level 8.6, Corrected Calcium 9.5, Total Bilirubin 0.9, Aspartate Amino Transf (AST/SGOT) 51H, Alanine Aminotransferase (ALT/SGPT) 85H, Alkaline Phosphatase 62, Total Protein 5.2L, Albumin 2.9L, Digoxin Level < 0.30L 04/16/21 05:07: Glucometer 93 04/16/21 11:03: Glucometer 194H Microbiology 04/02/21 MRSA Screen - Final, Complete MRSA not isolated 04/02/21 Urine Culture - Final, Complete NO GROWTH 04/02/21 Blood Culture - Final, Complete No growth Home Meds Active Pantoprazole Sodium 40 Mg Tablet.dr 40 Mg PO DAILY@0700 Diltiazem 24Hr ER (Diltiazem HCl) 120 Mg Cap.er.24h 120 Mg PO DAILY Metoprolol Succinate 50 Mg Tab.er.24h 50 Mg PO DAILY Xarelto Tablet (Rivaroxaban) 20 Mg Tablet 20 Mg PO DAILY@1700 Nystatin 100,000 Unit/1 Ml Oral.susp 5 Ml PO BID 3 Days Levofloxacin 750 Mg Tablet 750 Mg PO DAILY@1100 3 Days Reported Advair 250-50 Diskus (Fluticasone/Salmeterol) 1 Each Blst.w.dev 1 Puff INH BID Iprat-Albut 0.5-3(2.5) mg/3 ml (Ipratropium/Albuterol Sulfate) 3 Ml Ampul.neb 3 Ml NEB Q8H PRN Lasix (Furosemide) 40 Mg Tablet 40 Mg PO DAILY PRN Proair Hfa (Albuterol Sulfate) 1 Puff Puff 2 Puff IH Q4H PRN Alprazolam 0.5 Mg Tablet 0.5 Mg PO BID PRN Prednisone 5 Mg Tablet 10 Mg PO DAILY TAKES 2 (5MG) TABS Assessment/Pt DC Instructions Follow up with primary after SNF d/c. Discharge Diet: Cardiac Diet Activity as Tolerated: Yes Discharge Physical Examination Allergies: Coded Allergies: Sulfa (Sulfonamide Antibiotics) (Verified Allergy, Unknown, Hives, 09/01/19) corn (Verified Allergy, Unknown, 04/09/21) ibuprofen (Verified Allergy, Unknown, Hives, 09/01/19) sulfamethoxazole (Verified Allergy, Unknown, Hives, 09/01/19) trimethoprim (Verified Allergy, Unknown, Hives, 09/01/19) General Appearance: No Apparent Distress Respiratory: Lungs Clear, Normal Breath Sounds Cardiovascular: Regular Rate, Rhythm, No Murmur Extremity: No Pedal Edema Skin: Normal Color, Warm/Dry Neurologic/Psychiatric: Alert, Normal Mood/Affect IBRAHIMA SHAW MD Apr 16, 2021 21:13
== END 2021-04-16 15:45 | DRG 870 ==
LOC: EDUNIT# 07:23 → ER FS 07:24 → ICU 11:30 → 4TH 04-09 12:20
PROVIDERS: ADMIT Internal Medicine; ATTEND Family Medicine
PROC: 5A1955Z Respiratory Ventilation, Greater than 96 Consecutive Hours (ICD-10-PCS; principal; 2021-04-02)
PROC: 0BH17EZ Insertion of Endotracheal Airway into Trachea, Via Natural or Artificial Opening (ICD-10-PCS; 2021-04-02)
PROC: 5A09357 Assistance with Respiratory Ventilation, Less than 24 Consecutive Hours, Continuous Positive Airway Pressure (ICD-10-PCS; 2021-04-02)
DX: A41.89 Other specified sepsis (principal); J96.02 Acute respiratory failure with hypercapnia; J96.01 Acute respiratory failure with hypoxia; R65.21 Severe sepsis with septic shock; J15.6 Pneumonia due to other Gram-negative bacteria; I42.9 Cardiomyopathy, unspecified; J44.1 Chronic obstructive pulmonary disease with (acute) exacerbation; J44.0 Chronic obstructive pulmonary disease with (acute) lower respiratory infection; N17.9 Acute kidney failure, unspecified; E87.0 Hyperosmolality and hypernatremia; J90 Pleural effusion, not elsewhere classified; E87.2 Acidosis; E66.2 Morbid (severe) obesity with alveolar hypoventilation; I48.0 Paroxysmal atrial fibrillation; R53.81 Other malaise; E87.6 Hypokalemia; Z79.01 Long term (current) use of anticoagulants; Z79.899 Other long term (current) drug therapy; Z88.2 Allergy status to sulfonamides; Z87.891 Personal history of nicotine dependence; Z68.34 Body mass index [BMI] 34.0-34.9, adult; Z99.81 Dependence on supplemental oxygen; Z79.52 Long term (current) use of systemic steroids; Z20.822 Contact with and (suspected) exposure to COVID-19
CPT/HCPCS: 31500; 36415; 36600; 51702; 71045; 74018; 80053; 80162; 81000; 82805; 82947; 83605; 83735; 83880; 84145; 84478; 84484; 85007; 85025; 85027; 85379; 85610; 85730; 86141; 87040; 87070; 87077; 87081; 87088; 87186; 87205; 87636; 93005; 93041; 93306; 94002; 94003; 94640; 94660; 94664; 94760; 94799; 96361; 96374; 96375; 99291

== ENCOUNTER 2021-05-08 18:55 | Inpatient (IN) | payer MEDICARE, OTHER ==
[~2021-05-08] VITALS: Ht 149 cm; Wt 72.4 kg
[~2021-05-08 18:55] MED LIST changes: +DILT-27 PO; +FLUT1DIS26 INH; +IPRA3AMP31 NEB; +LEVO750T39 PO; +METO50TA7 PO; +NYST1000 PO; +PANT40TA52 PO; +RIVA20TA2 PO
[2021-05-08] MEDS ORDERED: methylPREDNISolone 125 MG (Solu-MEDROL) VIAL IM ONE (19:15)
--- NOTE | 2021-05-08 19:16 | Diagnostic Imaging Report ---
CLINICAL INDICATION: Patient with shortness breath. EXAM: Portable chest x-ray upright view. COMPARISON: Chest x-ray dated 04/08/2021. FINDINGS: Cardiomegaly is again seen with mild pulmonary vascular congestion. There is a stable moderate-sized left pleural effusion and stable small right pleural effusion. Stable consolidation left lung base and groundglass opacification right lung base. There is no pneumothorax. There are degenerative spurs involving the thoracic spine. Kyphoplasty changes of a midthoracic vertebra seen. Interval removal of the previously seen right-sided central line, ET tube, feeding tube. IMPRESSION: 1: There is interval removal of lines and tubes, as described above. 2: Stable cardiomegaly and pulmonary vascular congestion. 3: Stable bilateral pleural effusions and bibasilar atelectasis versus infiltrates. Dictated by: Dictated on workstation # [id number]
[2021-05-08 19:29] LABS: HEMATOCRIT 39 % (35-52); MEAN CORPUSCULAR HEMOGLOBIN 32 pg (25-34); WHITE BLOOD COUNT 13.4 10^3/uL (4.3-11.0)
[2021-05-08 19:30] LABS: BASOPHILS # (AUTO) 0.1 10^3/uL (0.0-0.1); BASOPHILS % (AUTO) 1 % (0-10); EOSINOPHILS # (AUTO) 0.4 10^3/uL (0.0-0.3); EOSINOPHILS % (AUTO) 3 % (0-10); LYMPHOCYTES % (AUTO) 15 % (12-44); MEAN CORPUSCULAR HGB CONC 28 g/dL (32-36); MEAN CORPUSCULAR VOLUME 112 fL (80-99); MEAN PLATELET VOLUME 10.5 fL (9.0-12.2); MONOCYTES # (AUTO) 0.9 X 10^3 (0.0-1.0); MONOCYTES % (AUTO) 7 % (0-12); NEUTROPHILS # (AUTO) 9.8 X 10^3 (1.8-7.8); NEUTROPHILS % (AUTO) 73 % (42-75); PLATELET COUNT 273 10^3/uL (130-400)
[2021-05-08 19:58] LABS: POTASSIUM 4.4 MMOL/L (3.6-5.0); SODIUM 140 MMOL/L (135-145)
[2021-05-08 19:59] LABS: ALANINE AMINOTRANSFERASE 62 U/L (0-55); ALBUMIN 3.4 GM/DL (3.2-4.5); ALKALINE PHOSPHATASE 95 U/L (40-136); BUN/CREATININE RATIO 12; CALCIUM 9.1 MG/DL (8.5-10.1); CARBON DIOXIDE 41 MMOL/L (21-32); CHLORIDE 93 MMOL/L (98-107); CREATININE SERUM 0.85 MG/DL (0.60-1.30); GFR ESTIMATED 66; GLUCOSE 136 MG/DL (70-105); TOTAL PROTEIN 6.1 GM/DL (6.4-8.2)
[2021-05-08] MEDS ORDERED: FUROSEMIDE 40 MG/4 ML INJ (LASIX) IVP ONE (20:15)
[2021-05-08 22:22] LABS: ABG PH 7.35 (7.37-7.43); ABG PO2 64 MMHG (79-93)
[2021-05-08 22:23] LABS: ABG OXYGEN SATURATION 91 % (94-100); ALLENS TEST YES-POS; INSPIRED O2 3 L; PATIENT TEMP 37.4; VENTILATOR NO
[2021-05-08 22:25] LABS: ABG PCO2 89 MMHG (35-45)
[2021-05-08 22:26] LABS: ABG TCO2 51.8 MMOL/L (21.0-31.0)
[2021-05-09] MEDS ORDERED: methylPREDNISolone 125 MG (Solu-MEDROL) VIAL IM ONE
[2021-05-09] MEDS ORDERED: methylPREDNISolone 125 MG (Solu-MEDROL) VIAL IVP ONE (00:30)
--- NOTE | 2021-05-09 01:16 | ED General ---
General Chief Complaint: General Problems/Pain Stated Complaint: WEAKNESS,SOB Nursing Triage Note: Pt has had increased weakness today and pt states she has not felt like eating or drinking anything today. Pt had a fall one week ago and was recently at [facility] after a hospitalization. Pt was found to be hypoxic at home, 95% on 3L NC here. All other VSS, afebrile. Pt slow to respond to questions and states that has been going on for about 6 months. Source of Information: Patient Exam Limitations: No Limitations History of Present Illness Date Seen by Provider: May 09, 2021 Time Seen by Provider: 18:30 Initial Comments Patient is a 70-year-old female with history of COPD, emphysema who presents with increased shortness of breath. Patient states she is difficulty breathing for the past 2 to 3 days. No chest pain or palpitations. She denies fever chills, nausea vomiting or sweats. On EMS arrival, the patient's O2 sats were in the 90s but then reportedly dropped to the 50s and 60s upon transfer? Patient is on supplemental oxygen 3 L. She was transitioned to nonrebreather during transportation no medications were given. History is limited as the patient is a poor historian Severity: Moderate Modifying Factors: improves with Other Allergies and Home Medications Allergies Coded Allergies: Sulfa (Sulfonamide Antibiotics) (Verified Allergy, Unknown, Hives, 09/01/19) corn (Verified Allergy, Unknown, 04/09/21) ibuprofen (Verified Allergy, Unknown, Hives, 09/01/19) sulfamethoxazole (Verified Allergy, Unknown, Hives, 09/01/19) trimethoprim (Verified Allergy, Unknown, Hives, 09/01/19) Patient Home Medication List Home Medication List Reviewed: Yes Albuterol Sulfate (Proair Hfa) 1 Puff Puff, 2 PUFF IH Q4H PRN for SHORTNESS OF BREATH, (Reported) Entered as Reported by: MADHAV PEDERSEN on 09/02/19 1030 Alprazolam (Alprazolam) 0.5 Mg Tablet, 0.5 MG PO BID PRN for ANXIETY, (Reported) Entered as Reported by: MADHAV PEDERSEN on 09/02/19 1030 Diltiazem HCl (Diltiazem 24Hr ER) 120 Mg Cap.er.24h, 120 MG PO DAILY Prescribed by: IBRAHIMA SHAW on 04/16/21 1320 Fluticasone/Salmeterol (Advair 250-50 Diskus) 1 Each Blst.w.dev, 1 PUFF INH BID, (Reported) Entered as Reported by: CODEY PITTMAN on 04/02/21 1531 Furosemide (Lasix) 40 Mg Tablet, 40 MG PO DAILY PRN for FLUID RETENTION, (Reported) Entered as Reported by: MADHAV PEDERSEN on 09/02/19 1030 Ipratropium/Albuterol Sulfate (Iprat-Albut 0.5-3(2.5) mg/3 ml) 3 Ml Ampul.neb, 3 ML NEB Q8H PRN for SHORTNESS OF BREATH, (Reported) Entered as Reported by: CODEY PITTMAN on 04/02/21 1522 Levofloxacin (Levofloxacin) 750 Mg Tablet, 750 MG PO DAILY@1100 Prescribed by: IBRAHIMA SHAW on 04/16/21 1320 Metoprolol Succinate (Metoprolol Succinate) 50 Mg Tab.er.24h, 50 MG PO DAILY Prescribed by: IBRAHIMA SHAW on 04/16/21 1320 Nystatin (Nystatin) 100,000 Unit/1 Ml Oral.susp, 5 ML PO BID Prescribed by: IBRAHIMA SHAW on 04/16/21 1320 Pantoprazole Sodium (Pantoprazole Sodium) 40 Mg Tablet.dr, 40 MG PO DAILY@0700 Prescribed by: IBRAHIMA SHAW on 04/16/21 1320 Prednisone (Prednisone) 5 Mg Tablet, 10 MG PO DAILY, (Reported) Entered as Reported by: MADHAV PEDERSEN on 09/02/19 1030 Rivaroxaban (Xarelto Tablet) 20 Mg Tablet, 20 MG PO DAILY@1700 Prescribed by: IBRAHIMA SHAW on 04/16/21 1320 Review of Systems Review of Systems Constitutional: see HPI EENTM: see HPI Respiratory: see HPI Cardiovascular: see HPI Gastrointestinal: see HPI Genitourinary: see HPI Musculoskeletal: see HPI Skin: see HPI Psychiatric/Neurological: See HPI Hematologic/Lymphatic: See HPI All Other Systems Reviewed Negative Unless Noted: Yes Past Xusjykh-Byoird-Gekpya Hx Patient Social History Tobacco Use?: No Use of E-Cig and/or Vaping dev: No Substance use?: No Alcohol Use?: No Pt feels they are or have been: No Immunizations Up To Date Influenza Vaccine Up-to-Date: Yes; Up-to-Date First/Initial COVID19 Vaccinat: Yes Second COVID19 Vaccination Sedrick: Yes COVID19 Vaccine Notched Blade Loader: Anne Seasonal Allergies Seasonal Allergies: Yes Past Medical History Surgery/Hospitalization HX: COPD; Anxiety Surgeries: Yes (cataract; kyphoplasty, bronchoscopy, c/s x3) Section, Orthopedic Respiratory: Yes (wears oxygen 3.5L) COPD Currently Using CPAP: No Currently Using BIPAP: No Cardiac: No High Cholesterol, Hypertension Neurological: No Genitourinary: No Gastrointestinal: Yes Gall Bladder Disease Musculoskeletal: Yes (hx of kyphoplasty) Fractures Endocrine: No HEENT: No (cataracts removed) Cancer: No Psychosocial: Yes Sleep Difficulties, Anxiety Integumentary: No Blood Disorders: No Family Medical History No Pertinent Family Hx Physical Exam Vital Signs Vital Signs - First Documented Capillary Refill : Less Than 3 Seconds Height, Weight, BMI Height: 4'11.00" Weight: 140lbs. oz. [id number]; 33.00 BMI Method:Stated General Appearance: WD/WN, Anxious, Mild Distress (Respiratory), Obese Eyes: Bilateral Eye Normal Inspection, Bilateral Eye PERRL, Bilateral Eye EOMI HEENT: TMs Normal Neck: Non Tender Respiratory: Accessory Muscle Use, Decreased Breath Sounds, Rhonci Cardiovascular: Regular Rate, Rhythm, No Edema Gastrointestinal: No Pulsatile Mass, Non Tender, Soft Back: Normal Inspection Neurologic/Psychiatric: Alert, Oriented x3 Skin: Normal Color, Warm/Dry Focused Exam Sepsis Stage: Ruled Out Lactate Level 05/08/21 19:13: Lactic Acid Level 1.56 Lactic Acid Level Laboratory Tests Test 05/08/21 19:13 Lactic Acid Level 1.56 MMOL/L (0.50-2.00) Procedures/Interventions Date of ETT Placement: Apr 02, 2021 Time of ETT Placement: 944 Progress/Results/Core Measures Suspected Sepsis SIRS Temperature: Pulse: 92 Respiratory Rate: 31 Laboratory Tests 05/08/21 19:13: White Blood Count 13.4H Blood Pressure 105 /47 Mean: 66 05/08/21 19:13: Lactic Acid Level 1.56 Laboratory Tests 05/08/21 19:13: Creatinine 0.85, Platelet Count 273, Total Bilirubin 1.0 Results/Orders Lab Results Laboratory Tests Test 05/08/21 19:13 05/08/21 19:47 05/08/21 22:00 Range/Units White Blood Count 13.4 H 4.3-11.0 10^3/uL Red Blood Count 3.47 L 3.80-5.11 10^6/uL Hemoglobin 11.0 L 11.5-16.0 g/dL Hematocrit 39 35-52 % Mean Corpuscular Volume 112 H 80-99 fL Mean Corpuscular Hemoglobin 32 25-34 pg Mean Corpuscular Hemoglobin Concent 28 L 32-36 g/dL Red Cell Distribution Width 14.3 10.0-14.5 % Platelet Count 273 130-400 10^3/uL Mean Platelet Volume 10.5 9.0-12.2 fL Immature Granulocyte % (Auto) 2 % Neutrophils (%) (Auto) 73 42-75 % Lymphocytes (%) (Auto) 15 12-44 % Monocytes (%) (Auto) 7 0-12 % Eosinophils (%) (Auto) 3 0-10 % Basophils (%) (Auto) 1 0-10 % Neutrophils # (Auto) 9.8 H 1.8-7.8 X 10^3 Lymphocytes # (Auto) 2.0 1.0-4.0 X 10^3 Monocytes # (Auto) 0.9 0.0-1.0 X 10^3 Eosinophils # (Auto) 0.4 H 0.0-0.3 10^3/uL Basophils # (Auto) 0.1 0.0-0.1 10^3/uL Immature Granulocyte # (Auto) 0.2 H 0.0-0.1 10^3/uL Sodium Level 140 135-145 MMOL/L Potassium Level 4.4 3.6-5.0 MMOL/L Chloride Level 93 L 98-107 MMOL/L Carbon Dioxide Level 41 H 21-32 MMOL/L Anion Gap 6 5-14 MMOL/L Blood Urea Nitrogen 10 7-18 MG/DL Creatinine 0.85 0.60-1.30 MG/DL Estimat Glomerular Filtration Rate 66 BUN/Creatinine Ratio 12 Glucose Level 136 H 70-105 MG/DL Lactic Acid Level 1.56 0.50-2.00 MMOL/L Calcium Level 9.1 8.5-10.1 MG/DL Corrected Calcium 9.6 8.5-10.1 MG/DL Total Bilirubin 1.0 0.1-1.0 MG/DL Aspartate Amino Transf (AST/SGOT) 52 H 5-34 U/L Alanine Aminotransferase (ALT/SGPT) 62 H 0-55 U/L Alkaline Phosphatase 95 40-136 U/L Troponin I < 0.30 <0.30 NG/ML Pro-B-Type Natriuretic Peptide 695.3 H <75.0 PG/ML Total Protein 6.1 L 6.4-8.2 GM/DL Albumin 3.4 3.2-4.5 GM/DL Influenza Type A Antigen NEGATIVE NEGATIVE Influenza Type B Antigen NEGATIVE NEGATIVE SARS-CoV-2 RNA (RT-PCR) Not Detected Negative Blood Gas Puncture Site LEFT RADIAL Blood Gas Patient Temperature 37.4 Arterial Blood pH 7.35 L 7.37-7.43 Arterial Blood Partial Pressure CO2 89 *H 35-45 MMHG Arterial Blood Partial Pressure O2 64 L 79-93 MMHG Arterial Blood HCO3 49 *H 23-27 MMOL/L Arterial Blood Total CO2 51.8 *H 21.0-31.0 MMOL/L Arterial Blood Oxygen Saturation 91 L 94-100 % Arterial Blood Base Excess 19.0 H -2.5-2.5 MMOL/L Cj Test YES-POS Blood Gas Ventilator Setting NO Blood Gas Inspired Oxygen 3 L My Orders Brennan - TERRENCE DELGADILLO DO Cbc With Automated Diff (05/08/21 19:01) Comprehensive Metabolic Panel (05/08/21 19:01) Lactic Acid Analyzer (05/08/21 19:01) Chest 1 View Ap/Pa Only (05/08/21 19:01) Troponin I Fs (05/08/21 19:01) Probnp Fs (05/08/21 19:01) Continuous Ekg Monitoring (05/08/21 19:01) Covid 19 Inhouse Test (05/08/21 19:01) Isolation Central Supply Req (05/08/21 19:01) Methylprednisolone Sod Succ (Solu-Medrol (05/08/21 19:15) Influenza A & B Antigens (05/08/21 19:52) Furosemide Injection (Lasix Injection) (05/08/21 20:15) Catheter(Urinary) Care .0300, 1500 (05/08/21 20:14) Arterial Blood Gas (05/08/21 20:22) Coronavirus Sars-Cov-2 So 2018 (05/08/21 19:47) Methylprednisolone Sod Succ (Solu-Medrol (05/09/21 00:30) Medications Given in ED Current Medications Medications Dose Ordered Sig/Mariela Route Start Time Stop Time Status Last Admin Dose Admin Furosemide 40 mg ONCE ONCE IVP 05/08/21 20:15 05/08/21 20:16 DC 05/08/21 20:56 40 MG Methylprednisolone Sodium Succinate 125 mg ONCE ONCE IM 05/08/21 19:15 05/08/21 19:16 DC 05/08/21 19:50 125 MG Methylprednisolone Sodium Succinate 125 mg ONCE ONCE IVP 05/09/21 00:30 05/09/21 00:31 DC 05/09/21 00:43 125 MG Vital Signs/I&O 05/08/21 05/08/21 18:55 18:55 Temp 37.4 Pulse 92 Resp 31 B/P (MAP) 105/47 (66) Pulse Ox 95 O2 Delivery Nasal Cannula Nasal Cannula O2 Flow Rate 3.00 3.00 Capillary Refill : Less Than 3 Seconds Blood Pressure Mean: 66 Departure Communication (Admissions) Chest x-ray: No acute cardiopulmonary disease per radiology report Patient with creased work of breathing with findings consistent with CHF and COPD exacerbation. IV Lasix and Solu-Medrol given. Breathing treatment given prior to ED arrival. Patient maintaining O2 saturation greater than 90% on 3 L. Will admit to [facility] for further evaluation and treatment. Dr. Shaw accepts care of patient Impression Primary Impression: COPD exacerbation Additional Impression: Congestive heart disease Disposition: ADMITTED INPATIENT Condition: Stable Admissions Decision to Admit Reason: Admit from ER (General) Decision to Admit/Date: May 09, 2021 Time/Decision to Admit Time: 00:30 Departure-Patient Inst. Referrals: SHARON STEPHENSON MD (PCP/Family) Primary Care Physician TERRENCE DELGADILLO DO May 09, 2021 01:16
[2021-05-09] MEDS ORDERED: CATHETER FLUSH 10 ML SYR IV PRN (03:15)
[2021-05-09 03:17] VITALS: BP 129/76
[2021-05-09] MEDS: methylPREDNISolone 125 MG (Solu-MEDROL) VIAL IV SCH ×4 (06:24→23:08)
[2021-05-09] MEDS: CATHETER FLUSH 10 ML SYR IV SCH ×3 (06:25→20:18)
[2021-05-09 06:37] LABS: BASOPHILS % (AUTO) 0 % (0-10); EOSINOPHILS % (AUTO) 0 % (0-10); HEMATOCRIT 34 % (35-52); LYMPHOCYTES # (AUTO) 0.7 10^3/uL (1.0-4.0); LYMPHOCYTES % (AUTO) 6 % (12-44); MEAN CORPUSCULAR HEMOGLOBIN 33 pg (25-34); MEAN CORPUSCULAR HGB CONC 30 g/dL (32-36); MEAN CORPUSCULAR VOLUME 110 fL (80-99); MEAN PLATELET VOLUME 10.8 fL (9.0-12.2); MONOCYTES # (AUTO) 0.1 10^3/uL (0.0-1.0); MONOCYTES % (AUTO) 1 % (0-12); NEUTROPHILS # (AUTO) 11.2 10^3/uL (1.8-7.8); NEUTROPHILS % (AUTO) 93 % (42-75); PLATELET COUNT 222 10^3/uL (130-400); WHITE BLOOD COUNT 12.1 10^3/uL (4.3-11.0)
[2021-05-09] MEDS: RT-ALBUTEROL/IPRATROPIUM 3 ML (DUONEB) VIAL INH SCH ×2 (07:17→15:06)
[2021-05-09 07:41] LABS: BAND NEUTROPHILS 2 %; BASOPHILS % (MANUAL) 0 %; EOSINOPHILS % (MANUAL) 0 %; LYMPHOCYTES % (MANUAL) 1 %; MONOCYTES % (MANUAL) 1 %; NEUTROPHILS % (MANUAL) 94 %; POLYCHROMASIA MODERATE; REACTIVE LYMPHOCYTES 2 %
[2021-05-09 07:42] LABS: ANISOCYTOSIS SLIGHT
[2021-05-09] MEDS: FUROSEMIDE 40 MG/4 ML INJ (LASIX) IV SCH ×2 (07:55→16:56)
[2021-05-09 08:00] VITALS: BP 141/78
--- NOTE | 2021-05-09 11:51 | History & Physical-Hospitalist ---
CHAVO CLAUDIO 05/09/21 1151: History of Present Illness HPI/Chief Complaint Patient was admitted for chief complaint of trouble breathing. She has a history of COPD but problems acutely worsened 2-3 days ago. Associated signs and symptoms were reduced appetite and hypoxia. One week ago patient fell and was hospitalized. She was discharged to long term to aid in recovery. Over past 6 months, patient has slowed down and had more difficulty speaking. History was limited due to patient's shortness of breath and fatigue. She denies any headache, changes in vision, congestion, sore throat, chest pain, abdominal pain, nausea, vomiting, constipation, diarrhea, or new rashes. Source: patient, RN/MD, other (ED notes) Exam Limitations: clinical condition Date Seen 05/09/21 Attending Physician Sunshine Gould MD PCP SelfEloy MD Referring Physician Date of Admission May 09, 2021 at 02:44 Home Medications & Allergies Home Medications Reviewed patient Home Medication Reconciliation performed by pharmacy medication reconciliations power technician and/or nursing. Patients Allergies have been reviewed. Allergies Allergies Coded Allergies Sulfa (Sulfonamide Antibiotics) (Verified Allergy, Unknown, Hives, 09/01/19) corn (Verified Allergy, Unknown, 04/09/21) ibuprofen (Verified Allergy, Unknown, Hives, 09/01/19) sulfamethoxazole (Verified Allergy, Unknown, Hives, 09/01/19) trimethoprim (Verified Allergy, Unknown, Hives, 09/01/19) Past Ynukxbt-Ayyyok-Sidjjn Hx Patient Social History Marrital Status: Tobacco Use?: No Smoking Status: Unknown if Ever Smoked Smokeless Tobacco Frequency: Never a User Use of E-Cig and/or Vaping dev: No Substance use?: No Alcohol Use?: No Pt feels they are or have been: No Immunizations Up To Date Date of Influenza Vaccine: Jan 02, 2021 First/Initial COVID19 Vaccinat: Yes Second COVID19 Vaccination Sedrick: Yes Tetanus Booster (TDap): Unknown Hepatitis A: Yes Hepatitis B: Yes Seasonal Allergies Seasonal Allergies: Yes Current Status status: No status: No Advance Directives: No Communicates: Verbally Primary Language: Grenadian Preferred Spoken Language: Grenadian Is interpretation needed?: No Past Medical History Surgeries: Section, Orthopedic COPD Currently Using CPAP: No Currently Using BIPAP: No High Cholesterol, Hypertension Gall Bladder Disease Fractures Cataract Loss of Vision: Denies Sleep Difficulties, Anxiety Blood Disorders: No Family Medical History No Pertinent Family Hx Review of Systems Constitutional: see HPI EENTM: see HPI Respiratory: see HPI Cardiovascular: see HPI Gastrointestinal: see HPI Genitourinary: see HPI Musculoskeletal: see HPI Skin: see HPI Psychiatric/Neurological: See HPI Physical Exam Physical Exam Vital Signs Vital Signs - First Documented Capillary Refill : Less Than 3 Seconds Height, Weight, BMI Height: 4'11.00" Weight: 140lbs. oz. [id number]; 32.88 BMI Method:Stated General Appearance: Mild Distress, Obese, Other (fatigued) HEENT: Normal ENT Inspection Neck: Normal Inspection Respiratory: Wheezing Cardiovascular: Regular Rate, Rhythm, No Murmur Gastrointestinal: Normal Bowel Sounds, Distended, Tenderness Extremity: Normal Inspection, No Pedal Edema, Other (Tenderness with squeezing along both shins) Neurologic/Psychiatric: Alert, Oriented x3 Results Results/Procedures Labs Laboratory Tests 05/08/21 19:13 05/09/21 06:25 Patient resulted labs reviewed. Imaging: Reviewed Imaging Films, Reviewed Imaging Report Imaging Chest x-ray x2 Meds Cefepime, vancomycin, furosemide, methylprednisolone, metoprolol succinate, rivaroxaban, pantoprazole, albuterol, fluticasone/salmeterol Assessment/Plan Admission Diagnosis COPD exacerbation Admission Status: Inpatient Order (span 2 midnights) Reason for Inpatient Admission: Treatment of acute COPD exacerbation. Evaluate heart function to determine if there is CHF component to her condition. Assessment and Plan COPD, acute exacerbation on chronic disease > Methylprednisolone, fluticasone/salmeterol, albuterol CHF exacerbation, unspecified HF * CXR prominent with bibasilar atelectasis, pulmonary vessel congestion, bilateral pleural effusions > IV lasix, ECHO to assess EF, PHYSICIAN ASST metoprolol Pneumonia * Cannot be ruled out by CXR. Possible source of acute condition. Elevated WBC on presentation. > Cefepime and vancomycin Atiral fibrillation, unspecfied > PHYSICIAN ASST xarelto, diltiazem GERD > PHYSICIAN ASST pantoprazole SUNSHINE GOULD MD 05/09/21 2030: History of Present Illness HPI/Chief Complaint 70 yo readmitted, just discharged on 04/16 after an episode of hypercapneic respiratory failure requiring intubation and treatment for bilateral pneumonia, she was discharged to long term, just went home and then had recurrent shortness of breath. She has had COVID vaccines, it sounds like with booster as well. She is negative for influenza. Her speech is quite slow to answer, but she does answer questions appropriately. When asked if she uses cpap or bipap at night she said yes but was difficult to clarify if this is actually accurate. Time Seen by a Provider: 15:30 Physical Exam Physical Exam General Appearance: No Apparent Distress, Obese, Other (alert but slow to answer) Respiratory: No Accessory Muscle Use, No Respiratory Distress, Wheezing Cardiovascular: Regular Rate, Rhythm, No Murmur Gastrointestinal: Normal Bowel Sounds, Soft, Tenderness Extremity: No Pedal Edema Neurologic/Psychiatric: Alert, Oriented x3 (slow to respond and repeated "20" three times before completing the full year 2021) Skin: Normal Color, Warm/Dry Assessment/Plan Assessment and Plan Per student documentation, except- had echo 04/2021 with normal EF and grade 1 diastolic dysfunction, will not repeat at this time. Given her marked hypercapnea, suspect she needs CPAP/BIPAP at night (if not actually on) at home, will try to find out more detail from . Supervisory-Addendum Brief Verification & Attestation Participated in pt care: history, MDM, physical Personally performed: exam, history, MDM Care discussed with: Medical Student Procedures: n/a Verification and Attestation of Medical Student E/M Service I reviewed and verified all information documented by the medical student and made modifications to such information, when appropriate. I personally performed my own history and physical exam and medical decision making and my findings match those documented by the medical student except where mine differ- see my PE for my exam findings. Sunshine Gould, May 09, 2021,20:34 CHAVO CLAUDIO May 09, 2021 11:51 SUNSHINE GOULD MD May 09, 2021 20:30
[2021-05-09 12:44] VITALS: BP 106/65
[2021-05-09] MEDS ORDERED: DILT-27 PO (13:20)
[2021-05-09] MEDS ORDERED: METO50TA7 PO (13:20)
[2021-05-09] MEDS ORDERED: PANT40TA52 PO (13:20)
[2021-05-09] MEDS ORDERED: RIVA20TA2 PO (13:21)
--- NOTE | 2021-05-09 15:28 | Diagnostic Imaging Report ---
Portable semi-erect AP chest at 3:01. Indication: Respiratory distress The cardiomegaly and the bibasilar pneumonia/atelectasis and bilateral pleural effusions seen on the prior exam of 05/08/2021 are again evident and not significantly changed. However the interstitial densities in both upper lobes do seem more prominent than on the prior study. This may be related to worsening pulmonary edema. The possibility that there is an element of pneumonia/atelectasis in these regions should also be considered. The mediastinum is not widened. The osseous structures are intact. Impression: The appearance of the chest has worsened since the prior study as interstitial densities in both upper lungs do seem more prominent. This finding may be secondary to worsening pulmonary edema, pneumonia/atelectasis or a combination of all three. A follow-up exam would be recommended for continued evaluation.. Dictated by: Dictated on workstation # [id number]
[2021-05-09] MEDS ORDERED: PHARMACY TO DOSE IV SCH (16:15)
[2021-05-09 16:48] VITALS: BP 110/69
[2021-05-09 16:48] LABS: ABG BASE EXCESS 21.1 MMOL/L (-2.5-2.5); ABG OXYGEN SATURATION 98 % (94-100); ABG PH 7.41 (7.37-7.43); ABG PO2 87 MMHG (79-93)
[2021-05-09 16:50] LABS: ABG PCO2 77 MMHG (35-45)
[2021-05-09 16:51] LABS: ABG TCO2 49.6 MMOL/L (21.0-31.0); ALLENS TEST POS; INSPIRED O2 4L; VENTILATOR NO
[2021-05-09 16:52] LABS: PATIENT TEMP 98.7
[2021-05-09] MEDS: RIVAROXABAN 20 MG TABLET (XARELTO) PO SCH (16:58)
[2021-05-09] MEDS: CEFEPIME INJECTION 2,000 MG in NS (IVPB) 50 ML IV SCH ×2 (16:58→20:18)
[2021-05-09] MEDS ORDERED: VANCOMYCIN 1500 MG/NS 500 ML IVPB IV SCH ×2 (17:00)
[2021-05-09 19:26] VITALS: BP 127/73
[2021-05-09] MEDS: RT-ALBUTEROL HFA 8.5 GM INHALER IH SCH (19:52)
[2021-05-09] MEDS: RT--FLUTICASONE/SALMETEROL 113-14 (AIRDUO RespiCLICK) IH SCH (19:52)
[2021-05-09] MEDS ORDERED: NS (IVPB) 250 ML ONE (20:07)
[2021-05-09] MEDS: ALPRAZolam 0.5 MG (XANAX) TAB PO PRN (23:08)
[2021-05-09 23:46] VITALS: BP 113/65
[2021-05-10 03:57] VITALS: BP 122/63
[2021-05-10] MEDS: CATHETER FLUSH 10 ML SYR IV SCH ×3 (05:58→20:13)
[2021-05-10] MEDS: methylPREDNISolone 125 MG (Solu-MEDROL) VIAL IV SCH ×4 (06:26→23:57)
[2021-05-10] MEDS: FUROSEMIDE 40 MG/4 ML INJ (LASIX) IV SCH ×2 (06:26→17:15)
[2021-05-10 06:51] LABS: HEMATOCRIT 29 % (35-52); HEMOGLOBIN 8.7 g/dL (11.5-16.0); MEAN CORPUSCULAR HEMOGLOBIN 32 pg (25-34); MEAN CORPUSCULAR HGB CONC 31 g/dL (32-36); MEAN CORPUSCULAR VOLUME 106 fL (80-99); MEAN PLATELET VOLUME 10.7 fL (9.0-12.2); PLATELET COUNT 219 10^3/uL (130-400); WHITE BLOOD COUNT 23.4 10^3/uL (4.3-11.0)
[2021-05-10 07:05] LABS: ALBUMIN 2.9 GM/DL (3.2-4.5); POTASSIUM 4.1 MMOL/L (3.6-5.0)
[2021-05-10 07:07] LABS: CALCIUM 8.2 MG/DL (8.5-10.1)
[2021-05-10 07:08] LABS: TOTAL PROTEIN 5.4 GM/DL (6.4-8.2)
[2021-05-10 07:10] LABS: BILIRUBIN,TOTAL 0.4 MG/DL (0.1-1.0)
[2021-05-10 07:12] LABS: CREATININE SERUM 0.85 MG/DL (0.60-1.30)
[2021-05-10 08:16] VITALS: BP 133/73
[2021-05-10] MEDS: RT-ALBUTEROL HFA 8.5 GM INHALER IH SCH ×3 (08:35→21:43)
[2021-05-10] MEDS: RT--FLUTICASONE/SALMETEROL 113-14 (AIRDUO RespiCLICK) IH SCH ×2 (08:36→21:43)
[2021-05-10] MEDS: CEFEPIME INJECTION 2,000 MG in NS (IVPB) 50 ML IV SCH ×2 (09:05→20:13)
[2021-05-10] MEDS: PANTOPRAZOLE 40 MG (PROTONIX) TAB PO SCH (09:07)
[2021-05-10] MEDS: dilTIAZem120 MG (CARDIZEM CD) CAP PO SCH (09:07)
[2021-05-10] MEDS: meTOproloL SUCCINATE 50 MG (TOPROL XL) TAB PO SCH (09:07)
[2021-05-10 11:11] VITALS: BP 121/69
[2021-05-10] MEDS: ALPRAZolam 0.5 MG (XANAX) TAB PO PRN ×2 (14:53→23:57)
--- NOTE | 2021-05-10 15:51 | Progress Note - Hospitalist ---
CHAVO CLAUDIO 05/10/21 1551: Subjective HPI/CC On Admission Date Seen by Provider: May 10, 2021 70 yo readmitted, just discharged on 04/16 after an episode of hypercapneic respiratory failure requiring intubation and treatment for bilateral pneumonia, she was discharged to alf, just went home and then had recurrent sh ortness of breath. She has had COVID vaccines, it sounds like with booster as well. She is negative for influenza. Her speech is quite slow to answer, but she does answer questions appropriately. When asked if she uses cpap or bipap at night she said yes but was difficult to clarify if this is actually accurate. Subjective/Events-last exam Moriah was more alert today. She feels that her breathing is getting better. She was able to speak in more complete sentences, but still slow to answer. Overnight, she did have two episodes of bowel incontinence, which is not normal for her at home. Her appetite has been fine. She denies any chest pain, cough, dizziness, abdominal pain. Review of Systems Pulmonary: No Dyspnea, No Cough Cardiovascular: No: Chest Pain Gastrointestinal: No: Abdominal Pain Neurological: No: Other (dizziness) Focused Exam Lactate Level 05/08/21 19:13: Lactic Acid Level 1.56 Objective Exam Vital Signs Vital Signs Date Time Temp Pulse Resp B/P (MAP) Pulse Ox O2 Delivery O2 Flow Rate FiO2 05/10/21 15:17 95 Nasal Cannula 4.00 05/10/21 12:57 91 05/10/21 11:11 36.7 20 121/69 (86) Capillary Refill : Less Than 3 Seconds General Appearance: No Apparent Distress, Obese, Other (Slow to answer questions) Neck: Normal Inspection Respiratory: No Accessory Muscle Use, Wheezing (Expiratory wheeze on auscultation improved from yesterday in both lungs.), Other (On 4L NC) Cardiovascular: Regular Rate, Rhythm, No Edema, No Murmur Gastrointestinal: Normal Bowel Sounds, Non Tender, Soft; No Distended Extremity: No Pedal Edema Neurologic/Psychiatric: Alert, Oriented x3, Other (Still slow to answer questions. ) Results/Procedures Lab Laboratory Tests 05/10/21 06:40 Patient resulted labs reviewed. Meds Vancomycin Pantoprazole Metoprolol Succinate Diltiazem Alprazolam Fluticasone/Salmetrol Albuterol Rivaroxaban Cefepime Furosemide Methylprednisolone Assessment/Plan Assessment and Plan Assess & Plan/Chief Complaint COPD, acute exacerbation on chronic disease, hypercapnic respiratory failure * pCO2 89 on admission. Dropped to 77 by afternoon 05/09. > Methylprednisolone, fluticasone/salmeterol, albuterol. Repeat ABG if there is clinical decline. CHF exacerbation, diastolic dysfunction * CXR prominent with bibasilar atelectasis, pulmonary vessel congestion, bilateral pleural effusions * EKG 04/03/21 EF 55-60% with evidence of diastolic dysfunction. > IV lasix, BRAIDER TENDER metoprolol Anemia, unspecified * Hemoglobin dropping daily since admitted. Most recent Hgb 8.7. > Iron studies to assess for type of anemia. Pneumonia * Cannot be ruled out by CXR. Possible source of acute condition. WBC count 13.4 on admission. Today WBC 23.1, likely due to IV steroids. > Cefepime and vancomycin Atiral fibrillation, unspecified, DVT prophylaxis > BRAIDER TENDER xarelto, diltiazem GERD > BRAIDER TENDER pantoprazole Anxiety > Alprazolam as needed Time spent with patient (mins): 15 SUNSHINE GOULD MD 05/10/21 1856: Subjective HPI/CC On Admission Time Seen by Provider: 11:10 Assessment/Plan Assessment and Plan Assess & Plan/Chief Complaint In student note EKG should read Echo under CHF exacerbation. Supervisory-Addendum Brief Verification & Attestation Participated in pt care: history, MDM, physical Personally performed: exam, history, MDM Care discussed with: Medical Student Procedures: n/a Verification and Attestation of Medical Student E/M Service I reviewed and verified all information documented by the medical student and made modifications to such information, when appropriate. I personally performed the physical exam and medical decision making. Sunshine Gould, May 10, 2021,18:56 CHAVO CLAUDIO May 10, 2021 15:51 SUNSHINE GOULD MD May 10, 2021 18:56
[2021-05-10 17:00] VITALS: BP 112/66
[2021-05-10] MEDS: VANCOMYCIN 1250 MG/NS 250 ML IVPB IV SCH ×2 (17:14)
[2021-05-10] MEDS: RIVAROXABAN 20 MG TABLET (XARELTO) PO SCH (17:15)
[2021-05-10 19:41] VITALS: BP 117/69
[2021-05-10 23:55] VITALS: BP 128/61
[2021-05-11 04:23] VITALS: BP 129/68
[2021-05-11] MEDS: CATHETER FLUSH 10 ML SYR IV SCH ×3 (05:33→19:19)
[2021-05-11] MEDS: FUROSEMIDE 40 MG/4 ML INJ (LASIX) IV SCH ×2 (06:18→17:13)
[2021-05-11] MEDS: methylPREDNISolone 125 MG (Solu-MEDROL) VIAL IV SCH ×4 (06:18→23:05)
[2021-05-11 07:48] VITALS: BP 129/75
[2021-05-11 07:59] LABS: BASOPHILS % (AUTO) 0 % (0-10); EOSINOPHILS % (AUTO) 0 % (0-10); HEMATOCRIT 30 % (35-52); HEMOGLOBIN 8.9 g/dL (11.5-16.0); LYMPHOCYTES # (AUTO) 0.3 10^3/uL (1.0-4.0); LYMPHOCYTES % (AUTO) 1 % (12-44); MEAN CORPUSCULAR HEMOGLOBIN 32 pg (25-34); MEAN CORPUSCULAR HGB CONC 30 g/dL (32-36); MEAN CORPUSCULAR VOLUME 106 fL (80-99); MEAN PLATELET VOLUME 11.2 fL (9.0-12.2); MONOCYTES # (AUTO) 0.4 10^3/uL (0.0-1.0); MONOCYTES % (AUTO) 2 % (0-12); NEUTROPHILS # (AUTO) 24.4 10^3/uL (1.8-7.8); NEUTROPHILS % (AUTO) 95 % (42-75); PLATELET COUNT 239 10^3/uL (130-400); WHITE BLOOD COUNT 25.7 10^3/uL (4.3-11.0)
[2021-05-11 08:10] LABS: POTASSIUM 3.7 MMOL/L (3.6-5.0)
[2021-05-11 08:11] LABS: CALCIUM 8.2 MG/DL (8.5-10.1)
[2021-05-11 08:13] LABS: TOTAL PROTEIN 5.5 GM/DL (6.4-8.2)
[2021-05-11 08:14] LABS: BILIRUBIN,TOTAL 0.4 MG/DL (0.1-1.0)
[2021-05-11 08:16] LABS: CREATININE SERUM 0.89 MG/DL (0.60-1.30)
[2021-05-11] MEDS: RT--FLUTICASONE/SALMETEROL 113-14 (AIRDUO RespiCLICK) IH SCH ×2 (08:21→21:36)
[2021-05-11] MEDS: RT-ALBUTEROL HFA 8.5 GM INHALER IH SCH ×3 (08:21→21:38)
[2021-05-11 08:26] LABS: ABG BASE EXCESS 25.6 MMOL/L (-2.5-2.5); ABG OXYGEN SATURATION 95 % (94-100); ABG PH 7.42 (7.37-7.43); ABG PO2 71 MMHG (79-93)
[2021-05-11 08:29] LABS: ABG PCO2 81 MMHG (35-45); ABG TCO2 54.6 MMOL/L (21.0-31.0); ALLENS TEST YES-POS; INSPIRED O2 4 L; VENTILATOR NO
[2021-05-11 08:42] LABS: ANISOCYTOSIS SLIGHT; HYPOCHROMASIA MODERATE; LYMPHOCYTES % (MANUAL) 2 %; MONOCYTES % (MANUAL) 1 %; NEUTROPHILS % (MANUAL) 97 %; NUCLEATED RED BLOOD CELLS 1; POLYCHROMASIA SLIGHT; STOMATOCYTES SLIGHT
--- NOTE | 2021-05-11 09:36 | Progress Note - Hospitalist ---
Subjective HPI/CC On Admission Date Seen by Provider: May 11, 2021 Time Seen by Provider: 12:30 70 yo readmitted, just discharged on 04/16 after an episode of hypercapneic respiratory failure requiring intubation and treatment for bilateral pneumonia, she was discharged to longterm, just went home and then had recurrent shortness of breath. She has had COVID vaccines, it sounds like with booster as well. She is negative for influenza. Her speech is quite slow to answer, but she does answer questions appropriately. When asked if she uses cpap or bipap at night she said yes but was difficult to clarify if this is actually accurate. Subjective/Events-last exam Patient doing better today More lucid at bedside Atrial fibrillation with RVR managed conservatively by Dr. Burger and reviewed last visit she had that diagnosed and managed by Cardiology last visit Patient is already on oral anticoagulation rxed at dc at last hospital stay ECHO ordered ABG noted with hypercapnia Review of Systems General: Fatigue, Malaise Focused Exam Lactate Level Objective Exam Vital Signs Vital Signs Date Time Temp Pulse Resp B/P (MAP) Pulse Ox O2 Delivery O2 Flow Rate FiO2 05/11/21 15:25 36.4 99 20 107/70 (82) 96 Nasal Cannula 4.00 Capillary Refill : Less Than 3 Seconds General Appearance: No Apparent Distress, WD/WN, Chronically ill, Obese Respiratory: Lungs Clear, Normal Breath Sounds, Decreased Breath Sounds Cardiovascular: Regular Rate, Rhythm Neurologic/Psychiatric: Alert, Oriented x3, No Motor/Sensory Deficits, Normal Mood/Affect Results/Procedures Lab Laboratory Tests 05/11/21 07:45 Patient resulted labs reviewed. Assessment/Plan Assessment and Plan Assess & Plan/Chief Complaint Assessment: Acute on chronic respiratory failure Obesity hypoventilation syndrome with chronic hypercapnia CO2 narcosis Use of trilogy BiPAP machine at home Obesity BMI 33 Exacerbation of COPD Exacerbation congestive heart failure Atrial fibrillation with RVR consulted Dr. Burger Oral anticoagulant maintained Plan: Current meds BiPAP Supportive care Appreciate ROMEO Tillman DO May 11, 2021 09:36
[2021-05-11] MEDS: CEFEPIME INJECTION 2,000 MG in NS (IVPB) 50 ML IV SCH ×2 (09:48→19:19)
[2021-05-11] MEDS: PANTOPRAZOLE 40 MG (PROTONIX) TAB PO SCH (09:49)
[2021-05-11] MEDS: meTOproloL SUCCINATE 50 MG (TOPROL XL) TAB PO SCH (09:49)
[2021-05-11] MEDS: dilTIAZem120 MG (CARDIZEM CD) CAP PO SCH (09:49)
[2021-05-11] MEDS ORDERED: APIXABAN 5 MG (ELIQUIS) TABLET PO SCH (11:00)
[2021-05-11] MEDS ORDERED: meTOprolol 5 MG/5 ML (LOPRESSOR) VIAL IV ONE (11:00)
[2021-05-11 11:36] VITALS: BP 118/67
--- NOTE | 2021-05-11 12:44 | Consultation-Cardiology ---
HPI-Cardiology Cardiology Consultation Date of Consultation 05/11/21 Date of Admission Time Seen by Provider: 12:39 Indication: Atrial fibrillation HPI 70-year-old lady with history of COPD, was hospitalized recently for acute exacerbation. Return to the hospital for fever and shortness of breath. She denied any chest pain. Patient converted to atrial fibrillation earlier today. I was called for evaluation, she was tachycardic. She denied any chest pain. No syncope or near syncopal episodes. No claudications. Home Medications & Allergies Allergies: Coded Allergies: Sulfa (Sulfonamide Antibiotics) (Verified Allergy, Unknown, Hives, 09/01/19) corn (Verified Allergy, Unknown, 04/09/21) ibuprofen (Verified Allergy, Unknown, Hives, 09/01/19) sulfamethoxazole (Verified Allergy, Unknown, Hives, 09/01/19) trimethoprim (Verified Allergy, Unknown, Hives, 09/01/19) Home Medication List Reviewed: Yes [id number] Hx Patient Social History Marital Status: Smoking Status: Unknown if Ever Smoked Type Used: Cigarettes 2nd Hand Smoke Exposure: Yes Recent Hopitalizations: No Have you traveled recently?: No Alcohol Use?: No Immunizations Up To Date Date of Influenza Vaccine: Jan 02, 2021 Past Medical History Discussed below Family Medical History Significant Family History: No Pertinent Family Hx Family Medical Hx Noncontributory Review of Systems-General Review of Systems Constitutional: see HPI, malaise EENTM: see HPI Respiratory: see HPI; No cough; dyspnea on exertion; No hemoptysis, No orthopnea, No phlegm; short of breath; No stridor, No wheezing, No other Cardiovascular: see HPI; No chest pain; edema; No Hx of Intervention, No palpitations, No syncope, No vascular heart diseas, No other Gastrointestinal: no symptoms reported, see HPI Genitourinary: no symptoms reported, see HPI Musculoskeletal: see HPI, muscle stiffness, muscle weakness Skin: see HPI Psychiatric/Neurological: See HPI All Other Systems Reviewed Negative Unless Noted: Yes Reviewed Test Results Reviewed Test Results Lab Laboratory Tests Test 05/11/21 07:45 05/11/21 08:18 Range/Units White Blood Count 25.7 H 4.3-11.0 10^3/uL Red Blood Count 2.78 L 3.80-5.11 10^6/uL Hemoglobin 8.9 L 11.5-16.0 g/dL Hematocrit 30 L 35-52 % Mean Corpuscular Volume 106 H 80-99 fL Mean Corpuscular Hemoglobin 32 25-34 pg Mean Corpuscular Hemoglobin Concent 30 L 32-36 g/dL Red Cell Distribution Width 13.7 10.0-14.5 % Platelet Count 239 130-400 10^3/uL Mean Platelet Volume 11.2 9.0-12.2 fL Immature Granulocyte % (Auto) 2 % Neutrophils (%) (Auto) 95 H 42-75 % Lymphocytes (%) (Auto) 1 L 12-44 % Monocytes (%) (Auto) 2 0-12 % Eosinophils (%) (Auto) 0 0-10 % Basophils (%) (Auto) 0 0-10 % Neutrophils # (Auto) 24.4 H 1.8-7.8 10^3/uL Lymphocytes # (Auto) 0.3 L 1.0-4.0 10^3/uL Monocytes # (Auto) 0.4 0.0-1.0 10^3/uL Eosinophils # (Auto) 0.0 0.0-0.3 10^3/uL Basophils # (Auto) 0.0 0.0-0.1 10^3/uL Immature Granulocyte # (Auto) 0.5 H 0.0-0.1 10^3/uL Neutrophils % (Manual) 97 % Lymphocytes % (Manual) 2 % Monocytes % (Manual) 1 % Nucleated Red Blood Cells 1 Polychromasia SLIGHT Hypochromasia MODERATE Basophilic Stippling SLIGHT Anisocytosis SLIGHT Macrocytosis MODERATE Stomatocytes SLIGHT Sodium Level 142 135-145 MMOL/L Potassium Level 3.7 3.6-5.0 MMOL/L Chloride Level 85 L 98-107 MMOL/L Carbon Dioxide Level 46 *H 21-32 MMOL/L Anion Gap 11 5-14 MMOL/L Blood Urea Nitrogen 28 H 7-18 MG/DL Creatinine 0.89 0.60-1.30 MG/DL Estimat Glomerular Filtration Rate 63 BUN/Creatinine Ratio 31 Glucose Level 300 H 70-105 MG/DL Calcium Level 8.2 L 8.5-10.1 MG/DL Corrected Calcium 9.0 8.5-10.1 MG/DL Total Bilirubin 0.4 0.1-1.0 MG/DL Aspartate Amino Transf (AST/SGOT) 24 5-34 U/L Alanine Aminotransferase (ALT/SGPT) 42 0-55 U/L Alkaline Phosphatase 69 40-136 U/L Total Protein 5.5 L 6.4-8.2 GM/DL Albumin 3.0 L 3.2-4.5 GM/DL Blood Gas Puncture Site RT BRACH Blood Gas Patient Temperature 37.0 Arterial Blood pH 7.42 7.37-7.43 Arterial Blood Partial Pressure CO2 81 *H 35-45 MMHG Arterial Blood Partial Pressure O2 71 L 79-93 MMHG Arterial Blood HCO3 52 *H 23-27 MMOL/L Arterial Blood Total CO2 54.6 *H 21.0-31.0 MMOL/L Arterial Blood Oxygen Saturation 95 94-100 % Arterial Blood Base Excess 25.6 H -2.5-2.5 MMOL/L Jc Test YES-POS Blood Gas Ventilator Setting NO Blood Gas Inspired Oxygen 4 L Physical Exam Physical Exam Vital Signs Vital Signs - First Documented Capillary Refill : Less Than 3 Seconds Height, Weight, BMI Height: 4'11.00" Weight: 140lbs. oz. 63.347713dq; 32.88 BMI Method:Stated General Appearance: No Apparent Distress, Obese, Other (Slow to answer questions) Eyes: Bilateral Eye Normal Inspection, Bilateral Eye PERRL, Bilateral Eye EOMI HEENT: Normal ENT Inspection Neck: Normal Inspection Respiratory: No Accessory Muscle Use, Wheezing (Expiratory wheeze on auscultation improved from yesterday in both lungs.), Other (On 4L NC) Cardiovascular: No Edema, No Murmur, Irregularly Irregular, Tachycardia Gastrointestinal: Normal Bowel Sounds, Non Tender, Soft; No Distended Back: Normal Inspection Extremity: No Pedal Edema Neurologic/Psychiatric: Alert, Oriented x3, Other (Still slow to answer questions. ) Skin: Normal Color, Warm/Dry A/P-Cardiology Admission Diagnosis Paroxysmal atrial fibrillation Acute exacerbation of COPD Assessment/Plan Paroxysmal atrial fibrillation, was diagnosed on April 06, 2021 on admission. She was started on Xarelto. Patient does not recall having history of atrial fibrillation but during her hospitalization April she had multiple episodes of paroxysmal atrial fibrillation. I will continue on current medication and add to the long-acting Cardizem CD 120 mg daily a dose of 30 mg every 6 hours and evaluate her tolerance to higher dose. Maintained on Toprol-XL 50 mg daily. And Xarelto [id number] score 2, maintained on Xarelto as an outpatient which will be continuing Acute respiratory insufficiency with acute exacerbation of COPD with hypercapnia. Managed by medical team Echocardiogram done on April 03, 2021 showing normal LV size with EF 55 to 65%. Morbid obesity. History of tobaccoism, stopped smoking about 4 years ago SHERLY MCKINLEY MD May 11, 2021 12:44
[2021-05-11] MEDS: polyethylene glycoL POWDER 17 GM (MIRALAX) PACK PO SCH ×2 (12:58→19:19)
[2021-05-11] MEDS: SENNA W/DOCUSATE (SENOKOT S) TABLET PO SCH ×2 (12:58→19:19)
[2021-05-11] MEDS: LACTULOSE SYRUP 10GM/15ML (ENULOSE) 30ML UDC PO SCH ×2 (12:59→19:20)
[2021-05-11 15:25] VITALS: BP 107/70
[2021-05-11] MEDS: VANCOMYCIN 1250 MG/NS 250 ML IVPB IV SCH ×2 (17:18)
[2021-05-11] MEDS: RIVAROXABAN 20 MG TABLET (XARELTO) PO SCH (17:18)
[2021-05-11 19:34] VITALS: BP 113/77
[2021-05-11] MEDS: ALPRAZolam 0.5 MG (XANAX) TAB PO PRN (21:27)
[2021-05-12 00:41] VITALS: BP 121/61
[2021-05-12 04:11] VITALS: BP 125/62
[2021-05-12] MEDS: FUROSEMIDE 40 MG/4 ML INJ (LASIX) IV SCH ×2 (05:16→17:57)
[2021-05-12] MEDS: CATHETER FLUSH 10 ML SYR IV SCH ×3 (05:16→22:30)
[2021-05-12] MEDS: methylPREDNISolone 125 MG (Solu-MEDROL) VIAL IV SCH ×4 (05:16→23:22)
[2021-05-12] MEDS: RT-ALBUTEROL HFA 8.5 GM INHALER IH SCH ×3 (07:21→21:22)
[2021-05-12] MEDS: RT--FLUTICASONE/SALMETEROL 113-14 (AIRDUO RespiCLICK) IH SCH ×2 (07:22→21:23)
[2021-05-12 07:34] LABS: BASOPHILS % (AUTO) 0 % (0-10); EOSINOPHILS % (AUTO) 0 % (0-10); HEMATOCRIT 31 % (35-52); HEMOGLOBIN 9.2 g/dL (11.5-16.0); LYMPHOCYTES # (AUTO) 0.3 10^3/uL (1.0-4.0); LYMPHOCYTES % (AUTO) 1 % (12-44); MEAN CORPUSCULAR HEMOGLOBIN 32 pg (25-34); MEAN CORPUSCULAR HGB CONC 30 g/dL (32-36); MEAN CORPUSCULAR VOLUME 106 fL (80-99); MEAN PLATELET VOLUME 11.3 fL (9.0-12.2); MONOCYTES # (AUTO) 0.4 10^3/uL (0.0-1.0); MONOCYTES % (AUTO) 2 % (0-12); NEUTROPHILS # (AUTO) 23.4 10^3/uL (1.8-7.8); NEUTROPHILS % (AUTO) 96 % (42-75); PLATELET COUNT 242 10^3/uL (130-400); WHITE BLOOD COUNT 24.4 10^3/uL (4.3-11.0)
[2021-05-12 08:01] LABS: ALBUMIN 3.2 GM/DL (3.2-4.5); BILIRUBIN,TOTAL 0.5 MG/DL (0.1-1.0); CALCIUM 8.3 MG/DL (8.5-10.1); CREATININE SERUM 0.94 MG/DL (0.60-1.30); POTASSIUM 3.2 MMOL/L (3.6-5.0); TOTAL PROTEIN 5.7 GM/DL (6.4-8.2)
[2021-05-12 08:12] VITALS: BP 126/60
--- NOTE | 2021-05-12 08:20 | Progress Note - Hospitalist ---
Subjective HPI/CC On Admission Date Seen by Provider: May 12, 2021 Time Seen by Provider: 12:30 70 yo readmitted, just discharged on 04/16 after an episode of hypercapneic respiratory failure requiring intubation and treatment for bilateral pneumonia, she was discharged to long term, just went home and then had recurrent shortness of breath. She has had COVID vaccines, it sounds like with booster as well. She is negative for influenza. Her speech is quite slow to answer, but she does answer questions appropriately. When asked if she uses cpap or bipap at night she said yes but was difficult to clarify if this is actually accurate. Subjective/Events-last exam Patient doing a lot better Bringing her trilogy machine in from home Check meds and labs Replace potassium No pain Discontinue catheter Bowels are moving Review of Systems General: Fatigue, Malaise Pulmonary: Dyspnea Objective Exam Vital Signs Vital Signs Date Time Temp Pulse Resp B/P (MAP) Pulse Ox O2 Delivery O2 Flow Rate FiO2 05/12/21 16:00 36.0 89 20 122/59 (80) 95 Nasal Cannula 4.00 Capillary Refill : Less Than 3 Seconds General Appearance: No Apparent Distress, WD/WN, Chronically ill, Obese Respiratory: No Accessory Muscle Use, No Respiratory Distress, Decreased Breath Sounds Cardiovascular: Regular Rate, Rhythm Neurologic/Psychiatric: Alert, Oriented x3, No Motor/Sensory Deficits, Normal Mood/Affect Results/Procedures Lab Laboratory Tests 05/12/21 06:50 Patient resulted labs reviewed. Assessment/Plan Assessment and Plan Assess & Plan/Chief Complaint Assessment: Acute on chronic respiratory failure Obesity hypoventilation syndrome with chronic hypercapnia CO2 narcosis Use of trilogy BiPAP machine at home Obesity BMI 33 Exacerbation of COPD Exacerbation congestive heart failure Atrial fibrillation with RVR consulted Dr. Burger Oral anticoagulant maintained Plan: Current meds BiPAP Supportive care Appreciate Dr. Burger 05/12/2019: Appreciate cardiology Bring in trilogy machine from home Replace potassium ROMEO OLSON DO May 12, 2021 08:20
[2021-05-12] MEDS ORDERED: KCL 20 MEQ TAB (K-DUR) PO ONE (08:30)
[2021-05-12] MEDS: acetaZOLAMIDE 250 MG (DIAMOX) TAB PO SCH ×2 (09:24→22:29)
[2021-05-12] MEDS: LACTULOSE SYRUP 10GM/15ML (ENULOSE) 30ML UDC PO SCH ×2 (09:24→22:29)
[2021-05-12] MEDS: SENNA W/DOCUSATE (SENOKOT S) TABLET PO SCH ×2 (09:24→22:29)
[2021-05-12] MEDS: polyethylene glycoL POWDER 17 GM (MIRALAX) PACK PO SCH ×2 (09:24→22:38)
[2021-05-12] MEDS: dilTIAZem120 MG (CARDIZEM CD) CAP PO SCH (09:24)
[2021-05-12] MEDS: meTOproloL SUCCINATE 50 MG (TOPROL XL) TAB PO SCH (09:24)
[2021-05-12] MEDS: PANTOPRAZOLE 40 MG (PROTONIX) TAB PO SCH (09:24)
[2021-05-12] MEDS: CEFEPIME INJECTION 2,000 MG in NS (IVPB) 50 ML IV SCH ×2 (09:25→22:30)
[2021-05-12] MEDS ORDERED: dilTIAZem120 MG (CARDIZEM CD) CAP PO ONE (09:30)
--- NOTE | 2021-05-12 10:44 | Cardiology Progress Note ---
Subjective Date Seen by Provider: May 12, 2021 Time Seen by Provider: 10:43 Subjective/Events-last exam Patient was seen at bedside, sitting comfortably, still having shortness of breath but feeling better Review of Systems General: No Chills, No Night Sweats; Fatigue, Malaise; No Appetite, No Other HEENT: No Head Aches, No Visual Changes, No Eye Pain, No Ear Pain, No Dysphasia, No Sinus Congestion, No Post Nasal Drip, No Sore Throat, No Other Pulmonary: Dyspnea; No Cough, No Pleuritic Chest Pain, No Other Cardiovascular: No: Chest Pain, Palpitations, Orthopnea, Paroxysmal Noc. Dyspnea, Edema, Lt Headedness, Other Objective-Cardiology Exam Last Set of Vital Signs Vital Signs 05/12/21 08:12 Temp 36.4 Pulse 102 Resp 18 B/P (MAP) 126/60 (82) Pulse Ox 96 O2 Delivery Nasal Cannula O2 Flow Rate 4.00 I&O Intake and Output 05/12/21 00:00 Intake Total 2455 ml Output Total 2200 ml Balance 255 ml Intake Oral 2405 ml IV Total 50 ml Output Urine Total 2200 ml # Bowel Movements 1 General: Alert, Oriented X3, Cooperative HEENT: Atraumatic, PERRLA Neck: Supple, No JVD, No Thyromegaly Lungs: Normal Air Movement, Other (Bilateral rhonchi) Heart: Normal S1, Normal S2, No Murmurs, Other (Atrial fibrillation) Abdomen: Normal Bowel Sounds, Soft, No Tenderness, No Hepatosplenomegaly, No Masses Extremities: No Clubbing, No Cyanosis, No Edema, Normal Pulses, No Tenderness/Swelling Skin: No Rashes, No Breakdown, No Significant Lesion Neuro: Normal Gait, Normal Speech, Strength at 5/5 X4 Ext, Normal Tone, Sensation Intact Psych/Mental Status: Mental Status NL, Mood NL Results Lab Laboratory Tests 05/12/21 06:50 A/P-Cardiology Admission Diagnosis Paroxysmal atrial fibrillation Acute exacerbation of COPD Assessment/Plan Paroxysmal atrial fibrillation, was diagnosed on April 06, 2021 on admission. She was started on Xarelto. Patient does not recall having history of atrial fibrillation but during her hospitalization April she had multiple episodes of paroxysmal atrial fibrillation. I increase Cardizem to 240 mg daily, continue on Toprol and monitor heart rate and blood pressure response [id number] score 2, maintained on Xarelto as an outpatient which will be continuing Acute respiratory insufficiency with acute exacerbation of COPD with hypercapnia. Managed by medical team Echocardiogram done on April 03, 2021 showing normal LV size with EF 55 to 65%. Morbid obesity. History of tobaccoism, stopped smoking about 4 years ago SHERLY MCKINLEY MD May 12, 2021 10:44
[2021-05-12 11:48] VITALS: BP 126/59
[2021-05-12 16:00] VITALS: BP 122/59
[2021-05-12] MEDS ORDERED: TROUGH ORDER-PHARMACY XX NR (16:00)
[2021-05-12] MEDS: RIVAROXABAN 20 MG TABLET (XARELTO) PO SCH (17:57)
[2021-05-12] MEDS: VANCOMYCIN 1250 MG/NS 250 ML IVPB IV SCH ×2 (17:57)
[2021-05-12 20:00] VITALS: BP 122/59
[2021-05-12] MEDS ORDERED: NS (IVPB) 250 ML ONE (20:52)
[2021-05-12] MEDS: ALPRAZolam 0.5 MG (XANAX) TAB PO PRN (23:22)
[2021-05-13] VITALS: BP 110/60
[2021-05-13 04:00] VITALS: BP 133/69
[2021-05-13 06:01] LABS: BASOPHILS % (AUTO) 0 % (0-10); EOSINOPHILS % (AUTO) 0 % (0-10); HEMATOCRIT 31 % (35-52); HEMOGLOBIN 9.5 g/dL (11.5-16.0); LYMPHOCYTES # (AUTO) 0.2 10^3/uL (1.0-4.0); LYMPHOCYTES % (AUTO) 1 % (12-44); MEAN CORPUSCULAR HEMOGLOBIN 32 pg (25-34); MEAN CORPUSCULAR HGB CONC 30 g/dL (32-36); MEAN CORPUSCULAR VOLUME 106 fL (80-99); MEAN PLATELET VOLUME 11.6 fL (9.0-12.2); MONOCYTES # (AUTO) 0.3 10^3/uL (0.0-1.0); MONOCYTES % (AUTO) 2 % (0-12); NEUTROPHILS # (AUTO) 20.8 10^3/uL (1.8-7.8); NEUTROPHILS % (AUTO) 95 % (42-75); PLATELET COUNT 221 10^3/uL (130-400); WHITE BLOOD COUNT 21.9 10^3/uL (4.3-11.0)
[2021-05-13 06:14] LABS: ALBUMIN 3.1 GM/DL (3.2-4.5)
[2021-05-13 06:15] LABS: POTASSIUM 3.7 MMOL/L (3.6-5.0)
[2021-05-13 06:16] LABS: CALCIUM 8.3 MG/DL (8.5-10.1)
[2021-05-13 06:17] LABS: TOTAL PROTEIN 5.7 GM/DL (6.4-8.2)
[2021-05-13 06:19] LABS: BILIRUBIN,TOTAL 0.4 MG/DL (0.1-1.0)
[2021-05-13 06:20] LABS: CREATININE SERUM 1.23 MG/DL (0.60-1.30)
[2021-05-13] MEDS: methylPREDNISolone 125 MG (Solu-MEDROL) VIAL IV SCH ×4 (06:52→23:13)
[2021-05-13] MEDS: CATHETER FLUSH 10 ML SYR IV SCH ×3 (06:52→22:04)
[2021-05-13] MEDS: FUROSEMIDE 40 MG/4 ML INJ (LASIX) IV SCH ×2 (06:53→16:36)
[2021-05-13] MEDS: KCL 10 MEQ TAB (MICRO K) PO SCH (06:59)
[2021-05-13] MEDS: RT-ALBUTEROL HFA 8.5 GM INHALER IH SCH ×3 (07:05→21:22)
[2021-05-13] MEDS: RT--FLUTICASONE/SALMETEROL 113-14 (AIRDUO RespiCLICK) IH SCH ×2 (07:05→21:21)
[2021-05-13 08:00] VITALS: BP 125/77
[2021-05-13] MEDS ORDERED: VANCOMYCIN 1 GM/NS 250 ML IVPB IV SCH ×2 (08:00)
[2021-05-13] MEDS: SENNA W/DOCUSATE (SENOKOT S) TABLET PO SCH ×2 (09:13→22:04)
[2021-05-13] MEDS: CEFEPIME INJECTION 2,000 MG in NS (IVPB) 50 ML IV SCH ×2 (09:13→22:03)
[2021-05-13] MEDS: acetaZOLAMIDE 250 MG (DIAMOX) TAB PO SCH ×2 (09:14→22:04)
[2021-05-13] MEDS: meTOproloL SUCCINATE 50 MG (TOPROL XL) TAB PO SCH (09:14)
[2021-05-13] MEDS: LACTULOSE SYRUP 10GM/15ML (ENULOSE) 30ML UDC PO SCH ×2 (09:14→22:03)
[2021-05-13] MEDS: PANTOPRAZOLE 40 MG (PROTONIX) TAB PO SCH (09:14)
[2021-05-13] MEDS: polyethylene glycoL POWDER 17 GM (MIRALAX) PACK PO SCH ×2 (09:15→22:03)
--- NOTE | 2021-05-13 09:43 | Cardiology Progress Note ---
Subjective Date Seen by Provider: May 13, 2021 Time Seen by Provider: 09:40 Subjective/Events-last exam Patient is lying down in bed. Still having shortness of breath. No chest pain Review of Systems General: No Chills, No Night Sweats; Fatigue, Malaise; No Appetite, No Other HEENT: No Head Aches, No Visual Changes, No Eye Pain, No Ear Pain, No Dysphasia, No Sinus Congestion, No Post Nasal Drip, No Sore Throat, No Other Pulmonary: Dyspnea; No Cough, No Pleuritic Chest Pain, No Other Cardiovascular: No: Chest Pain, Palpitations, Orthopnea, Paroxysmal Noc. Dyspnea, Edema, Lt Headedness, Other Objective-Cardiology Exam Last Set of Vital Signs Vital Signs 05/13/21 08:00 Temp 36.0 Pulse 87 Resp 20 B/P (MAP) 125/77 (93) Pulse Ox 92 O2 Delivery Nasal Cannula O2 Flow Rate 4.00 I&O Intake and Output 05/13/21 00:00 Intake Total 1550 ml Output Total 1775 ml Balance -225 ml Intake Oral 1550 ml Output Urine Total 1775 ml General: Alert, Oriented X3, Cooperative HEENT: Atraumatic, PERRLA Neck: Supple, No JVD, No Thyromegaly Lungs: Normal Air Movement, Other (Bilateral rhonchi) Heart: Normal S1, Normal S2, No Murmurs, Other (Atrial fibrillation) Abdomen: Normal Bowel Sounds, Soft, No Tenderness, No Hepatosplenomegaly, No Masses Extremities: No Clubbing, No Cyanosis, No Edema, Normal Pulses, No Tenderness/ Swelling Skin: No Rashes, No Breakdown, No Significant Lesion Neuro: Normal Gait, Normal Speech, Strength at 5/5 X4 Ext, Normal Tone, Sensation Intact Psych/Mental Status: Mental Status NL, Mood NL Results Lab Laboratory Tests 05/13/21 05:40 A/P-Cardiology Admission Diagnosis Paroxysmal atrial fibrillation Acute exacerbation of COPD Assessment/Plan Paroxysmal atrial fibrillation, was diagnosed on April 06, 2021 on admission. She was started on Xarelto. Patient does not recall having history of atrial fibrillation but during her hospitalization April she had multiple episodes of paroxysmal atrial fibrillation. I am starting her on sotalol 80 mg twice daily and evaluate tolerance and response, monitor EKG closely. Discussed with Dr. Rogers, patient will need to stay in the hospital for the next 3 days [id number] score 2, maintained on Xarelto as an outpatient which will be continuing Acute respiratory insufficiency with acute exacerbation of COPD with hypercapnia. Managed by medical team Echocardiogram done on April 03, 2021 showing normal LV size with EF 55 to 65%. Morbid obesity. History of tobaccoism, stopped smoking about 4 years ago SHERLY MCKINLEY MD May 13, 2021 09:43
[2021-05-13] MEDS ORDERED: SOTALOL 80 MG (BETAPACE) TAB PO ONE (10:15)
[2021-05-13 12:00] VITALS: BP 124/59
[2021-05-13] MEDS: ALPRAZolam 0.5 MG (XANAX) TAB PO PRN (14:24)
[2021-05-13 15:51] VITALS: BP 117/61
[2021-05-13] MEDS: RIVAROXABAN 20 MG TABLET (XARELTO) PO SCH (16:36)
[2021-05-13 19:50] VITALS: BP 114/56
[2021-05-13] MEDS ORDERED: SOTALOL 80 MG (BETAPACE) TAB PO SCH (21:00)
--- NOTE | 2021-05-13 21:33 | Progress Note ---
Subjective Subjective/Events-last exam Patient very talkative this AM. States that she is feeling better. She has not been out of bed since yesterday. Review of Systems Pulmonary: Dyspnea, Cough Cardiovascular: No: Chest Pain, Palpitations, Edema Gastrointestinal: No: Nausea, Vomiting, Abdominal Pain, Diarrhea, Constipation Neurological: Weakness, Numbness, Incoordination Objective Exam Last Set of Vital Signs Vital Signs Date Time Temp Pulse Resp B/P (MAP) Pulse Ox O2 Delivery O2 Flow Rate FiO2 05/13/21 21:22 94 3.00 05/13/21 19:50 36.5 81 18 114/56 (75) Nasal Cannula Capillary Refill : Less Than 3 Seconds I&O Intake and Output 05/13/21 00:00 Intake Total 1550 ml Output Total 1775 ml Balance -225 ml Intake Oral 1550 ml Output Urine Total 1775 ml General: Alert, Oriented X3, Cooperative, Mild Distress (prolonged exp phase with some pursed lip breathing) Lungs: Clear to Auscultation, Normal Air Movement Heart: Regular Rate, No Murmurs Abdomen: Normal Bowel Sounds, Soft, No Tenderness, No Masses Extremities: No Edema, No Tenderness/Swelling Results/Procedures Lab Laboratory Tests 05/13/21 05:40: White Blood Count 21.9H, Red Blood Count 2.96L, Hemoglobin 9.5L, Hematocrit 31L, Mean Corpuscular Volume 106H, Mean Corpuscular Hemoglobin 32, Mean Corpuscular Hemoglobin Concent 30L, Red Cell Distribution Width 13.3, Platelet Count 221, Mean Platelet Volume 11.6, Immature Granulocyte % (Auto) 2, Neutrophils (%) (Auto) 95H, Lymphocytes (%) (Auto) 1L, Monocytes (%) (Auto) 2, Eosinophils (%) (Auto) 0, Basophils (%) (Auto) 0, Neutrophils # (Auto) 20.8H, Lymphocytes # (Auto) 0.2L, Monocytes # (Auto) 0.3, Eosinophils # (Auto) 0.0, Basophils # (Auto) 0.0, Immature Granulocyte # (Auto) 0.5H, Sodium Level 136, Potassium Level 3.7, Chloride Level 87L, Carbon Dioxide Level 41H, Anion Gap 8, Blood Urea Nitrogen 39H, Creatinine 1.23, Estimat Glomerular Filtration Rate 43, BUN/Creatinine Ratio 32, Glucose Level 395H, Calcium Level 8.3L, Corrected Calcium 9.0, Total Bilirubin 0.4, Aspartate Amino Transf (AST/SGOT) 30, Alanine Aminotransferase (ALT/SGPT) 46, Alkaline Phosphatase 67, Total Protein 5.7L, Albumin 3.1L Assessment/Plan Assessment/Plan (1) Acute on chronic respiratory failure with hypoxia and hypercapnia Status: Acute Assessment & Plan: 05/13: Patient with baseline oxygen requirement, will continue to titrate as tolerated, IV steroids, MAT protocol (2) Obesity hypoventilation syndrome Status: Chronic Assessment & Plan: 05/13: Patient brought in home bipap and states that she slept better last night (3) Hypercapnic respiratory failure Status: Acute (4) Paroxysmal A-fib Status: Acute Assessment & Plan: 05/13: Dr Burger consulted, Started on Sotalol, will require at least 3 days of monitoring (5) COPD exacerbation Status: Acute (6) Physical debility Status: Acute Assessment & Plan: 05/13: PT (7) DVT prophylaxis Status: Acute Assessment & Plan: - Continue PO anticoagulant, encourage ambulation with PT LOBO CAMPBELL MD May 13, 2021 21:33
[2021-05-14 00:42] VITALS: BP 123/59
[2021-05-14 04:01] VITALS: BP 138/72
[2021-05-14] MEDS: CATHETER FLUSH 10 ML SYR IV SCH ×3 (06:08→21:30)
[2021-05-14] MEDS: KCL 10 MEQ TAB (MICRO K) PO SCH (06:09)
[2021-05-14] MEDS: FUROSEMIDE 40 MG/4 ML INJ (LASIX) IV SCH ×2 (06:09→18:28)
[2021-05-14] MEDS: methylPREDNISolone 125 MG (Solu-MEDROL) VIAL IV SCH ×3 (06:09→18:27)
[2021-05-14 07:13] LABS: BASOPHILS % (AUTO) 0 % (0-10); EOSINOPHILS % (AUTO) 0 % (0-10); HEMATOCRIT 33 % (35-52); LYMPHOCYTES # (AUTO) 0.3 10^3/uL (1.0-4.0); LYMPHOCYTES % (AUTO) 1 % (12-44); MEAN CORPUSCULAR HEMOGLOBIN 32 pg (25-34); MEAN CORPUSCULAR HGB CONC 31 g/dL (32-36); MEAN CORPUSCULAR VOLUME 106 fL (80-99); MEAN PLATELET VOLUME 11.7 fL (9.0-12.2); MONOCYTES # (AUTO) 0.3 10^3/uL (0.0-1.0); MONOCYTES % (AUTO) 1 % (0-12); NEUTROPHILS # (AUTO) 22.1 10^3/uL (1.8-7.8); NEUTROPHILS % (AUTO) 96 % (42-75); PLATELET COUNT 259 10^3/uL (130-400)
[2021-05-14 07:29] LABS: ALBUMIN 3.3 GM/DL (3.2-4.5)
[2021-05-14 07:30] LABS: CALCIUM 8.6 MG/DL (8.5-10.1)
[2021-05-14 07:32] LABS: TOTAL PROTEIN 5.8 GM/DL (6.4-8.2)
[2021-05-14 07:34] LABS: BILIRUBIN,TOTAL 0.5 MG/DL (0.1-1.0)
[2021-05-14 07:35] LABS: CREATININE SERUM 1.17 MG/DL (0.60-1.30)
--- NOTE | 2021-05-14 08:29 | Cardiology Progress Note ---
Subjective Date Seen by Provider: May 14, 2021 Time Seen by Provider: 08:28 Subjective/Events-last exam Patient is laying down in bed, could not use her CPAP last night. Review of Systems General: No Chills, No Night Sweats; Fatigue; No Malaise, No Appetite, No Other HEENT: No Head Aches, No Visual Changes, No Eye Pain, No Ear Pain, No Dysphasia, No Sinus Congestion, No Post Nasal Drip, No Sore Throat, No Other Pulmonary: Dyspnea; No Cough, No Pleuritic Chest Pain, No Other Cardiovascular: No: Chest Pain, Palpitations, Orthopnea, Paroxysmal Noc. Dyspnea, Edema, Lt Headedness, Other Objective-Cardiology Exam Last Set of Vital Signs Vital Signs 05/14/21 05/14/21 08:39 08:56 Temp 35.9 Pulse 70 Resp 20 B/P (MAP) 170/68 (102) Pulse Ox 93 O2 Delivery Nasal Cannula O2 Flow Rate 3.00 FiO2 93 I&O Intake and Output 05/14/21 00:00 Intake Total 1615 ml Output Total 1200 ml Balance 415 ml Intake Oral 1315 ml IV Total 300 ml Output Urine Total 1200 ml # Bowel Movements 4 General: Alert, Oriented X3, Cooperative, Mild Distress (prolonged exp phase with some pursed lip breathing) HEENT: Atraumatic, PERRLA Neck: Supple, No JVD, No Thyromegaly Lungs: Clear to Auscultation, Normal Air Movement Heart: Normal S1, Normal S2, No Murmurs, Other (Atrial fibrillation) Abdomen: Normal Bowel Sounds, Soft, No Tenderness, No Masses Extremities: No Edema, No Tenderness/Swelling Skin: No Rashes, No Breakdown, No Significant Lesion Neuro: Normal Gait, Normal Speech, Strength at 5/5 X4 Ext, Normal Tone, Sensation Intact Psych/Mental Status: Mental Status NL, Mood NL Results Lab Laboratory Tests 05/14/21 06:53 A/P-Cardiology Admission Diagnosis Paroxysmal atrial fibrillation Acute exacerbation of COPD Assessment/Plan Paroxysmal atrial fibrillation, was diagnosed on April 06, 2021 on admission. She was started on Xarelto. Patient does not recall having history of atrial fibrillation but during her hospitalization April she had multiple episodes of paroxysmal atrial fibrillation. Started on sotalol 80 mg twice daily on May 13, 2021. Twelve-lead EKG was done on May 14, 2021 showing QTC over 600. I will discontinue sotalol Hypokalemia, replace and monitor [id number] score 2, maintained on Xarelto as an outpatient which will be continuing Acute respiratory insufficiency with acute exacerbation of COPD with hypercapnia. Managed by medical team Echocardiogram done on April 03, 2021 showing normal LV size with EF 55 to 65%. Morbid obesity. History of tobaccoism, stopped smoking about 4 years ago SHERLY MCKINLEY MD May 14, 2021 08:29
[2021-05-14] MEDS: RT-ALBUTEROL HFA 8.5 GM INHALER IH SCH ×3 (08:34→21:48)
[2021-05-14] MEDS: RT--FLUTICASONE/SALMETEROL 113-14 (AIRDUO RespiCLICK) IH SCH ×2 (08:34→21:48)
[2021-05-14] MEDS ORDERED: KCL 20 MEQ TAB (K-DUR) PO NR (08:48)
[2021-05-14 08:56] VITALS: BP 170/68
[2021-05-14] MEDS: polyethylene glycoL POWDER 17 GM (MIRALAX) PACK PO SCH ×2 (09:32→21:29)
[2021-05-14] MEDS: LACTULOSE SYRUP 10GM/15ML (ENULOSE) 30ML UDC PO SCH ×2 (09:32→21:29)
[2021-05-14] MEDS: SENNA W/DOCUSATE (SENOKOT S) TABLET PO SCH ×2 (09:43→21:29)
[2021-05-14] MEDS: CEFEPIME INJECTION 2,000 MG in NS (IVPB) 50 ML IV SCH ×2 (09:44→21:29)
[2021-05-14] MEDS: acetaZOLAMIDE 250 MG (DIAMOX) TAB PO SCH ×2 (09:44→21:29)
[2021-05-14] MEDS: meTOproloL SUCCINATE 50 MG (TOPROL XL) TAB PO SCH (09:44)
[2021-05-14] MEDS: PANTOPRAZOLE 40 MG (PROTONIX) TAB PO SCH (09:44)
[2021-05-14 11:17] VITALS: BP 134/60
--- NOTE | 2021-05-14 12:10 | Physical Therapy Evaluation ---
PT Evaluation-General Medical Diagnosis Admission Date May 09, 2021 at 02:44 Medical Diagnosis: COPD Onset Date: May 09, 2021 Therapy Diagnosis Therapy Diagnosis: generalized weakness/debility Height/Weight Height (Feet): 4 Height (Inches): 11.00 Weight (Pounds): 140 Precautions Precautions/Isolations: Fall Prevention, Standard Precautions Referral Physician: Ken Medical History Pertinent Medical History: COPD, Heart Failure, HTN Current History EMS secondary to SAO2 decrease to 50-60% Reviewed History: Yes Prior Prior Level of Function SCALE: Activities may be completed with or without assistive devices. 3-Kbcbcjhpoc-nxfsona completes the activity by him/herself with no assistance from a helper. 5-Set-up or Clean-up Assistance-helper sets up or cleans up; patient completes activity. [place] assists only prior to or following the activity. 4-Supervision or Touching Assistance-helper provides verbal cues and/or touching/steadying and/or contact guard assistance as patient completes activity. Assistance may be provided throughout the activity or intermittently. 3-Partial/Moderate Assistance-helper does LESS THAN HALF the effort. [place] lifts, holds or supports trunk or limbs, but provides less than half the effort. 2-Substantial/Maximal Assistance-helper does MORE THAN HALF the effort. [place] lifts or holds trunk or limbs and provides more than half the effort. 7-Erfitomtp-hheqfn does ALL the effort. Patient does none of the effort to complete the activity. Or, the assistance of 2 or more helpers is required for the patient to complete the activity. If activity was not attempted, code reason: 7-Patient Refused. 9-Not Applicable-not attempted and the patient did not perform the activity before the current illness, exacerbation or injury. 10-Not Attempted due to Environmental Limitations-(lack of equipment, weather restraints, etc.). 88-Not Attempted due to Medical Conditions or Safety Concerns. Bed Mobility: 1 Transfers (B,C,W/C): 1 Gait: 9 Stairs: 9 Wheelchair Mobility: 1 Indoor Mobility (Ambulation): Not [place] Stairs: Not [place] Prior Devices Use: Manual wheelchair PT Evaluation-Current Subjective Patient agrees to PT. Noted SOA at rest on O2 Objective Patient Orientation: Confused ROM/Strength ROM Lower Extremities bilateral LE WFL Strength Lower Extremities 2/5 grossly bilateral LE Integumentary/Posture Bowel Incontinence: Yes Bladder Incontinence: Yes Posture kyphotic Neuromuscular (Tone, Coordination, Reflexes) severely diminished gross motor skills Sensory Vision: Functional Hearing: Impaired Transfers Sit to Lying (QC): 1 Lying to Sitting/Side of Bed(Q: 1 Sit to Stand (QC): 1 Chair/Izy-ll-Bddnx Xfer(QC): 1 Gait Does the Patient Walk?: No and Walking Goal NOT indicated Balance Sitting Static: Fair Sitting Dynamic: Fair Standing Static: Poor Standing Dynamic: Poor Assessment/Needs 70 y.o. female, will benefit from skilled PT to address functional strength and mobility to improve current LOF. Per patient, she is in a hospital bed at home after a stay in the NH. Rehab Potential: Poor PT Command And Control Goals Skilled Nursing Goals PT Command And Control Goals Time Frame: May 25, 2021 Roll Left & Right (QC): 2 Sit to Lying (QC): 2 Lying-Sitting on Side/Bed(QC): 2 Sit to Stand (QC): 2 Chair/Zmp-os-Wpazt Xfer(QC): 2 PT Plan Problem List Problem List: Activity Tolerance, Functional Strength, Safety, Balance, Transfer, Bed Mobility Treatment/Plan Treatment Plan: Continue Plan of Care Treatment Plan: Bed Mobility, Education, Functional Activity Dominic, Functional Strength, Safety, Therapeutic Exercise, Transfers Treatment Duration: May 25, 2021 Frequency: 5 times per week Estimated Hrs Per Day: .25 hour per day Patient and/or Family Agrees t: Yes Time/GCodes Time In: 1145 Time Out: 1200 Total Billed Treatment Time: 15 [facility] PT May 14, 2021 12:10
[2021-05-14 16:00] VITALS: BP 152/92
[2021-05-14] MEDS: RIVAROXABAN 20 MG TABLET (XARELTO) PO SCH (18:23)
[2021-05-14] MEDS: inSUlin ASPART (NovoLOG) 1 UNIT/0.01 ML (CHARGE PER UNIT) SC SCH ×2 (18:24→21:29)
--- NOTE | 2021-05-14 20:58 | Progress Note ---
Subjective Subjective/Events-last exam Patient states that she is feeling much better this AM. Tolerating PO diet. Review of Systems Pulmonary: Dyspnea, Cough Cardiovascular: No: Chest Pain, Palpitations, Edema Gastrointestinal: No: Nausea, Vomiting, Abdominal Pain, Diarrhea, Constipation Neurological: Weakness, Incoordination Objective Exam Last Set of Vital Signs Vital Signs Date Time Temp Pulse Resp B/P (MAP) Pulse Ox O2 Delivery O2 Flow Rate FiO2 05/14/21 16:00 36.3 82 20 152/92 (112) 93 Nasal Cannula 3.00 05/14/21 15:03 93 Capillary Refill : Less Than 3 Seconds I&O Intake and Output 05/14/21 00:00 Intake Total 1615 ml Output Total 1200 ml Balance 415 ml Intake Oral 1315 ml IV Total 300 ml Output Urine Total 1200 ml # Bowel Movements 4 General: Alert, Cooperative, Mild Distress (with minimal movement) Lungs: Other (end exp wheezing, normal work of breathing at rest) Heart: Regular Rate, No Murmurs Abdomen: Soft, No Tenderness Extremities: No Edema, No Tenderness/Swelling Neuro: Normal Speech, Sensation Intact, Cranial Nerves 3-12 NL Results/Procedures Lab Laboratory Tests 05/14/21 06:53: White Blood Count 23.0H, Red Blood Count 3.09L, Hemoglobin 10.0L, Hematocrit 33L , Mean Corpuscular Volume 106H, Mean Corpuscular Hemoglobin 32, Mean Corpuscular Hemoglobin Concent 31L, Red Cell Distribution Width 13.2, Platelet Count 259, Mean Platelet Volume 11.7, Immature Granulocyte % (Auto) 1, Neutrophils (%) (Auto) 96H, Lymphocytes (%) (Auto) 1L, Monocytes (%) (Auto) 1, Eosinophils (%) (Auto) 0, Basophils (%) (Auto) 0, Neutrophils # (Auto) 22.1H, Lymphocytes # (Auto) 0.3L, Monocytes # (Auto) 0.3, Eosinophils # (Auto) 0.0, Basophils # (Auto) 0.0, Immature Granulocyte # (Auto) 0.3H, Sodium Level 140, Potassium Level 3.0L, Chloride Level 88L, Carbon Dioxide Level 42H, Anion Gap 10, Blood Urea Nitrogen 50H, Creatinine 1.17, Estimat Glomerular Filtration Rate 46, BUN/Creatinine Ratio 43, Glucose Level 418*H, Calcium Level 8.6, Corrected Calcium 9.2, Total Bilirubin 0.5, Aspartate Amino Transf (AST/SGOT) 23, Alanine Aminotransferase (ALT/SGPT) 53, Alkaline Phosphatase 71, Total Protein 5.8L, Albumin 3.3 05/14/21 17:41: Glucometer 428*H 05/14/21 20:46: Glucometer 421*H Assessment/Plan Assessment/Plan (1) Acute on chronic respiratory failure with hypoxia and hypercapnia Status: Acute Assessment & Plan: 05/13: Patient with baseline oxygen requirement, will continue to titrate as tolerated, IV steroids, MAT protocol 05/14: At home oxygen requirement, transitioned to PO steroids (2) Obesity hypoventilation syndrome Status: Chronic Assessment & Plan: 05/13: Patient brought in home bipap and states that she slept better last night (3) Hypercapnic respiratory failure Status: Acute (4) Paroxysmal A-fib Status: Acute Assessment & Plan: 05/13: Dr Burger consulted, Started on Sotalol, will require at least 3 days of monitoring 05/14: Sotalol d/c due to prolonged QTc (5) COPD exacerbation Status: Acute (6) Physical debility Status: Acute Assessment & Plan: 05/13: PT 05/14: prefers SNF however she does not have skilled days available, working on placement or possible home with HH (7) DVT prophylaxis Status: Acute Assessment & Plan: - Continue PO anticoagulant, encourage ambulation with PT LOBO CAMPBELL MD May 14, 2021 20:58
[2021-05-14 21:42] VITALS: BP 132/63
[2021-05-15] VITALS: BP 138/74
[2021-05-15 04:00] VITALS: BP 139/77
[2021-05-15 05:39] LABS: BASOPHILS % (AUTO) 0 % (0-10); EOSINOPHILS % (AUTO) 0 % (0-10); HEMATOCRIT 35 % (35-52); HEMOGLOBIN 10.3 g/dL (11.5-16.0); LYMPHOCYTES # (AUTO) 0.3 10^3/uL (1.0-4.0); LYMPHOCYTES % (AUTO) 1 % (12-44); MEAN CORPUSCULAR HEMOGLOBIN 31 pg (25-34); MEAN CORPUSCULAR HGB CONC 30 g/dL (32-36); MEAN CORPUSCULAR VOLUME 105 fL (80-99); MEAN PLATELET VOLUME 11.8 fL (9.0-12.2); MONOCYTES # (AUTO) 0.6 10^3/uL (0.0-1.0); MONOCYTES % (AUTO) 2 % (0-12); NEUTROPHILS # (AUTO) 25.2 10^3/uL (1.8-7.8); NEUTROPHILS % (AUTO) 95 % (42-75); PLATELET COUNT 284 10^3/uL (130-400); WHITE BLOOD COUNT 26.5 10^3/uL (4.3-11.0)
[2021-05-15 05:51] LABS: POTASSIUM 3.2 MMOL/L (3.6-5.0)
[2021-05-15 05:52] LABS: CALCIUM 8.7 MG/DL (8.5-10.1)
[2021-05-15 05:56] LABS: CREATININE SERUM 0.97 MG/DL (0.60-1.30)
[2021-05-15 05:59] LABS: MAGNESIUM 2.2 MG/DL (1.6-2.4)
[2021-05-15] MEDS: FUROSEMIDE 40 MG/4 ML INJ (LASIX) IV SCH ×2 (06:20→17:12)
[2021-05-15] MEDS: inSUlin ASPART (NovoLOG) 1 UNIT/0.01 ML (CHARGE PER UNIT) SC SCH ×4 (06:20→21:55)
[2021-05-15] MEDS: CATHETER FLUSH 10 ML SYR IV SCH ×3 (06:22→21:57)
[2021-05-15] MEDS: KCL 10 MEQ TAB (MICRO K) PO SCH (07:47)
[2021-05-15] MEDS: predniSONE 20 MG TAB PO SCH (07:47)
[2021-05-15] MEDS: RT-ALBUTEROL HFA 8.5 GM INHALER IH SCH ×2 (07:55→20:28)
[2021-05-15 08:00] VITALS: BP 142/79
[2021-05-15] MEDS: LACTULOSE SYRUP 10GM/15ML (ENULOSE) 30ML UDC PO SCH ×2 (09:02→22:33)
[2021-05-15] MEDS: SENNA W/DOCUSATE (SENOKOT S) TABLET PO SCH ×2 (09:02→22:34)
[2021-05-15] MEDS: meTOproloL SUCCINATE 50 MG (TOPROL XL) TAB PO SCH ×2 (09:02→12:27)
[2021-05-15] MEDS: polyethylene glycoL POWDER 17 GM (MIRALAX) PACK PO SCH ×2 (09:02→22:34)
[2021-05-15] MEDS: PANTOPRAZOLE 40 MG (PROTONIX) TAB PO SCH ×2 (09:02→12:27)
[2021-05-15] MEDS: acetaZOLAMIDE 250 MG (DIAMOX) TAB PO SCH ×2 (09:02→21:55)
[2021-05-15] MEDS ORDERED: KCL 20 MEQ TAB (K-DUR) PO ONE (09:15)
[2021-05-15] MEDS: CEFEPIME INJECTION 2,000 MG in NS (IVPB) 50 ML IV SCH ×2 (09:27→21:56)
--- NOTE | 2021-05-15 10:17 | Physical Therapy Daily Note ---
PT Daily Note-Current Subjective Patient in bed pre tx, refuses to sit or get out of bed, eventually she does agree to exercises in bed. During LE exercise it is discovered that patient has had a BM in the bed and it is soaked in urine, call nursing and we help them clean patient, patient has to stand at the side of the bed to change sheets and complete cleaning of patient's backside. Appearance Patient in bed post tx with nursing still in room. Mental Status Patient Orientation: Person, Confused Attachments: Oxygen, IV Transfers SCALE: Activities may be completed with or without assistive devices. 9-Pkyqmaijaa-fjewxjp completes the activity by him/herself with no assistance from a helper. 5-Set-up or Clean-up Assistance-helper sets up or cleans up; patient completes activity. [place] assists only prior to or following the activity. 4-Supervision or Touching Assistance-helper provides verbal cues and/or touching/steadying and/or contact guard assistance as patient completes activity. Assistance may be provided throughout the activity or intermittently. 3-Partial/Moderate Assistance-helper does LESS THAN HALF the effort. [place] lifts, holds or supports trunk or limbs, but provides less than half the effort. 2-Substantial/Maximal Assistance-helper does MORE THAN HALF the effort. [place] lifts or holds trunk or limbs and provides more than half the effort. 3-Jcnvlitws-flrwom does ALL the effort. Patient does none of the effort to complete the activity. Or, the assistance of 2 or more helpers is required for the patient to complete the activity. If activity was not attempted, code reason: 7-Patient Refused. 9-Not Applicable-not attempted and the patient did not perform the activity before the current illness, exacerbation or injury. 10-Not Attempted due to Environmental Limitations-(lack of equipment, weather restraints, etc.). 88-Not Attempted due to Medical Conditions or Safety Concerns. Roll Left & Right (QC): 1 Sit to Lying (QC): 3 Lying to Sitting/Side of Bed(Q: 2 Sit to Stand (QC): 1 Patient has to stand twice and needs assist of 2 people both times, she can only stand for about 15 seconds at the most Exercises Supine Ex: Ankle pumps, Heel Slides Supine Reps: 20 Treatments rolling, standing, LE strengthening Assessment Current Status: Poor Progress poor motivation PT Long-Term Goals Proof Press Operator Goals PT Proof Press Operator Goals Time Frame: May 25, 2021 Roll Left & Right (QC): 2 Sit to Lying (QC): 2 Lying-Sitting on Side/Bed(QC): 2 Sit to Stand (QC): 2 Chair/Hpi-mj-Qtpug Xfer(QC): 2 PT Plan Problem List Problem List: Activity Tolerance, Functional Strength, Safety, Balance, Gait, Transfer, Bed Mobility, ROM Treatment/Plan Treatment Plan: Continue Plan of Care Treatment Plan: Bed Mobility, Education, Functional Activity Dominic, Functional Strength, Safety, Therapeutic Exercise, Transfers Treatment Duration: May 25, 2021 Frequency: 5 times per week Estimated Hrs Per Day: .25 hour per day Patient and/or Family Agrees t: Yes Safety Risks/Education Patient Education: Correct Positioning, Safety Issues Teaching Recipient: Patient Teaching Methods: Demonstration, Discussion Response to Teaching: Reinforcement Needed Time/GCodes Time In: 0944 Time Out: 1001 Total Billed Treatment Time: 17 Total Billed Treatment 1 visit FA GALEN MASON PT May 15, 2021 10:17
[2021-05-15 12:15] VITALS: BP 158/92
[2021-05-15] MEDS ORDERED: KCL 20 MEQ TAB (K-DUR) PO NR (12:30)
--- NOTE | 2021-05-15 13:11 | Cardiology Progress Note ---
Subjective Date Seen by Provider: May 15, 2021 Time Seen by Provider: 13:10 Subjective/Events-last exam Patient is laying down in bed, feeling better. Still having shortness of breath. No chest pain Review of Systems General: No Chills, No Night Sweats; Fatigue, Malaise; No Appetite; Other (Fatigue) HEENT: No Head Aches, No Visual Changes, No Eye Pain, No Ear Pain, No Dysphasia, No Sinus Congestion, No Post Nasal Drip, No Sore Throat, No Other Pulmonary: Dyspnea; No Cough, No Pleuritic Chest Pain, No Other Cardiovascular: No: Chest Pain, Palpitations, Orthopnea, Paroxysmal Noc. Dyspnea, Edema, Lt Headedness, Other Objective-Cardiology Exam Last Set of Vital Signs Vital Signs 05/14/21 05/15/21 05/15/21 21:48 12:15 12:49 Temp 36.2 Pulse 95 Resp 18 B/P (MAP) 158/92 (114) Pulse Ox 91 O2 Delivery Nasal Cannula O2 Flow Rate 3.00 FiO2 93 I&O Intake and Output 05/15/21 00:00 Intake Total 1535 ml Output Total 1915 ml Balance -380 ml Intake Oral 1435 ml IV Total 100 ml Output Urine Total 1915 ml # Bowel Movements 2 General: Alert, Cooperative, Mild Distress (with minimal movement) HEENT: Atraumatic, PERRLA Neck: Supple, No JVD, No Thyromegaly Lungs: Other (end exp wheezing, normal work of breathing at rest) Heart: Regular Rate, No Murmurs Abdomen: Soft, No Tenderness Extremities: No Edema, No Tenderness/Swelling Skin: No Rashes, No Breakdown, No Significant Lesion Neuro: Normal Speech, Sensation Intact, Cranial Nerves 3-12 NL Psych/Mental Status: Mental Status NL, Mood NL Results Lab Laboratory Tests 05/15/21 05:10 A/P-Cardiology Admission Diagnosis Paroxysmal atrial fibrillation Acute exacerbation of COPD Assessment/Plan Paroxysmal atrial fibrillation, was diagnosed on April 06, 2021 on admission. She was started on Xarelto. Patient does not recall having history of atrial fibrillation but during her hospitalization April she had multiple episodes of paroxysmal atrial fibrillation. Unable to tolerate sotalol due to QT prolongation after 2 doses of sotalol. Unable to tolerate amiodarone due to respiratory insufficiency. I was considering KASSY cardioversion but the patient is still having significant dyspnea at rest at this time and I am concerned about her underlying COPD. I will continue with rate controlling medication and monitor Hypokalemia, replace and monitor [id number] score 2, maintained on Xarelto as an outpatient which will be continuing Acute respiratory insufficiency with acute exacerbation of COPD with hypercapnia. Managed by medical team Echocardiogram done on April 03, 2021 showing normal LV size with EF 55 to 65%. Morbid obesity. History of tobaccoism, stopped smoking about 4 years ago SHERLY MCKINLEY MD May 15, 2021 13:11
--- NOTE | 2021-05-15 15:32 | Progress Note ---
Subjective Subjective/Events-last exam Patient doing ok this AM. Still having conversational dsypnea. Denies any chest pain. Tolerating PO diet but upset that she is NPO this AM for possible procedure. Review of Systems General: Fatigue, Malaise Pulmonary: Dyspnea, Cough Cardiovascular: Edema; No: Chest Pain, Palpitations Gastrointestinal: No: Nausea, Vomiting, Abdominal Pain, Diarrhea, Constipation Neurological: Weakness, Incoordination Objective Exam Last Set of Vital Signs Vital Signs Date Time Temp Pulse Resp B/P (MAP) Pulse Ox O2 Delivery O2 Flow Rate FiO2 05/15/21 12:49 95 05/15/21 12:15 36.2 18 158/92 (114) 91 Nasal Cannula 3.00 05/14/21 21:48 93 Capillary Refill : Less Than 3 Seconds I&O Intake and Output 05/15/21 00:00 Intake Total 1535 ml Output Total 1915 ml Balance -380 ml Intake Oral 1435 ml IV Total 100 ml Output Urine Total 1915 ml # Bowel Movements 2 General: Alert, Oriented X3, Moderate Distress (conversational dsypnea) Lungs: Clear to Auscultation, Normal Air Movement Heart: Other (controlled irregularly irregular rate, no murmur) Abdomen: Normal Bowel Sounds, Soft, No Tenderness, No Masses Extremities: Other (1+ pitting edema bilaterally) Neuro: Normal Speech, Cranial Nerves 3-12 NL Results/Procedures Lab Laboratory Tests 05/14/21 17:41: Glucometer 428*H 05/14/21 20:46: Glucometer 421*H 05/15/21 05:10: White Blood Count 26.5H, Red Blood Count 3.32L, Hemoglobin 10.3L, Hematocrit 35, Mean Corpuscular Volume 105H, Mean Corpuscular Hemoglobin 31, Mean Corpuscular Hemoglobin Concent 30L, Red Cell Distribution Width 13.0, Platelet Count 284, Mean Platelet Volume 11.8, Immature Granulocyte % (Auto) 2, Neutrophils (%) (Auto) 95H, Lymphocytes (%) (Auto) 1L, Monocytes (%) (Auto) 2, Eosinophils (%) (Auto) 0, Basophils (%) (Auto) 0, Neutrophils # (Auto) 25.2H, Lymphocytes # (Auto) 0.3L, Monocytes # (Auto) 0.6, Eosinophils # (Auto) 0.0, Basophils # (Auto) 0.0, Immature Granulocyte # (Auto) 0.4H, Sodium Level 143, Potassium Level 3.2L, Chloride Level 94L, Carbon Dioxide Level 38H, Anion Gap 11, Blood Urea Nitrogen 54H, Creatinine 0.97, Estimat Glomerular Filtration Rate 57, BUN/Creatinine Ratio 56, Glucose Level 188H, Calcium Level 8.7, Magnesium Level 2.2 05/15/21 05:36: Glucometer 185H 05/15/21 12:03: Glucometer 187H Assessment/Plan Assessment/Plan (1) Acute on chronic respiratory failure with hypoxia and hypercapnia Status: Acute Assessment & Plan: 05/13: Patient with baseline oxygen requirement, will continue to titrate as tolerated, IV steroids, MAT protocol 05/14: At home oxygen requirement, transitioned to PO steroids 05/15: MAT protocol, continue to titrate as tolerated (2) Obesity hypoventilation syndrome Status: Chronic Assessment & Plan: 05/13: Patient brought in home bipap and states that she slept better last night (3) Hypercapnic respiratory failure Status: Acute (4) Paroxysmal A-fib Status: Acute Assessment & Plan: 05/13: Dr Burger consulted, Started on Sotalol, will require at least 3 days of monitoring 05/14: Sotalol d/c due to prolonged QTc 05/15: Rate controlled currently, PO anticoagulate (5) COPD exacerbation Status: Acute (6) Physical debility Status: Acute Assessment & Plan: 05/13: PT 05/14: prefers SNF however she does not have skilled days available, working on placement or possible home with HH 05/15: Patient will have to go home with HH when able, not ready for d/c at this time (7) DVT prophylaxis Status: Acute Assessment & Plan: - Continue PO anticoagulant, encourage ambulation with PT LOBO CAMPBELL MD May 15, 2021 15:32
[2021-05-15 16:00] VITALS: BP 127/70
[2021-05-15] MEDS: RIVAROXABAN 20 MG TABLET (XARELTO) PO SCH (17:12)
[2021-05-15 19:00] VITALS: BP 120/77
[2021-05-15] MEDS: RT--FLUTICASONE/SALMETEROL 113-14 (AIRDUO RespiCLICK) IH SCH (20:28)
[2021-05-16] VITALS: BP 132/74
[2021-05-16 04:00] VITALS: BP 142/70
[2021-05-16] MEDS: inSUlin ASPART (NovoLOG) 1 UNIT/0.01 ML (CHARGE PER UNIT) SC SCH ×4 (05:57→21:52)
[2021-05-16 06:06] LABS: BASOPHILS % (AUTO) 0 % (0-10); EOSINOPHILS % (AUTO) 0 % (0-10); HEMATOCRIT 35 % (35-52); HEMOGLOBIN 10.6 g/dL (11.5-16.0); LYMPHOCYTES # (AUTO) 0.5 10^3/uL (1.0-4.0); LYMPHOCYTES % (AUTO) 2 % (12-44); MEAN CORPUSCULAR HEMOGLOBIN 32 pg (25-34); MEAN CORPUSCULAR HGB CONC 30 g/dL (32-36); MEAN CORPUSCULAR VOLUME 105 fL (80-99); MONOCYTES % (AUTO) 4 % (0-12); NEUTROPHILS # (AUTO) 20.1 10^3/uL (1.8-7.8); NEUTROPHILS % (AUTO) 91 % (42-75); PLATELET COUNT 262 10^3/uL (130-400)
[2021-05-16] MEDS: KCL 10 MEQ TAB (MICRO K) PO SCH (06:13)
[2021-05-16] MEDS: predniSONE 20 MG TAB PO SCH (06:14)
[2021-05-16] MEDS: FUROSEMIDE 40 MG/4 ML INJ (LASIX) IV SCH ×2 (06:14→16:47)
[2021-05-16] MEDS: CATHETER FLUSH 10 ML SYR IV SCH ×3 (06:15→20:22)
[2021-05-16 06:28] LABS: ALBUMIN 3.1 GM/DL (3.2-4.5); BILIRUBIN,TOTAL 0.5 MG/DL (0.1-1.0); CALCIUM 8.7 MG/DL (8.5-10.1); CREATININE SERUM 0.99 MG/DL (0.60-1.30); POTASSIUM 3.7 MMOL/L (3.6-5.0); TOTAL PROTEIN 5.3 GM/DL (6.4-8.2)
--- NOTE | 2021-05-16 07:06 | Cardiology Progress Note ---
Subjective Date Seen by Provider: May 16, 2021 Time Seen by Provider: 07:05 Subjective/Events-last exam Patient is laying down in bed, lethargic, complaining of generalized fatigue and shortness of breath Review of Systems General: No Chills, No Night Sweats; Fatigue, Malaise; No Appetite, No Other HEENT: No Head Aches, No Visual Changes, No Eye Pain, No Ear Pain, No Dysphasia, No Sinus Congestion, No Post Nasal Drip, No Sore Throat, No Other Pulmonary: Dyspnea; No Cough, No Pleuritic Chest Pain, No Other Cardiovascular: No: Chest Pain, Palpitations, Orthopnea, Paroxysmal Noc. Dyspnea, Edema, Lt Headedness, Other Objective-Cardiology Exam Last Set of Vital Signs Vital Signs 05/14/21 05/16/21 21:48 04:00 Temp 35.6 Pulse 90 Resp 18 B/P (MAP) 142/70 (94) Pulse Ox 96 O2 Delivery Nasal Cannula O2 Flow Rate 3.00 FiO2 93 I&O Intake and Output 05/16/21 00:00 Intake Total 850 ml Output Total 600 ml Balance 250 ml Intake Oral 800 ml IV Total 50 ml Output Urine Total 600 ml # Voids 5 # Bowel Movements 2 General: Alert, Oriented X3, Moderate Distress (conversational dsypnea) HEENT: Atraumatic, PERRLA Neck: Supple, No JVD, No Thyromegaly Lungs: Clear to Auscultation, Normal Air Movement Heart: Normal S1, Normal S2, Other (controlled irregularly irregular rate, no murmur) Abdomen: Normal Bowel Sounds, Soft, No Tenderness, No Masses Extremities: Other (1+ pitting edema bilaterally) Skin: No Rashes, No Breakdown, No Significant Lesion Neuro: Normal Speech, Cranial Nerves 3-12 NL Psych/Mental Status: Mental Status NL, Mood NL Results Lab Laboratory Tests 05/16/21 05:24 A/P-Cardiology Admission Diagnosis Paroxysmal atrial fibrillation Acute exacerbation of COPD Assessment/Plan Paroxysmal atrial fibrillation, was diagnosed on April 06, 2021 on admission. She was started on Xarelto. Patient does not recall having history of atrial fibrillation but during her hospitalization April she had multiple episodes of paroxysmal atrial fibrillation. Unable to tolerate sotalol due to QT prolongation after 2 doses of sotalol. Unable to tolerate amiodarone due to respiratory insufficiency. I was considering KASSY cardioversion but the patient is still having significant dyspnea at rest at this time and I am concerned about her underlying COPD. I will continue with rate controlling medication and monitor Generalized weakness and fatigue probably secondary to hypoxemia. Managed by medical team [id number] score 2, maintained on Xarelto as an outpatient which will be continuing Acute respiratory insufficiency with acute exacerbation of COPD with hypercapnia. Managed by medical team Echocardiogram done on April 03, 2021 showing normal LV size with EF 55 to 65%. Morbid obesity. History of tobaccoism, stopped smoking about 4 years ago SHERLY MCKINLEY MD May 16, 2021 07:06
[2021-05-16 07:18] VITALS: BP 153/89
[2021-05-16] MEDS: SENNA W/DOCUSATE (SENOKOT S) TABLET PO SCH ×2 (08:32→20:22)
[2021-05-16] MEDS: meTOproloL SUCCINATE 50 MG (TOPROL XL) TAB PO SCH (08:33)
[2021-05-16] MEDS: acetaZOLAMIDE 250 MG (DIAMOX) TAB PO SCH ×2 (08:33→20:22)
[2021-05-16] MEDS: CEFEPIME INJECTION 2,000 MG in NS (IVPB) 50 ML IV SCH (08:33)
[2021-05-16] MEDS: LACTULOSE SYRUP 10GM/15ML (ENULOSE) 30ML UDC PO SCH ×2 (08:33→20:22)
[2021-05-16] MEDS: PANTOPRAZOLE 40 MG (PROTONIX) TAB PO SCH (08:33)
[2021-05-16] MEDS: RT-ALBUTEROL HFA 8.5 GM INHALER IH SCH ×3 (09:03→18:47)
[2021-05-16] MEDS: RT--FLUTICASONE/SALMETEROL 113-14 (AIRDUO RespiCLICK) IH SCH ×2 (09:03→18:45)
[2021-05-16] MEDS: polyethylene glycoL POWDER 17 GM (MIRALAX) PACK PO SCH ×2 (09:12→20:22)
--- NOTE | 2021-05-16 10:07 | Physical Therapy Progress Note ---
Therapy Progress Note Patient adamantly declined PT stating, "I'm not doing anything today." RN notified. 1 ref KATHRYN FRANKEL PT May 16, 2021 10:07
[2021-05-16 12:42] VITALS: BP 119/60
[2021-05-16 15:32] VITALS: BP 127/74
[2021-05-16] MEDS: RIVAROXABAN 20 MG TABLET (XARELTO) PO SCH (16:46)
[2021-05-16 19:06] VITALS: BP 133/82
--- NOTE | 2021-05-16 20:48 | Progress Note ---
Subjective Subjective/Events-last exam Patient states that she is feeling some better. She is not able to go to SNF due to financial reasons. Will need to get stronger in order to go home with HH Review of Systems Pulmonary: Dyspnea, Cough Cardiovascular: No: Chest Pain, Palpitations, Edema Gastrointestinal: No: Nausea, Vomiting, Diarrhea, Constipation Musculoskeletal: back pain Neurological: Weakness, Incoordination, Confusion Objective Exam Last Set of Vital Signs Vital Signs Date Time Temp Pulse Resp B/P (MAP) Pulse Ox O2 Delivery O2 Flow Rate FiO2 05/16/21 19:06 36.0 88 18 133/82 (99) 98 Nasal Cannula 3.00 05/14/21 21:48 93 Capillary Refill : Less Than 3 Seconds I&O Intake and Output 05/15/21 23:59 Intake Total 850 ml Output Total 600 ml Balance 250 ml Intake Oral 800 ml IV Total 50 ml Output Urine Total 600 ml # Voids 5 # Bowel Movements 2 General: Alert, No Acute Distress Lungs: Clear to Auscultation, Normal Air Movement Heart: Regular Rate, No Murmurs Abdomen: Normal Bowel Sounds, Soft, No Tenderness, No Masses Extremities: Other (1+ pitting edema equal bilaterally) Neuro: Other (slow to answer questions but answers appropriately) Results/Procedures Lab Laboratory Tests 05/15/21 21:03: Glucometer 214H 05/16/21 05:24: White Blood Count 22.0H, Red Blood Count 3.32L, Hemoglobin 10.6L, Hematocrit 35, Mean Corpuscular Volume 105H, Mean Corpuscular Hemoglobin 32, Mean Corpuscular Hemoglobin Concent 30L, Red Cell Distribution Width 13.2, Platelet Count 262, Mean Platelet Volume 12.0, Immature Granulocyte % (Auto) 2, Neutrophils (%) (Auto) 91H, Lymphocytes (%) (Auto) 2L, Monocytes (%) (Auto) 4, Eosinophils (%) (Auto) 0, Basophils (%) (Auto) 0, Neutrophils # (Auto) 20.1H, Lymphocytes # (Auto) 0.5L, Monocytes # (Auto) 1.0, Eosinophils # (Auto) 0.0, Basophils # (Auto) 0.0, Immature Granulocyte # (Auto) 0.4H, Sodium Level 144, Potassium Level 3.7, Chloride Level 95L, Carbon Dioxide Level 37H, Anion Gap 12, Blood Urea Nitrogen 58H, Creatinine 0.99, Estimat Glomerular Filtration Rate 56, BUN/Creatinine Ratio 59, Glucose Level 172H, Calcium Level 8.7, Corrected Calcium 9.4, Total Bilirubin 0.5, Aspartate Amino Transf (AST/SGOT) 41H, Alanine Aminotransferase (ALT/SGPT) 81H, Alkaline Phosphatase 71, Total Protein 5.3L, Albumin 3.1L 05/16/21 05:27: Glucometer 167H 05/16/21 10:51: Glucometer 304H 05/16/21 15:12: Glucometer 293H Assessment/Plan Assessment/Plan (1) Acute on chronic respiratory failure with hypoxia and hypercapnia Status: Acute Assessment & Plan: 05/13: Patient with baseline oxygen requirement, will continue to titrate as tolerated, IV steroids, MAT protocol 05/14: At home oxygen requirement, transitioned to PO steroids 05/15: MAT protocol, continue to titrate as tolerated 05/16: Patient at baseline, continue MAT protocol, Steroid taper (2) Obesity hypoventilation syndrome Status: Chronic Assessment & Plan: 05/13: Patient brought in home bipap and states that she slept better last night (3) Hypercapnic respiratory failure Status: Acute (4) Paroxysmal A-fib Status: Acute Assessment & Plan: 05/13: Dr Burger consulted, Started on Sotalol, will require at least 3 days of monitoring 05/14: Sotalol d/c due to prolonged QTc 05/15: Rate controlled currently, PO anticoagulate (5) COPD exacerbation Status: Acute (6) Physical debility Status: Acute Assessment & Plan: 05/13: PT 05/14: prefers SNF however she does not have skilled days available, working on placement or possible home with HH 05/15: Patient will have to go home with HH when able, not ready for d/c at this time (7) DVT prophylaxis Status: Acute Assessment & Plan: - Continue PO anticoagulant, encourage ambulation with PT LOBO CAMPBELL MD May 16, 2021 20:48
[2021-05-17] VITALS (7 sets, daily range): BP systolic 138–156; BP diastolic 69–140
[2021-05-17] MEDS: inSUlin ASPART (NovoLOG) 1 UNIT/0.01 ML (CHARGE PER UNIT) SC SCH ×4 (06:30→21:49)
[2021-05-17] MEDS: predniSONE 20 MG TAB PO SCH (06:41)
[2021-05-17] MEDS: FUROSEMIDE 40 MG/4 ML INJ (LASIX) IV SCH ×2 (06:42→17:05)
[2021-05-17] MEDS: CATHETER FLUSH 10 ML SYR IV SCH ×3 (06:42→20:03)
[2021-05-17] MEDS: KCL 10 MEQ TAB (MICRO K) PO SCH (06:42)
[2021-05-17 06:52] LABS: BASOPHILS % (AUTO) 0 % (0-10); EOSINOPHILS % (AUTO) 0 % (0-10); HEMATOCRIT 36 % (35-52); HEMOGLOBIN 10.7 g/dL (11.5-16.0); LYMPHOCYTES # (AUTO) 0.6 10^3/uL (1.0-4.0); LYMPHOCYTES % (AUTO) 3 % (12-44); MEAN CORPUSCULAR HEMOGLOBIN 32 pg (25-34); MEAN CORPUSCULAR HGB CONC 30 g/dL (32-36); MEAN CORPUSCULAR VOLUME 105 fL (80-99); MONOCYTES % (AUTO) 5 % (0-12); NEUTROPHILS # (AUTO) 17.5 10^3/uL (1.8-7.8); NEUTROPHILS % (AUTO) 88 % (42-75); PLATELET COUNT 252 10^3/uL (130-400); WHITE BLOOD COUNT 19.7 10^3/uL (4.3-11.0)
[2021-05-17 07:11] LABS: ALBUMIN 3.1 GM/DL (3.2-4.5); BILIRUBIN,TOTAL 0.5 MG/DL (0.1-1.0); CREATININE SERUM 0.91 MG/DL (0.60-1.30); POTASSIUM 3.6 MMOL/L (3.6-5.0); TOTAL PROTEIN 5.4 GM/DL (6.4-8.2)
[2021-05-17] MEDS: RT--FLUTICASONE/SALMETEROL 113-14 (AIRDUO RespiCLICK) IH SCH ×2 (07:13→20:46)
[2021-05-17] MEDS: RT-ALBUTEROL HFA 8.5 GM INHALER IH SCH ×3 (07:13→20:43)
[2021-05-17] MEDS: SENNA W/DOCUSATE (SENOKOT S) TABLET PO SCH ×2 (08:06→20:02)
[2021-05-17] MEDS: acetaZOLAMIDE 250 MG (DIAMOX) TAB PO SCH ×2 (08:06→20:02)
[2021-05-17] MEDS: PANTOPRAZOLE 40 MG (PROTONIX) TAB PO SCH (08:06)
[2021-05-17] MEDS: meTOproloL SUCCINATE 50 MG (TOPROL XL) TAB PO SCH (08:06)
[2021-05-17] MEDS: LACTULOSE SYRUP 10GM/15ML (ENULOSE) 30ML UDC PO SCH ×2 (08:06→20:03)
[2021-05-17] MEDS: polyethylene glycoL POWDER 17 GM (MIRALAX) PACK PO SCH ×2 (09:00→20:02)
--- NOTE | 2021-05-17 09:53 | Progress Note - Cardiology ---
Cardiology SOAP Progress Note Subjective: Sitting up in bed C/O gen weakness Feels SOB is better No c/o CP or palpitations Objective: I&O/Vital Signs 05/17/21 05/17/21 05/17/21 05/17/21 00:50 01:00 04:09 07:00 Temp 36.3 35.8 Pulse 103 103 94 97 Resp 18 17 B/P (MAP) 139/86 (103) 138/92 (107) Pulse Ox 98 98 O2 Delivery Nasal Cannula Nasal Cannula O2 Flow Rate 3.00 3.00 05/17/21 05/17/21 05/17/21 07:14 07:30 08:36 Temp 36.0 Pulse 89 Resp 18 B/P (MAP) 156/86 (109) Pulse Ox 95 100 O2 Delivery Nasal Cannula Nasal Cannula Nasal Cannula O2 Flow Rate 3.00 3.00 3.00 05/17/21 00:00 Intake Total 1105 ml Output Total 1000 ml Balance 105 ml Weight (Pounds): 140 Weight (Calculated Kilograms): [id number] Constitutional: AAO x 3, well-developed, well-nourished Respiratory: No accessory muscle use, No respiratory distress; other (diminished througout with poor inspiratory effort) Cardiovascular: irregularly irregular; No JVD; S1 and S2 Gastrointestional: audible bowel sounds Extremities: no lower extremity edema bilateral Neurologic/Psychiatric: grossly intact (moves all extremities) Skin: No rash on exposed areas, No ulcerations on exposed areas Results/Procedures: Labs Laboratory Tests 05/16/21 10:51: Glucometer 304H 05/16/21 15:12: Glucometer 293H 05/16/21 20:46: Glucometer 223H 05/17/21 05:46: Glucometer 150H 05/17/21 06:24: White Blood Count 19.7H, Red Blood Count 3.39L, Hemoglobin 10.7L, Hematocrit 36, Mean Corpuscular Volume 105H, Mean Corpuscular Hemoglobin 32, Mean Corpuscular Hemoglobin Concent 30L, Red Cell Distribution Width 13.2, Platelet Count 252, Mean Platelet Volume 12.0, Immature Granulocyte % (Auto) 3, Neutrophils (%) (Auto) 88H, Lymphocytes (%) (Auto) 3L, Monocytes (%) (Auto) 5, Eosinophils (%) (Auto) 0, Basophils (%) (Auto) 0, Neutrophils # (Auto) 17.5H, Lymphocytes # (Auto) 0.6L, Monocytes # (Auto) 1.0, Eosinophils # (Auto) 0.0, Basophils # (Auto) 0.0, Immature Granulocyte # (Auto) 0.6H, Sodium Level 143, Potassium Level 3.6, Chloride Level 95L, Carbon Dioxide Level 38H, Anion Gap 10, Blood Urea Nitrogen 48H, Creatinine 0.91, Estimat Glomerular Filtration Rate 68, BUN/Creatinine Ratio 53, Glucose Level 147H, Calcium Level 9.0, Corrected Calcium 9.7, Total Bilirubin 0.5, Aspartate Amino Transf (AST/SGOT) 32, Alanine Aminotransferase (ALT/SGPT) 76H, Alkaline Phosphatase 72, Total Protein 5.4L, Albumin 3.1L Laboratory Tests 05/16/21 05:24 05/17/21 06:24 A/P: Assessment: Paroxysmal atrial fibrillation - was diagnosed on April 06, 2021 on admission. She was started on Xarelto. Patient does not recall having history of atrial fibrillation but during her hospitalization April she had multiple episodes of paroxysmal atrial fibrillation. - Unable to tolerate sotalol due to QT prolongation after 2 doses of sotalol. - Unable to tolerate amiodarone due to respiratory insufficiency. - Not felt suitable candidate for KASSY/cardioversion d/t continue signif dyspnea (per Dr. Burger) - Continue OAC and reate controlling agents - Xarelto Generalized weakness and fatigue Acute respiratory insufficiency with acute exacerbation of COPD with hypercapnia - management per medical services Echocardiogram done on April 03, [address] Burger showing normal LV size with EF 55 to 65%. Morbid obesity. History of tobaccoism, stopped smoking about 4 years ago Plan: Continue current cardiac regimen Monitor lab Replace electrolytes as indicated Advise PT for strengthening ASH CAO May 17, 2021 09:53
--- NOTE | 2021-05-17 10:18 | Physical Therapy Progress Note ---
Therapy Progress Note Patient declined PT on this date. RN notified. 1 ref KATHRYN FRANKEL PT May 17, 2021 10:18
--- NOTE | 2021-05-17 15:34 | Progress Note - Cardiology ---
Cardiology SOAP Progress Note Subjective: Gen malaise and weakness present No cp or palp or syncope No shortness of breath at rest No n/v/d Objective: I&O/Vital Signs 05/17/21 05/17/21 05/17/21 05/17/21 04:09 07:00 07:14 07:30 Temp 35.8 Pulse 94 97 Resp 17 B/P (MAP) 138/92 (107) Pulse Ox 98 95 O2 Delivery Nasal Cannula Nasal Cannula Nasal Cannula O2 Flow Rate 3.00 3.00 3.00 05/17/21 05/17/21 05/17/21 05/17/21 08:36 11:17 12:42 14:12 Temp 36.0 35.7 Pulse 89 86 114 Resp 18 18 B/P (MAP) 156/86 (109) 150/71 (97) Pulse Ox 100 98 95 O2 Delivery Nasal Cannula Nasal Cannula Nasal Cannula O2 Flow Rate 3.00 3.00 3.00 05/17/21 00:00 Intake Total 1105 ml Output Total 1000 ml Balance 105 ml Weight (Pounds): 140 Weight (Calculated Kilograms): [id number] Constitutional: AAO x 3, well-developed, well-nourished Respiratory: No accessory muscle use, No respiratory distress; other (diminished througout with poor inspiratory effort) Cardiovascular: irregularly irregular; No JVD; S1 and S2 Gastrointestional: audible bowel sounds Extremities: no lower extremity edema bilateral Neurologic/Psychiatric: other (moves all limbs equally) Skin: No rash on exposed areas, No ulcerations on exposed areas Results/Procedures: Labs Laboratory Tests 05/16/21 20:46: Glucometer 223H 05/17/21 05:46: Glucometer 150H 05/17/21 06:24: White Blood Count 19.7H, Red Blood Count 3.39L, Hemoglobin 10.7L, Hematocrit 36, Mean Corpuscular Volume 105H, Mean Corpuscular Hemoglobin 32, Mean Corpuscular H emoglobin Concent 30L, Red Cell Distribution Width 13.2, Platelet Count 252, Mean Platelet Volume 12.0, Immature Granulocyte % (Auto) 3, Neutrophils (%) (Auto) 88H, Lymphocytes (%) (Auto) 3L, Monocytes (%) (Auto) 5, Eosinophils (%) (Auto) 0, Basophils (%) (Auto) 0, Neutrophils # (Auto) 17.5H, Lymphocytes # (Auto) 0.6L, Monocytes # (Auto) 1.0, Eosinophils # (Auto) 0.0, Basophils # (Auto) 0.0, Immature Granulocyte # (Auto) 0.6H, Sodium Level 143, Potassium Level 3.6, Chloride Level 95L, Carbon Dioxide Level 38H, Anion Gap 10, Blood Urea Nitrogen 48H, Creatinine 0.91, Estimat Glomerular Filtration Rate 68, BUN/Creatinine Ratio 53, Glucose Level 147H, Calcium Level 9.0, Corrected Calcium 9.7, Total Bilirubin 0.5, Aspartate Amino Transf (AST/SGOT) 32, Alanine Aminotransferase (ALT/SGPT) 76H, Alkaline Phosphatase 72, Total Protein 5.4L, Albumin 3.1L 05/17/21 11:23: Glucometer 374H A/P: Assessment: Paroxysmal atrial fibrillation - was diagnosed on April 06, 2021, on Xarelto. - Unable to tolerate sotalol due to QT prolongation after 2 doses of sotalol. - Unable to tolerate amiodarone due to respiratory insufficiency. Generalized weakness and fatigue Acute respiratory insufficiency with acute exacerbation of COPD with hypercapnia - management per Medical services Echocardiogram done on April 03, [address] Burger showing normal LV size with EF 55 to 65%. Morbid obesity. History of tobaccoism, stopped smoking about 4 years ago Plan: I interviewed and examined her and reviewed her records Continue current cardiac regimen Monitor lab Replace electrolytes as indicated STEPH AHMADI MD FACP [facility] May 17, 2021 15:34
[2021-05-17] MEDS: RIVAROXABAN 20 MG TABLET (XARELTO) PO SCH (17:05)
--- NOTE | 2021-05-17 19:01 | Progress Note ---
Subjective Subjective/Events-last exam Patient still complaining of weakness but refusing PT/OT. Tolerating PO diet. Review of Systems Pulmonary: Dyspnea Cardiovascular: No: Chest Pain, Palpitations, Edema Gastrointestinal: No: Nausea, Vomiting, Abdominal Pain, Diarrhea, Constipation Neurological: Weakness, Incoordination Objective Exam Last Set of Vital Signs Vital Signs Date Time Temp Pulse Resp B/P (MAP) Pulse Ox O2 Delivery O2 Flow Rate FiO2 05/17/21 16:00 35.6 79 20 /140 97 Nasal Cannula 3.00 05/14/21 21:48 93 Capillary Refill : Less Than 3 Seconds I&O Intake and Output 05/17/21 00:00 Intake Total 1405 ml Output Total 1225 ml Balance 180 ml Intake Oral 1355 ml IV Total 50 ml Output Urine Total 1225 ml General: Alert, Moderate Distress Lungs: Clear to Auscultation, Normal Air Movement Heart: Regular Rate, No Murmurs Abdomen: Normal Bowel Sounds, Soft, No Tenderness, No Masses Extremities: No Edema, No Tenderness/Swelling Neuro: Normal Speech Results/Procedures Lab Laboratory Tests 05/16/21 20:46: Glucometer 223H 05/17/21 05:46: Glucometer 150H 05/17/21 06:24: White Blood Count 19.7H, Red Blood Count 3.39L, Hemoglobin 10.7L, Hematocrit 36, Mean Corpuscular Volume 105H, Mean Corpuscular Hemoglobin 32, Mean Corpuscular Hemoglobin Concent 30L, Red Cell Distribution Width 13.2, Platelet Count 252, Mean Platelet Volume 12.0, Immature Granulocyte % (Auto) 3, Neutrophils (%) (Auto) 88H, Lymphocytes (%) (Auto) 3L, Monocytes (%) (Auto) 5, Eosinophils (%) (Auto) 0, Basophils (%) (Auto) 0, Neutrophils # (Auto) 17.5H, Lymphocytes # (Auto) 0.6L, Monocytes # (Auto) 1.0, Eosinophils # (Auto) 0.0, Basophils # (Auto) 0.0, Immature Granulocyte # (Auto) 0.6H, Sodium Level 143, Potassium Level 3.6, Chloride Level 95L, Carbon Dioxide Level 38H, Anion Gap 10, Blood Urea Nitrogen 48H, Creatinine 0.91, Estimat Glomerular Filtration Rate 68, BUN/Creatinine Ratio 53, Glucose Level 147H, Calcium Level 9.0, Corrected Calcium 9.7, Total Bilirubin 0.5, Aspartate Amino Transf (AST/SGOT) 32, Alanine Aminotransferase (ALT/SGPT) 76H, Alkaline Phosphatase 72, Total Protein 5.4L, Albumin 3.1L 05/17/21 11:23: Glucometer 374H 05/17/21 15:47: Glucometer 255H Assessment/Plan Assessment/Plan (1) Acute on chronic respiratory failure with hypoxia and hypercapnia Status: Acute Assessment & Plan: 05/13: Patient with baseline oxygen requirement, will continue to titrate as tolerated, IV steroids, MAT protocol 05/14: At home oxygen requirement, transitioned to PO steroids 05/15: MAT protocol, continue to titrate as tolerated 05/16: Patient at baseline, continue MAT protocol, Steroid taper 05/17: Steroid taper (2) Obesity hypoventilation syndrome Status: Chronic Assessment & Plan: 05/13: Patient brought in home bipap and states that she slept better last night (3) Hypercapnic respiratory failure Status: Acute (4) Paroxysmal A-fib Status: Acute Assessment & Plan: 05/13: Dr Burger consulted, Started on Sotalol, will require at least 3 days of monitoring 05/14: Sotalol d/c due to prolonged QTc 05/15: Rate controlled currently, PO anticoagulate (5) COPD exacerbation Status: Acute (6) Physical debility Status: Acute Assessment & Plan: 05/13: PT 05/14: prefers SNF however she does not have skilled days available, working on placement or possible home with HH 05/15: Patient will have to go home with HH when able, not ready for d/c at this time 05/17: Discussed that patient needs to participate with PT (7) DVT prophylaxis Status: Acute Assessment & Plan: - Continue PO anticoagulant, encourage ambulation with PT LOBO CAMPBELL MD May 17, 2021 19:01
[2021-05-18 03:36] VITALS: BP 155/68
[2021-05-18] MEDS: FUROSEMIDE 40 MG/4 ML INJ (LASIX) IV SCH ×2 (05:57→16:51)
[2021-05-18] MEDS: KCL 10 MEQ TAB (MICRO K) PO SCH (05:57)
[2021-05-18] MEDS: predniSONE 20 MG TAB PO SCH (05:57)
[2021-05-18] MEDS: inSUlin ASPART (NovoLOG) 1 UNIT/0.01 ML (CHARGE PER UNIT) SC SCH ×4 (05:58→21:07)
[2021-05-18] MEDS: CATHETER FLUSH 10 ML SYR IV SCH ×3 (05:58→19:31)
[2021-05-18 08:00] VITALS: BP 140/66
[2021-05-18] MEDS: LACTULOSE SYRUP 10GM/15ML (ENULOSE) 30ML UDC PO SCH ×2 (08:02→19:31)
[2021-05-18] MEDS: SENNA W/DOCUSATE (SENOKOT S) TABLET PO SCH ×2 (08:02→19:31)
[2021-05-18] MEDS: meTOproloL SUCCINATE 50 MG (TOPROL XL) TAB PO SCH (08:02)
[2021-05-18] MEDS: PANTOPRAZOLE 40 MG (PROTONIX) TAB PO SCH (08:02)
[2021-05-18] MEDS: polyethylene glycoL POWDER 17 GM (MIRALAX) PACK PO SCH ×2 (08:03→19:31)
[2021-05-18] MEDS: acetaZOLAMIDE 250 MG (DIAMOX) TAB PO SCH ×2 (08:03→19:31)
[2021-05-18] MEDS: RT--FLUTICASONE/SALMETEROL 113-14 (AIRDUO RespiCLICK) IH SCH ×2 (08:06→20:56)
[2021-05-18] MEDS: RT-ALBUTEROL HFA 8.5 GM INHALER IH SCH ×3 (08:06→20:53)
[2021-05-18 08:17] LABS: BASOPHILS % (AUTO) 0 % (0-10); EOSINOPHILS # (AUTO) 0.1 10^3/uL (0.0-0.3); EOSINOPHILS % (AUTO) 0 % (0-10); HEMATOCRIT 36 % (35-52); HEMOGLOBIN 11.2 g/dL (11.5-16.0); LYMPHOCYTES # (AUTO) 0.6 10^3/uL (1.0-4.0); LYMPHOCYTES % (AUTO) 3 % (12-44); MEAN CORPUSCULAR HEMOGLOBIN 32 pg (25-34); MEAN CORPUSCULAR HGB CONC 31 g/dL (32-36); MEAN CORPUSCULAR VOLUME 102 fL (80-99); MEAN PLATELET VOLUME 11.9 fL (9.0-12.2); MONOCYTES # (AUTO) 0.8 10^3/uL (0.0-1.0); MONOCYTES % (AUTO) 3 % (0-12); NEUTROPHILS # (AUTO) 21.2 10^3/uL (1.8-7.8); NEUTROPHILS % (AUTO) 90 % (42-75); PLATELET COUNT 273 10^3/uL (130-400); WHITE BLOOD COUNT 23.5 10^3/uL (4.3-11.0)
[2021-05-18 08:39] LABS: ALBUMIN 3.2 GM/DL (3.2-4.5); POTASSIUM 3.7 MMOL/L (3.6-5.0)
[2021-05-18 08:42] LABS: TOTAL PROTEIN 5.7 GM/DL (6.4-8.2)
[2021-05-18 08:43] LABS: BILIRUBIN,TOTAL 0.6 MG/DL (0.1-1.0)
[2021-05-18 08:45] LABS: CREATININE SERUM 0.93 MG/DL (0.60-1.30)
[2021-05-18 08:57] LABS: ANISOCYTOSIS SLIGHT; BAND NEUTROPHILS 0 %; BASOPHILS % (MANUAL) 0 %; EOSINOPHILS % (MANUAL) 1 %; LYMPHOCYTES % (MANUAL) 1 %; METAMYELOCYTES % 5 %; MONOCYTES % (MANUAL) 2 %; NEUTROPHILS % (MANUAL) 91 %
--- NOTE | 2021-05-18 10:55 | Progress Note - Hospitalist ---
Subjective HPI/CC On Admission Date Seen by Provider: May 18, 2021 Time Seen by Provider: 09:45 70 yo readmitted, just discharged on 04/16 after an episode of hypercapneic respiratory failure requiring intubation and treatment for bilateral pneumonia, she was discharged to shelter, just went home and then had recurrent shortness of breath. She has had COVID vaccines, it sounds like with booster as well. She is negative for influenza. Her speech is quite slow to answer, but she does answer questions appropriately. When asked if she uses cpap or bipap at night she said yes but was difficult to clarify if this is actually accurate. Subjective/Events-last exam Patient continues to refuse physical therapy. He is not getting out of bed using a bedpan. She answers questions but is slow to respond she does appear to respond appropriately and nursing staff reports that her response times are actually better today than they were yesterday. She denies pain and reports that she wishes to go home. She reports that she has pretty much been bedfast since March and that her has been caring for her in this condition. She denies chest pain or shortness of breath. Objective Exam Vital Signs Vital Signs Date Time Temp Pulse Resp B/P (MAP) Pulse Ox O2 Delivery O2 Flow Rate FiO2 05/18/21 08:08 92 Nasal Cannula 3.00 05/18/21 08:00 36.4 72 20 140/66 (90) 05/14/21 21:48 93 Capillary Refill : Less Than 3 Seconds General Appearance: Chronically ill Respiratory: Other (Decreased breath sounds in bases bilaterally with few inspiratory rales to the mid lung florentino bilaterally mild expiratory wheeze no accessory muscle use no evidence for respiratory distress.) Cardiovascular: Regular Rate, Rhythm Results/Procedures Lab Laboratory Tests 05/18/21 08:00 Patient resulted labs reviewed. Assessment/Plan Assessment and Plan Assess & Plan/Chief Complaint (1) Acute on chronic respiratory failure with hypoxia and hypercapnia Status: Acute Assessment & Plan: 05/13: Patient with baseline oxygen requirement, will continue to titrate as tolerated, IV steroids, MAT protocol 05/14: At home oxygen requirement, transitioned to PO steroids 05/15: MAT protocol, continue to titrate as tolerated 05/16: Patient at baseline, continue MAT protocol, Steroid taper 05/17: Steroid tap 05/18: Extreme multifactorial deconditioning with most prominent component likely being severe COPD with hypercapnic acute on chronic respiratory failure. Continue above therapeutics and will have nurse talk with about whether or not he is really going to be able to meet her care needs which I doubt. She has been adamant about not going to snf as she has used up all of her skilled days and this would be [id number]. Prognosis extremely poor. Strongly encouraged the patient work with physical therapy which she continues to refuse. Discussed that she can expect only worsening symptoms with her immobility which persists due to her physical therapy refusal. (2) Obesity hypoventilation syndrome Status: Chronic Assessment & Plan: 05/13: Patient brought in home bipap and states that she slept better last night (3) Hypercapnic respiratory failure Status: Acute (4) Paroxysmal A-fib Status: Acute Assessment & Plan: 05/13: Dr Burger consulted, Started on Sotalol, will require at least 3 days of monitoring 05/14: Sotalol d/c due to prolonged QTc 05/15: Rate controlled currently, PO anticoagulate (5) COPD exacerbation Status: Acute (6) Physical debility Status: Acute Assessment & Plan: 05/13: PT 05/14: prefers SNF however she does not have skilled days available, working on placement or possible home with HH 05/15: Patient will have to go home with HH when able, not ready for d/c at this time 05/17: Discussed that patient needs to participate with PT (7) DVT prophylaxis Status: Acute Assessment & Plan: - Continue PO anticoagulant, encourage ambulation with PT Critical Care Critically Ill Patient SPENCER LYNN MD May 18, 2021 10:55
[2021-05-18 12:00] VITALS: BP 130/65
--- NOTE | 2021-05-18 12:15 | Physical Therapy Daily Note ---
PT Daily Note-Current Subjective Pt refuses out of bed activity. Therapist was able to convince her to do some bed mobility and LE ex. Transfers SCALE: Activities may be completed with or without assistive devices. 7-Tjrmxlxgrh-eiozpzz completes the activity by him/herself with no assistance from a helper. 5-Set-up or Clean-up Assistance-helper sets up or cleans up; patient completes activity. [place] assists only prior to or following the activity. 4-Supervision or Touching Assistance-helper provides verbal cues and/or touching/steadying and/or contact guard assistance as patient completes activity. Assistance may be provided throughout the activity or intermittently. 3-Partial/Moderate Assistance-helper does LESS THAN HALF the effort. [place] lifts, holds or supports trunk or limbs, but provides less than half the effort. 2-Substantial/Maximal Assistance-helper does MORE THAN HALF the effort. [place] lifts or holds trunk or limbs and provides more than half the effort. 9-Nlzvlblci-jvcawy does ALL the effort. Patient does none of the effort to complete the activity. Or, the assistance of 2 or more helpers is required for the patient to complete the activity. If activity was not attempted, code reason: 7-Patient Refused. 9-Not Applicable-not attempted and the patient did not perform the activity before the current illness, exacerbation or injury. 10-Not Attempted due to Environmental Limitations-(lack of equipment, weather restraints, etc.). 88-Not Attempted due to Medical Conditions or Safety Concerns. Roll Left & Right (QC): 4 Exercises Supine Ex: Ankle pumps, Quad Set, Rolling, Glut sets, Heel Slides, Short Arc Quads, Straight leg raise, Hip abd/add Supine Reps: 10 Assessment Current Status: Poor Progress pt poorly motivated, very reluctant to participate. pt was educated on the need for out of bed activity if she desires d/c to home PT Senior Living Goals Senior Living Goals PT Belt Knife Feeder Goals Time Frame: May 25, 2021 Roll Left & Right (QC): 2 Sit to Lying (QC): 2 Lying-Sitting on Side/Bed(QC): 2 Sit to Stand (QC): 2 Chair/Bhx-oe-Yrohw Xfer(QC): 2 PT Plan Treatment/Plan Treatment Plan: Continue Plan of Care Treatment Plan: Bed Mobility, Education, Functional Activity Dominic, Functional Strength, Safety, Therapeutic Exercise, Transfers Treatment Duration: May 25, 2021 Frequency: 5 times per week Estimated Hrs Per Day: .25 hour per day Patient and/or Family Agrees t: Yes Time/GCodes Time In: 1050 Time Out: 1100 Total Billed Treatment Time: 10 Total Billed Treatment visit, exercise 10 min MEHREEN GODWIN PT May 18, 2021 12:15
--- NOTE | 2021-05-18 15:11 | Progress Note - Cardiology ---
Cardiology SOAP Progress Note Subjective: Gen weakness and malaise present No cp or palp or syncope Shortness of breath with activity No n/v/d Objective: I&O/Vital Signs 05/18/21 05/18/21 05/18/21 05/18/21 03:36 07:00 07:48 08:00 Temp 36.4 36.4 Pulse 70 72 72 Resp 20 20 B/P (MAP) 155/68 (97) 140/66 (90) Pulse Ox 95 94 O2 Delivery Nasal Cannula Nasal Cannula Nasal Cannula O2 Flow Rate 3.00 3.00 3.00 05/18/21 05/18/21 05/18/21 05/18/21 08:08 12:00 12:36 14:40 Temp 36.2 Pulse 89 108 Resp 20 B/P (MAP) 130/65 (86) Pulse Ox 92 85 94 O2 Delivery Nasal Cannula Nasal Cannula Nasal Cannula O2 Flow Rate 3.00 4.00 3.00 05/18/21 00:00 Intake Total 1600 ml Output Total 900 ml Balance 700 ml Weight (Pounds): 140 Weight (Calculated Kilograms): 63.900448 Constitutional: AAO x 3, well-developed, well-nourished Respiratory: No accessory muscle use, No respiratory distress; other (diminished througout with poor inspiratory effort) Cardiovascular: irregularly irregular; No JVD; S1 and S2 Gastrointestional: audible bowel sounds Extremities: no lower extremity edema bilateral Neurologic/Psychiatric: other (moves all limbs equally) Skin: No rash on exposed areas, No ulcerations on exposed areas Results/Procedures: Labs Laboratory Tests 05/17/21 15:47: Glucometer 255H 05/18/21 05:54: Glucometer 91 05/18/21 08:00: White Blood Count 23.5H, Red Blood Count 3.53L, Hemoglobin 11.2L, Hematocrit 36, Mean Corpuscular Volume 102H, Mean Corpuscular Hemoglobin 32, Mean Corpuscular Hemoglobin Concent 31L, Red Cell Distribution Width 13.2, Platelet Count 273, Mean Platelet Volume 11.9, Immature Granulocyte % (Auto) 4, Neutrophils (%) (Auto) 90H, Lymphocytes (%) (Auto) 3L, Monocytes (%) (Auto) 3, Eosinophils (%) (Auto) 0, Basophils (%) (Auto) 0, Neutrophils # (Auto) 21.2H, Lymphocytes # (Auto) 0.6L, Monocytes # (Auto) 0.8, Eosinophils # (Auto) 0.1, Basophils # (Auto) 0.0, Immature Granulocyte # (Auto) 0.9H, Neutrophils % (Manual) 91, Lymphocytes % (Manual) 1, Monocytes % (Manual) 2, Eosinophils % (Manual) 1, Basophils % (Manual) 0, Metamyelocytes % 5, Band Neutrophils 0, Anisocytosis SLIGHT, Sodium Level 138, Potassium Level 3.7, Chloride Level 92L, Carbon Dioxide Level 37H, Anion Gap 9, Blood Urea Nitrogen 46H, Creatinine 0.93, Estimat Glomerular Filtration Rate 67, BUN/Creatinine Ratio 49, Glucose Level 125H, Calcium Level 9.0, Corrected Calcium 9.6, Total Bilirubin 0.6, Aspartate Amino Transf (AST/SGOT) 24, Alanine Aminotransferase (ALT/SGPT) 63H, Alkaline Phosphatase 74, Total Protein 5.7L, Albumin 3.2 05/18/21 12:16: Glucometer 287H Laboratory Tests 05/17/21 06:24 05/18/21 08:00 A/P: Assessment: Paroxysmal atrial fibrillation - was diagnosed on April 06, 2021, on Xarelto. - Unable to tolerate sotalol due to QT prolongation after 2 doses of sotalol. - Unable to tolerate amiodarone due to respiratory insufficiency. Generalized weakness and fatigue Acute respiratory insufficiency due to acute exacerbation of COPD with hypercapnia - management per Medical services Echocardiogram done on April 03, [address] Burger showing normal LV size with EF 55 to 65%. Morbid obesity. History of tobaccoism, stopped smoking about 4 years ago Plan: Continue current cardiac regimen Monitor lab Replace electrolytes as indicated STEPH AHMADI MD FACP FAC CCDS May 18, 2021 15:11
[2021-05-18 16:41] VITALS: BP 134/72
[2021-05-18] MEDS: RIVAROXABAN 20 MG TABLET (XARELTO) PO SCH (16:51)
[2021-05-18 19:02] VITALS: BP 148/69
[2021-05-19 00:03] VITALS: BP 136/67
[2021-05-19 04:48] VITALS: BP 150/68
[2021-05-19] MEDS: inSUlin ASPART (NovoLOG) 1 UNIT/0.01 ML (CHARGE PER UNIT) SC SCH ×4 (05:55→20:57)
[2021-05-19] MEDS: KCL 10 MEQ TAB (MICRO K) PO SCH (05:56)
[2021-05-19] MEDS: predniSONE 20 MG TAB PO SCH (05:56)
[2021-05-19] MEDS: FUROSEMIDE 40 MG/4 ML INJ (LASIX) IV SCH ×2 (05:56→17:07)
[2021-05-19] MEDS: CATHETER FLUSH 10 ML SYR IV SCH ×3 (05:57→21:27)
[2021-05-19 07:38] VITALS: BP 102/66
[2021-05-19] MEDS: PANTOPRAZOLE 40 MG (PROTONIX) TAB PO SCH (08:24)
[2021-05-19] MEDS: meTOproloL SUCCINATE 50 MG (TOPROL XL) TAB PO SCH (08:24)
[2021-05-19] MEDS: SENNA W/DOCUSATE (SENOKOT S) TABLET PO SCH ×2 (08:25→19:56)
[2021-05-19] MEDS: polyethylene glycoL POWDER 17 GM (MIRALAX) PACK PO SCH ×2 (08:25→19:56)
[2021-05-19] MEDS: LACTULOSE SYRUP 10GM/15ML (ENULOSE) 30ML UDC PO SCH ×2 (08:25→19:56)
[2021-05-19] MEDS: acetaZOLAMIDE 250 MG (DIAMOX) TAB PO SCH ×2 (08:27→19:56)
[2021-05-19] MEDS: RT--FLUTICASONE/SALMETEROL 113-14 (AIRDUO RespiCLICK) IH SCH ×2 (10:09→21:50)
[2021-05-19] MEDS: RT-ALBUTEROL HFA 8.5 GM INHALER IH SCH ×3 (10:09→21:50)
--- NOTE | 2021-05-19 11:08 | Progress Note - Hospitalist ---
Subjective HPI/CC On Admission Date Seen by Provider: May 19, 2021 Time Seen by Provider: 09:30 70 yo readmitted, just discharged on 04/16 after an episode of hypercapneic respiratory failure requiring intubation and treatment for bilateral pneumonia, she was [facility], just went home and then had recurrent shortness of breath. She has had COVID vaccines, it sounds like with booster as well. She is negative for influenza. Her speech is quite slow to answer, but she does answer questions appropriately. When asked if she uses cpap or bipap at night she said yes but was difficult to clarify if this is actually accurate. Subjective/Events-last exam Patient voices no complaints. Response time is decreased and she actually feels a little bit better per her report. She refused sitting on the edge of the bed and up until yesterday had refused any type of physical therapy at all but did consent to in bed mobility see therapy note. She denies chest pain or shortness of breath. Objective Exam Vital Signs Vital Signs Date Time Temp Pulse Resp B/P (MAP) Pulse Ox O2 Delivery O2 Flow Rate FiO2 05/19/21 10:09 91 Nasal Cannula 3.00 05/19/21 07:38 36.0 60 18 102/66 (78) 05/14/21 21:48 93 Capillary Refill : Less Than 3 Seconds General Appearance: No Apparent Distress, Chronically ill Respiratory: No Accessory Muscle Use, No Respiratory Distress, Other (Coarse breath sounds unchanged with some mild expiratory wheezing) Cardiovascular: No Murmur, Irregularly Irregular Gastrointestinal: Normal Bowel Sounds, No Organomegaly, No Pulsatile Mass, Non Tender, Soft Results/Procedures Lab Patient resulted labs reviewed. Assessment/Plan Assessment and Plan Assess & Plan/Chief Complaint (1) Acute on chronic respiratory failure with hypoxia and hypercapnia Status: Acute Assessment & Plan: 05/13: Patient with baseline oxygen requirement, will continue to titrate as tolerated, IV steroids, MAT protocol 05/14: At home oxygen requirement, transitioned to PO steroids 05/15: MAT protocol, continue to titrate as tolerated 05/16: Patient at baseline, continue MAT protocol, Steroid taper 05/17: Steroid tap 05/18: Extreme multifactorial deconditioning with most prominent component likely being severe COPD with hypercapnic acute on chronic respiratory failure. Continue above therapeutics and will have nurse talk with about whether or not he is really going to be able to meet her care needs which I doubt. She [facility] been [facility] as she has used up all of her skilled days and this would be [id number]. Prognosis extremely poor. Curtis benjamin encouraged the patient work with physical therapy which she continues to refuse. Discussed that she can expect only worsening symptoms with her immobility which persists due to her physical therapy refusal. 05/19: Unchanged from above. Patient does have stable leukocytosis with white count in the 20,000 range with left shift. There is no evidence suggest ongoing uncontrolled bacterial infection on examination and this very well may be a steroid effect all the other issues like CML or other malignancy related leukocytosis are in the differential but can be worked up at a later date due to extremely poor performance status and multiple medical comorbidities. She essentially has reached maximal hospital benefits and we would be best served in a long-term care facility that she refuses. She will be discharged the beginning of the week but will be high risk for readmission due to her refusal for skilled care. We will be setting up home health on discharge likely beginning of this coming week. (2) Obesity hypoventilation syndrome Status: Chronic Assessment & Plan: 05/13: Patient brought in home bipap and states that she slept better last night (3) Hypercapnic respiratory failure Status: Acute (4) Paroxysmal A-fib Status: Acute Assessment & Plan: 05/13: Dr Burger consulted, Started on Sotalol, will require at least 3 days of monitoring 05/14: Sotalol d/c due to prolonged QTc 05/15: Rate controlled currently, PO anticoagulate (5) COPD exacerbation Status: Acute (6) Physical debility Status: Acute Assessment & Plan: 05/13: PT 05/14: prefers SNF however she does not have skilled days available, working on placement or possible home with HH 05/15: Patient will have to go home with HH when able, not ready for d/c at this time 05/17: Discussed that patient needs to participate with PT (7) DVT prophylaxis Status: Acute Assessment & Plan: - Continue PO anticoagulant, encourage ambulation with PT Critical Care Critically Ill Patient SPENCER LYNN MD May 19, 2021 11:08
[2021-05-19 11:54] VITALS: BP 122/58
--- NOTE | 2021-05-19 16:07 | Progress Note - Cardiology ---
Cardiology SOAP Progress Note Subjective: Gen weakness and malaise present No cp or palp or syncope Shortness of breath with activity No n/v/d Objective: I&O/Vital Signs 05/19/21 05/19/21 05/19/21 05/19/21 04:48 07:00 07:38 08:15 Temp 36.2 36.0 Pulse 92 99 60 Resp 20 18 B/P (MAP) 150/68 (95) 102/66 (78) Pulse Ox 94 96 O2 Delivery Nasal Cannula Nasal Cannula Nasal Cannula O2 Flow Rate 3.00 3.00 3.00 05/19/21 05/19/21 05/19/21 05/19/21 10:09 11:54 12:35 15:21 Temp 36.2 Pulse 77 78 Resp 18 B/P (MAP) 122/58 (79) Pulse Ox 91 96 95 O2 Delivery Nasal Cannula Nasal Cannula Nasal Cannula O2 Flow Rate 3.00 3.00 3.00 05/19/21 00:00 Intake Total 915 ml Output Total 350 ml Balance 565 ml Weight (Pounds): 140 Weight (Calculated Kilograms): 63.784370 Constitutional: AAO x 3, well-developed, well-nourished Respiratory: No accessory muscle use, No respiratory distress; other (diminished througout with poor inspiratory effort) Cardiovascular: irregularly irregular; No JVD; S1 and S2 Gastrointestional: audible bowel sounds Extremities: no lower extremity edema bilateral Neurologic/Psychiatric: other (moves all limbs equally) Skin: No rash on exposed areas, No ulcerations on exposed areas Results/Procedures: Labs Laboratory Tests 05/18/21 16:46: Glucometer 210H 05/18/21 20:04: Glucometer 187H 05/19/21 05:54: Glucometer 94 05/19/21 10:14: Glucometer 314H Laboratory Tests 05/18/21 08:00 A/P: Assessment: Paroxysmal atrial fibrillation - was diagnosed on April 06, 2021, on Xarelto. - Unable to tolerate sotalol due to QT prolongation after 2 doses of sotalol. - Unable to tolerate amiodarone due to respiratory insufficiency. Generalized weakness and fatigue Acute respiratory insufficiency due to acute exacerbation of COPD with hypercapnia - management per Medical services Echocardiogram done on April 03, [address] Jennyfer showing normal LV size with EF 55 to 65%. Morbid obesity. History of tobaccoism, stopped smoking about 4 years ago Plan: Continue current cardiac regimen Monitor lab Replace electrolytes as indicated STEPH AHMADI MD FACP FAC CCDS May 19, 2021 16:07
[2021-05-19 16:15] VITALS: BP 133/70
[2021-05-19] MEDS: RIVAROXABAN 20 MG TABLET (XARELTO) PO SCH (17:11)
[2021-05-19 19:44] VITALS: BP 116/71
[2021-05-20] VITALS (7 sets, daily range): BP systolic 111–129; BP diastolic 59–76
[2021-05-20] MEDS: inSUlin ASPART (NovoLOG) 1 UNIT/0.01 ML (CHARGE PER UNIT) SC SCH ×4 (05:20→20:42)
[2021-05-20] MEDS: KCL 10 MEQ TAB (MICRO K) PO SCH (06:02)
[2021-05-20] MEDS: predniSONE 20 MG TAB PO SCH (06:02)
[2021-05-20] MEDS: CATHETER FLUSH 10 ML SYR IV SCH ×3 (06:02→20:43)
[2021-05-20] MEDS: FUROSEMIDE 40 MG/4 ML INJ (LASIX) IV SCH (06:02)
[2021-05-20] MEDS: meTOproloL SUCCINATE 50 MG (TOPROL XL) TAB PO SCH (09:23)
[2021-05-20] MEDS: polyethylene glycoL POWDER 17 GM (MIRALAX) PACK PO SCH ×2 (09:23→20:42)
[2021-05-20] MEDS: LACTULOSE SYRUP 10GM/15ML (ENULOSE) 30ML UDC PO SCH ×2 (09:23→20:42)
[2021-05-20] MEDS: PANTOPRAZOLE 40 MG (PROTONIX) TAB PO SCH (09:23)
[2021-05-20] MEDS: acetaZOLAMIDE 250 MG (DIAMOX) TAB PO SCH ×2 (09:23→20:42)
[2021-05-20] MEDS: SENNA W/DOCUSATE (SENOKOT S) TABLET PO SCH ×2 (09:23→20:42)
[2021-05-20] MEDS: ALPRAZolam 0.5 MG (XANAX) TAB PO PRN (09:28)
--- NOTE | 2021-05-20 10:02 | Cardiology Progress Note ---
Subjective Date Seen by Provider: May 20, 2021 Time Seen by Provider: 10:01 Subjective/Events-last exam Patient is laying down in bed, feeling better. No new complaint. No chest pain. Review of Systems General: No Chills, No Night Sweats; Fatigue; No Malaise, No Appetite, No Other HEENT: No Head Aches, No Visual Changes, No Eye Pain, No Ear Pain, No Dysphasia, No Sinus Congestion, No Post Nasal Drip, No Sore Throat, No Other Pulmonary: Dyspnea; No Cough, No Pleuritic Chest Pain, No Other Cardiovascular: No: Chest Pain, Palpitations, Orthopnea, Paroxysmal Noc. Dyspnea, Edema, Lt Headedness, Other Objective-Cardiology Exam Last Set of Vital Signs Vital Signs 05/14/21 05/20/21 21:48 08:06 Temp 35.6 Pulse 75 Resp 18 B/P (MAP) 128/76 (93) Pulse Ox 96 O2 Delivery Nasal Cannula O2 Flow Rate 3.00 FiO2 93 I&O Intake and Output 05/20/21 00:00 Intake Total 1245 ml Output Total 1300 ml Balance -55 ml Intake Oral 1245 ml Output Urine Total 1300 ml General: Alert, Oriented X3, Cooperative, Moderate Distress HEENT: Atraumatic, PERRLA Neck: Supple, No JVD, No Thyromegaly Lungs: Clear to Auscultation, Normal Air Movement Heart: Regular Rate, Normal S1, Normal S2, No Murmurs Abdomen: Normal Bowel Sounds, Soft, No Tenderness, No Masses Extremities: No Clubbing, No Cyanosis, No Edema, No Tenderness/Swelling Skin: No Rashes, No Breakdown, No Significant Lesion Neuro: Normal Speech Psych/Mental Status: Mental Status NL, Mood NL Results Lab Laboratory Tests Test 05/19/21 10:14 05/19/21 16:19 05/19/21 20:54 05/20/21 04:48 Range/Units Glucometer 314 H 268 H 148 H 83 70-110 MG/DL A/P-Cardiology Admission Diagnosis Paroxysmal atrial fibrillation Acute exacerbation of COPD Assessment/Plan Paroxysmal atrial fibrillation, was diagnosed on April 06, 2021 on admission. She was started on Xarelto. Patient does not recall having history of atrial fibrillation but during her hospitalization April she had multiple episodes of paroxysmal atrial fibrillation. Unable to tolerate sotalol due to QT prolongation after 2 doses of sotalol. Unable to tolerate amiodarone due to respiratory insufficiency. I will continue with rate control medication and continue to monitor. Generalized weakness and fatigue probably secondary to hypoxemia. Managed by medical team [id number] score 2, maintained on Xarelto as an outpatient which will be continuing Acute respiratory insufficiency with acute exacerbation of COPD with hypercapnia. Managed by medical team Echocardiogram done on April 03, 2021 showing normal LV size with EF 55 to 65%. Obesity, BMI 32. History of tobaccoism, stopped smoking about 4 years ago SHERLY MCKINLEY MD May 20, 2021 10:02
--- NOTE | 2021-05-20 10:26 | Physical Therapy Progress Note ---
Therapy Progress Note Patient adamantly declined PT stating, "I want to be left alone." PT attempted to educate patient on importance of participating with therapy to increase strength to safely return to home, however, patient continued to decline PT. 1 ref KATHRYN FRANKEL PT May 20, 2021 10:26
[2021-05-20] MEDS: RT--FLUTICASONE/SALMETEROL 113-14 (AIRDUO RespiCLICK) IH SCH ×2 (10:38→21:19)
[2021-05-20] MEDS: RT-ALBUTEROL HFA 8.5 GM INHALER IH SCH ×3 (10:38→21:19)
--- NOTE | 2021-05-20 11:53 | Progress Note - Hospitalist ---
Subjective HPI/CC On Admission Date Seen by Provider: May 20, 2021 Time Seen by Provider: 10:00 70 yo readmitted, just discharged on 04/16 after an episode of hypercapneic respiratory failure requiring intubation and treatment for bilateral pneumonia, she was discharged to [facility], just went home and then had recurrent shortness of breath. She has had COVID vaccines, it sounds like with booster as well. She is negative for influenza. Her speech is quite slow to answer, but she does answer questions appropriately. When asked if she uses cpap or bipap at night she said yes but was difficult to clarify if this is actually accurate. Subjective/Events-last exam No change in status only complaints as she is bedfast that she occasionally has accidents and believes that she has had another 1 in regards to fecal incontinence. She denies pain and appetite has been fair and denies shortness of breath. She is allowing bed range of mobility but is still refusing to get out of bed using a bedpan. Objective Exam Vital Signs Vital Signs Date Time Temp Pulse Resp B/P (MAP) Pulse Ox O2 Delivery O2 Flow Rate FiO2 05/20/21 10:38 94 Nasal Cannula 3.00 05/20/21 08:06 35.6 75 18 128/76 (93) 05/14/21 21:48 93 Capillary Refill : Less Than 3 Seconds General Appearance: No Apparent Distress, Chronically ill Respiratory: No Accessory Muscle Use, No Respiratory Distress, Other (Chest clear anteriorly no wheezing rales or rhonchi few diminished breath sounds in the bases) Cardiovascular: No Murmur Gastrointestinal: Normal Bowel Sounds, No Organomegaly, No Pulsatile Mass, Non Tender, Soft Extremity: No Pedal Edema Results/Procedures Lab Patient resulted labs reviewed. Assessment/Plan Assessment and Plan Assess & Plan/Chief Complaint (1) Acute on chronic respiratory failure with hypoxia and hypercapnia Status: Acute Assessment & Plan: 05/13: Patient with baseline oxygen requirement, will continue to titrate as tolerated, IV steroids, MAT protocol 05/14: At home oxygen requirement, transitioned to PO steroids 05/15: MAT protocol, continue to titrate as tolerated 05/16: Patient at baseline, continue MAT protocol, Steroid taper 05/17: Steroid tap 05/18: Extreme multifactorial deconditioning with most prominent component likely being severe COPD with hypercapnic acute on chronic respiratory failure. Co ntinue above therapeutics and will have nurse talk with about whether or not he is really going to be able to meet her care needs which I doubt. She has been adamant about not going to [facility] as she has used up all of her skilled days and this would be [id number]. Prognosis extremely poor. Strongly encouraged the patient work with physical therapy which she continues to refuse. Discussed that she can expect only worsening symptoms with her immobility which persists due to her physical therapy refusal. 05/19: Unchanged from above. Patient does have stable leukocytosis with white count in the 20,000 range with left shift. There is no evidence suggest ongoing uncontrolled bacterial infection on examination and this very well may be a steroid effect all the other issues like CML or other malignancy related leukocytosis are in the differential but can be worked up at a later date due to extremely poor performance status and multiple medical comorbidities. She essentially has reached maximal hospital benefits and we would be best served in a long-term care facility that she refuses. She will be discharged the beginni ng of the week but will be high risk for readmission due to her refusal for skilled care. We will be setting up home health on discharge likely beginning of this coming week 05/20: Had initially discussed discharge possibly today or tomorrow however in review of her record she is still on 40 mg of prednisone daily and is having blood sugars in the low 300 range at times during the day on 10 units of Levemir at bedtime and sliding scale insulin. At home she did not have any diabetic medication listed. As she is extremely high risk for return today we will decrease her prednisone to 20 mg daily which will not start until the morning and likely have to hold discharge for a couple of days as the family is not likely to be able to aid in insulin administration. We will also discontinue IV Lasix and switch to oral Lasix. We will plan on home health but unless the patient changes her mind well we have encouraged physical therapy daily she continues to refuse. 05/20 (2) Obesity hypoventilation syndrome Status: Chronic Assessment & Plan: 05/13: Patient brought in home bipap and states that she slept better last night (3) Hypercapnic respiratory failure Status: Acute (4) Paroxysmal A-fib Status: Acute Assessment & Plan: 05/13: Dr Jennyfer faustin, Started on Sotalol, will require at least 3 days of monitoring 05/14: Sotalol d/c due to prolonged QTc 05/15: Rate controlled currently, PO anticoagulate (5) COPD exacerbation Status: Acute (6) Physical debility Status: Acute Assessment & Plan: 05/13: PT 05/14: prefers SNF however she does not have skilled days available, working on placement or possible home with HH 05/15: Patient will have to go home with HH when able, not ready for d/c at this time 05/17: Discussed that patient needs to participate with PT (7) DVT prophylaxis Status: Acute Assessment & Plan: - Continue PO anticoagulant, encourage ambulation with PT Critical Care Critically Ill Patient SPENCER LYNN MD May 20, 2021 11:53
[2021-05-20 12:20] LABS: BASOPHILS % (AUTO) 0 % (0-10); EOSINOPHILS % (AUTO) 0 % (0-10); HEMATOCRIT 36 % (35-52); LYMPHOCYTES # (AUTO) 0.3 10^3/uL (1.0-4.0); LYMPHOCYTES % (AUTO) 1 % (12-44); MEAN CORPUSCULAR HEMOGLOBIN 32 pg (25-34); MEAN CORPUSCULAR HGB CONC 31 g/dL (32-36); MEAN CORPUSCULAR VOLUME 103 fL (80-99); MONOCYTES # (AUTO) 0.2 10^3/uL (0.0-1.0); MONOCYTES % (AUTO) 1 % (0-12); NEUTROPHILS # (AUTO) 24.1 10^3/uL (1.8-7.8); NEUTROPHILS % (AUTO) 95 % (42-75); PLATELET COUNT 234 10^3/uL (130-400); WHITE BLOOD COUNT 25.4 10^3/uL (4.3-11.0)
[2021-05-20 12:30] LABS: POTASSIUM 4.3 MMOL/L (3.6-5.0)
[2021-05-20 12:32] LABS: CALCIUM 8.6 MG/DL (8.5-10.1)
[2021-05-20 12:36] LABS: CREATININE SERUM 1.39 MG/DL (0.60-1.30)
[2021-05-20 12:38] LABS: MAGNESIUM 2.1 MG/DL (1.6-2.4)
[2021-05-20] MEDS: RIVAROXABAN 20 MG TABLET (XARELTO) PO SCH (17:05)
[2021-05-21] VITALS (7 sets, daily range): BP systolic 109–160; BP diastolic 54–73
[2021-05-21] MEDS: predniSONE 20 MG TAB PO SCH (05:50)
[2021-05-21] MEDS: CATHETER FLUSH 10 ML SYR IV SCH ×3 (05:51→21:11)
[2021-05-21] MEDS: KCL 10 MEQ TAB (MICRO K) PO SCH (05:51)
[2021-05-21] MEDS: inSUlin ASPART (NovoLOG) 1 UNIT/0.01 ML (CHARGE PER UNIT) SC SCH ×4 (05:51→20:56)
[2021-05-21 07:23] LABS: BASOPHILS # (AUTO) 0.1 10^3/uL (0.0-0.1); BASOPHILS % (AUTO) 0 % (0-10); EOSINOPHILS # (AUTO) 0.1 10^3/uL (0.0-0.3); EOSINOPHILS % (AUTO) 0 % (0-10); HEMATOCRIT 35 % (35-52); HEMOGLOBIN 10.8 g/dL (11.5-16.0); LYMPHOCYTES # (AUTO) 0.6 10^3/uL (1.0-4.0); LYMPHOCYTES % (AUTO) 2 % (12-44); MEAN CORPUSCULAR HEMOGLOBIN 32 pg (25-34); MEAN CORPUSCULAR HGB CONC 31 g/dL (32-36); MEAN CORPUSCULAR VOLUME 103 fL (80-99); MEAN PLATELET VOLUME 11.7 fL (9.0-12.2); MONOCYTES # (AUTO) 0.6 10^3/uL (0.0-1.0); MONOCYTES % (AUTO) 3 % (0-12); NEUTROPHILS # (AUTO) 21.2 10^3/uL (1.8-7.8); NEUTROPHILS % (AUTO) 92 % (42-75); PLATELET COUNT 209 10^3/uL (130-400); WHITE BLOOD COUNT 23.1 10^3/uL (4.3-11.0)
[2021-05-21] MEDS: RT--FLUTICASONE/SALMETEROL 113-14 (AIRDUO RespiCLICK) IH SCH ×2 (07:25→20:50)
[2021-05-21] MEDS: RT-ALBUTEROL HFA 8.5 GM INHALER IH SCH ×3 (07:25→20:47)
[2021-05-21 07:40] LABS: BILIRUBIN,TOTAL 0.4 MG/DL (0.1-1.0); CALCIUM 8.9 MG/DL (8.5-10.1); CREATININE SERUM 0.97 MG/DL (0.60-1.30); POTASSIUM 3.8 MMOL/L (3.6-5.0); TOTAL PROTEIN 5.4 GM/DL (6.4-8.2)
--- NOTE | 2021-05-21 08:13 | Cardiology Progress Note ---
Subjective Date Seen by Provider: May 21, 2021 Time Seen by Provider: 08:12 Subjective/Events-last exam Patient is laying down in bed, feeling better. No new complaint. Review of Systems General: No Chills, No Night Sweats; Fatigue; No Malaise, No Appetite, No Other HEENT: No Head Aches, No Visual Changes, No Eye Pain, No Ear Pain, No Dysphasia, No Sinus Congestion, No Post Nasal Drip, No Sore Throat, No Other Pulmonary: No Dyspnea, No Cough, No Pleuritic Chest Pain, No Other Cardiovascular: No: Chest Pain, Palpitations, Orthopnea, Paroxysmal Noc. Dyspnea, Edema, Lt Headedness, Other Objective-Cardiology Exam Last Set of Vital Signs Vital Signs 05/21/21 05/21/21 04:44 08:10 Temp 35.9 Pulse 89 Resp 18 B/P (MAP) 134/65 (88) Pulse Ox 97 O2 Delivery Nasal Cannula O2 Flow Rate 2.50 I&O Intake and Output 05/20/21 23:59 Intake Total 1100 ml Output Total 775 ml Balance 325 ml Intake Oral 1100 ml Output Urine Total 775 ml # Voids 1 # Bowel Movements 1 General: Alert, Oriented X3, Cooperative, Moderate Distress HEENT: Atraumatic, PERRLA Neck: Supple, No JVD, No Thyromegaly Lungs: Clear to Auscultation, Normal Air Movement Heart: Regular Rate, Normal S1, Normal S2, No Murmurs Abdomen: Normal Bowel Sounds, Soft, No Tenderness, No Masses Extremities: No Clubbing, No Cyanosis, No Edema, No Tenderness/Swelling Skin: No Rashes, No Breakdown, No Significant Lesion Neuro: Normal Speech Psych/Mental Status: Mental Status NL, Mood NL Results Lab Laboratory Tests 05/20/21 12:14 05/21/21 07:15 A/P-Cardiology Admission Diagnosis Paroxysmal atrial fibrillation Acute exacerbation of COPD Assessment/Plan Paroxysmal atrial fibrillation, was diagnosed on April 06, 2021 on admission. She was started on Xarelto. Patient does not recall having history of atrial fibrillation but during her hospitalization April she had multiple episodes of paroxysmal atrial fibrillation. Unable to tolerate sotalol due to QT prolongation after 2 doses of sotalol. Unable to tolerate amiodarone due to respiratory insufficiency. Converted to sinus rhythm on May 21, 2021, I will start Multaq and evaluate tolerance and response Generalized weakness and fatigue probably secondary to hypoxemia. Managed by medical team [id number] score 2, maintained on Xarelto as an outpatient which will be continuing Acute respiratory insufficiency with acute exacerbation of COPD with hypercapnia. Managed by medical team Echocardiogram done on April 03, 2021 showing normal LV size with EF 55 to 65%. Obesity, BMI 32. History of tobaccoism, stopped smoking about 4 years ago SHERLY MCKINLEY MD May 21, 2021 08:13
[2021-05-21] MEDS: polyethylene glycoL POWDER 17 GM (MIRALAX) PACK PO SCH ×2 (09:08→21:10)
[2021-05-21] MEDS: LACTULOSE SYRUP 10GM/15ML (ENULOSE) 30ML UDC PO SCH ×2 (09:08→21:10)
[2021-05-21] MEDS: acetaZOLAMIDE 250 MG (DIAMOX) TAB PO SCH ×2 (09:09→21:09)
[2021-05-21] MEDS: PANTOPRAZOLE 40 MG (PROTONIX) TAB PO SCH (09:09)
[2021-05-21] MEDS: SENNA W/DOCUSATE (SENOKOT S) TABLET PO SCH ×2 (09:09→21:10)
[2021-05-21] MEDS: meTOproloL SUCCINATE 50 MG (TOPROL XL) TAB PO SCH (09:09)
[2021-05-21] MEDS: DRONEDARONE 400 MG TABLET PO SCH ×2 (09:10→21:09)
[2021-05-21] MEDS: FUROSEMIDE 40 MG (LASIX) TAB PO SCH (09:10)
--- NOTE | 2021-05-21 09:26 | Physical Therapy Progress Note ---
Therapy Progress Note Patient refused therapy. PT actively encouraged patient to get out of bed and was educated on importance of moving and getting out of bed. Patient was encouraged to sit EOB or bed exercises and patient refused. Patient reported that she was too tired to perform any exercises or get out of bed. Patient reported that she was confused. Patient was educated on importance of performing exercises so she can get stronger to go home. 1 ref KATHRYN FRANKEL PT May 21, 2021 09:26
--- NOTE | 2021-05-21 09:39 | Progress Note - Hospitalist ---
Subjective HPI/CC On Admission Date Seen by Provider: May 21, 2021 Time Seen by Provider: 10:00 70 yo readmitted, just discharged on 04/16 after an episode of hypercapneic respiratory failure requiring intubation and treatment for bilateral pneumonia, she was discharged to assisted, just went home and then had recurrent shortness of breath. She has had COVID vaccines, it sounds like with booster as well. She is negative for influenza. Her speech is quite slow to answer, but she does answer questions appropriately. When asked if she uses cpap or bipap at night she said yes but was difficult to clarify if this is actually accurate. Subjective/Events-last exam Pt is bed ridden Pt refuses therapy Otherwise medically stable Needs penitentiary placement but refuses Needs hospice Review of Systems General: Fatigue, Malaise Objective Exam Vital Signs Vital Signs Date Time Temp Pulse Resp B/P (MAP) Pulse Ox O2 Delivery O2 Flow Rate FiO2 05/22/21 03:27 35.8 70 20 103/63 (76) 97 Nasal Cannula 3.00 Capillary Refill : Less Than 3 Seconds General Appearance: No Apparent Distress, WD/WN, Chronically ill Respiratory: Lungs Clear, Normal Breath Sounds Cardiovascular: Regular Rate, Rhythm Neurologic/Psychiatric: Alert, Oriented x3, No Motor/Sensory Deficits, Normal Mood/Affect Results/Procedures Lab Laboratory Tests 05/21/21 07:15 Patient resulted labs reviewed. Assessment/Plan Assessment and Plan Assess & Plan/Chief Complaint Assessment: Acute on chronic respiratory failure Obesity hypoventilation syndrome with chronic hypercapnia CO2 narcosis Use of trilogy BiPAP machine at home Obesity BMI 33 Exacerbation of COPD Exacerbation congestive heart failure Atrial fibrillation with RVR consulted Dr. Burger Oral anticoagulant maintained Plan: Current meds BiPAP Supportive care Appreciate Dr. Burger 05/12/2019: Appreciate cardiology Bring in trilogy machine from home Replace potassium 05/21/21: DC tomorrow on HH Needs Hospice and NHP Critical Care Critically Ill Patient ROMEO OLSON DO May 21, 2021 09:39
[2021-05-21] MEDS: RIVAROXABAN 20 MG TABLET (XARELTO) PO SCH (16:56)
[2021-05-22 03:27] VITALS: BP 103/63
[2021-05-22] MEDS: predniSONE 20 MG TAB PO SCH (05:12)
[2021-05-22] MEDS: KCL 10 MEQ TAB (MICRO K) PO SCH (05:12)
[2021-05-22] MEDS: CATHETER FLUSH 10 ML SYR IV SCH (05:17)
[2021-05-22] MEDS: inSUlin ASPART (NovoLOG) 1 UNIT/0.01 ML (CHARGE PER UNIT) SC SCH ×2 (05:17→12:12)
[2021-05-22 06:36] LABS: BASOPHILS # (AUTO) 0.1 10^3/uL (0.0-0.1); BASOPHILS % (AUTO) 0 % (0-10); EOSINOPHILS # (AUTO) 0.2 10^3/uL (0.0-0.3); EOSINOPHILS % (AUTO) 1 % (0-10); HEMATOCRIT 36 % (35-52); HEMOGLOBIN 10.9 g/dL (11.5-16.0); LYMPHOCYTES # (AUTO) 0.7 10^3/uL (1.0-4.0); LYMPHOCYTES % (AUTO) 3 % (12-44); MEAN CORPUSCULAR HEMOGLOBIN 32 pg (25-34); MEAN CORPUSCULAR HGB CONC 30 g/dL (32-36); MEAN CORPUSCULAR VOLUME 104 fL (80-99); MEAN PLATELET VOLUME 12.2 fL (9.0-12.2); MONOCYTES # (AUTO) 0.6 10^3/uL (0.0-1.0); MONOCYTES % (AUTO) 3 % (0-12); NEUTROPHILS % (AUTO) 90 % (42-75); PLATELET COUNT 202 10^3/uL (130-400); WHITE BLOOD COUNT 22.2 10^3/uL (4.3-11.0)
[2021-05-22] MEDS ORDERED: DILT240C91 PO (06:44)
[2021-05-22] MEDS ORDERED: DRON400T6 PO (06:44)
[2021-05-22] MEDS ORDERED: POTA-160 PO (06:44)
[2021-05-22] MEDS ORDERED: PRD20T PO (06:44)
[2021-05-22] MEDS ORDERED: FURO40TA4 PO (06:44)
[2021-05-22] MEDS ORDERED: ACET250T3 PO (06:44)
[2021-05-22] MEDS ORDERED: POLY17PO54 PO (06:44)
--- NOTE | 2021-05-22 06:45 | D/C HH Face to Face Order ---
D/C Face to Face Orders Reconcile Patient Problems Problems Reviewed?: Yes Instructions for Patient HH Patient Instructions/FollowUp: [facility] 1 week Physician to follow Patient: [facility] Discharge Diet for Home: Regular Diet Patient Problems: COPD Patient Data-Allergies,Ht & Wt Patient Allergies: Coded Allergies: Sulfa (Sulfonamide Antibiotics) (Verified Allergy, Unknown, Hives, 09/01/19) corn (Verified Allergy, Unknown, 04/09/21) ibuprofen (Verified Allergy, Unknown, Hives, 09/01/19) sulfamethoxazole (Verified Allergy, Unknown, Hives, 09/01/19) trimethoprim (Verified Allergy, Unknown, Hives, 09/01/19) Height (Feet): 4 Height (Inches): 11.00 Weight (Pounds): 140 Home Health Need/Face to Face Date of Face to Face: May 22, 2021 Clinical Findings: Generalized weakness and fatigue, Instability, Muscle weakness, Shortness of breath I have seen Pt [id number]: Yes Discharged To: Home Diagnosis/Conditions: Debility Patient is Homebound due to: Muscle weakness, Shortness of breath/distress Homebound Status Due to the above stated illness, injury or surgical procedure (medical condition or diagnosis) and associated clinical findings, the patient is homebound because of his/her inability to leave home except with aid of a supportive device and/or person AND leaving the home requires a considerable and taxing effort or is medically contraindicated. Pt req the following assistanc: [facility] Nursing Orders Home Health Services Order: Nursing Services, Crew Foreman-Evaluate & Treat, Physical Therapy-Evaluate & Treat Home Health Infusion Therapy Line Start Date: May 08, 2021 Certify Stmt I certify that this patient is under my care and that I, a nurse practitioner or a physician; a assistant women's basketball coach working with me, had a face to face encounter that - meets the physician face to face encounter requirements with this patient as dated. ROMEO OLSON DO May 22, 2021 06:45
--- NOTE | 2021-05-22 06:45 | Discharge Summary ---
Discharge Summary Hospital Course Was the Problem List Reviewed?: Yes Problems/Dx: (1) Acute on chronic respiratory failure with hypoxia and hypercapnia Status: Acute (2) Hypercapnic respiratory failure Status: Acute (3) Physical debility Status: Acute (4) Paroxysmal A-fib Status: Acute (5) Obesity hypoventilation syndrome Status: Chronic (6) COPD exacerbation Status: Acute (7) DVT prophylaxis Status: Acute (8) Congestive heart disease Status: Acute (9) Chronic kidney disease Status: Chronic (10) Hyperlipidemia Status: Chronic (11) Anxiety Status: Chronic (12) COPD (chronic obstructive pulmonary disease) Status: Chronic Hospital Course Date of Admission: May 09, 2021 at 02:44 Admission Diagnosis : Family Physician/Provider: Eloy Regalado MD Date of Discharge: 05/22/21 Discharge Diagnosis: AECOPD, PAF, OHA Hospital Course: Pt had a lengthy two week hospital course after she was admitted for acute exacerbation of COPD and hypercapnia with respiratory acidosis from obesity hypo ventilation syndrome. She did return back to her trilogy machine and she improved enough but very poor motivation and remained mostly bed ridden and declined any type of retirement placement. HH was arranged and she was discharged home in stable condition. Labs and Pending Lab Test: Laboratory Tests 05/21/21 07:15: White Blood Count 23.1H, Red Blood Count 3.39L, Hemoglobin 10.8L, Hematocrit 35, Mean Corpuscular Volume 103H, Mean Corpuscular Hemoglobin 32, Mean Corpuscular Hemoglobin Concent 31L, Red Cell Distribution Width 13.5, Platelet Count 209, Mean Platelet Volume 11.7, Immature Granulocyte % (Auto) 2, Neutrophils (%) ( Auto) 92H, Lymphocytes (%) (Auto) 2L, Monocytes (%) (Auto) 3, Eosinophils (%) (Auto) 0, Basophils (%) (Auto) 0, Neutrophils # (Auto) 21.2H, Lymphocytes # (Auto) 0.6L, Monocytes # (Auto) 0.6, Eosinophils # (Auto) 0.1, Basophils # (Auto) 0.1, Immature Granulocyte # (Auto) 0.5H, Sodium Level 137, Potassium Level 3.8, Chloride Level 98, Carbon Dioxide Level 31, Anion Gap 8, Blood Urea Nitrogen 41H, Creatinine 0.97, Estimat Glomerular Filtration Rate 63, BUN/Creatinine Ratio 42, Glucose Level 86, Calcium Level 8.9, Corrected Calcium 9.7, Total Bilirubin 0.4, Aspartate Amino Transf (AST/SGOT) 30, Alanine Aminotransferase (ALT/SGPT) 60H, Alkaline Phosphatase 71, Total Protein 5.4L, Albumin 3.0L 05/21/21 11:21: Glucometer 282H 05/21/21 16:25: Glucometer 190H 05/21/21 20:36: Glucometer 142H 05/22/21 05:16: Glucometer 73 05/22/21 06:10: White Blood Count 22.2H, Red Blood Count 3.46L, Hemoglobin 10.9L, Hematocrit 36, Mean Corpuscular Volume 104H, Mean Corpuscular Hemoglobin 32, Mean Corpuscular Hemoglobin Concent 30L, Red Cell Distribution Width 13.5, Platelet Count 202, Mean Platelet Volume 12.2, Immature Granulocyte % (Auto) 3, Neutrophils (%) (Auto) 90H, Lymphocytes (%) (Auto) 3L, Monocytes (%) (Auto) 3, Eosinophils (%) (Auto) 1, Basophils (%) (Auto) 0, Neutrophils # (Auto) 20.0H, Lymphocytes # (Au to) 0.7L, Monocytes # (Auto) 0.6, Eosinophils # (Auto) 0.2, Basophils # (Auto) 0.1, Immature Granulocyte # (Auto) 0.7H, Sodium Level [Pending], Potassium Level [Pending], Chloride Level [Pending], Carbon Dioxide Level [Pending], Anion Gap [Pending], Blood Urea Nitrogen [Pending], Creatinine [Pending], BUN/Creatinine Ratio [Pending], Glucose Level [Pending], Calcium Level [Pending], Corrected Calcium [Pending], Total Bilirubin [Pending], Aspartate Amino Transf (AST/SGOT) [Pending], Alanine Aminotransferase (ALT/SGPT) [Pending], Alkaline Phosphatase [Pending], Total Protein [Pending], Albumin [Pending] Home Meds Active Prednisone 20 Mg Tab 20 Mg PO DAILY@0700 Polyethylene Glycol 3350 17 Gm Powd.pack 17 Gm PO BID Acetazolamide 250 Mg Tablet 250 Mg PO BID Furosemide 40 Mg Tablet 40 Mg PO DAILY Klor-Con 10 (Potassium Chloride) 10 Meq Tablet.er 10 Meq PO DAILY@0700 Diltiazem 24Hr ER (Diltiazem HCl) 240 Mg Cap.er.24h 240 Mg PO DAILY Multaq (Dronedarone HCl) 400 Mg Tablet 400 Mg PO BID Reported Xarelto Tablet (Rivaroxaban) 20 Mg Tablet 20 Mg PO 1700 Pantoprazole Sodium 40 Mg Tablet.dr 40 Mg PO DAILY Diltiazem 24Hr ER (Diltiazem HCl) 120 Mg Cap.er.24h 120 Mg PO DAILY Metoprolol Succinate 50 Mg Tab.er.24h 50 Mg PO DAILY Advair 250-50 Diskus (Fluticasone/Salmeterol) 1 Each Blst.w.dev 1 Puff INH BID Iprat-Albut 0.5-3(2.5) mg/3 ml (Ipratropium/Albuterol Sulfate) 3 Ml Ampul.neb 3 Ml NEB Q8H PRN Lasix (Furosemide) 40 Mg Tablet 40 Mg PO DAILY PRN Proair Hfa (Albuterol Sulfate) 1 Puff Puff 2 Puff IH Q4H PRN Alprazolam 0.5 Mg Tablet 0.5 Mg PO BID PRN Prednisone 5 Mg Tablet 10 Mg PO DAILY TAKES 2 (5MG) TABS LAST FILLED 03-21-2021 #60/30 DAY SUPPLY Assessment/Pt Instructions PCP 1 week Discharge Planning: <30 minutes discharge planning Discharge Instructions Discharge Diet: No Restrictions Discharge Physical Examination Vital Signs Vital Signs Date Time Temp Pulse Resp B/P (MAP) Pulse Ox O2 Delivery O2 Flow Rate FiO2 05/22/21 03:27 35.8 70 20 103/63 (76) 97 Nasal Cannula 3.00 General Appearance: No Apparent Distress, WD/WN, Chronically ill, Obese Allergies: Coded Allergies: Sulfa (Sulfonamide Antibiotics) (Verified Allergy, Unknown, Hives, 08/31) corn (Verified Allergy, Unknown, 04/09/21) ibuprofen (Verified Allergy, Unknown, Hives, 09/01/19) sulfamethoxazole (Verified Allergy, Unknown, Hives, 09/01/19) trimethoprim (Verified Allergy, Unknown, Hives, 09/01/19) Discharge Summary Date of Admission May 09, 2021 at 02:44 Date of Discharge Discharge Date: May 22, 2021 Admission Diagnosis Discharge Diagnosis Assessment: Acute on chronic respiratory failure Obesity hypoventilation syndrome with chronic hypercapnia CO2 narcosis Use of trilogy BiPAP machine at home Obesity BMI 33 Exacerbation of COPD Exacerbation congestive heart failure Atrial fibrillation with RVR consulted Dr. Burger Oral anticoagulant maintained Plan: Current meds BiPAP Supportive care Appreciate Dr. Burger 05/12/2019: Appreciate cardiology Bring in trilogy machine from home Replace potassium 05/21/21: DC tomorrow on HH Needs Hospice and NHP ROMEO OLSON DO May 22, 2021 06:45
[2021-05-22 07:00] LABS: ALBUMIN 3.2 GM/DL (3.2-4.5); BILIRUBIN,TOTAL 0.4 MG/DL (0.1-1.0); CALCIUM 8.9 MG/DL (8.5-10.1); CREATININE SERUM 1.08 MG/DL (0.60-1.30); POTASSIUM 3.5 MMOL/L (3.6-5.0); TOTAL PROTEIN 5.7 GM/DL (6.4-8.2)
[2021-05-22 07:24] VITALS: BP 122/58
[2021-05-22] MEDS: polyethylene glycoL POWDER 17 GM (MIRALAX) PACK PO SCH (07:32)
[2021-05-22] MEDS: RT-ALBUTEROL HFA 8.5 GM INHALER IH SCH (07:32)
[2021-05-22] MEDS: RT--FLUTICASONE/SALMETEROL 113-14 (AIRDUO RespiCLICK) IH SCH (07:32)
--- NOTE | 2021-05-22 08:28 | Cardiology Progress Note ---
Subjective Date Seen by Provider: May 22, 2021 Time Seen by Provider: 08:21 Subjective/Events-last exam Patient is sitting up in bed, denies any chest pain or palpitations. Still having some dypsnea. Review of Systems General: No Chills, No Night Sweats; Fatigue, Malaise; No Appetite, No Other HEENT: No Head Aches, No Visual Changes, No Eye Pain, No Ear Pain, No Dys phasia, No Sinus Congestion, No Post Nasal Drip, No Sore Throat, No Other Pulmonary: Dyspnea; No Cough, No Pleuritic Chest Pain, No Other Cardiovascular: No: Chest Pain, Palpitations, Orthopnea, Paroxysmal Noc. Dyspnea, Edema, Lt Headedness, Other Objective-Cardiology Exam Last Set of Vital Signs Vital Signs 05/22/21 13:29 Temp 36.3 Pulse 65 Resp 22 B/P (MAP) 112/55 Pulse Ox 98 O2 Delivery Nasal Cannula O2 Flow Rate 4.00 I&O Intake and Output 05/22/21 00:00 Intake Total 930 ml Output Total 1450 ml Balance -520 ml Intake Oral 930 ml Output Urine Total 1450 ml General: Alert, Oriented X3, Cooperative, Moderate Distress HEENT: Atraumatic, PERRLA Neck: Supple, No JVD, No Thyromegaly Lungs: Clear to Auscultation, Normal Air Movement Heart: Regular Rate, Normal S1, Normal S2, No Murmurs Abdomen: Normal Bowel Sounds, Soft, No Tenderness, No Masses Extremities: No Clubbing, No Cyanosis, No Edema, No Tenderness/Swelling Skin: No Rashes, No Breakdown, No Significant Lesion Neuro: Normal Speech Psych/Mental Status: Mental Status NL, Mood NL Results Lab Laboratory Tests 05/22/21 06:10 A/P-Cardiology Admission Diagnosis Paroxysmal atrial fibrillation Acute exacerbation of COPD Assessment/Plan Paroxysmal atrial fibrillation, was diagnosed on April 06, 2021 on admission. She was started on Xarelto. Patient does not recall having history of atrial fibrillation, but during her hospitalization in April she had multiple episodes of paroxysmal atrial fibrillation. Unable to tolerate sotalol due to QT prolongation after 2 doses of sotalol. Unable to tolerate amiodarone due to respiratory insufficiency. Converted to sinus rhythm on May 21, 2021, started on Multaq, currently in SR. Generalized weakness and fatigue probably secondary to hypoxemia. Managed by medical team [id number] score 2, maintained on Xarelto as an outpatient which will be continuing Acute respiratory insufficiency with acute exacerbation of COPD with hypercapnia. Managed by medical team Echocardiogram done on April 03, 2021 showing normal LV size with EF 55 to 65%. Obesity, BMI 32. History of tobaccoism, stopped smoking about 4 years ago Patient was seen and evaluated with Alteha, examination performed, management plan was discussed, agree with the current scribed note, I made few changes to the note using Italic font Patient was seen and evaluated, was laying in bed, reported episode of hypoxemia when the oxygen was turned down Had multiple episodes of sinus rhythm on May 20, went back to A. fib then later in the afternoon went to sinus rhythm and has been maintaining sinus rhythm I added Multaq to her home meds and continue on oral anticoagulation Will arrange for follow-up as an outpatient. Supervisory-Addendum Brief Supervisory Addendum Participated in pt care: history, MDM, physical Personally performed: exam, history, MDM Care discussed with: PA Results interpretation: Verified all documentation ALETHA GRIFFIN May 22, 2021 08:28 SHERLY MCKINLEY MD May 22, 2021 13:47
[2021-05-22] MEDS: DRONEDARONE 400 MG TABLET PO SCH (08:37)
[2021-05-22] MEDS: SENNA W/DOCUSATE (SENOKOT S) TABLET PO SCH (08:38)
[2021-05-22] MEDS: acetaZOLAMIDE 250 MG (DIAMOX) TAB PO SCH (08:38)
[2021-05-22] MEDS: FUROSEMIDE 40 MG (LASIX) TAB PO SCH (08:38)
[2021-05-22] MEDS: LACTULOSE SYRUP 10GM/15ML (ENULOSE) 30ML UDC PO SCH (08:38)
[2021-05-22] MEDS: PANTOPRAZOLE 40 MG (PROTONIX) TAB PO SCH (08:38)
[2021-05-22] MEDS: meTOproloL SUCCINATE 50 MG (TOPROL XL) TAB PO SCH (08:38)
--- NOTE | 2021-05-22 08:43 | Physical Therapy Daily Note ---
PT Daily Note-Current Subjective Patient presented in bed and agreed to perform a few bed exercises. Patient refused to transfer to the chair because she was too weak. Appearance Patient in bed post tx with nurse call, phone, tray, all needs met. Mental Status Patient Orientation: Person, Confused Attachments: Oxygen, IV Transfers SCALE: Activities may be completed with or without assistive devices. 5-Xyiajcekmr-lvjxdic completes the activity by him/herself with no assistance from a helper. 5-Set-up or Clean-up Assistance-helper sets up or cleans up; patient completes activity. [place] assists only prior to or following the activity. 4-Supervision or Touching Assistance-helper provides verbal cues and/or touching/steadying and/or contact guard assistance as patient completes activity. Assistance may be provided throughout the activity or intermittently. 3-Partial/Moderate Assistance-helper does LESS THAN HALF the effort. [place] lifts, holds or supports trunk or limbs, but provides less than half the effort. 2-Substantial/Maximal Assistance-helper does MORE THAN HALF the effort. [place] lifts or holds trunk or limbs and provides more than half the effort. 5-Bhhhlirdy-zplisb does ALL the effort. Patient does none of the effort to comp lete the activity. Or, the assistance of 2 or more helpers is required for the patient to complete the activity. If activity was not attempted, code reason: 7-Patient Refused. 9-Not Applicable-not attempted and the patient did not perform the activity before the current illness, exacerbation or injury. 10-Not Attempted due to Environmental Limitations-(lack of equipment, weather restraints, etc.). 88-Not Attempted due to Medical Conditions or Safety Concerns. Exercises Supine Ex: Ankle pumps, Heel Slides, Hip abd/add Supine Reps: 10 Treatments LE strengthening Assessment Current Status: Poor Progress Patient had difficulty staying on task and performing exercise. Patient required multiple cues to continue with exercise. Patient was able to perform the three exercises listed above but required additional rest time between exercises to catch her breath. Patient was confused about performing exercises and continued to say that she did not know how to perform the exercises. PT Longterm Goals Pipe Connector Goals PT Longterm Goals Time Frame: May 25, 2021 Roll Left & Right (QC): 2 Sit to Lying (QC): 2 Lying-Sitting on Side/Bed(QC): 2 Sit to Stand (QC): 2 Chair/Pxr-dr-Fvzec Xfer(QC): 2 PT Plan Problem List Problem List: Activity Tolerance, Functional Strength, Safety, Balance, Gait, Transfer, Bed Mobility, ROM Treatment/Plan Treatment Plan: Continue Plan of Care Treatment Plan: Bed Mobility, Education, Functional Activity Dominic, Functional Strength, Safety, Therapeutic Exercise, Transfers Treatment Duration: May 25, 2021 Frequency: 5 times per week Estimated Hrs Per Day: .25 hour per day Patient and/or Family Agrees t: Yes Safety Risks/Education Patient Education: Correct Positioning, Safety Issues Teaching Recipient: Patient Teaching Methods: Demonstration, Discussion Response to Teaching: Reinforcement Needed Time/GCodes Time In: 810 Time Out: 819 Total Billed Treatment Time: 9 Total Billed Treatment 1 Visit Ex 9 min GALEN LAGUERRE PT May 22, 2021 08:43
[2021-05-22 11:52] VITALS: BP 112/55
[2021-05-22 13:29] VITALS: BP 112/55
== END 2021-05-22 14:20 | disposition home health service (06) | DRG 291 ==
LOC: EDUNIT# 18:55 → ER FS 18:55 → 4TH 05-09 02:44
PROVIDERS: ADMIT Family Medicine; ATTEND Internal Medicine
PROC: 5A09357 Assistance with Respiratory Ventilation, Less than 24 Consecutive Hours, Continuous Positive Airway Pressure (ICD-10-PCS; principal; 2021-05-12)
DX: I11.0 Hypertensive heart disease with heart failure (principal); J96.22 Acute and chronic respiratory failure with hypercapnia; I50.31 Acute diastolic (congestive) heart failure; J18.9 Pneumonia, unspecified organism; J96.21 Acute and chronic respiratory failure with hypoxia; E66.2 Morbid (severe) obesity with alveolar hypoventilation; E87.2 Acidosis; J43.9 Emphysema, unspecified; Z20.822 Contact with and (suspected) exposure to COVID-19; Z68.33 Body mass index [BMI] 33.0-33.9, adult; I48.0 Paroxysmal atrial fibrillation; D64.9 Anemia, unspecified; F41.9 Anxiety disorder, unspecified; E78.00 Pure hypercholesterolemia, unspecified; K21.9 Gastro-esophageal reflux disease without esophagitis; F17.210 Nicotine dependence, cigarettes, uncomplicated; K59.00 Constipation, unspecified; R15.9 Full incontinence of feces; E87.6 Hypokalemia; Z79.52 Long term (current) use of systemic steroids; Z88.6 Allergy status to analgesic agent; Z88.2 Allergy status to sulfonamides; Z88.8 Allergy status to other drugs, medicaments and biological substances
CPT/HCPCS: 36415; 36600; 51702; 71045; 80048; 80053; 80202; 82805; 82947; 83605; 83735; 83880; 84484; 85007; 85025; 85027; 87635; 87636; 87804; 93005; 93306; 94640; 94660; 94760; 94761; 96372; 96374; 96375

== ENCOUNTER 2021-05-25 12:49 | Inpatient (IN) | payer MEDICARE, OTHER ==
[~2021-05-25 12:49] MED LIST changes: +ACET250T3 PO; +DILT240C91 PO; +DRON400T6 PO; +FURO40TA4 PO; +POLY17PO54 PO; +POTA-160 PO; +PRD20T PO
[2021-05-25] MEDS ORDERED: RT-ALBUTEROL/IPRATROPIUM 3 ML (DUONEB) VIAL ONE (12:55)
[2021-05-25] MEDS ORDERED: fentaNYL INJ 100 MCG/2 ML AMP ONE (13:05)
[2021-05-25] MEDS ORDERED: MIDAZOLAM 10 MG/2 ML (VERSED) VIAL ONE (13:05)
[2021-05-25] MEDS ORDERED: PROPOFOL DRIP (ICU) 100 ML IV SCH ×2 (13:15→16:45)
[2021-05-25] MEDS ORDERED: RT-ALBUTEROL/IPRATROPIUM 3 ML (DUONEB) VIAL INH ONE (13:15)
[2021-05-25] MEDS ORDERED: fentaNYL INJ 100 MCG/2 ML AMP IVP PRN (13:15)
[2021-05-25] MEDS ORDERED: CEFEPIME INJECTION 1,000 MG in NS (IVPB) 50 ML IV ONE (13:15)
[2021-05-25 13:24] LABS: WHITE BLOOD COUNT 20.2 10^3/uL (4.3-11.0)
[2021-05-25] MEDS ORDERED: NOREPINEPHRINE 8 MG/250 ML 250 ML IV STA (13:24)
[2021-05-25] MEDS ORDERED: NS IV 1000 ML 1,000 ML IV STA (13:24)
--- NOTE | 2021-05-25 13:24 | ED Respiratory ---
General Chief Complaint: Unresponsive Stated Complaint: UNRESPONSIVE Source: EMS Exam Limitations: clinical condition History of Present Illness Date Seen by Provider: May 25, 2021 Time Seen by Provider: 12:55 Initial Comments 71-year-old female with past medical history of COPD, chronic respiratory failure with chronic hypercapnia on home Trilogy machine, pAfib coming in via EMS from home due to unresponsiveness. He has been called EMS as she was unresponsive this morning. Unsure when she was last normal. EMS reports her glucose was 157. GCS was 3 on their arrival and they intubated her on route without difficulty. Best saturation of oxygen prior to intubation was around 50%, and afterwards they brought her to the 80s. Further elements of the history and physical are unable to be obtained as the patient is obtunded and intubated. EMS gave IV solumedrol prior to arrival here. Discussed the case with the , and he says she slowly went downhill since discharge from the hospital. He would try the BiPAP machine and she would do well for a while and then he would take it off. Discussed hospice with the and he is at least interested in the conversation. Allergies and Home Medications Allergies Coded Allergies: Sulfa (Sulfonamide Antibiotics) (Verified Allergy, Unknown, Hives, 09/01/19) corn (Verified Allergy, Unknown, 04/09/21) ibuprofen (Verified Allergy, Unknown, Hives, 09/01/19) sulfamethoxazole (Verified Allergy, Unknown, Hives, 09/01/19) trimethoprim (Verified Allergy, Unknown, Hives, 09/01/19) Patient Home Medication List Home Medication List Reviewed: Yes Acetazolamide (Acetazolamide) 250 Mg Tablet, 250 MG PO BID Prescribed by: ROMEO OLSON on 05/22/21 0644 Albuterol Sulfate (Proair Hfa) 1 Puff Puff, 2 PUFF IH Q4H PRN for SHORTNESS OF BREATH, (Reported) Entered as Reported by: MADHAV PEDERSEN on 09/02/19 1030 Alprazolam (Alprazolam) 0.5 Mg Tablet, 0.5 MG PO BID PRN for ANXIETY, (Reported) Entered as Reported by: MADHAV PEDERSEN on 09/02/19 1030 Diltiazem HCl (Diltiazem 24Hr ER) 240 Mg Cap.er.24h, 240 MG PO DAILY Prescribed by: ROMEO OLSON on 05/22/21643 Dronedarone HCl (Multaq) 400 Mg Tablet, 400 MG PO BID Prescribed by: ROMEO OLSON on 05/22/21643 Fluticasone/Salmeterol (Advair 250-50 Diskus) 1 Each Blst.w.dev, 1 PUFF INH BID, (Reported) Entered as Reported by: CODEY PITTMAN on 04/02/21 1531 Furosemide (Furosemide) 40 Mg Tablet, 40 MG PO DAILY Prescribed by: ROMEO OLSON on 05/22/21643 Ipratropium/Albuterol Sulfate (Iprat-Albut 0.5-3(2.5) mg/3 ml) 3 Ml Ampul.neb, 3 ML NEB Q8H PRN for SHORTNESS OF BREATH, (Reported) Entered as Reported by: CODEY PITTMAN on 04/02/21 1522 Metoprolol Succinate (Metoprolol Succinate) 50 Mg Tab.er.24h, 50 MG PO DAILY, ( Reported) Entered as Reported by: CODEY PITTMAN on 05/09/21 132 Pantoprazole Sodium (Pantoprazole Sodium) 40 Mg Tablet.dr, 40 MG PO DAILY, (Reported) Entered as Reported by: CODEY PITTMAN on 05/09/21 132 Polyethylene Glycol 3350 (Polyethylene Glycol 3350) 17 Gm Powd.pack, 17 GM PO BID Prescribed by: ROMEO OLSON on 05/22/21643 Potassium Chloride (Klor-Con 10) 10 Meq Tablet.er, 10 MEQ PO DAILY@0700 Prescribed by: ROMEO OLSON on 05/22/21643 Prednisone (Prednisone) 20 Mg Tab, 20 MG PO DAILY@0700 Prescribed by: ROMEO OLSON on 05/22/21643 Rivaroxaban (Xarelto Tablet) 20 Mg Tablet, 20 MG PO 1700, (Reported) Entered as Reported by: CODEY PITTMAN on 05/09/21 1321 Discontinued Medications Diltiazem HCl (Diltiazem 24Hr ER) 120 Mg Cap.er.24h, 120 MG PO DAILY, (Reported) Entered as Reported by: CODEY PITTMAN on 05/09/21 1320 Furosemide (Lasix) 40 Mg Tablet, 40 MG PO DAILY PRN for FLUID RETENTION, (Rep orted) Entered as Reported by: MADHAV PEDERSEN on 09/02/19 1030 Prednisone (Prednisone) 5 Mg Tablet, 10 MG PO DAILY, (Reported) Entered as Reported by: MADHAV PEDERSEN on 09/02/19 1030 Review of Systems Review of Systems Constitutional: no symptoms reported Past Cqbqnya-Ontbmj-Gygocd Hx Patient Social History Substance use?: No Immunizations Up To Date First/Initial COVID19 Vaccinat: Yes Second COVID19 Vaccination [place]: Yes Seasonal Allergies Seasonal Allergies: Yes Past Medical History Surgery/Hospitalization HX: COPD; Anxiety Surgeries: Yes (cataract; kyphoplasty, bronchoscopy, c/s x3) Section, Orthopedic Respiratory: Yes (wears oxygen 3.5L) COPD Currently Using CPAP: No Currently Using BIPAP: No Cardiac: No High Cholesterol, Hypertension Neurological: No Genitourinary: No Gastrointestinal: Yes Gall Bladder Disease Musculoskeletal: Yes (hx of kyphoplasty) Fractures Endocrine: No HEENT: No (cataracts removed) Cataract Loss of Vision: Denies Cancer: No Psychosocial: Yes Sleep Difficulties, Anxiety Integumentary: No Blood Disorders: No Family Medical History No Pertinent Family Hx Physical Exam Vital Signs - First Documented 05/25/21 05/25/21 05/25/21 13:14 13:46 15:13 Temp 37.0 Pulse 123 Resp 41 B/P (MAP) 117/70 (86) Pulse Ox 90 O2 Delivery Mechanical Ventilator O2 Flow Rate 100.00 FiO2 100 Capillary Refill : Height: 4'11.00" Weight: 140lbs. oz. 63.045099bz; 32.88 BMI Method:Stated General Appearance: other (Unresponsive) HEENT: PERRL/EOMI, pharynx normal Neck: full range of motion, supple, normal inspection Respiratory: chest non-tender, rales, other (Mechanical breath sounds) Cardiovascular: tachycardia, irregularly irregular Gastrointestinal: normal bowel sounds, non tender, soft Extremities: normal range of motion, non-tender, normal capillary refill, other (Multiple bruises) Neurologic/Psychiatric: other (Intubated and sedated) Skin: normal color, warm/dry Lymphatic: no adenopathy Focused Exam Lactate Level 05/25/21 13:12: Lactic Acid Level 2.23*H Lactic Acid Level Laboratory Tests Test 05/25/21 13:12 Lactic Acid Level 2.23 MMOL/L (0.50-2.00) *H Procedures/Interventions Lumen: triple Central Line Procedure: betadine prep, sterile drapes applied, sterile dressing applied Position: internal jugular (R) Complications: none Post Position: sutured, good blood return, position confirmed w/ CXR Central line placed with ultrasound guidance under direct visualization during the entire procedure. Patient was intubated and sedated during the procedure so no lidocaine needed. No complications with the procedure. Afterwards it was sutured and a sterile dressing was applied. IV : Location: Right Site: Antecubital IV Catheter Type: Peripheral IV IV Catheter Gauge: 18 Progress Ultrasound guidance used to place an 18-gauge right AC IV catheter without complication. Date of ETT Placement: Apr 02, 2021 Time of ETT Placement: 944 Progress/Results/Core Measures Suspected Sepsis SIRS Temperature: Pulse: Respiratory Rate: Laboratory Tests 05/25/21 13:12: White Blood Count 20.2H Blood Pressure / Mean: 05/25/21 13:12: Lactic Acid Level 2.23*H Laboratory Tests 05/25/21 13:12: Creatinine 2.73#H, INR Comment 1.5H, Platelet Count 202, Total Bilirubin 0.4 Results/Orders Lab Results Laboratory Tests Test 05/25/21 13:12 05/25/21 13:20 05/25/21 13:48 Range/Units White Blood Count 20.2 H 4.3-11.0 10^3/uL Red Blood Count 2.72 L 3.80-5.11 10^6/uL Hemoglobin 8.7 #L 11.5-16.0 g/dL Hematocrit 30 L 35-52 % Mean Corpuscular Volume 111 H 80-99 fL Mean Corpuscular Hemoglobin 32 25-34 pg Mean Corpuscular Hemoglobin Concent 29 L 32-36 g/dL Red Cell Distribution Width 14.2 10.0-14.5 % Platelet Count 202 130-400 10^3/uL Mean Platelet Volume 12.0 9.0-12.2 fL Immature Granulocyte % (Auto) 1 % Neutrophils (%) (Auto) 90 H 42-75 % Lymphocytes (%) (Auto) 5 L 12-44 % Monocytes (%) (Auto) 3 0-12 % Eosinophils (%) (Auto) 0 0-10 % Basophils (%) (Auto) 0 0-10 % Neutrophils # (Auto) 18.3 H 1.8-7.8 X 10^3 Lymphocytes # (Auto) 1.1 1.0-4.0 X 10^3 Monocytes # (Auto) 0.6 0.0-1.0 X 10^3 Eosinophils # (Auto) 0.1 0.0-0.3 10^3/uL Basophils # (Auto) 0.0 0.0-0.1 10^3/uL Immature Granulocyte # (Auto) 0.2 H 0.0-0.1 10^3/uL Prothrombin Time 18.3 H 12.2-14.7 SEC INR Comment 1.5 H 0.8-1.4 Activated Partial Thromboplast Time 30 24-35 SEC Sodium Level 133 L 135-145 MMOL/L Potassium Level 4.9 3.6-5.0 MMOL/L Chloride Level 90 L 98-107 MMOL/L Carbon Dioxide Level 28 21-32 MMOL/L Anion Gap 15 H 5-14 MMOL/L Blood Urea Nitrogen 85 H 7-18 MG/DL Creatinine 2.73 #H 0.60-1.30 MG/DL Estimat Glomerular Filtration Rate 18 BUN/Creatinine Ratio 31 Glucose Level 174 H 70-105 MG/DL Lactic Acid Level 2.23 *H 0.50-2.00 MMOL/L Calcium Level 8.5 8.5-10.1 MG/DL Corrected Calcium 9.3 8.5-10.1 MG/DL Total Bilirubin 0.4 0.1-1.0 MG/DL Aspartate Amino Transf (AST/SGOT) 28 5-34 U/L Alanine Aminotransferase (ALT/SGPT) 34 0-55 U/L Alkaline Phosphatase 89 40-136 U/L Troponin I < 0.30 <0.30 NG/ML Pro-B-Type Natriuretic Peptide 1148.0 H <75.0 PG/ML Total Protein 5.6 L 6.4-8.2 GM/DL Albumin 3.0 L 3.2-4.5 GM/DL Smear Scan DIFF DONE ON 05.22.21 Urine Color YELLOW Urine Clarity CLEAR Urine pH 5.5 5-9 Urine Specific [place] 1.025 H 1.016-1.022 Urine Protein NEGATIVE NEGATIVE Urine Glucose (UA) NEGATIVE NEGATIVE Urine Ketones NEGATIVE NEGATIVE Urine Nitrite NEGATIVE NEGATIVE Urine Bilirubin NEGATIVE NEGATIVE Urine Urobilinogen 0.2 < = 1.0 MG/DL Urine Leukocyte Esterase NEGATIVE NEGATIVE Urine RBC (Auto) NEGATIVE NEGATIVE Urine RBC NONE /HPF Urine WBC 5-10 H /HPF Urine Squamous Epithelial Cells NONE /HPF Urine Crystals NONE /LPF Urine Bacteria MODERATE H /HPF Urine Casts PRESENT /LPF Urine Hyaline Casts 5-10 H /LPF Urine Mucus NEGATIVE /LPF Urine Culture Indicated NO Blood Gas Puncture Site LEFT WRIST Blood Gas Patient Temperature 37 Arterial Blood pH 7.04 *L 7.37-7.43 Arterial Blood Partial Pressure CO2 100 *H 35-45 MMHG Arterial Blood Partial Pressure O2 239 H 79-93 MMHG Arterial Blood HCO3 27 23-27 MMOL/L Arterial Blood Total CO2 30.1 21.0-31.0 MMOL/L Arterial Blood Oxygen Saturation 100 94-100 % Arterial Blood Base Excess -5.7 L -2.5-2.5 MMOL/L Cj Test NEGATIVE Blood Gas Ventilator Setting YES Blood Gas Inspired Oxygen 100 My Orders Orders - JUAQUIN GRANGER MD Albuterol/Ipra Inhalation Soln (Duoneb I (05/25/21 12:55) Fentanyl Inj (Sublimaze Injection) (05/25/21 13:05) Midazolam Injection (Versed Injection) (05/25/21 13:05) Cbc With Automated Diff (05/25/21 13:12) Comprehensive Metabolic Panel (05/25/21 13:12) Blood Culture (05/25/21 13:12) Urinalysis (05/25/21 13:12) Urine Culture (05/25/21 13:12) Protime With Inr (05/25/21 13:12) Partial Thromboplastin Time (05/25/21 13:12) Chest 1 View Ap/Pa Only (05/25/21 13:12) Ed Iv/Invasive Line Start (05/25/21 13:12) Ed Iv/Invasive Line Start (05/25/21 13:12) Ekg Tracing (05/25/21 13:12) Vital Signs Adult Sepsis Patie Q15M (05/25/21 13:12) O2 (05/25/21 13:12) Remove Rings In Anticipation O (05/25/21 13:12) Lactic Acid Analyzer (05/25/21 13:12) Influenza A & B Antigens (05/25/21 13:12) Cefepime Injection (Maxipime Injection) (05/25/21 13:15) Arterial Blood Gas (05/25/21 13:12) Probnp Fs (05/25/21 13:12) Troponin I Fs (05/25/21 13:12) Ct Head Wo (05/25/21 13:12) Albuterol/Ipra Inhalation Soln (Duoneb I (05/25/21 13:15) Catheter(Urinary) Insert & Ass 03,15 (05/25/21 13:12) Propofol Drip (Icu) (Diprivan Drip (Icu) (05/25/21 13:15) Fentanyl Inj (Sublimaze Injection) (05/25/21 13:15) Azithromycin Injection (Zithromax Inject (05/25/21 13:30) Ns Iv 1000 Ml (Sodium Chloride 0.9%) (05/25/21 13:24) Norepinephrine 8 Mg/250 Ml (Norepinephri (05/25/21 13:24) Ns Iv 1000 Ml (Sodium Chloride 0.9%) (05/25/21 13:25) Chest 1 View Ap/Pa Only (05/25/21 14:04) Ed Admission (Communication) (05/25/21 15:05) Medications Given in ED Current Medications Medications Dose Ordered Sig/Mariela Route Start Time Stop Time Status Last Admin Dose Admin Albuterol/ Ipratropium 3 ml ONCE ONCE INH 05/25/21 13:15 05/25/21 13:19 DC 05/25/21 13:15 3 ML Azithromycin 500 mg/Sodium Chloride 250 ml @ 250 mls/hr ONCE ONCE IV 05/25/21 13:30 05/25/21 14:29 DC 05/25/21 15:00 250 MLS/HR Cefepime HCl 1000 mg/Sodium Chloride 50 ml @ 100 mls/hr ONCE ONCE IV 05/25/21 13:15 05/25/21 13:44 DC 05/25/21 15:00 100 MLS/HR Fentanyl Citrate 100 mcg Q15M PRN IVP 05/25/21 13:15 05/25/21 13:09 100 MCG Midazolam HCl 10 mg STK-MED ONCE .ROUTE 05/25/21 13:05 05/25/21 13:09 DC 05/25/21 13:09 10 MG Vital Signs/I&O 05/25/21 05/25/21 05/25/21 05/25/21 13:14 13:25 13:46 15:13 Temp 37.0 37.0 Pulse 123 75 106 Resp 41 18 B/P (MAP) 117/70 (86) 67/32 113/83 Pulse Ox 90 95 94 O2 Delivery Mechanical Ventilator Mechanical Ventilator Mechanical Ventilator O2 Flow Rate 100.00 FiO2 100 05/25/21 15:23 Pulse 71 B/P (MAP) 113/45 Capillary Refill : Progress Note : Progress Note 71-year-old female with above history coming in unresponsive and intubated by EMS. She was reaching for the tube on arrival so received IV Versed and fentanyl while we are assessing her. The best we can get her oxygen was the high 80s to around 90% on 100% while intubated. Immediately gave DuoNeb treatment. I placed an ultrasound-guided IV followed by a central line given she became hypotensive requiring Levophed after 2 L of IV fluids which is enough per her ideal body weight. ABG with a CO2 of 100, PO2 239, pH 7.04. I then turned the rate and tidal volume up on the ventilator to help blow off some CO2. She was given cefepime and azithromycin for unknown infection but potentially pneumonia given her respiratory distress after cultures were drawn. Chest x-ray ordered and interpreted by me after she was intubated and central line placed, and all tubes are in good position. She does have bibasilar infiltrates which she already received antibiotics, however I believe these are more likely pulmonary edema. Initially she was in A. fib with RVR to the 120s, but after changing her vent settings her heart rate was ranging from 90-[address] head without any acute abnormalities. I called and discussed the case with Dr. Olson who will admit her to the intensive care unit for further evaluation and management. I then contacted the E-ICU physician and discussed the patients case, no changes to management at this time. Diagnostic Imaging Diagonstic Imaging: Xray (chest), CT (head) Comments [facility] [place], [place] NAME: BERNADINE MOTLEY [facility] REC#: [id number] PT STATUS: REG ER : 1950 PHYSICIAN: JUAQUIN GRANGER MD ADMIT DATE: 05/25/21/ER FS Draft Date of Exam:05/25/21 CHEST 1 VIEW AP/PA ONLY INDICATION: Line placement. COMPARISON: 05/25/2021 FINDINGS: There is cardiomegaly. There are bibasilar infiltrates and bilateral pleural effusions. There is no pneumothorax. The lines and tubes are in satisfactory positions. IMPRESSION: Bibasilar pulmonary infiltrates, left greater than right, with bilateral pleural effusions. Cardiomegaly. Dictated on workstation # [id number] Dict: 05/25/216 Trans: 05/25/211427 [facility] [id number] Interpreted by: ANALI CEBALLOS MD Electronically signed by: ROXANN [place], [place] NAME: BERNADINE MOTLEY [facility] REC#: [id number] PT STATUS: REG ER : 1950 PHYSICIAN: JUAQUIN GRANGER MD ADMIT DATE: 05/25/21/ER FS Draft Date of Exam:05/25/21 CT HEAD WO PROCEDURE: CT head without contrast. TECHNIQUE: Multiple contiguous axial images were obtained through the brain without the use of intravenous contrast. Auto Exposure Controls were utilized during the CT exam to meet ALARA standards for radiation dose reduction. INDICATION: Unresponsive. COMPARISON: No prior studies are available for comparison. Ventricles and sulci are within normal limits. No sulcal effacement or midline shift is identified. No acute intra-axial or extra-axial hemorrhage is detected. Cisterns are patent. Visualized paranasal sinuses are clear. IMPRESSION: No acute intracranial process is detected. Dictated on workstation # [id number] Dict: 05/25/216 Trans: 05/25/21 1433 PJE [id number] Interpreted by: WILBERT NULL MD Electronically signed by: Critical Care Note Critical Care Start Time: 13:00 Stop Time: 14:11 Total Time (minutes) 71 Progress The patient was at significant risk for hemodynamic and respiratory compromise. I was frequently reassessing the patient and changing her ventilator settings as well as titrating vasoactive agents. I also was contacting multiple physicians in consultation regarding the patient's care. All time spent being billed for critical care was separate of procedures. Departure Impression Primary Impression: Acute on chronic respiratory failure with hypoxia and hypercapnia Additional Impression: KASSI (acute kidney injury) Disposition: 30 STILL A PATIENT Condition: Critical Admissions Decision to Admit Reason: Admit from ER (General) Decision to Admit/Date: May 25, 2021 Time/Decision to Admit Time: 14:15 Transfer Transfer Reason: Patient preference Time Spoke to Accepting Phy: 14:15 Transfer Facility: [facility] Method of Transfer: EMS Departure-Patient Inst. Referrals: SHARON STEPHENSON MD (PCP/Family) Primary Care Physician JUAQUIN GRANGER MD May 25, 2021 13:23
[2021-05-25 13:25] LABS: BASOPHILS % (AUTO) 0 % (0-10); EOSINOPHILS # (AUTO) 0.1 10^3/uL (0.0-0.3); EOSINOPHILS % (AUTO) 0 % (0-10); HEMATOCRIT 30 % (35-52); HEMOGLOBIN 8.7 g/dL (11.5-16.0); LYMPHOCYTES # (AUTO) 1.1 X 10^3 (1.0-4.0); LYMPHOCYTES % (AUTO) 5 % (12-44); MEAN CORPUSCULAR HEMOGLOBIN 32 pg (25-34); MEAN CORPUSCULAR HGB CONC 29 g/dL (32-36); MEAN CORPUSCULAR VOLUME 111 fL (80-99); MONOCYTES # (AUTO) 0.6 X 10^3 (0.0-1.0); MONOCYTES % (AUTO) 3 % (0-12); NEUTROPHILS # (AUTO) 18.3 X 10^3 (1.8-7.8); NEUTROPHILS % (AUTO) 90 % (42-75); PLATELET COUNT 202 10^3/uL (130-400); SMEAR SCAN COMMENT DIFF DONE ON 1.19.22
[2021-05-25] MEDS ORDERED: NS IV 1000 ML 1,000 ML ONE (13:25)
[2021-05-25 13:30] LABS: BACTERIA,URINE MODERATE /HPF; BILIRUBIN,URINE NEGATIVE (NEGATIVE); CLARITY,URINE CLEAR; COLOR,URINE YELLOW; GLUCOSE, URINE (UA) NEGATIVE (NEGATIVE); KETONES,URINE NEGATIVE (NEGATIVE); LEUKOCYTE ESTERASE ,URINE NEGATIVE (NEGATIVE); NITRITE,URINE NEGATIVE (NEGATIVE); PH,URINE 5.5 (5-9); PROTEIN,URINE NEGATIVE (NEGATIVE)
[2021-05-25] MEDS ORDERED: AZITHROMYCIN INJECTION 500 MG in NS (IVPB) 250 ML IV ONE (13:30)
[2021-05-25 13:35] LABS: INR 1.5 (0.8-1.4); PROTHROMBIN TIME PATIENT 18.3 SEC (12.2-14.7)
[2021-05-25 13:41] LABS: ALANINE AMINOTRANSFERASE 34 U/L (0-55); ALKALINE PHOSPHATASE 89 U/L (40-136); BILIRUBIN,TOTAL 0.4 MG/DL (0.1-1.0); BUN/CREATININE RATIO 31; CALCIUM 8.5 MG/DL (8.5-10.1); CARBON DIOXIDE 28 MMOL/L (21-32); CHLORIDE 90 MMOL/L (98-107); CREATININE SERUM 2.73 MG/DL (0.60-1.30); GFR ESTIMATED 18; GLUCOSE 174 MG/DL (70-105); POTASSIUM 4.9 MMOL/L (3.6-5.0); SODIUM 133 MMOL/L (135-145); TOTAL PROTEIN 5.6 GM/DL (6.4-8.2)
--- NOTE | 2021-05-25 13:42 | Diagnostic Imaging Report ---
INDICATION: Respiratory failure. COMPARISON: 05/09/2021 FINDINGS: There is cardiomegaly. There is bibasilar atelectasis and/or pneumonitis. Small bilateral pleural effusions. There is no pneumothorax. The mediastinum is unremarkable. Endotracheal tube is in satisfactory position. IMPRESSION: 1. Bibasilar atelectasis and/or pneumonitis and a left pleural effusion. 2. Cardiomegaly. Dictated by: Dictated on workstation # [id number]
[2021-05-25 13:53] LABS: ABG PCO2 100 MMHG (35-45); ABG PO2 239 MMHG (79-93)
[2021-05-25 13:54] LABS: ABG BASE EXCESS -5.7 MMOL/L (-2.5-2.5); ABG OXYGEN SATURATION 100 % (94-100); ABG TCO2 30.1 MMOL/L (21.0-31.0); ALLENS TEST NEGATIVE; INSPIRED O2 100; PATIENT TEMP 37; VENTILATOR YES
[2021-05-25 13:56] LABS: ABG PH 7.04 (7.37-7.43)
--- NOTE | 2021-05-25 14:28 | Diagnostic Imaging Report ---
INDICATION: Line placement. COMPARISON: 05/25/2021 FINDINGS: There is cardiomegaly. There are bibasilar infiltrates and bilateral pleural effusions. There is no pneumothorax. The lines and tubes are in satisfactory positions. IMPRESSION: Bibasilar pulmonary infiltrates, left greater than right, with bilateral pleural effusions. Cardiomegaly. Dictated by: Dictated on workstation # [id number]
--- NOTE | 2021-05-25 14:35 | Diagnostic Imaging Report ---
PROCEDURE: CT head without contrast. TECHNIQUE: Multiple contiguous axial images were obtained through the brain without the use of intravenous contrast. Auto Exposure Controls were utilized during the CT exam to meet ALARA standards for radiation dose reduction. INDICATION: Unresponsive. COMPARISON: No prior studies are available for comparison. Ventricles and sulci are within normal limits. No sulcal effacement or midline shift is identified. No acute intra-axial or extra-axial hemorrhage is detected. Cisterns are patent. Visualized paranasal sinuses are clear. IMPRESSION: No acute intracranial process is detected. Dictated by: Dictated on workstation # [id number]
[2021-05-25 15:58] VITALS: BP 137/75
[2021-05-25] MEDS: NOREPINEPHRINE 8 MG/250 ML 250 ML IV SCH ×2 (16:05→19:49)
--- NOTE | 2021-05-25 16:26 | Tele-ICU Consult ---
History of Present Illness History of Present Illness Date Seen by Provider: May 25, 2021 Time Seen by Provider: 15:47 Date of Admission This virtual visit was conducted using real time audio/video. Thank you for asking us to see this patient for respiratory insufficiency due to AECOPD Recent events: Found unresponsive at home, intubated by EMS PMH: COPD/home O2 3.5 L, OHS on Trelegy, HTN, HL. SH: smoking history Y FH: Non-contributory ROS: limited by patient's clinical condition. PE: Sedated on vent, obese. VSS. NSR. O2 sat 100% on 100%/+5 HEENT: No obvious masses, adenopathy or JVD. Chest: clear to auscultation. CV: RRR S1 S2 No murmur or added sounds. Abd: Non-tender. Bowel sounds Y. : Unremarkable. Huff Y. PRACTICE SPECIALIST/psychiatric: No obvious focal findings. Extremities: No edema. Capillary refill < 3 seconds. Skin: unremarkable. Results: Elevated WCC 20.2, BUN 74, Creat 2,73 BNP 1148. Decreased Na 133, Alb 3.3, Hb 8.7 . B.04/100/239. CXR: Hyperinflaed, bibasilar infilts.. Available chart/ vitals / labs / images reviewed. Video assessment done using teleICU camera, rest of exam as per RN. A/P: Respiratory insufficiency: Continue present management with vent, BDs. Monitor for increasing oxygenation need. Recheck ABG Critical Care: critically ill patient. Cont. Cefipime, AZT. Suggesst add DVT, GI proph. Discussed with NAHID Haines. Asked RN to reach out to eICU if any questions or concerns later. Time spent with patient/coordination of care with other health professionals (mins):35 Allergies and Home Medications Allergies Coded Allergies: Sulfa (Sulfonamide Antibiotics) (Verified Allergy, Unknown, Hives, 09/01/19) corn (Verified Allergy, Unknown, 04/09/21) ibuprofen (Verified Allergy, Unknown, Hives, 09/01/19) sulfamethoxazole (Verified Allergy, Unknown, Hives, 09/01/19) trimethoprim (Verified Allergy, Unknown, Hives, 09/01/19) Home Medications Acetazolamide 250 Mg Tablet, 250 MG PO BID Prescribed by: ROMEO OLSON on 05/22/21643 Albuterol Sulfate 1 Puff Puff, 2 PUFF IH Q4H PRN for SHORTNESS OF BREATH, (R eported) Alprazolam 0.5 Mg Tablet, 0.5 MG PO BID PRN for ANXIETY, (Reported) Diltiazem HCl 240 Mg Cap.er.24h, 240 MG PO DAILY Prescribed by: ROMEO OLSON on 05/22/21643 Dronedarone HCl 400 Mg Tablet, 400 MG PO BID Prescribed by: ROMEO OLSON on 05/22/21643 Fluticasone/Salmeterol 1 Each Blst.w.dev, 1 PUFF INH BID, (Reported) Furosemide 40 Mg Tablet, 40 MG PO DAILY Prescribed by: ROMEO OLSON on 05/22/21643 Ipratropium/Albuterol Sulfate 3 Ml Ampul.neb, 3 ML NEB Q8H PRN for SHORTNESS OF BREATH, (Reported) Metoprolol Succinate 50 Mg Tab.er.24h, 50 MG PO DAILY, (Reported) Pantoprazole Sodium 40 Mg Tablet.dr, 40 MG PO DAILY, (Reported) Polyethylene Glycol 3350 17 Gm Powd.pack, 17 GM PO BID Prescribed by: ROMEO OLSON on 05/22/21643 Potassium Chloride 10 Meq Tablet.er, 10 MEQ PO DAILY@0700 Prescribed by: ROMEO OLSON on 05/22/21643 Prednisone 20 Mg Tab, 20 MG PO DAILY@0700 Prescribed by: ROMEO OLSON on 05/22/21643 Rivaroxaban 20 Mg Tablet, 20 MG PO 1700, (Reported) Past Medical/Social/Family Hx Patient Social History Substance use?: No Alcohol Use?: No Pt stated abuse/neglect: No Immunizations Up To Date First/Initial COVID19 Vaccinat: Yes Second COVID19 Vaccination Sedrick: Yes Tetanus Booster (TDap): Unknown Hepatitis A: Yes Hepatitis B: Yes TB Skin Test: None Current Status Advance Directives: No Primary Language: Congolese Preferred Spoken Language: Congolese Review of Systems Constitutional: see HPI EENTM: see HPI Respiratory: see HPI Cardiovascular: see HPI Gastrointestinal: see HPI Genitourinary: see HPI Musculoskeletal: see HPI Skin: see HPI Psychiatric/Neurological: See HPI (Se free text.) All Other Systems Reviewed Negative Unless Noted: Yes Focused Exam Lactate Level 05/25/21 13:12: Lactic Acid Level 2.23*H Height, Weight, BMI Height: 4'11.00" Weight: 140lbs. oz. 63.949298ix; 32.88 BMI Method:Stated Lactic Acid Level Laboratory Tests Test 05/25/21 13:12 Lactic Acid Level 2.23 MMOL/L (0.50-2.00) *H Exam Exam Patient acknowledged, consented, and participated in this virtual visit which was conducted using real time audio/video Vital Signs Date Time Temp Pulse Resp B/P (MAP) Pulse Ox O2 Delivery O2 Flow Rate FiO2 05/25/21 15:23 71 113/45 05/25/21 15:13 37.0 106 18 113/83 94 Mechanical Ventilator 100.00 05/25/21 13:46 95 Mechanical Ventilator 100 05/25/21 13:25 75 67/32 05/25/21 13:14 37.0 123 41 117/70 (86) 90 Mechanical Ventilator Height & Weight Height: 4'11.00" Weight: 140lbs. oz. 63.917946lb; 32.88 BMI Method:Stated General Appearance: Chronically ill, Obese Capillary Refill: Less Than 3 Seconds Peripheral Pulses: 2+ Dorsalis Pedis (R), 2+ Left Dors-Pedis (L) (See free text) Gastrointestinal: normal bowel sounds, non tender, soft Results Lab Laboratory Tests 05/25/21 13:12 Assessment/Plan Assessment/Plan See free text. Critical Care: Ventilator Management ARUNA MARIE MD May 25, 2021 16:26
[2021-05-25] MEDS ORDERED: ONDANSETRON 4 MG/2 ML (SDV) Z0FRAN IV PRN (16:45)
[2021-05-25] MEDS ORDERED: fentaNYL DRIP PRE-MIX 250 ML IV SCH (16:45)
[2021-05-25] MEDS ORDERED: diphenhydrAMINE 50 MG/ML INJ (BENADRYL) IVP PRN (16:45)
[2021-05-25] MEDS: methylPREDNISolone 125 MG (Solu-MEDROL) VIAL IVP SCH (17:13)
[2021-05-25 17:36] LABS: ABG BASE EXCESS -4.5 MMOL/L (-2.5-2.5); ABG OXYGEN SATURATION 97 % (94-100); ABG PCO2 51 MMHG (35-45); ABG PO2 85 MMHG (79-93); ABG TCO2 23.7 MMOL/L (21.0-31.0)
[2021-05-25 17:38] LABS: ABG PH 7.25 (7.37-7.43)
[2021-05-25 17:39] LABS: ALLENS TEST YES-POS; INSPIRED O2 16; PATIENT TEMP 35.5; VENTILATOR YES
[2021-05-25 18:51] VITALS: BP 137/75
[2021-05-25 19:02] VITALS: BP 137/75
[2021-05-25] MEDS ORDERED: NS (IVPB) 100 ML ONE (20:52)
[2021-05-25] MEDS ORDERED: VASOPRESSIN INJECTION 20 UNIT/ML VIAL ONE (20:52)
[2021-05-25] MEDS ORDERED: APIXABAN 5 MG (ELIQUIS) TABLET NG SCH (21:00)
[2021-05-25] MEDS ORDERED: inSUlin ASPART (NovoLOG) 1 UNIT/0.01 ML (CHARGE PER UNIT) SC SCH (21:00)
[2021-05-25] MEDS: VASOPRESSIN INJECTION 20 UNIT in NS (IVPB) 100 ML IV SCH (21:06)
[2021-05-25] MEDS: RT-ALBUTEROL HFA 8.5 GM INHALER IH SCH (22:41)
[2021-05-25 22:42] VITALS: BP 137/75
[2021-05-26] MEDS: NOREPINEPHRINE 8 MG/250 ML 250 ML IV SCH ×2 (00:45→06:52)
[2021-05-26] MEDS: methylPREDNISolone 125 MG (Solu-MEDROL) VIAL IVP SCH ×2 (00:56→06:01)
[2021-05-26] MEDS: inSUlin ASPART (NovoLOG) 1 UNIT/0.01 ML (CHARGE PER UNIT) SC SCH ×2 (00:56→06:01)
[2021-05-26 02:11] VITALS: BP 101/29
[2021-05-26] MEDS: RT-ALBUTEROL HFA 8.5 GM INHALER IH SCH ×2 (02:15→07:15)
[2021-05-26] MEDS: PHENYLEPHRINE INJECTION 10 MG in NS (IVPB) 250 ML IV SCH ×4 (03:59→06:52)
[2021-05-26 04:13] LABS: BASOPHILS # (AUTO) 0.1 10^3/uL (0.0-0.1); BASOPHILS % (AUTO) 0 % (0-10); EOSINOPHILS % (AUTO) 0 % (0-10); HEMATOCRIT 28 % (35-52); HEMOGLOBIN 8.4 g/dL (11.5-16.0); LYMPHOCYTES # (AUTO) 0.1 10^3/uL (1.0-4.0); LYMPHOCYTES % (AUTO) 0 % (12-44); MEAN CORPUSCULAR HEMOGLOBIN 32 pg (25-34); MEAN CORPUSCULAR HGB CONC 30 g/dL (32-36); MEAN CORPUSCULAR VOLUME 107 fL (80-99); MONOCYTES # (AUTO) 0.2 10^3/uL (0.0-1.0); MONOCYTES % (AUTO) 1 % (0-12); NEUTROPHILS # (AUTO) 30.9 10^3/uL (1.8-7.8); NEUTROPHILS % (AUTO) 97 % (42-75); PLATELET COUNT 229 10^3/uL (130-400)
[2021-05-26 04:14] LABS: WHITE BLOOD COUNT 31.7 10^3/uL (4.3-11.0)
[2021-05-26 04:26] LABS: POTASSIUM 5.5 MMOL/L (3.6-5.0)
[2021-05-26 04:27] LABS: CALCIUM 7.6 MG/DL (8.5-10.1)
[2021-05-26 04:29] LABS: TOTAL PROTEIN 5.5 GM/DL (6.4-8.2)
[2021-05-26 04:30] LABS: BILIRUBIN,TOTAL 0.7 MG/DL (0.1-1.0)
[2021-05-26 04:32] LABS: CREATININE SERUM 3.02 MG/DL (0.60-1.30); PHOSPHORUS 6.9 MG/DL (2.3-4.7)
[2021-05-26 04:35] LABS: MAGNESIUM 2.3 MG/DL (1.6-2.4)
[2021-05-26 04:38] LABS: BAND NEUTROPHILS 6 %; LYMPHOCYTES % (MANUAL) 1 %; MONOCYTES % (MANUAL) 1 %; NEUTROPHILS % (MANUAL) 92 %; POLYCHROMASIA SLIGHT
[2021-05-26 05:03] LABS: ABG BASE EXCESS -16.7 MMOL/L (-2.5-2.5); ABG OXYGEN SATURATION 98 % (94-100); ABG PCO2 36 MMHG (35-45); ABG PO2 99 MMHG (79-93); ABG TCO2 12.4 MMOL/L (21.0-31.0)
[2021-05-26 05:04] LABS: ABG PH 7.11 (7.37-7.43)
[2021-05-26 05:06] LABS: ALLENS TEST YES-POS; INSPIRED O2 35%; VENTILATOR YES
--- NOTE | 2021-05-26 05:23 | Tele-ICU Progress Note ---
Subjective Date Seen by a Provider: May 26, 2021 Time Seen by a Provider: 05:22 Sepsis Event Evaluation Height, Weight, BMI Height: 4'11.00" Weight: 140lbs. oz. 63.260937gm; 32.88 BMI Method:Stated Focused Exam Lactate Level 05/25/21 13:12: Lactic Acid Level 2.23*H 05/25/21 16:01: Exam Exam Patient acknowledged, consented, and participated in this virtual visit which was conducted using real time audio/video Vital Signs Date Time Temp Pulse Resp B/P (MAP) Pulse Ox O2 Delivery O2 Flow Rate FiO2 05/26/21 04:51 108 117/78 05/26/21 03:59 141 89/66 05/26/21 02:17 Mechanical Ventilator 35.00 05/26/21 02:11 105 20 100 50 05/26/21 01:00 104 05/26/21 00:45 104 91/59 05/26/21 00:00 100 Mechanical Ventilator 50 05/26/21 00:00 38.1 104 114/69 100 Mechanical Ventilator 50.00 05/25/21 23:00 38.4 102 19 101/67 100 Mechanical Ventilator 100.00 05/25/21 22:42 83 20 100 50 05/25/21 22:00 38.2 102 20 110/92 100 Mechanical Ventilator 100.00 05/25/21 21:06 104 88/55 05/25/21 21:00 37.8 100 20 105/61 100 Mechanical Ventilator 100.00 05/25/21 20:00 100 Mechanical Ventilator 50 05/25/21 20:00 37.1 90 20 101/47 100 Mechanical Ventilator 100.00 05/25/21 19:53 37.0 05/25/21 19:49 89 101/47 05/25/21 19:02 35.9 83 100 100 05/25/21 19:00 82 05/25/21 19:00 36.5 82 19 99/75 100 Mechanical Ventilator 100.00 05/25/21 18:51 83 20 100 55 05/25/21 18:00 35.9 79 15 81/52 100 Mechanical Ventilator 100.00 05/25/21 17:00 35.4 75 15 96/58 100 Mechanical Ventilator 100.00 05/25/21 16:42 35.3 05/25/21 16:09 69 05/25/21 16:05 70 49/35 05/25/21 16:00 69 23 136/86 93 Mechanical Ventilator 100.00 05/25/21 15:58 71 16 100 100 05/25/21 15:50 90 Mechanical Ventilator 100 05/25/21 15:23 71 113/45 05/25/21 15:13 37.0 106 18 113/83 94 Mechanical Ventilator 100.00 05/25/21 13:46 95 Mechanical Ventilator 100 05/25/21 13:25 75 67/32 05/25/21 13:14 37.0 123 41 117/70 (86) 90 Mechanical Ventilator I & O 05/26/21 06:59 Intake Total 1251 ml Output Total 150 ml Balance 1101 ml Height & Weight Height: 4'11.00" Weight: 140lbs. oz. 63.886469oy; 32.88 BMI Method:Stated General Appearance: Chronically ill, Obese Capillary Refill: Less Than 3 Seconds Peripheral Pulses: 2+ Dorsalis Pedis (R), 2+ Left Dors-Pedis (L) (See free text) Gastrointestinal: normal bowel sounds, non tender, soft Results Lab Laboratory Tests 05/25/21 13:12 05/26/21 04:05 Assessment/Plan Assessment/Plan Worsening metabolic acidosis: ddx renal failure worsening sepsis: lactic alexys/ cultures/ empiric abx repeat abg since TV was increased to 450cc MICHAEL MAHMOOD MD May 26, 2021 05:23
[2021-05-26] MEDS ORDERED: VANCOMYCIN 1000 MG/VIAL ONE (05:55)
[2021-05-26] MEDS ORDERED: NS (IVPB) 250 ML ONE (05:55)
[2021-05-26] MEDS ORDERED: KCL 20 MEQ TAB (K-DUR) PO SCH (06:00)
[2021-05-26] MEDS ORDERED: MAGNESIUM 1 GM/100 ML IVPB 100 ML IV SCH (06:00)
[2021-05-26] MEDS ORDERED: POTASSIUM CL 10MEQ/50ML IVPB 50 ML IV SCH (06:00)
[2021-05-26] MEDS ORDERED: VANCOMYCIN INJECTION 1,000 MG in NS (IVPB) 250 ML IV ONE (06:00)
--- NOTE | 2021-05-26 07:05 | History & Physical-Hospitalist ---
History of Present Illness Date Seen 05/26/21 Attending Physician Silvia Perdomo DO PCP Self,Eloy QUICK Referring Physician Date of Admission May 25, 2021 at 15:47 Home Medications & Allergies Home Medications Reviewed patient Home Medication Reconciliation performed by pharmacy medication reconciliations brewery technician and/or nursing. Patients Allergies have been reviewed. Allergies Allergies Coded Allergies Sulfa (Sulfonamide Antibiotics) (Verified Allergy, Unknown, Hives, 09/01/19) corn (Verified Allergy, Unknown, 04/09/21) ibuprofen (Verified Allergy, Unknown, Hives, 09/01/19) sulfamethoxazole (Verified Allergy, Unknown, Hives, 09/01/19) trimethoprim (Verified Allergy, Unknown, Hives, 09/01/19) Past Zfzrxmh-Slymaz-Ikzgrk Hx Patient Social History Substance use?: No Alcohol Use?: No Pt feels they are or have been: No Immunizations Up To Date Date of Influenza Vaccine: Jan 02, 2021 First/Initial COVID19 Vaccinat: Yes Second COVID19 Vaccination Sedrick: Yes Tetanus Booster (TDap): Unknown Hepatitis A: Yes Hepatitis B: Yes Seasonal Allergies Seasonal Allergies: Yes Current Status Advance Directives: No Primary Language: Djiboutian Preferred Spoken Language: Djiboutian Past Medical History Surgeries: Section, Orthopedic COPD Currently Using CPAP: No Currently Using BIPAP: No High Cholesterol, Hypertension Gall Bladder Disease Fractures Cataract Loss of Vision: Denies Sleep Difficulties, Anxiety Blood Disorders: No Family Medical History No Pertinent Family Hx Physical Exam Physical Exam Vital Signs Vital Signs - First Documented 05/25/21 05/25/21 05/25/21 13:14 13:46 15:13 Temp 37.0 Pulse 123 Resp 41 B/P (MAP) 117/70 (86) Pulse Ox 90 O2 Delivery Mechanical Ventilator O2 Flow Rate 100.00 FiO2 100 Capillary Refill : Less Than 3 Seconds Height, Weight, BMI Height: 4'11.00" Weight: 140lbs. oz. 63.014066hi; 32.88 BMI Method:Stated Results Results/Procedures Labs Laboratory Tests 05/25/21 13:12 05/26/21 04:05 Patient resulted labs reviewed. SILVIA PERDOMO DO May 26, 2021 07:05
[2021-05-26 07:15] VITALS: BP 87/72
[2021-05-26] MEDS: VASOPRESSIN INJECTION 20 UNIT in NS (IVPB) 100 ML IV SCH (07:29)
[2021-05-26] MEDS ORDERED: PHENYLEPHRINE INJECTION 40 MG in NS (IVPB) 250 ML IV SCH (07:30)
[2021-05-26 07:42] VITALS: BP 125/93
[2021-05-26 07:48] LABS: BILIRUBIN,URINE NEGATIVE (NEGATIVE); CLARITY,URINE CLEAR; COLOR,URINE YELLOW; GLUCOSE, URINE (UA) NEGATIVE (NEGATIVE); KETONES,URINE NEGATIVE (NEGATIVE); LEUKOCYTE ESTERASE ,URINE NEGATIVE (NEGATIVE); NITRITE,URINE NEGATIVE (NEGATIVE); PH,URINE 5.5 (5-9); PROTEIN,URINE TRACE (NEGATIVE)
[2021-05-26 08:09] LABS: AMORPHOUS SEDIMENT,UR RARE AMOR URATES /LPF; BACTERIA,URINE FEW /HPF; CALCIUM OXALATE CRYSTALS,UR RARE /LPF; RBC,URINE RARE /HPF; SQUAMOUS EPITHELIAL CELL,UR 0-2 /HPF
[2021-05-26 08:10] LABS: HYALINE CASTS, URINE 0-2 /LPF
[2021-05-26 08:11] LABS: GRANULAR CASTS,URINE RARE /LPF
[2021-05-26] MEDS ORDERED: ACETAMINOPHEN 650 MG SUPP (TYLENOL) PR PRN ×10 (08:15→08:30)
[2021-05-26] MEDS ORDERED: ARTIFICAL TEARS 0.4 ML UNIT DOSE (REFRESH PLUS) OU PRN ×10 (08:15→08:30)
[2021-05-26] MEDS ORDERED: morphine INJ 4 MG/ML 1 ML (VIAL/SYRINGE) IV PRN ×10 (08:15→08:30)
[2021-05-26] MEDS ORDERED: GLYCOPYRROLATE 0.2 MG/ML (ROBINUL) 2 ML VIAL IV PRN ×10 (08:15→08:30)
[2021-05-26] MEDS ORDERED: LORazepam INJ 2 MG/ML (ATIVAN) VIAL IVP PRN ×9 (08:15)
[2021-05-26] MEDS ORDERED: ONDANSETRON 4 MG/2 ML (SDV) Z0FRAN IVP PRN ×10 (08:15→08:30)
[2021-05-26] MEDS ORDERED: SALIVA STIMULANT MOUTH SPRAY (BIOTENE) 1.5 OZ MM PRN ×10 (08:15→08:30)
[2021-05-26 08:16] LABS: WBC,URINE 0-2 /HPF
--- NOTE | 2021-05-26 08:26 | Short Stay Summary-Hospitalist ---
History of Present Illness HPI/Chief Complaint Chief complaint: Acute on chronic respiratory failure intubated now terminally extubated on comfort care History of present illness: This is a 79-year-old white female I just discharged home on home health when she declined to go to [facility] and continued to refuse wearing her trilogy BiPAP at home who has a past medical history of severe sleep apnea and obesity hypoventilation syndrome and COPD who continued to decline at home and she was intubated in the [facility]. Family at the bedside wanted to withdraw care and provide comfort care due to worsening multisystem organ failure. Source: family, RN/MD, old records Exam Limitations: clinical condition Date Seen 05/26/21 Time Seen by a Provider: 11:30 Attending Physician Silvia Perdomo DO PCP Self,Eloy QUICK Referring Physician Date of Admission May 25, 2021 at 15:47 Home Medications & Allergies Home Medications Reviewed patient Home Medication Reconciliation performed by pharmacy medication reconciliations pest control technician and/or nursing. Patients Allergies have been reviewed. Allergies Allergies Coded Allergies Sulfa (Sulfonamide Antibiotics) (Verified Allergy, Unknown, Hives, 09/01/19) corn (Verified Allergy, Unknown, 04/09/21) ibuprofen (Verified Allergy, Unknown, Hives, 09/01/19) sulfamethoxazole (Verified Allergy, Unknown, Hives, 09/01/19) trimethoprim (Verified Allergy, Unknown, Hives, 09/01/19) Past Hebhfan-Rgxbxo-Hevmms Hx Patient Social History Marrital Status: Employed/Student: retired Smoking Status: Current Everyday Smoker Substance use?: No Alcohol Use?: No Pt feels they are or have been: No Immunizations Up To Date Date of Influenza Vaccine: Jan 02, 2021 First/Initial COVID19 Vaccinat: Yes Second COVID19 Vaccination Sedrick: Yes Tetanus Booster (TDap): Unknown Hepatitis A: Yes Hepatitis B: Yes Seasonal Allergies Seasonal Allergies: Yes Current Status Advance Directives: No Primary Language: Chilean Preferred Spoken Language: Chilean Past Medical History Surgeries: Section, Orthopedic COPD Currently Using CPAP: No Currently Using BIPAP: No High Cholesterol, Hypertension Gall Bladder Disease Fractures Cataract Loss of Vision: Denies Sleep Difficulties, Anxiety Blood Disorders: No Family Medical History No Pertinent Family Hx Review of Systems ROS-Unable to Obtain: Intubated Constitutional: see HPI Physical Exam Physical Exam Vital Signs Vital Signs - First Documented 05/25/21 05/25/21 05/25/21 13:14 13:46 15:13 Temp 37.0 Pulse 123 Resp 41 B/P (MAP) 117/70 (86) Pulse Ox 90 O2 Delivery Mechanical Ventilator O2 Flow Rate 100.00 FiO2 100 Capillary Refill : Less Than 3 Seconds Height, Weight, BMI Height: 4'11.00" Weight: 140lbs. oz. 63.102252jf; 32.88 BMI Method:Stated General Appearance: Chronically ill, Obese Respiratory: Decreased Breath Sounds Cardiovascular: Regular Rate, Rhythm Results Results/Procedures Labs Laboratory Tests 05/25/21 13:12 05/26/21 04:05 Patient resulted labs reviewed. Short Stay Diagnosis Discharge Diagnosis-Short Stay Admission Diagnosis Acute on chronic respiratory failure Comfort care Final Discharge Diagnosis Acute on chronic respiratory failure Comfort care Conclusion Plan SILVIA PERDOMO DO May 26, 2021 08:26
[2021-05-26] MEDS ORDERED: PROMETHAZINE INJ 25 MG/ML (PHENERGAN) AMP IVP PRN (08:30)
[2021-05-26] MEDS ORDERED: CEFEPIME INJECTION 1,000 MG in NS (IVPB) 50 ML IV SCH (09:00)
[2021-05-26] MEDS ORDERED: PANTOPRAZOLE 40 MG (PROTONIX) VIAL IV SCH (09:00)
[2021-05-26] MEDS: LORazepam INJ 2 MG/ML (ATIVAN) VIAL IVP PRN ×2 (11:03→13:34)
[2021-05-26] MEDS: morphine INJ 4 MG/ML 1 ML (VIAL/SYRINGE) IV PRN ×2 (12:12→14:17)
== END 2021-05-26 14:39 | disposition expired | DRG 871 ==
LOC: ER FS 12:50 → ICU 15:47
PROVIDERS: ADMIT Internal Medicine; ATTEND Internal Medicine
PROC: 5A1935Z Respiratory Ventilation, Less than 24 Consecutive Hours (ICD-10-PCS; principal; 2021-05-25)
DX: A41.9 Sepsis, unspecified organism (principal); J96.21 Acute and chronic respiratory failure with hypoxia; J96.22 Acute and chronic respiratory failure with hypercapnia; J44.1 Chronic obstructive pulmonary disease with (acute) exacerbation; N17.9 Acute kidney failure, unspecified; E66.2 Morbid (severe) obesity with alveolar hypoventilation; E87.2 Acidosis; Z66 Do not resuscitate; Z51.5 Encounter for palliative care; Z20.822 Contact with and (suspected) exposure to COVID-19; I48.0 Paroxysmal atrial fibrillation; F41.9 Anxiety disorder, unspecified; E78.00 Pure hypercholesterolemia, unspecified; E78.5 Hyperlipidemia, unspecified; I10 Essential (primary) hypertension; Z68.32 Body mass index [BMI] 32.0-32.9, adult; Z99.81 Dependence on supplemental oxygen; Z79.52 Long term (current) use of systemic steroids; Z88.6 Allergy status to analgesic agent; Z88.2 Allergy status to sulfonamides; Z88.8 Allergy status to other drugs, medicaments and biological substances; Z91.018 Allergy to other foods
CPT/HCPCS: 36415; 51702; 70450; 71045; 80053; 81000; 82805; 82947; 83605; 83735; 83880; 84100; 84484; 85007; 85025; 85027; 85610; 85730; 87040; 87070; 87077; 87081; 87088; 87205; 87636; 93005; 94002; 94003; 94640; 94799; 99291